=== PATIENT | male | born 1960 ===

== ENCOUNTER 2017-02-20 16:29 | Emergency (ER) | payer MEDICAID ==
[2017-02-20 16:30] VITALS: BMI 22.9
[2017-02-20] MEDS ORDERED: Sodium Chloride 0.9% 1,000 ML IV ONE (16:47)
[2017-02-20 17:18] LABS: BASO % 0.5 % (0.0-2.0); EOS # 0.1 K/uL (0.0-0.7); EOS % 4.6 % (0.0-4.0); LYMPH # 0.9 K/uL (1.0-4.3); LYMPH % 34.6 % (20.0-40.0); MEAN CELL VOLUME 93.4 fL (80.0-94.0); MEAN CORPUSCULAR HEMOGLOBIN 30.9 pg (27.0-31.0); MEAN CORPUSCULAR HGB CONC 33.1 g/dL (33.0-37.0); MEAN PLATELET VOLUME 6.7 fL (7.2-11.7); MONO # 0.3 K/uL (0.0-0.8); MONO % 11.5 % (0.0-10.0); NRBC % 0.2 % (0.0-2.0); RED CELL DISTRIBUTION WIDTH 15.6 % (11.5-14.5); WHITE BLOOD COUNT 2.6 K/uL (4.8-10.8)
[2017-02-20 17:22] LABS: VENOUS BLOOD GAS PCO2 42 mmHg (40-60)
[2017-02-20 17:23] LABS: CHLORIDE 99 mmol/L (98-107); SODIUM 134 mmol/L (132-148)
[2017-02-20 17:25] LABS: ALB/GLOB RATIO 1.2 (1.0-2.1); ALKALINE PHOSPHATASE 91 U/L (38-126); AST/SGOT 51 U/L (17-59); BILIRUBIN,TOTAL 0.9 mg/dL (0.2-1.3); CARBON DIOXIDE 24 mmol/L (22-30); GFR AFRICAN-AMERICAN > 60; TOTAL PROTEIN 6.5 g/dL (6.3-8.3)
[2017-02-20 17:26] LABS: ALT/SGPT 41 U/L (21-72); BLOOD UREA NITROGEN 10 mg/dL (9-20); CALCIUM 8.3 mg/dl (8.6-10.4); GLUCOSE,RANDOM 91 mg/dL (75-110)
[2017-02-20 18:04] LABS: RBC URINE < 1 /hpf (0-3); URINE BILIRUBIN NEGATIVE (NEGATIVE); URINE BLOOD NEGATIVE (NEGATIVE); URINE COLOR Yellow (YELLOW); URINE GLUCOSE (UA) NORMAL (Normal); URINE KETONE NEGATIVE (NEGATIVE); URINE LEUKOCYTE ESTERASE NEG Leu/uL (Negative); URINE PROTEIN NEGATIVE (NEGATIVE); WBC URINE < 1 /hpf (0-5)
[2017-02-20] MEDS ORDERED: Sodium Chloride 0.9% 1,000 ML ONE (18:04)
--- NOTE | 2017-02-20 19:19 | C.PDOC ---
Time Seen by Provider: 02/20/17 16:41 Chief Complaint (Nursing): Dizziness/Lightheaded History Per: Patient, Family, Civil Engineering Project Manager History/Exam Limitations: language barrier Onset/Duration Of Symptoms: Other (After chemotherapy infusion today) Current Symptoms Are (Timing): Better Number Of Syncopal Episodes: 1 Possible Causative Factor(s): Other (Chemotherapy infusion) Fall Associated With With Symptoms: No Severity: Moderate Additional History Per: Prior Records - Symptoms Of CVA Recent Head Trauma: No Past Medical History Reviewed: Historical Data, Nursing Documentation, Vital Signs Vital Signs: Last Vital Signs Temp 98.0 F 02/20/17 16:35 Pulse 77 02/20/17 18:45 Resp 16 02/20/17 18:45 BP 107/66 02/20/17 18:45 Pulse Ox 99 02/20/17 18:45 - Medical History PMH: Diabetes, HTN, Malignancy (Pancreas) Surgical History: Cholecystectomy - [facility] Procedures EXCISION OF PANCREAS, PERCUTANEOUS APPROACH, DIAGNOSTIC (09/20/16) FLUOROSCOPY OF R JUGULAR VEIN USING OT CONTRAST, GUIDANCE (09/20/16) INSERT INFUSION DEV IN R INT JUGULAR VEIN, PERC (09/20/16) RESECTION OF GALLBLADDER, PERCUTANEOUS ENDOSCOPIC APPROACH (12/05/15) Family History: States: Unknown Family Hx - Social History Hx Tobacco Use: No Hx Alcohol Use: Yes (history) Hx Substance Use: No - Immunization History Hx Tetanus Toxoid Vaccination: No Hx Influenza Vaccination: No Hx Pneumococcal Vaccination: No Review Of Systems Except As Marked, All Systems Reviewed And Found Negative. Constitutional: Negative for: Fever Cardiovascular: Positive for: Light Headedness. Negative for: Chest Pain Respiratory: Negative for: Shortness of Breath Gastrointestinal: Negative for: Vomiting, Abdominal Pain, Diarrhea Genitourinary: Negative for: Dysuria Musculoskeletal: Negative for: Neck Pain Skin: Negative for: Rash Neurological: Negative for: Weakness, Numbness, Seizures, Altered Mental Status , Headache Physical Exam - Physical Exam Appears: Non-toxic, No Acute Distress Skin: Normal Color, Warm, Dry, No Rash Head: Atraumatic, Normacephalic Eye(s): bilateral: PERRL, EOMI Neck: Normal ROM, Supple Chest: No Tenderness, Other ([place] in right chest) Cardiovascular: Rhythm Regular Respiratory: Normal Breath Sounds, No Accessory Muscle Use Gastrointestinal/Abdominal: Soft, No Tenderness Back: No CVA Tenderness Extremity: Normal ROM, No Pedal Edema, No Calf Tenderness Neurological/Psych: Oriented x3, Normal Motor, Normal Sensation ED Course And Treatment - Laboratory Results Result Diagrams: 02/20/17 17:09 02/20/17 17:09 O2 Sat by Pulse Oximetry: 99 Pulse Ox Interpretation: Normal Progress Note: Pt is now asymptomatic and wants to go home. Reassessment Condition: Improved Progress - Interventions Interventions:: Observation, Intravenous fluid - Data Reviewed Data Reviewed: Lab, Old records - Patient Status Patient status: Completely improved - Continuity of Care Discussed patient case with:: Patient, Family-HIPPA compliant, ED Nurse - Patient Plan Patient Plan: Discharge, F/U with PCP Disposition Counseled Patient/Family Regarding: Studies Performed, Diagnosis, Need For Followup - Disposition Referrals: Jonny Villatoro MD [Staff Provider] - Disposition: HOME/ ROUTINE Disposition Time: 19:20 Condition: IMPROVED Additional Instructions: Drink plenty of fluids. Follow up with your doctor. Return to the ER if you develop fever, dizziness, lethargy, worsening of symptoms or if you have any other concerns. Instructions: Hypotension (ED) Print Language: TELUGU - Clinical Impression Clinical Impression: Transient hypotension
[2017-02-20 19:40] VITALS: BP 132/76; PULSE 88; RESP 20; TEMP 98.1; O2SAT 100
--- NOTE | 2017-02-21 11:55 | CARD ---
APPROVED REPORT EKG Measurement Heart [id number] <Conclusion> Normal sinus rhythm Normal ECG
== END 2017-02-20 19:41 | disposition home or self-care (01) ==
LOC: C.ER 16:29
DX: I95.9 Hypotension, unspecified (principal)

== ENCOUNTER 2017-03-17 08:05 | Day surgery (SDC) | payer BC, MEDICAID ==
[2017-03-14 12:19] VITALS: BMI 22.1
[2017-03-17 09:01] VITALS: O2SAT 100
[2017-03-17] MEDS ORDERED: Midazolam 2 MG/2 ML VIAL ONE (09:30)
[2017-03-17] MEDS ORDERED: Absorbable Gelatin Sponge Size 12-7 ONE (10:25)
--- NOTE | 2017-03-17 10:41 | CP.SDSHP ---
Same Day Surgery H & P - History Proposed Procedure: Image guided biopsy of liver lesion Pre-Op Diagnosis: Metastatic pancreatic cancer - Allergies Allergies: Allergies No Known Allergies Allergy (Verified 10/02/16 19:22) - Physical Exam Vital Signs: Vital Signs 03/17/17 08:23 Temperature 97.9 F Pulse Rate 92 H Respiratory 20 Rate Blood Pressure 102/67 O2 Sat by Pulse 100 Oximetry Mental Status: Alert & Oriented x3 Neuro: WNL Heart: WNL Lungs: WNL - Impression Impression: Pt with pancreatic cancer and multiple subcentimeter liver lesions suspicious for metastatic cancer. Plan image guided core biopsy. Informed consent obtained. Pt. Evaluated Today:Candidate for Anesthesia & Procedure: Yes (ASA 3 Malampati 3) - Date & Time Date: 03/17/17 Time: 10:10 Short Stay Discharge - Short Stay Discharge Admitting Diagnosis/Reason for Visit: MALIGNANT NEOPLASM OF PANCREAS, UNSPECIFIED Disposition: HOME/ ROUTINE
--- NOTE | 2017-03-17 10:42 | PCM.SURG1 ---
Surgeon's Initial Post Op Note - Surgeon's Notes Surgeon: Mohsen Darby MD Vacuum Bottle Assembler: NONE Type of Anesthesia: IV Sedation Pre-Operative Diagnosis: Metastatic pancreatic cancer Operative Findings: CT showed multple 1 cm and subcentimeter lesions in the right liver. Several lesions are better seen with US. Post-Operative Diagnosis: Metastatic pancreatic cancer Operation Performed: Image guided core biopsy of right liver lesions using US and CT scan. Specimen/Specimens Removed: 20 gauge core x 3 Estimated Blood Loss: EBL {In ML}: 1 Blood Products Given: N/A Drains Used: No Drains Post-Op Condition: Fair Date of Surgery/Procedure: 03/17/17 Time of Surgery/Procedure: 10:40
[2017-03-17 11:12] VITALS: RESP 15
[2017-03-17 12:01] VITALS: BP 125/80; PULSE 85; TEMP 97.5
--- NOTE | 2017-03-17 14:09 | US ---
HISTORY: Pancreatic cancer and liver lesions COMPARISON: None. TECHNIQUE: Limited sonographic evaluation balloon was performed. FINDINGS: Several hypoechoic lesions are noted within the right hepatic lobe having a target like appearance measuring up to 1 centimeter. At least 4 hypoechoic lesions are present within the right hepatic lobe. IMPRESSION: Multiple hypoechoic lesions within the right hepatic lobe the largest of which measures 1 centimeter. Given history pancreatic cancer, these likely represent metastatic foci.
--- NOTE | 2017-03-17 14:12 | CT ---
PROCEDURE: Date of procedure: 03/17/2017 Procedure: 1. Guided-guided percutaneous core biopsy of liver lesion, 2. CT guidance for biopsy, Medications: The patient was sedated by the anesthesiologist with IV sedation and monitoring, 5 cc 1% lidocaine. HISTORY: Pancreatic cancer and liver lesions TECHNIQUE: Following informed consent, the Pt's Abdomen was marked. The Pt was placed left lateral position on the CT table and procedure time out was performed. A noncontrast CT scan confirmed the presence of the several sub centimeter hypodense lesion within the right hepatic lobe. The largest lesion measures centimeter. A skin localizer was placed on the patient's flank and a repeat CT scan performed. The skin was prepped and draped in the usual sterile fashion. After the patient was sedated by anesthesiologist and the skin anesthetized with 1% lidocaine, a 20 ge core needle was advanced percutaneously under ultrasound guidance guidance into the lesion. Upon confirmation of needle position, three core specimens were obtained and sent for routine pathology. The biopsy track was then embolized with Gelfoam. A post biopsy CT scan performed showed no hematoma. A dressing was applied. IMPRESSION: CT-guided core biopsy of right liver lesion.
== END 2017-03-17 11:58 | disposition home or self-care (01) ==
LOC: C.SPRAD 08:05
PROVIDERS: ATTEND Radiology Vascular & Interventional Radiology
DX: C78.7 Secondary malignant neoplasm of liver and intrahepatic bile duct (principal); C25.9 Malignant neoplasm of pancreas, unspecified
CPT/HCPCS: 47000; 76705; 77012; 82948; 88307; 88342; J2250; J3010

== ENCOUNTER 2017-04-28 23:50 | Inpatient (IN) | payer MEDICAID ==
[2017-04-28 23:50] VITALS: BMI 20.8
[2017-04-29] MEDS ORDERED: Sodium Chloride 0.9% 1,000 ML IV ONE ×3 (00:18→09:38)
--- NOTE | 2017-04-29 00:18 | C.PDOC ---
History Of Present Illness Patient presents to the ED accompanied by family with complaints of generalized weakness and fever beginning today at home. Patient states he received chemotherapy last week for pancreatic cancer with liver mets. Patient denies vomiting, diarrhea, or any pain at this time. Time Seen by Provider: 04/29/17 00:18 Chief Complaint (Nursing): Weakness/Neurological Deficit History Per: Patient History/Exam Limitations: no limitations Onset/Duration Of Symptoms: Hrs Current Symptoms Are (Timing): Still Present Severity: None Pain Scale Rating Of: 0 Recent travel outside of the [place]: No Additional History Per: Prior Records Past Medical History Reviewed: Historical Data, Nursing Documentation, Vital Signs Vital Signs: Last Vital Signs Temp 105.5 F H 04/29/17 00:16 Pulse 117 H 04/29/17 01:49 Resp 20 04/29/17 01:49 BP 74/47 L 04/29/17 01:49 Pulse Ox 98 04/29/17 01:49 - Medical History PMH: Diabetes, HTN, Malignancy (Pancreas) Surgical History: Cholecystectomy - [facility] Procedures EXCISION OF PANCREAS, PERCUTANEOUS APPROACH, DIAGNOSTIC (09/20/16) FLUOROSCOPY OF R JUGULAR VEIN USING [facility] CONTRAST, GUIDANCE (09/20/16) INSERT INFUSION DEV IN R INT JUGULAR VEIN, PERC (09/20/16) RESECTION OF GALLBLADDER, PERCUTANEOUS ENDOSCOPIC APPROACH (12/05/15) Family History: States: Unknown Family Hx - Social History Hx Tobacco Use: No Hx Alcohol Use: Yes (history) Hx Substance Use: No - Immunization History Hx Tetanus Toxoid Vaccination: No Hx Influenza Vaccination: No Hx Pneumococcal Vaccination: No Review Of Systems Constitutional: Positive for: Fever, Weakness. Negative for: Chills Cardiovascular: Negative for: Chest Pain, Palpitations Respiratory: Negative for: Cough, Shortness of Breath Gastrointestinal: Negative for: Nausea, Vomiting, Abdominal Pain, Diarrhea Skin: Positive for: Jaundice Physical Exam - Physical Exam Appears: Non-toxic, No Acute Distress Skin: Warm, Dry, Jaundice Eye(s): bilateral: Other (conjunctiva jaundice ) Oral Mucosa: Moist Neck: Supple Chest: Symmetrical, No Deformity Cardiovascular: Rhythm Regular Respiratory: No Rales, No Rhonchi, No Stridor, No Wheezing Gastrointestinal/Abdominal: Soft, No Tenderness, No Distention, No Guarding, No Rebound, Other (liver is two finger breaths below right coastal margin ) Extremity: Normal ROM, No Tenderness Neurological/Psych: Oriented x3 ED Course And Treatment - Laboratory Results Result Diagrams: 04/29/17 00:18 04/29/17 00:18 ECG: Interpreted By Me, Viewed By Me ECG Rhythm: Sinus Tachycardia (136), Nonspecific Changes (occ pvc's) O2 Sat by Pulse Oximetry: 98 (room air ) Pulse Ox Interpretation: Normal - Radiology CXR: Interpreted by Me, Viewed By Me CXR Interpretation: Yes: Other (port right chest). No: Infiltrates, Fracture, Pnemothorax Progress Note: spoke with dr pink - icu- will come and see the pt in the ed. spoke with family, hipaa compliant, are aware of lab results and admission Critical Care Time - Critical Care Note Total Time (in mins): 30 Documented critical care: time excludes all time spent performing seperately billable procedures. Disposition Discussed With : Isidoro Collier Comment: accepted the pt on his service and took over the care 2:15 AM Counseled Patient/Family Regarding: Studies Performed, Diagnosis - Disposition Disposition: HOSPITALIZED Disposition Time: 00:18 Condition: GUARDED - Clinical Impression Clinical Impression: Fever, Anemia, Thrombocytopenia, Pancreatic cancer, Sepsis - Scribe Statement The provider has reviewed the documentation as recorded by the Scribe Loni Posey All medical record entries made by the Scribe were at my direction and personally dictated by me. I have reviewed the chart and agree that the record accurately reflects my personal performance of the history, physical exam, medical decision making, and the department course for this patient. I have also personally directed, reviewed, and agree with the discharge instructions and disposition. Decision To Admit - Pt Status Changed To: Hospital Disposition Of: Inpatient - Admit Certification Admit to Inpatient:: After my assessment, the patient will require hospitalization for at least two midnights. This is because of the severity of symptoms shown, intensity of services needed, and/or the medical risk in this patient being treated as an outpatient. - InPatient: Physician Admission Certification: I certify that this patient requires 2 or more midnights of care for the following reason:: After my assessment, the patient will require hospitalization for at least two midnights. This is because of the severity of symptoms shown, intensity of services needed, and/or the medical risk in this patient being treated as an outpatient. - . Bed Request Type: ICU Admitting Physician: Isidoro Collier Patient Diagnosis: Fever, Anemia, Thrombocytopenia, Pancreatic cancer, Sepsis
[2017-04-29] MEDS ORDERED: Sodium Chloride 0.9% 2,000 ML IV ONE (00:23)
[2017-04-29 00:28] LABS: BASO % 0.2 % (0.0-2.0); EOS % 0.3 % (0.0-4.0); HEMOGLOBIN 9.8 g/dL (12.0-18.0); LYMPH # 0.3 K/uL (1.0-4.3); LYMPH % 6.2 % (20.0-40.0); MEAN CELL VOLUME 92.2 fL (80.0-94.0); MEAN CORPUSCULAR HEMOGLOBIN 30.2 pg (27.0-31.0); MEAN CORPUSCULAR HGB CONC 32.7 g/dL (33.0-37.0); MEAN PLATELET VOLUME 10.4 fL (7.2-11.7); MONO # 0.3 K/uL (0.0-0.8); MONO % 5.7 % (0.0-10.0); NEUT # 3.9 K/uL (1.8-7.0); NEUT % 87.6 % (50.0-75.0); RBC 3.26 Mil/uL (4.40-5.90); RED CELL DISTRIBUTION WIDTH 15.5 % (11.5-14.5); WHITE BLOOD COUNT 4.4 K/uL (4.8-10.8)
[2017-04-29 00:34] LABS: PLATELET COUNT 28 K/uL (130-400)
[2017-04-29 00:36] LABS: VENOUS BLOOD GAS BASE EXCESS -2.6 mmol/L (0.0-2.0); VENOUS BLOOD GAS PCO2 25 mmHg (40-60); VENOUS BLOOD GAS PO2 37 mm/Hg (30-55); VENOUS BLOOD PH 7.49 (7.32-7.43)
[2017-04-29 00:36] LABS: INR 1.7; PROTHROMBIN TIME 19.7 SECONDS (9.7-12.2)
[2017-04-29 00:37] LABS: ALBUMIN 2.6 g/dL (3.5-5.0)
[2017-04-29 00:40] LABS: ALB/GLOB RATIO 0.8 (1.0-2.1); ALT/SGPT 31 U/L (21-72); AST/SGOT 54 U/L (17-59); BLOOD UREA NITROGEN 13 mg/dL (9-20); GFR AFRICAN-AMERICAN > 60; GFR NON-AFRICAN AMERICAN > 60
[2017-04-29 00:41] LABS: CALCIUM 7.8 mg/dl (8.6-10.4); MAGNESIUM 1.7 mg/dL (1.6-2.3)
[2017-04-29 00:42] LABS: LIPASE < 10 U/L (23-300)
[2017-04-29] MEDS ORDERED: Piperacillin/Tazobact 3.375 gm 100 ML IVPB STA (00:42)
[2017-04-29] MEDS ORDERED: Piperacillin/Tazobact 3.375 gm 100 ML IVPB ONE (00:55)
[2017-04-29] MEDS ORDERED: Vancomycin 1 GM 1 GM/250 ML BAG IVPB STA (01:02)
[2017-04-29] MEDS ORDERED: Vancomycin 1 GM 1 GM/250 ML BAG IVPB ONE (01:25)
[2017-04-29 01:50] LABS: BANDS 2 % (0-2); LYMPHOCYTE 6 % (20-40); MONOCYTE 8 % (0-10); NEUTROPHIL 84 % (50-75); TOTAL CELLS COUNTED 100
[2017-04-29 01:51] LABS: ANISOCYTOSIS SLIGHT; HYPERSEGMENTATION PRESENT; PLATELET ESTIMATE MARKEDLY INCREASED (NORMAL)
[2017-04-29 01:52] LABS: POLYCHROMIC SLIGHT
[2017-04-29 02:57] LABS: VENOUS BLOOD GAS PCO2 31 mmHg (40-60); VENOUS BLOOD GAS PO2 38 mm/Hg (30-55); VENOUS BLOOD PH 7.41 (7.32-7.43)
--- NOTE | 2017-04-29 02:59 | CP.PCM.CON ---
History of Present Illness - History of Present Illness History of Present Illness: 57 y/o male with h/o DM, metastatic panxreatic carcinoma on chemotherapy presents to the ED accompanied by family with complaints of generalized weakness and fever beginning yesterday(about 1 hr prior to coming to ER). Patient states he received chemotherapy last week for pancreatic cancer with liver mets. Patient denies vomiting, diarrhea, cough,dysuria any pain at this time. states that urine is dark and has been urinating less.APetite poor last chemo 04/21/17 In ER patient hypotensive,Systolic BP after 4 L fluid is about 80mmHg.Tmax in ER 105.5 Review of Systems - Review of Systems Systems not reviewed;Unavailable: Unstable Vital Signs, Language Barrier - Constitutional Constitutional: Anorexia, Fatigue, Fever, Malaise, Weight Loss. absent: Chills , Headache - EENT Eyes: absent: Change in Vision, Itchy Eyes Ears: absent: Ear Discharge, Ear Pain, Dizziness Nose/Mouth/Throat: absent: Epistaxis, Nasal Congestion, Sore Throat, Neck Pain - Cardiovascular Cardiovascular: absent: Chest Pain, Dyspnea, Edema, Palpitations - Respiratory Respiratory: absent: Cough, Dyspnea, Chest Congestion - Gastrointestinal Gastrointestinal: absent: Change in Bowel Habits, Nausea, Vomiting - Genitourinary Genitourinary: As Per HPI. absent: Difficulty Urinating, Dysuria, Urinary Frequency - Musculoskeletal Musculoskeletal: absent: Joint Swelling - Neurological Neurological: Weakness. absent: Dizziness - Endocrine Endocrine: Fatigue - Hematologic/Lymphatic Hematologic: Easy Bruising Past Patient History - Infectious Disease Hx of Infectious Diseases: None - Past Medical History & Family History Past Medical History?: Yes - Past Social History Smoking Status: Former Smoker Occupation: retired high school coach Drugs: Denies Home Situation {Lives}: With Family - CARDIAC Hx Hypertension: Yes - PULMONARY Hx Respiratory Disorders: No - NEUROLOGICAL Hx Paralysis: No - HEENT Hx HEENT Problems: Yes Hx Cataracts: Yes - RENAL Hx Chronic Kidney Disease: No - ENDOCRINE/METABOLIC Hx Endocrine Disorders: Yes Hx Diabetes Insipidus: Yes Hx Diabetes Mellitus Type 2: Yes - HEMATOLOGICAL/ONCOLOGICAL Hx Blood Disorders: Yes Hx Blood Transfusions: No Hx Blood Transfusion Reaction: No Hx Cancer: Yes (Pancreatic) Hx Chemotherapy: Yes - INTEGUMENTARY Hx Dermatological Problems: No - MUSCULOSKELETAL/RHEUMATOLOGICAL Hx Musculoskeletal Disorders: No Hx Falls: No - GASTROINTESTINAL Hx Gastrointestinal Disorders: Yes Other/Comment: Pacreatic CA - GENITOURINARY/GYNECOLOGICAL Hx Genitourinary Disorders: No - PSYCHIATRIC Hx Substance Use: No - SURGICAL HISTORY Hx Cholecystectomy: Yes - ANESTHESIA Hx Anesthesia: Yes Hx Anesthesia Reactions: No Hx Malignant Hyperthermia: No Meds Allergies/Adverse Reactions: Allergies Allergy/AdvReac Type Severity Reaction Status Date / Time No Known Allergies Allergy Verified 10/02/16 19:22 - Medications Medications: Current Medications Sodium Chloride (Sodium Chloride 0.9%) 1,000 mls @ 1,000 mls/hr IV .Q1H ONE Stop: 04/29/17 02:47 Last Admin: 04/29/17 01:49 Dose: 1,000 mls/hr Physical Exam - Constitutional Appears: No Acute Distress, Chronically Ill - Head Exam Head Exam: ATRAUMATIC, NORMAL INSPECTION, NORMOCEPHALIC - Eye Exam Eye Exam: EOMI, Normal appearance, PERRL - ENT Exam ENT Exam: Mucous Membranes Dry, Normal Exam - Neck Exam Neck exam: Positive for: Normal Inspection. Negative for: Lymphadenopathy - Respiratory Exam Respiratory Exam: NORMAL BREATHING PATTERN. absent: Accessory Muscle Use, Rhonchi, Wheezes, Respiratory Distress, Stridor Additional comments: scattered rales left base - Cardiovascular Exam Cardiovascular Exam: Tachycardia. absent: JVD - GI/Abdominal Exam GI & Abdominal Exam: Normal Bowel Sounds, Soft. absent: Tenderness - Extremities Exam Extremities exam: Positive for: full ROM, normal inspection, pedal pulses present. Negative for: calf tenderness, pedal edema - Back Exam Back exam: NORMAL INSPECTION - Neurological Exam Neurological exam: Alert, Oriented x3 - Skin Skin Exam: Intact, Normal Color, Warm Results - Vital Signs Recent Vital Signs: Last Vital Signs Temp 100.3 F H 04/29/17 02:16 Pulse 112 H 04/29/17 02:16 Resp 20 04/29/17 02:16 BP 79/50 L 04/29/17 02:16 Pulse Ox 98 04/29/17 02:24 - Labs Result Diagrams: 04/29/17 00:18 04/29/17 00:18 Labs: Laboratory Results - last 24 hr 04/29/17 04/29/17 04/29/17 00:18 00:18 00:18 WBC 4.4 L RBC 3.26 L Hgb 9.8 L Hct 30.1 L MCV 92.2 MCH 30.2 MCHC 32.7 L RDW 15.5 H Plt Count 28 L* D MPV 10.4 Neut % (Auto) 87.6 H Lymph % (Auto) 6.2 L [place] % (Auto) 5.7 Eos % (Auto) 0.3 Baso % (Auto) 0.2 Neut # 3.9 Lymph # 0.3 L [place] # 0.3 Eos # 0.0 Baso # 0.0 Neutrophils % (Manual) 84 H Band Neutrophils % 2 Lymphocytes % (Manual) 6 L Monocytes % (Manual) 8 Hypersegmented Polys Present Platelet Estimate Markedly increased H Polychromasia Slight Anisocytosis (manual) Slight PT 19.7 H INR 1.7 APTT 31 pO2 VBG pH VBG pCO2 VBG HCO3 VBG Total CO2 VBG O2 Sat (Calc) VBG Base Excess VBG Potassium Glucose Lactate Crit Value Called To Crit Value Called By Crit Value Read Back Blood Gas Notified Time Sodium 125 L Potassium 3.8 Chloride 94 L Carbon Dioxide 18 L Anion Gap 17 BUN 13 Creatinine 0.6 L Est GFR ( Amer) > 60 Est GFR (Non-Af Amer) > 60 Random Glucose 137 H Calcium 7.8 L Magnesium 1.7 Total Bilirubin 1.4 H AST 54 ALT 31 Alkaline Phosphatase 220 H Total Protein 5.8 L Albumin 2.6 L Globulin 3.2 Albumin/Globulin Ratio 0.8 L Lipase < 10 L Venous Blood Potassium 04/29/17 00:32 WBC RBC Hgb Hct MCV MCH MCHC RDW Plt Count MPV Neut % (Auto) Lymph % (Auto) [place] % (Auto) Eos % (Auto) Baso % (Auto) Neut # Lymph # [place] # Eos # Baso # Neutrophils % (Manual) Band Neutrophils % Lymphocytes % (Manual) Monocytes % (Manual) Hypersegmented Polys Platelet Estimate Polychromasia Anisocytosis (manual) PT INR APTT pO2 37 VBG pH 7.49 H VBG pCO2 25 L VBG HCO3 22.3 VBG Total CO2 19.9 L VBG O2 Sat (Calc) 78.5 H VBG Base Excess -2.6 L VBG Potassium 3.9 Glucose 135 H Lactate 5.7 H* Crit Value Called To Dr cevallos Crit Value Called By Linda barros rt Crit Value Read Back Y Blood Gas Notified Time 37 Sodium 128.0 L Potassium Chloride 99.0 Carbon Dioxide Anion Gap BUN Creatinine Est GFR ( Amer) Est GFR (Non-Af Amer) Random Glucose Calcium Magnesium Total Bilirubin AST ALT Alkaline Phosphatase Total Protein Albumin Globulin Albumin/Globulin Ratio Lipase Venous Blood Potassium 3.9 - EKG Data EKG Interpreted by: Myself - Impressions Impression: Sinus tachycardia with occassional PVC - Imaging and Cardiology Chest x-ray Status: Image reviewed by me (No infiltrate) Assessment & Plan - Assessment and Plan (Free Text) Assessment: 1.Sepsis-Patient with fever,hypotension,elevated lactate Pancultures,antibiotics IVF,albumin 2.Pancreatic Ca with mets to the liver on Chemotherapy 3.Pancytopenia with plate count of 28,000 related to Chemotherapy f/u with rpt labs 4.Hyponatremia monitor elevtrolytes 5.Elevated LFT(alk phos,Bilirubin)-secondary to malignancy. 6.DM on insulin
[2017-04-29] MEDS ORDERED: Albumin Human 5% (12.5 gm/250 ml) IV ONE (03:05)
[2017-04-29] MEDS: Sodium Chloride 0.9% 1,000 ML IV SCH ×5 (03:43→23:15)
--- NOTE | 2017-04-29 06:11 | PCM.SEPTIC ---
Sepsis Progress Note - Reassessment Type Date of Evaluation: 04/29/17 Time of Evaluation: 06:05 Reassessment Type: Non-invasive reassessment - Non Invasive Reassessment Were the most recent vital sign reviewed: Yes Vital Sign (Latest): Temp Pulse Resp BP Pulse Ox 99.0 F 92 H 22 79/50 L 97 04/29/17 06:00 04/29/17 03:08 04/29/17 02:46 04/29/17 02:46 04/29/17 02:46 Cardiovascular: Yes: Regular Rate, Rhythm, Chest Non Tender. No: Edema, Gallop , JVD, Murmur, Bradycardia, Tachycardia, Ectopy, Friction Rub, Irregularly Irregular Respiratory: Yes: Normal Breath Sounds. No: Accessory Muscle Use, Crackles, Rhonchi, Stridor, Wheezing, Respiratory Distress Capillary Refill: Normal (Less than 2 sec) Pulses: Normal Radial, Normal Dorsalis Pedis, Normal Posterior Tibialis Skin: Normal Color, Warm - Invasive Reassessment (complete 2 of 4) Was a Central Venous Pressure Measurement obtained within 6 Hours after the presentation of septic shock: No Was a central venous oxygen measurement obtained within 6 hours after the presentation of septic shock: No Was a bedside cardiovascular ultrasound performed within 6 hours after the presentation of septic shock: No Fluid Challenge performed: No
[2017-04-29] MEDS: Piperacillin/Tazobact 3.375 GM in Sodium Chloride 100 ML IVPB SCH ×3 (06:17→22:25)
[2017-04-29 07:03] LABS: URINE BILIRUBIN NEGATIVE (NEGATIVE); URINE BLOOD NEGATIVE (NEGATIVE); URINE CLARITY Clear (Clear); URINE COLOR Amber (YELLOW); URINE GLUCOSE (UA) 1+ mg/dL (Normal); URINE LEUKOCYTE ESTERASE NEG Leu/uL (Negative); URINE NITRATE NEGATIVE (NEGATIVE); URINE PROTEIN NEGATIVE (NEGATIVE)
[2017-04-29 07:03] LABS: LYMPH # 0.2 K/uL (1.0-4.3); LYMPH % 3.5 % (20.0-40.0); MONO # 0.8 K/uL (0.0-0.8); NEUT # 4.8 K/uL (1.8-7.0); WHITE BLOOD COUNT 5.8 K/uL (4.8-10.8)
[2017-04-29 07:20] LABS: AST/SGOT 55 U/L (17-59); GFR AFRICAN-AMERICAN > 60; GFR NON-AFRICAN AMERICAN > 60
[2017-04-29 07:21] LABS: ALB/GLOB RATIO 0.8 (1.0-2.1); ALT/SGPT 37 U/L (21-72); BLOOD UREA NITROGEN 10 mg/dL (9-20); CALCIUM 6.4 mg/dl (8.6-10.4)
[2017-04-29 07:22] LABS: MAGNESIUM 1.5 mg/dL (1.6-2.3)
[2017-04-29 07:40] LABS: MEAN CELL VOLUME 92.4 fL (80.0-94.0); MEAN CORPUSCULAR HEMOGLOBIN 30.2 pg (27.0-31.0); MEAN CORPUSCULAR HGB CONC 32.7 g/dL (33.0-37.0); MONO % 13.4 % (0.0-10.0); NEUT % 83.1 % (50.0-75.0); RBC 2.35 Mil/uL (4.40-5.90); RED CELL DISTRIBUTION WIDTH 15.5 % (11.5-14.5)
[2017-04-29 07:43] LABS: HEMOGLOBIN 7.1 g/dL (12.0-18.0); PLATELET COUNT 13 K/uL (130-400)
[2017-04-29 09:11] LABS: BANDS 4 % (0-2); LYMPHOCYTE 5 % (20-40); MONOCYTE 13 % (0-10); NEUTROPHIL 77 % (50-75); PLATELET ESTIMATE MARKEDLY DECREASED (NORMAL); REACTIVE LYMPHOCYTES 1 % (0-0); TOTAL CELLS COUNTED 100
[2017-04-29 09:12] LABS: ANISOCYTOSIS SLIGHT
[2017-04-29 09:13] LABS: HYPOCHROMIC SLIGHT; OVALOCYTES SLIGHT; POIKILOCYTOSIS SLIGHT; POLYCHROMIC SLIGHT; TOXIC GRANULATION PRESENT
[2017-04-29] MEDS: (Novolin R) Insulin Human Regular 100 units/ml vial SC SCH ×3 (09:19→16:52)
[2017-04-29] MEDS: Acetaminophen 650mg/20.3ml solution UD PO PRN ×2 (09:30→19:05)
[2017-04-29] MEDS ORDERED: Potassium Chloride 20 mEq/15 ml LIQ UD PO ONE (09:36)
[2017-04-29] MEDS ORDERED: Magnesium Sulfate 1 gm in D5W 1 GM/100 ML BAG IVPB ONE (09:36)
--- NOTE | 2017-04-29 10:21 | RAD ---
PROCEDURE: CHEST RADIOGRAPH, 1 VIEW HISTORY: SOB COMPARISON: Chest radiograph dated 09/27/2016 FINDINGS: LUNGS: Poor inspiration with low lung volumes, mild crowded bronchovascular markings and mild bibasilar atelectasis right greater than left. Developing lower lobe infiltrate could be excluded with followup radiographs. No change right IJ MediPort tip in the SVC. PLEURA: No pneumothorax or pleural fluid seen. CARDIOVASCULAR: Heart size is upper limits of normal OSSEOUS STRUCTURES: Old healed fracture deformity right distal clavicle mild multilevel degenerative spondylosis of the thoracic spine with of mild the dextroscoliosis. VISUALIZED UPPER ABDOMEN: Normal. OTHER FINDINGS: None. IMPRESSION: Poor inspiration with low lung volumes, mild crowded bronchovascular markings and mild bibasilar atelectasis right greater than left. Developing lower lobe infiltrate could be excluded with followup radiographs. No change right IJ MediPort tip in the SVC.
[2017-04-29] MEDS ORDERED: Pantoprazole 80 MG in Sodium Chloride 0.9% 100 ML IVP SCH (16:15)
[2017-04-29] MEDS: Vancomycin 1 gm/NS 200 ml 1 GM/200 ML BAG IVPB SCH (17:00)
--- NOTE | 2017-04-29 21:56 | CP.PCM.HP ---
History of Present Illness - History of Present Illness History of Present Illness: CC: fever, colapse HPI: 57 y/o male with h/o DM, metastatic panxreatic carcinoma on chemotherapy presents to the ED accompanied by family with complaints of generalized weakness and fever beginning yesterday(about 1 hr prior to coming to ER). Patient states he received chemotherapy last week for pancreatic cancer with liver mets. Patient denies vomiting, diarrhea, cough,dysuria any pain at this time. states that urine is dark and has been urinating less.APetite poor last chemo 04/21/17 In ER patient hypotensive,Systolic BP after 4 L fluid is about 80mmHg.Tmax in ER 105.5 Present on Admission - Present on Admission Any Indicators Present on Admission: Yes Review of Systems - Review of Systems Systems not reviewed;Unavailable: Unstable Vital Signs - Constitutional Constitutional: Chills, Fatigue, Fever, Lethargy - EENT Eyes: absent: As Per HPI, Blind Spots, Blurred Vision, Change in Vision, Decreased Night Vision, Diplopia, Discharge, Dry Eye, Exophthalmos, Floaters, Irritation, Itchy Eyes, Loss of Peripheral Vision, Pain, Photophobia, Requires Corrective Lenses, Sees Flashes, Spots in Vision, Tunnel Vision, Other Visual Disturbances, Loss of Vision, Other Nose/Mouth/Throat: absent: As Per HPI, Epistaxis, Nasal Congestion, Nasal Discharge, Nasal Obstruction, Nasal Trauma, Nose Pain, Post Nasal Drip, Sinus Pain, Sinus Pressure, Bleeding Gums, Change in Voice, Dental Pain, Dry Mouth, Dysphagia, Halitosis, Hoarsness, Lip Swelling, Mouth Lesions, Mouth Pain, Odynophagia, Sore Throat, Throat Swelling, Tongue Swelling, Facial Pain, Neck Pain, Neck Mass, Other - Cardiovascular Cardiovascular: Dyspnea on Exertion, Lightheadedness - Respiratory Respiratory: absent: As Per HPI, Cough, Dyspnea, Hemoptysis, Dyspnea on Exertion , Wheezing, Snoring, Stridor, Pain on Inspiration, Chest Congestion, Excessive Mucous Production, Change in Mucous Color, Pain with Coughing, Other - Genitourinary Genitourinary: absent: As Per HPI, Change in Urinary Stream, Difficulty Urinating, Dysuria, Flank Pain, Hematuria, Pyuria, Nocturia, Urinary Incontinence, Urinary Frequency, Urinary Hesitance, Urinary Urgency, Voiding Freq/Small Amts, Freq UTI, Hx Renal/Bladder Calculi, Hx /Renal Surgery, Bladder Distension, Other - Neurological Neurological: Abnormal Gait, Dizziness, Weakness Past Patient History - Infectious Disease Hx of Infectious Diseases: None - Past Medical History & Family History Past Medical History?: Yes - Past Social History Smoking Status: Former Smoker - CARDIAC Hx Cardiac Disorders: Yes Hx Hypertension: Yes - PULMONARY Hx Respiratory Disorders: No - NEUROLOGICAL Hx Neurological Disorder: No Hx Paralysis: No - HEENT Hx HEENT Problems: Yes Hx Cataracts: Yes Other/Comment: eyeglasses for reading - RENAL Hx Chronic Kidney Disease: No - ENDOCRINE/METABOLIC Hx Endocrine Disorders: Yes Hx Diabetes Mellitus Type 2: Yes - HEMATOLOGICAL/ONCOLOGICAL Hx Blood Disorders: Yes Hx Cancer: Yes (Pancreatic) Hx Chemotherapy: Yes - INTEGUMENTARY Hx Dermatological Problems: No - MUSCULOSKELETAL/RHEUMATOLOGICAL Hx Musculoskeletal Disorders: No Hx Falls: No - GASTROINTESTINAL Hx Gastrointestinal Disorders: Yes Other/Comment: Pacreatic CA - GENITOURINARY/GYNECOLOGICAL Hx Genitourinary Disorders: No - PSYCHIATRIC Hx Psychophysiologic Disorder: No Hx Substance Use: No - SURGICAL HISTORY Hx Surgeries: Yes Hx Cholecystectomy: Yes Hx Vascular Access Device: Yes (R sub swetha cath) - ANESTHESIA Hx Anesthesia: Yes Hx Anesthesia Reactions: No Hx Malignant Hyperthermia: No Has any member of the family had a problem w/ anesthesia?: No Meds Allergies/Adverse Reactions: Allergies Allergy/AdvReac Type Severity Reaction Status Date / Time No Known Allergies Allergy Verified 10/02/16 19:22 Physical Exam - Constitutional Appears: Confused, Cachectic, Chronically Ill - Head Exam Head Exam: ATRAUMATIC, NORMAL INSPECTION, NORMOCEPHALIC - Eye Exam Eye Exam: EOMI, Normal appearance, PERRL Pupil Exam: NORMAL ACCOMODATION, PERRL - ENT Exam ENT Exam: Mucous Membranes Moist, Normal Exam - Neck Exam Neck exam: Positive for: Normal Inspection - Respiratory Exam Respiratory Exam: Clear to Auscultation Bilateral, NORMAL BREATHING PATTERN - Cardiovascular Exam Cardiovascular Exam: Tachycardia, +S1, +S4 - GI/Abdominal Exam GI & Abdominal Exam: Normal Bowel Sounds, Soft. absent: Tenderness Results - Vital Signs Recent Vital Signs: Last Vital Signs Temp 100.6 F H 04/29/17 20:50 Pulse 102 H 04/29/17 20:50 Resp 24 04/29/17 20:50 BP 108/63 04/29/17 20:50 Pulse Ox 100 04/29/17 20:08 - Labs Result Diagrams: 04/29/17 22:19 04/29/17 06:53 Labs: Laboratory Results - last 24 hr 04/29/17 04/29/17 04/29/17 02:52 06:53 06:53 WBC 5.8 RBC 2.35 L Hgb 7.1 L D Hct 21.7 L MCV 92.4 MCH 30.2 MCHC 32.7 L RDW 15.5 H Plt Count 13 L* D MPV 9.0 Neut % (Auto) 83.1 H Lymph % (Auto) 3.5 L [place] % (Auto) 13.4 H Eos % (Auto) 0.0 Baso % (Auto) 0.0 Neut # 4.8 Lymph # 0.2 L [place] # 0.8 Eos # 0.0 Baso # 0.0 Neutrophils % (Manual) 77 H Band Neutrophils % 4 H Lymphocytes % (Manual) 5 L Reactive Lymphs % 1 H Monocytes % (Manual) 13 H Toxic Granulation Present Platelet Estimate Markedly decreased L Polychromasia Slight Hypochromasia (manual) Slight Poikilocytosis (manual Slight Anisocytosis (manual) Slight Ovalocytes Slight pO2 38 VBG pH 7.41 VBG pCO2 31 L VBG HCO3 21.1 VBG Total CO2 20.6 L VBG O2 Sat (Calc) 79.0 H VBG Base Excess -4.0 L VBG Potassium 3.3 L Sodium 131.0 L 130 L Chloride 105.0 102 Glucose 96 Lactate 2.5 H Crit Value Called To Dr sal Crit Value Called By Linda barros rt Crit Value Read Back Y Blood Gas Notified Time 258 Potassium 3.3 L Carbon Dioxide 19 L Anion Gap 12 BUN 10 Creatinine 0.5 L Est GFR ( Amer) > 60 Est GFR (Non-Af Amer) > 60 POC Glucose (mg/dL) Random Glucose 93 Lactic Acid Calcium 6.4 L Phosphorus 2.0 L Magnesium 1.5 L Total Bilirubin 1.0 AST 55 ALT 37 Alkaline Phosphatase 147 H D Total Protein 4.5 L Albumin 2.0 L D Globulin 2.5 Albumin/Globulin Ratio 0.8 L Venous Blood Potassium 3.3 L Urine Color Urine Clarity Urine pH Ur Specific [place] Urine Protein Urine Glucose (UA) Urine Ketones Urine Blood Urine Nitrate Urine Bilirubin Urine Urobilinogen Ur Leukocyte Esterase Urine WBC (Auto) Urine RBC (Auto) Blood Type Blood Type Confirm Antibody Screen 04/29/17 04/29/17 04/29/17 06:55 06:56 10:48 WBC RBC Hgb Hct MCV MCH MCHC RDW Plt Count MPV Neut % (Auto) Lymph % (Auto) [place] % (Auto) Eos % (Auto) Baso % (Auto) Neut # Lymph # [place] # Eos # Baso # Neutrophils % (Manual) Band Neutrophils % Lymphocytes % (Manual) Reactive Lymphs % Monocytes % (Manual) Toxic Granulation Platelet Estimate Polychromasia Hypochromasia (manual) Poikilocytosis (manual Anisocytosis (manual) Ovalocytes pO2 VBG pH VBG pCO2 VBG HCO3 VBG Total CO2 VBG O2 Sat (Calc) VBG Base Excess VBG Potassium Sodium Chloride Glucose Lactate Crit Value Called To Crit Value Called By Crit Value Read Back Blood Gas Notified Time Potassium Carbon Dioxide Anion Gap BUN Creatinine Est GFR ( Amer) Est GFR (Non-Af Amer) POC Glucose (mg/dL) Random Glucose Lactic Acid 1.6 Calcium Phosphorus Magnesium Total Bilirubin AST ALT Alkaline Phosphatase Total Protein Albumin Globulin Albumin/Globulin Ratio Venous Blood Potassium Urine Color Charlene Urine Clarity Clear Urine pH 6.0 Ur Specific [place] 1.019 Urine Protein Negative Urine Glucose (UA) 1+ H Urine Ketones Negative Urine Blood Negative Urine Nitrate Negative Urine Bilirubin Negative Urine Urobilinogen 4.0 Ur Leukocyte Esterase Neg Urine WBC (Auto) 2 Urine RBC (Auto) < 1 Blood Type A POSITIVE Blood Type Confirm A POSITIVE Antibody Screen Negative 04/29/17 11:56 WBC RBC Hgb Hct MCV MCH MCHC RDW Plt Count MPV Neut % (Auto) Lymph % (Auto) [place] % (Auto) Eos % (Auto) Baso % (Auto) Neut # Lymph # [place] # Eos # Baso # Neutrophils % (Manual) Band Neutrophils % Lymphocytes % (Manual) Reactive Lymphs % Monocytes % (Manual) Toxic Granulation Platelet Estimate Polychromasia Hypochromasia (manual) Poikilocytosis (manual Anisocytosis (manual) Ovalocytes pO2 VBG pH VBG pCO2 VBG HCO3 VBG Total CO2 VBG O2 Sat (Calc) VBG Base Excess VBG Potassium Sodium Chloride Glucose Lactate Crit Value Called To Crit Value Called By Crit Value Read Back Blood Gas Notified Time Potassium Carbon Dioxide Anion Gap BUN Creatinine Est GFR ( Amer) Est GFR (Non-Af Amer) POC Glucose (mg/dL) 148 H Random Glucose Lactic Acid Calcium Phosphorus Magnesium Total Bilirubin AST ALT Alkaline Phosphatase Total Protein Albumin Globulin Albumin/Globulin Ratio Venous Blood Potassium Urine Color Urine Clarity Urine pH Ur Specific [place] Urine Protein Urine Glucose (UA) Urine Ketones Urine Blood Urine Nitrate Urine Bilirubin Urine Urobilinogen Ur Leukocyte Esterase Urine WBC (Auto) Urine RBC (Auto) Blood Type Blood Type Confirm Antibody Screen Assessment & Plan (1) Anemia Status: Acute (2) Fever Status: Acute (3) Pancreatic cancer Status: Acute (4) Sepsis Status: Acute
[2017-04-29 22:22] LABS: BASO % 0.1 % (0.0-2.0); EOS % 0.3 % (0.0-4.0); HEMOGLOBIN 7.9 g/dL (12.0-18.0); LYMPH # 0.2 K/uL (1.0-4.3); LYMPH % 2.1 % (20.0-40.0); MEAN CELL VOLUME 88.5 fL (80.0-94.0); MEAN CORPUSCULAR HEMOGLOBIN 29.8 pg (27.0-31.0); MEAN CORPUSCULAR HGB CONC 33.7 g/dL (33.0-37.0); MEAN PLATELET VOLUME 8.6 fL (7.2-11.7); MONO # 0.4 K/uL (0.0-0.8); MONO % 5.7 % (0.0-10.0); NEUT # 6.6 K/uL (1.8-7.0); NEUT % 91.8 % (50.0-75.0); RBC 2.66 Mil/uL (4.40-5.90); RED CELL DISTRIBUTION WIDTH 17.5 % (11.5-14.5); WHITE BLOOD COUNT 7.2 K/uL (4.8-10.8)
[2017-04-29 22:29] LABS: PLATELET COUNT 29 K/uL (130-400)
[2017-04-29 22:56] LABS: BANDS 8 % (0-2); LYMPHOCYTE 1 % (20-40); METAMYELOCYTE 1 % (0-0); MONOCYTE 2 % (0-10); NEUTROPHIL 88 % (50-75); PLATELET ESTIMATE MARKEDLY DECREASED (NORMAL); TOTAL CELLS COUNTED 100
[2017-04-29 22:57] LABS: ANISOCYTOSIS SLIGHT; MICROCYTOSIS SLIGHT; POIKILOCYTOSIS SLIGHT
--- NOTE | 2017-04-29 23:32 | CP.PCM.CON ---
History of Present Illness - History of Present Illness History of Present Illness: INFECTIOUS DISEASE CONSULT; HPI; 57-year-old male with history of metastatic pancreatic CA with metastases to the liver, diabetes mellitus, on chemotherapy who presented to [facility] ER complaining of generalized weakness and fever of 1 day duration. Patient had received chemotherapy last week for pancreatic cancer. In the ER patient was hypotensive with temperature of 105.5 and systolic blood pressure after 4 L of fluid about 80 mmHg. Patient elected acid was 5.7. Patient also was found to be pancytopenic with platelet count of 13 and WBC count of 5.8. Patient was placed on pressors, IV fluids and broad-spectrum antibiotics including Zosyn 3.375 every 8 hourly and vancomycin 1 g every 12 hourly was initiated. Patient also has a right IJ port. Chest x-ray on admission questionable left lower lobe infiltrate versus atelectasis. Patient denies any cough, nausea or vomiting or diarrhea. Patient's blood cultures 2 out of 2 sets reported positive for gram-negative rods. Infectious disease consultation requested by PMD for further evaluation for sepsis and hypotension and hyperpyrexia. PMH: Diabetes, HTN, Malignancy (Pancreas) Surgical History: Cholecystectomy - [facility] Procedures EXCISION OF PANCREAS, PERCUTANEOUS APPROACH, DIAGNOSTIC (09/20/16) FLUOROSCOPY OF R JUGULAR VEIN USING [facility] CONTRAST, GUIDANCE (09/20/16) INSERT INFUSION DEV IN R INT JUGULAR VEIN, PERC (09/20/16) RESECTION OF GALLBLADDER, PERCUTANEOUS ENDOSCOPIC APPROACH (12/05/15) Family History: States: Unknown Family Hx - Social History Hx Tobacco Use: No Hx Alcohol Use: Yes (history) Hx Substance Use: No Review of Systems - Constitutional Constitutional: Chills, Fever - EENT Eyes: absent: Change in Vision Nose/Mouth/Throat: absent: Mouth Lesions - Cardiovascular Cardiovascular: absent: Chest Pain - Respiratory Respiratory: absent: Cough - Gastrointestinal Gastrointestinal: Abdominal Pain, Loose Stools, Melena. absent: Nausea, Vomiting - Genitourinary Genitourinary: absent: Dysuria, Hematuria - Neurological Neurological: absent: Headaches - Hematologic/Lymphatic Hematologic: As Per HPI Past Patient History - Infectious Disease Hx of Infectious Diseases: None - Past Medical History & Family History Past Medical History?: Yes - Past Social History Smoking Status: Former Smoker - CARDIAC Hx Cardiac Disorders: Yes Hx Hypertension: Yes - PULMONARY Hx Respiratory Disorders: No - NEUROLOGICAL Hx Neurological Disorder: No Hx Paralysis: No - HEENT Hx HEENT Problems: Yes Hx Cataracts: Yes Other/Comment: eyeglasses for reading - RENAL Hx Chronic Kidney Disease: No - ENDOCRINE/METABOLIC Hx Endocrine Disorders: Yes Hx Diabetes Mellitus Type 2: Yes - HEMATOLOGICAL/ONCOLOGICAL Hx Blood Disorders: Yes Hx Cancer: Yes (Pancreatic) Hx Chemotherapy: Yes - INTEGUMENTARY Hx Dermatological Problems: No - MUSCULOSKELETAL/RHEUMATOLOGICAL Hx Musculoskeletal Disorders: No Hx Falls: No - GASTROINTESTINAL Hx Gastrointestinal Disorders: Yes Other/Comment: Pacreatic CA - GENITOURINARY/GYNECOLOGICAL Hx Genitourinary Disorders: No - PSYCHIATRIC Hx Psychophysiologic Disorder: No Hx Substance Use: No - SURGICAL HISTORY Hx Surgeries: Yes Hx Cholecystectomy: Yes Hx Vascular Access Device: Yes (R sub swetha cath) - ANESTHESIA Hx Anesthesia: Yes Hx Anesthesia Reactions: No Hx Malignant Hyperthermia: No Has any member of the family had a problem w/ anesthesia?: No Meds Allergies/Adverse Reactions: Allergies Allergy/AdvReac Type Severity Reaction Status Date / Time No Known Allergies Allergy Verified 10/02/16 19:22 - Medications Medications: Current Medications Acetaminophen (Tylenol 650 Mg Supp) 650 mg CO Q6 PRN PRN Reason: fever 100.4F and above Piperacillin Sod/Tazobactam (Sod 3.375 gm/ Sodium Chloride) 100 mls @ 200 mls/ hr IVPB Q8H [facility] Last Admin: 04/29/17 22:25 Dose: 200 mls/hr Sodium Chloride (Sodium Chloride 0.9%) 1,000 mls @ 200 mls/hr IV .Q5H [facility] Last Admin: 04/29/17 18:16 Dose: Not Given Norepinephrine Bitartrate 4 mg (/ Sodium Chloride) 254 mls @ 15.24 mls/hr IV .[id number] PRN; Protocol; 4 MCG/MIN PRN Reason: TITRATE PER MD ORDER Last Titration: 04/29/17 23:01 Dose: 1 mcg/min, 3.81 mls/hr Vancomycin/Sodium Chloride (Vancocin) 1 gm in 200 mls @ 166.7 mls/hr IVPB Q12H [facility] Stop: 05/04/17 13:01 Last Admin: 04/29/17 17:00 Dose: 166.7 mls/hr Pantoprazole Sodium 80 mg/ (Sodium Chloride) 100 mls @ 10 mls/hr IVP .Q10H [facility] PRN Reason: 8 MG/HR Last Admin: 04/29/17 17:00 Dose: 10 mls/hr Insulin Human Regular (Novolin R) 0 unit SC Q6H [facility] PRN Reason: Protocol Meperidine HCl (Demerol) 25 mg IV ONCE PRN PRN Reason: Restlessness Stop: 04/29/17 23:59 Physical Exam - Constitutional Appears: No Acute Distress - Eye Exam Eye Exam: EOMI, PERRL. absent: Nystagmus - ENT Exam ENT Exam: Normal Oropharynx - Neck Exam Neck exam: Positive for: Normal Inspection - Respiratory Exam Respiratory Exam: Decreased Breath Sounds - Cardiovascular Exam Cardiovascular Exam: REGULAR RHYTHM, +S1, +S2 Additional comments: rt. swetha cath in place. site ok. - GI/Abdominal Exam GI & Abdominal Exam: Hypoactive Bowel Sounds, Soft, Tenderness (epigastric) - Extremities Exam Extremities exam: Positive for: pedal pulses present. Negative for: calf tenderness, tenderness - Back Exam Back exam: NORMAL INSPECTION - Neurological Exam Neurological exam: Alert, CN II-XII Intact, Reflexes Normal - Psychiatric Exam Psychiatric exam: Normal Mood - Skin Skin Exam: Pallor, Warm Results - Vital Signs Recent Vital Signs: Last Vital Signs Temp 100.6 F H 04/29/17 20:50 Pulse 102 H 04/29/17 20:50 Resp 24 04/29/17 20:50 BP 108/63 04/29/17 20:50 Pulse Ox 100 04/29/17 20:08 - Labs Result Diagrams: 04/30/17 15:05 04/30/17 05:17 Labs: Laboratory Results - last 24 hr 04/29/17 04/29/17 04/29/17 02:52 06:53 06:53 WBC 5.8 RBC 2.35 L Hgb 7.1 L D Hct 21.7 L MCV 92.4 MCH 30.2 MCHC 32.7 L RDW 15.5 H Plt Count 13 L* D MPV 9.0 Neut % (Auto) 83.1 H Lymph % (Auto) 3.5 L [place] % (Auto) 13.4 H Eos % (Auto) 0.0 Baso % (Auto) 0.0 Neut # 4.8 Lymph # 0.2 L [place] # 0.8 Eos # 0.0 Baso # 0.0 Neutrophils % (Manual) 77 H Band Neutrophils % 4 H Lymphocytes % (Manual) 5 L Reactive Lymphs % 1 H Monocytes % (Manual) 13 H Metamyelocytes % Toxic Granulation Present Platelet Estimate Markedly decreased L Polychromasia Slight Hypochromasia (manual) Slight Poikilocytosis (manual Slight Anisocytosis (manual) Slight Microcytosis (manual) Ovalocytes Slight pO2 38 VBG pH 7.41 VBG pCO2 31 L VBG HCO3 21.1 VBG Total CO2 20.6 L VBG O2 Sat (Calc) 79.0 H VBG Base Excess -4.0 L VBG Potassium 3.3 L Sodium 131.0 L 130 L Chloride 105.0 102 Glucose 96 Lactate 2.5 H Crit Value Called To Dr sal Crit Value Called By Linda barros rt Crit Value Read Back Y Blood Gas Notified Time 258 Potassium 3.3 L Carbon Dioxide 19 L Anion Gap 12 BUN 10 Creatinine 0.5 L Est GFR ( Amer) > 60 Est GFR (Non-Af Amer) > 60 POC Glucose (mg/dL) Random Glucose 93 Lactic Acid Calcium 6.4 L Phosphorus 2.0 L Magnesium 1.5 L Total Bilirubin 1.0 AST 55 ALT 37 Alkaline Phosphatase 147 H D Total Protein 4.5 L Albumin 2.0 L D Globulin 2.5 Albumin/Globulin Ratio 0.8 L Venous Blood Potassium 3.3 L Urine Color Urine Clarity Urine pH Ur Specific [place] Urine Protein Urine Glucose (UA) Urine Ketones Urine Blood Urine Nitrate Urine Bilirubin Urine Urobilinogen Ur Leukocyte Esterase Urine WBC (Auto) Urine RBC (Auto) Blood Type Blood Type Confirm Antibody Screen 04/29/17 04/29/17 04/29/17 06:55 06:56 10:48 WBC RBC Hgb Hct MCV MCH MCHC RDW Plt Count MPV Neut % (Auto) Lymph % (Auto) [place] % (Auto) Eos % (Auto) Baso % (Auto) Neut # Lymph # [place] # Eos # Baso # Neutrophils % (Manual) Band Neutrophils % Lymphocytes % (Manual) Reactive Lymphs % Monocytes % (Manual) Metamyelocytes % Toxic Granulation Platelet Estimate Polychromasia Hypochromasia (manual) Poikilocytosis (manual Anisocytosis (manual) Microcytosis (manual) Ovalocytes pO2 VBG pH VBG pCO2 VBG HCO3 VBG Total CO2 VBG O2 Sat (Calc) VBG Base Excess VBG Potassium Sodium Chloride Glucose Lactate Crit Value Called To Crit Value Called By Crit Value Read Back Blood Gas Notified Time Potassium Carbon Dioxide Anion Gap BUN Creatinine Est GFR ( Amer) Est GFR (Non-Af Amer) POC Glucose (mg/dL) Random Glucose Lactic Acid 1.6 Calcium Phosphorus Magnesium Total Bilirubin AST ALT Alkaline Phosphatase Total Protein Albumin Globulin Albumin/Globulin Ratio Venous Blood Potassium Urine Color [place] Urine Clarity Clear Urine pH 6.0 Ur Specific [place] 1.019 Urine Protein Negative Urine Glucose (UA) 1+ H Urine Ketones Negative Urine Blood Negative Urine Nitrate Negative Urine Bilirubin Negative Urine Urobilinogen 4.0 Ur Leukocyte Esterase Neg Urine WBC (Auto) 2 Urine RBC (Auto) < 1 Blood Type A POSITIVE Blood Type Confirm A POSITIVE Antibody Screen Negative 04/29/17 04/29/17 11:56 22:19 WBC 7.2 RBC 2.66 L Hgb 7.9 L Hct 23.5 L MCV 88.5 D MCH 29.8 MCHC 33.7 RDW 17.5 H Plt Count 29 L* D MPV 8.6 Neut % (Auto) 91.8 H Lymph % (Auto) 2.1 L [place] % (Auto) 5.7 Eos % (Auto) 0.3 Baso % (Auto) 0.1 Neut # 6.6 Lymph # 0.2 L [place] # 0.4 Eos # 0.0 Baso # 0.0 Neutrophils % (Manual) 88 H Band Neutrophils % 8 H Lymphocytes % (Manual) 1 L Reactive Lymphs % Monocytes % (Manual) 2 Metamyelocytes % 1 H Toxic Granulation Platelet Estimate Markedly decreased L Polychromasia Hypochromasia (manual) Poikilocytosis (manual Slight Anisocytosis (manual) Slight Microcytosis (manual) Slight Ovalocytes pO2 VBG pH VBG pCO2 VBG HCO3 VBG Total CO2 VBG O2 Sat (Calc) VBG Base Excess VBG Potassium Sodium Chloride Glucose Lactate Crit Value Called To Crit Value Called By Crit Value Read Back Blood Gas Notified Time Potassium Carbon Dioxide Anion Gap BUN Creatinine Est GFR ( Amer) Est GFR (Non-Af Amer) POC Glucose (mg/dL) 148 H Random Glucose Lactic Acid Calcium Phosphorus Magnesium Total Bilirubin AST ALT Alkaline Phosphatase Total Protein Albumin Globulin Albumin/Globulin Ratio Venous Blood Potassium Urine Color Urine Clarity Urine pH Ur Specific [place] Urine Protein Urine Glucose (UA) Urine Ketones Urine Blood Urine Nitrate Urine Bilirubin Urine Urobilinogen Ur Leukocyte Esterase Urine WBC (Auto) Urine RBC (Auto) Blood Type Blood Type Confirm Antibody Screen - Imaging and Cardiology Chest x-ray Status: Report reviewed by me (?left lower lobe infiltrate versus atelectasis..) Assessment & Plan (1) Gram negative septic shock Assessment and Plan: f/u cultures. continue iv ZOSYN 3.375MG Q8HRLY. CONTINUE IV VANCOMYCIN 1GM IV Q 12HRLY . ADD IV 1 DOSE AZACTAM 1GM TODAY, F/U H/H Status: Acute (2) Fever Assessment and Plan: PT ON ABX , F/U CULTURES SOURCE OF FEVER ?GI VS cannot r/o CRBSI. Status: Acute (3) Anemia Assessment and Plan: F/U H/H Status: Acute (4) Pancreatic cancer Assessment and Plan: ON CHEMOTHERAPHY. received chemotherapy last week. Status: Acute (5) Diabetes mellitus Status: Chronic (6) Thrombocytopenia Assessment and Plan: PT RECEIVED I UNIT FFP/I UNIT PRBC PER HEMATOLOGY/ONCOLOGY. F/U H/H AND PLATELETS. Status: Acute
[2017-04-30] MEDS ORDERED: Aztreonam 1 GM in Sodium Chloride 0.9% 100 ML IVPB ONE (00:17)
[2017-04-30] MEDS: Sodium Chloride 0.9% 1,000 ML IV SCH ×5 (00:28→20:22)
[2017-04-30] MEDS: (Novolin R) Insulin Human Regular 100 units/ml vial SC SCH ×4 (01:15→18:04)
--- NOTE | 2017-04-30 01:24 | CP.PCM.CON ---
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 The patient reports to subjective fevers and chills with progressive fatigue. He was brought to the ER and was found to be febrile and hypotensive. He is currently being treated for gram negative sepsis in the ICU. Past medical history: pancreatic cancer Past surgical history: portacath placement Family history: Denies hematologic and oncologic problems Social history: Denies tobacco, alcohol, and illicit drug use. Allergies: NKA Review of systems: All remaining review of systems including HEENT, cardiovascular, respiratory, gastrointestinal, genitournary, musculoskeletal, dermatologic, neurologic, and psychiatric are negative unless mentioned in the HPI. Past Patient History - Infectious Disease Hx of Infectious Diseases: None - Past Medical History & Family History Past Medical History?: Yes - Past Social History Smoking Status: Former Smoker - CARDIAC Hx Cardiac Disorders: Yes Hx Hypertension: Yes - PULMONARY Hx Respiratory Disorders: No - NEUROLOGICAL Hx Neurological Disorder: No Hx Paralysis: No - HEENT Hx HEENT Problems: Yes Hx Cataracts: Yes Other/Comment: eyeglasses for reading - RENAL Hx Chronic Kidney Disease: No - ENDOCRINE/METABOLIC Hx Endocrine Disorders: Yes Hx Diabetes Mellitus Type 2: Yes - HEMATOLOGICAL/ONCOLOGICAL Hx Blood Disorders: Yes Hx Cancer: Yes (Pancreatic) Hx Chemotherapy: Yes - INTEGUMENTARY Hx Dermatological Problems: No - MUSCULOSKELETAL/RHEUMATOLOGICAL Hx Musculoskeletal Disorders: No Hx Falls: No - GASTROINTESTINAL Hx Gastrointestinal Disorders: Yes Other/Comment: Pacreatic CA - GENITOURINARY/GYNECOLOGICAL Hx Genitourinary Disorders: No - PSYCHIATRIC Hx Psychophysiologic Disorder: No Hx Substance Use: No - SURGICAL HISTORY Hx Surgeries: Yes Hx Cholecystectomy: Yes Hx Vascular Access Device: Yes (R sub swetha cath) - ANESTHESIA Hx Anesthesia: Yes Hx Anesthesia Reactions: No Hx Malignant Hyperthermia: No Has any member of the family had a problem w/ anesthesia?: No Meds Allergies/Adverse Reactions: Allergies Allergy/AdvReac Type Severity Reaction Status Date / Time No Known Allergies Allergy Verified 10/02/16 19:22 - Medications Medications: Current Medications Acetaminophen (Tylenol 650 Mg Supp) 650 mg DC Q6 PRN PRN Reason: fever 100.4F and above Piperacillin Sod/Tazobactam (Sod 3.375 gm/ Sodium Chloride) 100 mls @ 200 mls/ hr IVPB Q8H [facility] Last Admin: 04/29/17 22:25 Dose: 200 mls/hr Sodium Chloride (Sodium Chloride 0.9%) 1,000 mls @ 200 mls/hr IV .Q5H [facility] Last Admin: 04/30/17 00:28 Dose: 200 mls/hr Norepinephrine Bitartrate 4 mg (/ Sodium Chloride) 254 mls @ 15.24 mls/hr IV .[id number] PRN; Protocol; 4 MCG/MIN PRN Reason: TITRATE PER MD ORDER Last Titration: 04/30/17 00:04 Dose: 0 mcg/min, 0 mls/hr Vancomycin/Sodium Chloride (Vancocin) 1 gm in 200 mls @ 166.7 mls/hr IVPB Q12H [facility] Stop: 05/04/17 13:01 Last Admin: 04/29/17 17:00 Dose: 166.7 mls/hr Pantoprazole Sodium 80 mg/ (Sodium Chloride) 100 mls @ 10 mls/hr IVP .Q10H [facility] PRN Reason: 8 MG/HR Last Admin: 04/29/17 17:00 Dose: 10 mls/hr Insulin Human Regular (Novolin R) 0 unit SC Q6H [facility] PRN Reason: Protocol Last Admin: 04/30/17 01:15 Dose: 1 unit Physical Exam - Head Exam Head Exam: ATRAUMATIC - Eye Exam Eye Exam: Normal appearance - ENT Exam ENT Exam: Mucous Membranes Dry - Respiratory Exam Respiratory Exam: NORMAL BREATHING PATTERN - Cardiovascular Exam Cardiovascular Exam: +S1, +S2 - GI/Abdominal Exam GI & Abdominal Exam: Normal Bowel Sounds - Extremities Exam Extremities exam: Positive for: normal inspection - Neurological Exam Neurological exam: Oriented x3 - Psychiatric Exam Psychiatric exam: Normal Affect, Normal Mood - Skin Skin Exam: Warm Results - Vital Signs Recent Vital Signs: Last Vital Signs Temp 98.3 F 04/30/17 00:00 Pulse 80 04/30/17 00:20 Resp 18 04/30/17 00:20 BP 113/68 04/29/17 23:59 Pulse Ox 100 04/30/17 00:20 - Labs Result Diagrams: 04/30/17 15:05 04/30/17 05:17 Labs: Laboratory Results - last 24 hr 04/29/17 04/29/17 04/29/17 02:52 06:53 06:53 WBC 5.8 RBC 2.35 L Hgb 7.1 L D Hct 21.7 L MCV 92.4 MCH 30.2 MCHC 32.7 L RDW 15.5 H Plt Count 13 L* D MPV 9.0 Neut % (Auto) 83.1 H Lymph % (Auto) 3.5 L Allen % (Auto) 13.4 H Eos % (Auto) 0.0 Baso % (Auto) 0.0 Neut # 4.8 Lymph # 0.2 L Allen # 0.8 Eos # 0.0 Baso # 0.0 Neutrophils % (Manual) 77 H Band Neutrophils % 4 H Lymphocytes % (Manual) 5 L Reactive Lymphs % 1 H Monocytes % (Manual) 13 H Metamyelocytes % Toxic Granulation Present Platelet Estimate Markedly decreased L Polychromasia Slight Hypochromasia (manual) Slight Poikilocytosis (manual Slight Anisocytosis (manual) Slight Microcytosis (manual) Ovalocytes Slight pO2 38 VBG pH 7.41 VBG pCO2 31 L VBG HCO3 21.1 VBG Total CO2 20.6 L VBG O2 Sat (Calc) 79.0 H VBG Base Excess -4.0 L VBG Potassium 3.3 L Sodium 131.0 L 130 L Chloride 105.0 102 Glucose 96 Lactate 2.5 H Crit Value Called To Dr sal Crit Value Called By Linda barros rt Crit Value Read Back Y Blood Gas Notified Time 258 Potassium 3.3 L Carbon Dioxide 19 L Anion Gap 12 BUN 10 Creatinine 0.5 L Est GFR ( Amer) > 60 Est GFR (Non-Af Amer) > 60 POC Glucose (mg/dL) Random Glucose 93 Lactic Acid Calcium 6.4 L Phosphorus 2.0 L Magnesium 1.5 L Total Bilirubin 1.0 AST 55 ALT 37 Alkaline Phosphatase 147 H D Total Protein 4.5 L Albumin 2.0 L D Globulin 2.5 Albumin/Globulin Ratio 0.8 L Venous Blood Potassium 3.3 L Urine Color Urine Clarity Urine pH Ur Specific [place] Urine Protein Urine Glucose (UA) Urine Ketones Urine Blood Urine Nitrate Urine Bilirubin Urine Urobilinogen Ur Leukocyte Esterase Urine WBC (Auto) Urine RBC (Auto) Blood Type Blood Type Confirm Antibody Screen 07/02/1004/29/17 04/29/17 06:55 06:56 10:48 WBC RBC Hgb Hct MCV MCH MCHC RDW Plt Count MPV Neut % (Auto) Lymph % (Auto) Allen % (Auto) Eos % (Auto) Baso % (Auto) Neut # Lymph # Allen # Eos # Baso # Neutrophils % (Manual) Band Neutrophils % Lymphocytes % (Manual) Reactive Lymphs % Monocytes % (Manual) Metamyelocytes % Toxic Granulation Platelet Estimate Polychromasia Hypochromasia (manual) Poikilocytosis (manual Anisocytosis (manual) Microcytosis (manual) Ovalocytes pO2 VBG pH VBG pCO2 VBG HCO3 VBG Total CO2 VBG O2 Sat (Calc) VBG Base Excess VBG Potassium Sodium Chloride Glucose Lactate Crit Value Called To Crit Value Called By Crit Value Read Back Blood Gas Notified Time Potassium Carbon Dioxide Anion Gap BUN Creatinine Est GFR ( Amer) Est GFR (Non-Af Amer) POC Glucose (mg/dL) Random Glucose Lactic Acid 1.6 Calcium Phosphorus Magnesium Total Bilirubin AST ALT Alkaline Phosphatase Total Protein Albumin Globulin Albumin/Globulin Ratio Venous Blood Potassium Urine Color Charlene Urine Clarity Clear Urine pH 6.0 Ur Specific [place] 1.019 Urine Protein Negative Urine Glucose (UA) 1+ H Urine Ketones Negative Urine Blood Negative Urine Nitrate Negative Urine Bilirubin Negative Urine Urobilinogen 4.0 Ur Leukocyte Esterase Neg Urine WBC (Auto) 2 Urine RBC (Auto) < 1 Blood Type A POSITIVE Blood Type Confirm A POSITIVE Antibody Screen Negative 04/29/17 04/29/17 04/30/17 11:56 22:19 00:53 WBC 7.2 RBC 2.66 L Hgb 7.9 L Hct 23.5 L MCV 88.5 D MCH 29.8 MCHC 33.7 RDW 17.5 H Plt Count 29 L* D MPV 8.6 Neut % (Auto) 91.8 H Lymph % (Auto) 2.1 L Allen % (Auto) 5.7 Eos % (Auto) 0.3 Baso % (Auto) 0.1 Neut # 6.6 Lymph # 0.2 L Allen # 0.4 Eos # 0.0 Baso # 0.0 Neutrophils % (Manual) 88 H Band Neutrophils % 8 H Lymphocytes % (Manual) 1 L Reactive Lymphs % Monocytes % (Manual) 2 Metamyelocytes % 1 H Toxic Granulation Platelet Estimate Markedly decreased L Polychromasia Hypochromasia (manual) Poikilocytosis (manual Slight Anisocytosis (manual) Slight Microcytosis (manual) Slight Ovalocytes pO2 VBG pH VBG pCO2 VBG HCO3 VBG Total CO2 VBG O2 Sat (Calc) VBG Base Excess VBG Potassium Sodium Chloride Glucose Lactate Crit Value Called To Crit Value Called By Crit Value Read Back Blood Gas Notified Time Potassium Carbon Dioxide Anion Gap BUN Creatinine Est GFR ( Amer) Est GFR (Non-Af Amer) POC Glucose (mg/dL) 148 H 161 H Random Glucose Lactic Acid Calcium Phosphorus Magnesium Total Bilirubin AST ALT Alkaline Phosphatase Total Protein Albumin Globulin Albumin/Globulin Ratio Venous Blood Potassium Urine Color Urine Clarity Urine pH Ur Specific [place] Urine Protein Urine Glucose (UA) Urine Ketones Urine Blood Urine Nitrate Urine Bilirubin Urine Urobilinogen Ur Leukocyte Esterase Urine WBC (Auto) Urine RBC (Auto) Blood Type Blood Type Confirm Antibody Screen Assessment & Plan (1) Pancytopenia Assessment and Plan: secondary to chemotherapy transfusion support PRN Status: Acute (2) Gram negative septic shock Assessment and Plan: antibiotics ID evaluation Status: Acute (3) Coagulopathy Assessment and Plan: rule out DIC, will check fibrinogen Status: Acute (4) Pancreatic cancer Assessment and Plan: stage IV with liver metastasis outpatient chemotherapy Thank you for this interesting consult. Status: Acute
[2017-04-30] MEDS: Vancomycin 1 gm/NS 200 ml 1 GM/200 ML BAG IVPB SCH ×2 (01:58→13:15)
[2017-04-30] MEDS ORDERED: Pantoprazole 80 MG in Sodium Chloride 0.9% 100 ML IVPB SCH (02:15)
[2017-04-30 05:20] LABS: HEMOGLOBIN 8.6 g/dL (12.0-18.0); LYMPH # 0.2 K/uL (1.0-4.3); MEAN CORPUSCULAR HGB CONC 33.3 g/dL (33.0-37.0); MONO # 0.3 K/uL (0.0-0.8); NEUT # 6.2 K/uL (1.8-7.0)
[2017-04-30 05:30] LABS: BASO % 0.1 % (0.0-2.0); EOS # 0.1 K/uL (0.0-0.7); EOS % 1.2 % (0.0-4.0); LYMPH % 3.3 % (20.0-40.0); MEAN CELL VOLUME 89.1 fL (80.0-94.0); MEAN CORPUSCULAR HEMOGLOBIN 29.7 pg (27.0-31.0); MEAN PLATELET VOLUME 10.8 fL (7.2-11.7); MONO % 4.7 % (0.0-10.0); NEUT % 90.7 % (50.0-75.0); PLATELET COUNT 32 K/uL (130-400); RED CELL DISTRIBUTION WIDTH 18.4 % (11.5-14.5); WHITE BLOOD COUNT 6.8 K/uL (4.8-10.8)
[2017-04-30 05:39] LABS: ALB/GLOB RATIO 0.8 (1.0-2.1); ALT/SGPT 34 U/L (21-72); AST/SGOT 35 U/L (17-59); BLOOD UREA NITROGEN 7 mg/dL (9-20); GFR AFRICAN-AMERICAN > 60; GFR NON-AFRICAN AMERICAN > 60
[2017-04-30 05:40] LABS: ALB/GLOB RATIO 0.8 (1.0-2.1); CALCIUM 6.8 mg/dl (8.6-10.4); MAGNESIUM 1.8 mg/dL (1.6-2.3)
[2017-04-30] MEDS: Piperacillin/Tazobact 3.375 GM in Sodium Chloride 100 ML IVPB SCH ×3 (06:50→22:35)
[2017-04-30 07:42] LABS: BANDS 5 % (0-2); LYMPHOCYTE 6 % (20-40); MONOCYTE 2 % (0-10); NEUTROPHIL 87 % (50-75); TOTAL CELLS COUNTED 100
[2017-04-30 07:43] LABS: ANISOCYTOSIS SLIGHT; HYPOCHROMIC SLIGHT; PLATELET ESTIMATE DECREASED (NORMAL)
--- NOTE | 2017-04-30 09:10 | CP.PCM.CON ---
<Nadira Mcdonough - Last Filed: 04/30/17 10:03> History of Present Illness - History of Present Illness History of Present Illness: PGY4 GI Fellow Consult Note This is a 57yM with a hx of pancreatic cancer with liver metastasis. Pt was diagnosed in August 2016 when he presented with painless jaundice and was found to have a pancreatic head mass with biliary obstruction. At that time pt underwent EUS/ERCP by Dr. Cerna. EUS showed pancreatic lesion with vascular invasion stage T3N0, FNB of pancreatic mass/liver, sphincterotomy and placement of [id number] fully covered metal biliary stent. Pt was not a surgical candidate because of vascular invasion and is currently on chemotherapy as an outpt. Pt's last chemo was 04/21/2017. This admission, pt presented to ER with generalized weakness and fever with a temp of 105.5, BP 74/47. Pt received IVF 4L bolus and admitted to ICU. Pt was stared on broad spectrum antibiotics for gram negative bacteremia, pressor support with Levophed, IV albumin and IVF 200cc/hr. Pt was found to have brown stool with small amounts of blood clots and started on IV Protonix drip for GI bleed. Pt's Hgb was 9.8 in ER and dropped to 7.1 and thrombocytopenia with platelets of 13,ooo. Pt received 1unit of platelets and PRBC transfusion. Per nursing overnight, pt had a moderate amount BM dark brown with small amount of blood clots and three subsequent small brown bm with small amount of blood clots. Pt denies any prior hx of hematochezia, melena, coffee ground emesis, no abdominal pain. Pt denies any prior colonoscopy. ROS:A 12pt ROS was obtained and is negative except as mentioned in HPI. PmHx:DM, HTN, Diverticulosis, Pancreatic Cancer with liver mets PsHx:Liver Biopsy, EUS/ERCP with biliary stent, cholecystectomy 11/2015 FHx:Mother-DM, no hx of pancreatic CA SHx:Denies tobacco or alcohol use, former smoker quite 16yrs ago and former social drinker Review of Systems - Review of Systems All systems: reviewed and no additional remarkable complaints except - Constitutional Constitutional: Fatigue, Fever, Weakness - EENT Eyes: absent: Floaters, Requires Corrective Lenses Ears: absent: Decreased Hearing, Dizziness Nose/Mouth/Throat: absent: Nasal Congestion, Mouth Lesions - Cardiovascular Cardiovascular: absent: Chest Pain with Activity, Irregular Heart Rhythm - Respiratory Respiratory: absent: Dyspnea, Pain on Inspiration - Gastrointestinal Gastrointestinal: Change in Stool Character, Hematochezia. absent: Abdominal Pain, Belching, Bloating, Coffee Ground Emesis, Diarrhea, Dysphagia, Heartburn, Hematemesis, Melena, Nausea - Musculoskeletal Musculoskeletal: Muscle Weakness - Integumentary Integumentary: Jaundice - Neurological Neurological: Weakness. absent: Abnormal Speech, Confusion - Psychiatric Psychiatric: absent: Anxiety, Hallucinations - Endocrine Endocrine: Fatigue. absent: Excessive Sweating - Hematologic/Lymphatic Hematologic: As Per HPI Past Patient History - Infectious Disease Hx of Infectious Diseases: None - Past Medical History & Family History Past Medical History?: Yes - Past Social History Smoking Status: Former Smoker - CARDIAC Hx Cardiac Disorders: Yes Hx Hypertension: Yes - PULMONARY Hx Respiratory Disorders: No - NEUROLOGICAL Hx Neurological Disorder: No Hx Paralysis: No - HEENT Hx HEENT Problems: Yes Hx Cataracts: Yes Other/Comment: eyeglasses for reading - RENAL Hx Chronic Kidney Disease: No - ENDOCRINE/METABOLIC Hx Endocrine Disorders: Yes Hx Diabetes Mellitus Type 2: Yes - HEMATOLOGICAL/ONCOLOGICAL Hx Blood Disorders: Yes Hx Cancer: Yes (Pancreatic) Hx Chemotherapy: Yes - INTEGUMENTARY Hx Dermatological Problems: No - MUSCULOSKELETAL/RHEUMATOLOGICAL Hx Musculoskeletal Disorders: No Hx Falls: No - GASTROINTESTINAL Hx Gastrointestinal Disorders: Yes Other/Comment: Pacreatic CA - GENITOURINARY/GYNECOLOGICAL Hx Genitourinary Disorders: No - PSYCHIATRIC Hx Psychophysiologic Disorder: No Hx Substance Use: No - SURGICAL HISTORY Hx Surgeries: Yes Hx Cholecystectomy: Yes Hx Vascular Access Device: Yes (R sub swetha cath) - ANESTHESIA Hx Anesthesia: Yes Hx Anesthesia Reactions: No Hx Malignant Hyperthermia: No Has any member of the family had a problem w/ anesthesia?: No Meds Allergies/Adverse Reactions: Allergies Allergy/AdvReac Type Severity Reaction Status Date / Time No Known Allergies Allergy Verified 10/02/16 19:22 - Medications Medications: Current Medications Acetaminophen (Tylenol 650 Mg Supp) 650 mg TN Q6 PRN PRN Reason: fever 100.4F and above Piperacillin Sod/Tazobactam (Sod 3.375 gm/ Sodium Chloride) 100 mls @ 200 mls/ hr IVPB Q8H [facility] Last Admin: 04/30/17 06:50 Dose: 200 mls/hr Sodium Chloride (Sodium Chloride 0.9%) 1,000 mls @ 200 mls/hr IV .Q5H [facility] Last Admin: 04/30/17 04:15 Dose: Not Given Norepinephrine Bitartrate 4 mg (/ Sodium Chloride) 254 mls @ 15.24 mls/hr IV .[id number] PRN; Protocol; 4 MCG/MIN PRN Reason: TITRATE PER MD ORDER Last Titration: 04/30/17 00:04 Dose: 0 mcg/min, 0 mls/hr Vancomycin/Sodium Chloride (Vancocin) 1 gm in 200 mls @ 166.7 mls/hr IVPB Q12H [facility] Stop: 05/04/17 13:01 Last Admin: 04/30/17 01:58 Dose: 166.7 mls/hr Potassium Chloride (Potassium Chloride 20 Meq/100 Ml) 20 meq in 100 mls @ 50 mls/hr IVPB Q2H [facility] Stop: 04/30/17 13:29 Insulin Human Regular (Novolin R) 0 unit SC Q6H [facility] PRN Reason: Protocol Last Admin: 04/30/17 06:49 Dose: 2 unit Pantoprazole Sodium (Protonix Ec Tab) 40 mg PO ACB [facility] Physical Exam - Constitutional Appears: No Acute Distress, Chronically Ill - Head Exam Head Exam: ATRAUMATIC, NORMAL INSPECTION, NORMOCEPHALIC - Eye Exam Eye Exam: EOMI, Scleral icterus Pupil Exam: PERRL - ENT Exam ENT Exam: Mucous Membranes Moist, Normal Exam - Neck Exam Neck exam: Positive for: Full Rom, Normal Inspection - Respiratory Exam Respiratory Exam: Clear to Auscultation Bilateral, NORMAL BREATHING PATTERN - Cardiovascular Exam Cardiovascular Exam: REGULAR RHYTHM, RRR, +S1, +S2 - GI/Abdominal Exam GI & Abdominal Exam: Normal Bowel Sounds, Organomegaly, Soft. absent: Distended , Tenderness - Rectal Exam Additional comments: Soft brown stool on rectal exam, no blood clots, melena or hematochezia - Extremities Exam Extremities exam: Positive for: full ROM, normal inspection - Back Exam Back exam: FULL ROM, NORMAL INSPECTION - Neurological Exam Neurological exam: Alert, Oriented x3 - Psychiatric Exam Psychiatric exam: Normal Affect, Normal Mood - Skin Skin Exam: Warm Additional comments: Jaundice Results - Vital Signs Recent Vital Signs: Last Vital Signs Temp 98.4 F 04/30/17 04:00 Pulse 83 07/05/17 04:00 Resp 25 H 04/30/17 04:00 BP 122/67 04/30/17 03:59 Pulse Ox 100 04/30/17 04:00 - Labs Result Diagrams: 04/30/17 05:17 04/30/17 05:17 Labs: Laboratory Results - last 24 hr 04/29/17 04/29/17 04/29/17 06:53 10:48 11:56 WBC RBC Hgb Hct MCV MCH MCHC RDW Plt Count MPV Neut % (Auto) Lymph % (Auto) Crowley % (Auto) Eos % (Auto) Baso % (Auto) Neut # Lymph # Crowley # Eos # Baso # Neutrophils % (Manual) 77 H Band Neutrophils % 4 H Lymphocytes % (Manual) 5 L Reactive Lymphs % 1 H Monocytes % (Manual) 13 H Metamyelocytes % Toxic Granulation Present Platelet Estimate Markedly decreased L Polychromasia Slight Hypochromasia (manual) Slight Poikilocytosis (manual Slight Anisocytosis (manual) Slight Microcytosis (manual) Ovalocytes Slight Sodium Potassium Chloride Carbon Dioxide Anion Gap BUN Creatinine Est GFR ( Amer) Est GFR (Non-Af Amer) POC Glucose (mg/dL) 148 H Random Glucose Calcium Phosphorus Magnesium Total Bilirubin Direct Bilirubin AST ALT Alkaline Phosphatase Total Protein Albumin Globulin Albumin/Globulin Ratio Stool Occult Blood Blood Type A POSITIVE Blood Type Confirm A POSITIVE Antibody Screen Negative 04/29/17 04/30/17 04/30/17 22:19 00:53 05:17 WBC 7.2 6.8 RBC 2.66 L 2.90 L Hgb 7.9 L 8.6 L Hct 23.5 L 25.8 L MCV 88.5 D 89.1 MCH 29.8 29.7 MCHC 33.7 33.3 RDW 17.5 H 18.4 H Plt Count 29 L* D 32 L MPV 8.6 10.8 Neut % (Auto) 91.8 H 90.7 H Lymph % (Auto) 2.1 L 3.3 L Crowley % (Auto) 5.7 4.7 Eos % (Auto) 0.3 1.2 Baso % (Auto) 0.1 0.1 Neut # 6.6 6.2 Lymph # 0.2 L 0.2 L Crowley # 0.4 0.3 Eos # 0.0 0.1 Baso # 0.0 0.0 Neutrophils % (Manual) 88 H 87 H Band Neutrophils % 8 H 5 H Lymphocytes % (Manual) 1 L 6 L Reactive Lymphs % Monocytes % (Manual) 2 2 Metamyelocytes % 1 H Toxic Granulation Platelet Estimate Markedly decreased L Decreased L Polychromasia Hypochromasia (manual) Slight Poikilocytosis (manual Slight Anisocytosis (manual) Slight Slight Microcytosis (manual) Slight Ovalocytes Sodium Potassium Chloride Carbon Dioxide Anion Gap BUN Creatinine Est GFR ( Amer) Est GFR (Non-Af Amer) POC Glucose (mg/dL) 161 H Random Glucose Calcium Phosphorus Magnesium Total Bilirubin Direct Bilirubin AST ALT Alkaline Phosphatase Total Protein Albumin Globulin Albumin/Globulin Ratio Stool Occult Blood Blood Type Blood Type Confirm Antibody Screen 04/30/17 04/30/17 04/30/17 05:17 05:17 06:29 WBC RBC Hgb Hct MCV MCH MCHC RDW Plt Count MPV Neut % (Auto) Lymph % (Auto) Crowley % (Auto) Eos % (Auto) Baso % (Auto) Neut # Lymph # Crowley # Eos # Baso # Neutrophils % (Manual) Band Neutrophils % Lymphocytes % (Manual) Reactive Lymphs % Monocytes % (Manual) Metamyelocytes % Toxic Granulation Platelet Estimate Polychromasia Hypochromasia (manual) Poikilocytosis (manual Anisocytosis (manual) Microcytosis (manual) Ovalocytes Sodium 131 L Potassium 2.9 L Chloride 103 Carbon Dioxide 21 L Anion Gap 10 BUN 7 L Creatinine 0.4 L Est GFR ( Amer) > 60 Est GFR (Non-Af Amer) > 60 POC Glucose (mg/dL) 210 H Random Glucose 154 H Calcium 6.8 L Phosphorus 2.5 Magnesium 1.8 Total Bilirubin 1.6 H 1.5 H Direct Bilirubin 1.0 H AST 35 36 ALT 34 35 Alkaline Phosphatase 122 124 Total Protein 4.6 L 4.6 L Albumin 2.0 L 2.0 L Globulin 2.5 2.6 Albumin/Globulin Ratio 0.8 L 0.8 L Stool Occult Blood Blood Type Blood Type Confirm Antibody Screen 04/30/17 06:40 WBC RBC Hgb Hct MCV MCH MCHC RDW Plt Count MPV Neut % (Auto) Lymph % (Auto) Crowley % (Auto) Eos % (Auto) Baso % (Auto) Neut # Lymph # Crowley # Eos # Baso # Neutrophils % (Manual) Band Neutrophils % Lymphocytes % (Manual) Reactive Lymphs % Monocytes % (Manual) Metamyelocytes % Toxic Granulation Platelet Estimate Polychromasia Hypochromasia (manual) Poikilocytosis (manual Anisocytosis (manual) Microcytosis (manual) Ovalocytes Sodium Potassium Chloride Carbon Dioxide Anion Gap BUN Creatinine Est GFR ( Amer) Est GFR (Non-Af Amer) POC Glucose (mg/dL) Random Glucose Calcium Phosphorus Magnesium Total Bilirubin Direct Bilirubin AST ALT Alkaline Phosphatase Total Protein Albumin Globulin Albumin/Globulin Ratio Stool Occult Blood Positive H Blood Type Blood Type Confirm Antibody Screen Assessment & Plan - Assessment and Plan (Free Text) Assessment: This is a 57yM with pancreatic cancer with liver metastasis. Pt is s/p EUS/ERCP 08/2016 with metal biliary stent due to pancreatic mass causing biliary obstruction. Pt is currently on chemotherapy as an outpt and last chemo was 04/21. Pt presented to ER with generalized weakness and fever found to be in severe sepsis. Pt also had brown stool with small amounts of blood clots and started on IV Protonix drip for GI bleed. Pt's Hgb was 9.8 in ER and dropped to 7.1 and thrombocytopenia with platelets of 13,ooo. Pt received 1unit of platelets and PRBC transfusion. Per nursing overnight, pt had a moderate amount BM dark brown with small amount of blood clots and three subsequent small brown bm with small amount of blood clots. Pt denies any prior colonoscopy. GI Bleed-multifactorial Severe Sepsis Bacteremia-gram negative rods Pancreatic Ca Pancytopenia Plan: GI Bleed-pt hemodynamically stable, off of pressors, Hgb 8.6 s/p 1 Units PRBCs, no active bleeding Multifactorial etiology including thrombocytopenia/mucosal bleeding, ddx gastritis, esophagitis, PUD, colon mass, AVM Given advanced disease with Pancreatic Ca and liver mets will avoid any invasive procedures like colonoscopy or EGD and recommend supportive care with blood transfusions as needed. If patient develops significant GI bleed will reconsider at the time. Will followup on any further bleeding with bm, and if continues to have bloody bm will recheck Hgb Discontinue Protonix drip and start protonix daily. Initiate clear liquid diet Bacteremia- gram negative rods. Will order CT A/P to determine source of infection and to r/o cholangitis since pt has biliary stent-appears unlikely since LFTs are low Severe Sepsis-improving off pressor support, continue IV abx, palmer cultures Pancytopenia-likely 2/2 chemotherapy Pancreatic Ca-advanced disease fu with oncology for further treatment recommendations <Denilson Cerna - Last Filed: 04/30/17 10:22> Meds - Medications Medications: Current Medications Acetaminophen (Tylenol 650 Mg Supp) 650 mg TN Q6 PRN PRN Reason: fever 100.4F and above Piperacillin Sod/Tazobactam (Sod 3.375 gm/ Sodium Chloride) 100 mls @ 200 mls/ hr IVPB Q8H [facility] Last Admin: 04/30/17 06:50 Dose: 200 mls/hr Sodium Chloride (Sodium Chloride 0.9%) 1,000 mls @ 200 mls/hr IV .Q5H [facility] Last Admin: 04/30/17 04:15 Dose: Not Given Norepinephrine Bitartrate 4 mg (/ Sodium Chloride) 254 mls @ 15.24 mls/hr IV .[id number] PRN; Protocol; 4 MCG/MIN PRN Reason: TITRATE PER MD ORDER Last Titration: 04/30/17 00:04 Dose: 0 mcg/min, 0 mls/hr Vancomycin/Sodium Chloride (Vancocin) 1 gm in 200 mls @ 166.7 mls/hr IVPB Q12H [facility] Stop: 05/04/17 13:01 Last Admin: 04/30/17 01:58 Dose: 166.7 mls/hr Potassium Chloride (Potassium Chloride 20 Meq/100 Ml) 20 meq in 100 mls @ 50 mls/hr IVPB Q2H [facility] Stop: 04/30/17 13:29 Insulin Human Regular (Novolin R) 0 unit SC Q6H [facility] PRN Reason: Protocol Last Admin: 04/30/17 06:49 Dose: 2 unit Pantoprazole Sodium (Protonix Ec Tab) 40 mg PO ACB [facility] Results - Vital Signs Recent Vital Signs: Last Vital Signs Temp 98.4 F 04/30/17 04:00 Pulse 83 04/30/17 04:00 Resp 25 H 04/30/17 04:00 BP 122/67 04/30/17 03:59 Pulse Ox 100 04/30/17 04:00 - Labs Result Diagrams: 04/30/17 05:17 04/30/17 05:17 Labs: Laboratory Results - last 24 hr 04/29/17 04/29/17 04/29/17 10:48 11:56 22:19 WBC 7.2 RBC 2.66 L Hgb 7.9 L Hct 23.5 L MCV 88.5 D MCH 29.8 MCHC 33.7 RDW 17.5 H Plt Count 29 L* D MPV 8.6 Neut % (Auto) 91.8 H Lymph % (Auto) 2.1 L Crowley % (Auto) 5.7 Eos % (Auto) 0.3 Baso % (Auto) 0.1 Neut # 6.6 Lymph # 0.2 L Crowley # 0.4 Eos # 0.0 Baso # 0.0 Neutrophils % (Manual) 88 H Band Neutrophils % 8 H Lymphocytes % (Manual) 1 L Monocytes % (Manual) 2 Metamyelocytes % 1 H Platelet Estimate Markedly decreased L Hypochromasia (manual) Poikilocytosis (manual Slight Anisocytosis (manual) Slight Microcytosis (manual) Slight Sodium Potassium Chloride Carbon Dioxide Anion Gap BUN Creatinine Est GFR ( Amer) Est GFR (Non-Af Amer) POC Glucose (mg/dL) 148 H Random Glucose Calcium Phosphorus Magnesium Total Bilirubin Direct Bilirubin AST ALT Alkaline Phosphatase Total Protein Albumin Globulin Albumin/Globulin Ratio Stool Occult Blood Blood Type A POSITIVE Blood Type Confirm A POSITIVE Antibody Screen Negative 04/30/17 04/30/17 04/30/17 00:53 05:17 05:17 WBC 6.8 RBC 2.90 L Hgb 8.6 L Hct 25.8 L MCV 89.1 MCH 29.7 MCHC 33.3 RDW 18.4 H Plt Count 32 L MPV 10.8 Neut % (Auto) 90.7 H Lymph % (Auto) 3.3 L Crowley % (Auto) 4.7 Eos % (Auto) 1.2 Baso % (Auto) 0.1 Neut # 6.2 Lymph # 0.2 L Crowley # 0.3 Eos # 0.1 Baso # 0.0 Neutrophils % (Manual) 87 H Band Neutrophils % 5 H Lymphocytes % (Manual) 6 L Monocytes % (Manual) 2 Metamyelocytes % Platelet Estimate Decreased L Hypochromasia (manual) Slight Poikilocytosis (manual Anisocytosis (manual) Slight Microcytosis (manual) Sodium 131 L Potassium 2.9 L Chloride 103 Carbon Dioxide 21 L Anion Gap 10 BUN 7 L Creatinine 0.4 L Est GFR ( Amer) > 60 Est GFR (Non-Af Amer) > 60 POC Glucose (mg/dL) 161 H Random Glucose 154 H Calcium 6.8 L Phosphorus 2.5 Magnesium 1.8 Total Bilirubin 1.6 H Direct Bilirubin AST 35 ALT 34 Alkaline Phosphatase 122 Total Protein 4.6 L Albumin 2.0 L Globulin 2.5 Albumin/Globulin Ratio 0.8 L Stool Occult Blood Blood Type Blood Type Confirm Antibody Screen 04/30/17 04/30/17 04/30/17 05:17 06:29 06:40 WBC RBC Hgb Hct MCV MCH MCHC RDW Plt Count MPV Neut % (Auto) Lymph % (Auto) Crowley % (Auto) Eos % (Auto) Baso % (Auto) Neut # Lymph # Crowley # Eos # Baso # Neutrophils % (Manual) Band Neutrophils % Lymphocytes % (Manual) Monocytes % (Manual) Metamyelocytes % Platelet Estimate Hypochromasia (manual) Poikilocytosis (manual Anisocytosis (manual) Microcytosis (manual) Sodium Potassium Chloride Carbon Dioxide Anion Gap BUN Creatinine Est GFR ( Amer) Est GFR (Non-Af Amer) POC Glucose (mg/dL) 210 H Random Glucose Calcium Phosphorus Magnesium Total Bilirubin 1.5 H Direct Bilirubin 1.0 H AST 36 ALT 35 Alkaline Phosphatase 124 Total Protein 4.6 L Albumin 2.0 L Globulin 2.6 Albumin/Globulin Ratio 0.8 L Stool Occult Blood Positive H Blood Type Blood Type Confirm Antibody Screen Attending/Attestation - Attestation I have personally seen and examined this patient.: Yes I have fully participated in the care of the patient.: Yes I have reviewed all pertinent clinical information: Yes Notes (Text): 04/30/17 10:18 57 year old male with metastatic pancreatic cancer to the liver s/p ERCP in with fully covered metal stent in 09/11 on chemotherapy admitted with anemia, thrombocytopenia, rectal bleeding, GNR bacteremia. 1. Rectal bleeding 2. Pancreatic cancer 3. Gram negative bacteremia Plan: -rectal bleeding in the setting of severe thrombocytopenia/coagulopathy related to chemotherapy, now resolving after transfusion of blood and platelets -would treat supportively with transfusion as necessary -may give daily PPI, no need for infusion -would only pursue endoscopic evaluation if severe persistent bleeding -need to evaluate source of bacteremia -no evidence of cholangitis based on LFTs -recommend CT abdomen/pelvis to eval for GI source of sepsis -broad spectrum antibiotics per ICU -liquid diet and advance as tolerated
--- NOTE | 2017-04-30 09:53 | CP.CCUPN ---
<Renato Choudhary - Last Filed: 04/30/17 09:56> CCU Subjective - Physician Review Events Since Last Encounter (Free Text): 04/30/17 09:56 Pt S&E. s/p 2 units pRBC and 1 unit PLT. HgB 8.6 stable, PLT now 32. Pt reports no abdominal pain, but remains nauseous and weak. Blood cultures back for gram negative rods x 2 in blood. Remains on NE drip. Possibly chemoport as source of bacteremia. Remains febrile, but new 24hr Tmax 100.6. GI consult appreciated. Critical Care Time Spent (in minutes): 35 CCU Objective - Vital Signs / Intake & Output Intake and Output (Last 8hrs): Intake & Output 04/29/17 04/30/17 04/30/17 22:59 06:59 14:59 Intake Total 1627.6 1683.8 110 Output Total 1000 950 0 Balance 627.6 733.8 110 Intake: IV 0 0 Intake, IV Amount 777.6 1683.8 110 Right Antecubital 700 1600 100 Right Port-A-Cath 37.6 3.8 0 Right forearm 40 80 10 Blood Product 800 Apheresis Plts Acda Lr 275 2nd Con Unit [id number] Red Blood Cells Cpd As1 325 Lr Unit [id number] Other 50 Apheresis Plts Acda Lr 50 2nd Con Unit [id number] Output: Urine 1000 950 0 Urine, Voided 1000 950 0 Other: # Voids Urine, Voided 1 1 # Bowel Movements 0 0 - Physical Exam Head: Positive for: Atraumatic, Normocephalic Extroacular Muscles: Positive for: EOMI Conjunctiva: Positive for: Icteric Mouth: Positive for: Moist Mucous Membranes Respiratory/Chest: Positive for: Clear to Auscultation. Negative for: Respiratory Distress, Accessory Muscle Use Cardiovascular: Positive for: Regular Rate and Rhythm. Negative for: Murmurs Abdomen: Negative for: Tenderness, Distention, Peritoneal Signs Rectal: Positive for: Occult Blood Upper Extremity: Negative for: Edema Lower Extremity: Negative for: Edema Neurological: Positive for: Speech Normal Skin: Positive for: Warm, Normal Color Psychiatric: Positive for: Alert, Oriented x 3 - Medications Active Medications: Active Medications Generic Name Dose Route Start Last Admin Trade Name Freq PRN Reason Stop Dose Admin Acetaminophen 650 mg 04/29/17 20:48 Tylenol 650 Mg Supp MI Q6 PRN fever 100.4F and above Piperacillin Sod/Tazobactam 100 mls @ 200 mls/hr 04/29/17 07:00 04/30/17 06: 50 Sod 3.375 gm/ Sodium Chloride IVPB 200 mls/hr Q8H HECTOR Administration Sodium Chloride 1,000 mls @ 200 mls/hr 04/29/17 03:15 04/30/17 04:15 Sodium Chloride 0.9% IV Not Given .Q5H HECTOR Norepinephrine Bitartrate 4 mg 254 mls @ 15.24 mls/hr 04/29/17 06:11 00:04 / Sodium Chloride IV 0 mcg/min .[id number] PRN 0 mls/hr TITRATE PER MD ORDER Titration Protocol 4 MCG/MIN Vancomycin/Sodium Chloride 1 gm in 200 mls @ 166.7 mls/hr 04/29/17 13:00 03/12 01:58 Vancocin IVPB 05/04/17 13:01 166.7 mls/hr Q12H HECTOR Administration Potassium Chloride 20 meq in 100 mls @ 50 mls/hr 04/30/17 07:30 Potassium Chloride 20 Meq/100 Ml IVPB 04/30/17 13:29 Q2H HECTOR Insulin Human Regular 0 unit 04/30/17 00:00 04/30/17 06:49 Novolin R SC 2 unit Q6H HECTOR Administration Protocol Pantoprazole Sodium 40 mg 04/30/17 08:00 Protonix Ec Tab PO ACB HECTOR - Patient Studies Lab Studies: Microbiology Studies 04/29/17 09:00 Urine Culture - Final Urine No Growth (<1,000 CFU/ML) 04/29/17 06:00 Blood Culture - Preliminary Blood Gram Negative Gabriel Gram Stain - Final 04/29/17 06:00 Blood Culture - Preliminary Blood Gram Negative Gabriel Gram Stain - Final Lab Studies 04/30/17 04/30/17 04/30/17 Range/Units 06:40 06:29 05:17 WBC (4.8-10.8) K/uL RBC (4.40-5.90) Mil/uL Hgb (12.0-18.0) g/dL Hct (35.0-51.0) % MCV (80.0-94.0) fL MCH (27.0-31.0) pg MCHC (33.0-37.0) g/dL RDW (11.5-14.5) % Plt Count (130-400) K/uL MPV (7.2-11.7) fL Neut % (Auto) (50.0-75.0) % Lymph % (Auto) (20.0-40.0) % Wright % (Auto) (0.0-10.0) % Eos % (Auto) (0.0-4.0) % Baso % (Auto) (0.0-2.0) % Neut # (1.8-7.0) K/uL Lymph # (1.0-4.3) K/uL Wright # (0.0-0.8) K/uL Eos # (0.0-0.7) K/uL Baso # (0.0-0.2) K/uL Neutrophils % (Manual) (50-75) % Band Neutrophils % (0-2) % Lymphocytes % (Manual) (20-40) % Monocytes % (Manual) (0-10) % Metamyelocytes % (0-0) % Platelet Estimate (NORMAL) Hypochromasia (manual) Poikilocytosis (manual Anisocytosis (manual) Microcytosis (manual) Sodium (132-148) mmol/L Potassium (3.6-5.2) mmol/L Chloride (98-107) mmol/L Carbon Dioxide (22-30) mmol/L Anion Gap (10-20) BUN (9-20) mg/dL Creatinine (0.8-1.5) MG/DL Est GFR ( Amer) Est GFR (Non-Af Amer) POC Glucose (mg/dL) 210 H (65-110) mg/dL Random Glucose (75-110) mg/dL Calcium (8.6-10.4) mg/dl Phosphorus (2.5-4.5) mg/dL Magnesium (1.6-2.3) mg/dL Total Bilirubin 1.5 H (0.2-1.3) mg/dL Direct Bilirubin 1.0 H (0.0-0.4) mg/dL AST 36 (17-59) U/L ALT 35 (21-72) U/L Alkaline Phosphatase 124 (38-126) U/L Total Protein 4.6 L (6.3-8.3) g/dL Albumin 2.0 L (3.5-5.0) g/dL Globulin 2.6 (2.2-3.9) gm/dL Albumin/Globulin Ratio 0.8 L (1.0-2.1) Stool Occult Blood Positive H (NEGATIVE) Blood Type Blood Type Confirm Antibody Screen 04/30/17 04/30/17 04/30/17 Range/Units : 05: 00:53 WBC 6.8 (4.8-10.8) K/uL RBC 2.90 L (4.40-5.90) Mil/uL Hgb 8.6 L (12.0-18.0) g/dL Hct 25.8 L (35.0-51.0) % MCV 89.1 (80.0-94.0) fL MCH 29.7 (27.0-31.0) pg MCHC 33.3 (33.0-37.0) g/dL RDW 18.4 H (11.5-14.5) % Plt Count 32 L (130-400) K/uL MPV 10.8 (7.2-11.7) fL Neut % (Auto) 90.7 H (50.0-75.0) % Lymph % (Auto) 3.3 L (20.0-40.0) % Wright % (Auto) 4.7 (0.0-10.0) % Eos % (Auto) 1.2 (0.0-4.0) % Baso % (Auto) 0.1 (0.0-2.0) % Neut # 6.2 (1.8-7.0) K/uL Lymph # 0.2 L (1.0-4.3) K/uL Wright # 0.3 (0.0-0.8) K/uL Eos # 0.1 (0.0-0.7) K/uL Baso # 0.0 (0.0-0.2) K/uL Neutrophils % (Manual) 87 H (50-75) % Band Neutrophils % 5 H (0-2) % Lymphocytes % (Manual) 6 L (20-40) % Monocytes % (Manual) 2 (0-10) % Metamyelocytes % (0-0) % Platelet Estimate Decreased L (NORMAL) Hypochromasia (manual) Slight Poikilocytosis (manual Anisocytosis (manual) Slight Microcytosis (manual) Sodium 131 L (132-148) mmol/L Potassium 2.9 L (3.6-5.2) mmol/L Chloride 103 (98-107) mmol/L Carbon Dioxide 21 L (22-30) mmol/L Anion Gap 10 (10-20) BUN 7 L (9-20) mg/dL Creatinine 0.4 L (0.8-1.5) MG/DL Est GFR ( Amer) > 60 Est GFR (Non-Af Amer) > 60 POC Glucose (mg/dL) 161 H (65-110) mg/dL Random Glucose 154 H (75-110) mg/dL Calcium 6.8 L (8.6-10.4) mg/dl Phosphorus 2.5 (2.5-4.5) mg/dL Magnesium 1.8 (1.6-2.3) mg/dL Total Bilirubin 1.6 H (0.2-1.3) mg/dL Direct Bilirubin (0.0-0.4) mg/dL AST 35 (17-59) U/L ALT 34 (21-72) U/L Alkaline Phosphatase 122 (38-126) U/L Total Protein 4.6 L (6.3-8.3) g/dL Albumin 2.0 L (3.5-5.0) g/dL Globulin 2.5 (2.2-3.9) gm/dL Albumin/Globulin Ratio 0.8 L (1.0-2.1) Stool Occult Blood (NEGATIVE) Blood Type Blood Type Confirm Antibody Screen 04/29/17 04/29/17 04/29/17 Range/Units 22:19 11:56 10:48 WBC 7.2 (4.8-10.8) K/uL RBC 2.66 L (4.40-5.90) Mil/uL Hgb 7.9 L (12.0-18.0) g/dL Hct 23.5 L (35.0-51.0) % MCV 88.5 D (80.0-94.0) fL MCH 29.8 (27.0-31.0) pg MCHC 33.7 (33.0-37.0) g/dL RDW 17.5 H (11.5-14.5) % Plt Count 29 L* D (130-400) K/uL MPV 8.6 (7.2-11.7) fL Neut % (Auto) 91.8 H (50.0-75.0) % Lymph % (Auto) 2.1 L (20.0-40.0) % Wright % (Auto) 5.7 (0.0-10.0) % Eos % (Auto) 0.3 (0.0-4.0) % Baso % (Auto) 0.1 (0.0-2.0) % Neut # 6.6 (1.8-7.0) K/uL Lymph # 0.2 L (1.0-4.3) K/uL Wright # 0.4 (0.0-0.8) K/uL Eos # 0.0 (0.0-0.7) K/uL Baso # 0.0 (0.0-0.2) K/uL Neutrophils % (Manual) 88 H (50-75) % Band Neutrophils % 8 H (0-2) % Lymphocytes % (Manual) 1 L (20-40) % Monocytes % (Manual) 2 (0-10) % Metamyelocytes % 1 H (0-0) % Platelet Estimate Markedly decreased L (NORMAL) Hypochromasia (manual) Poikilocytosis (manual Slight Anisocytosis (manual) Slight Microcytosis (manual) Slight Sodium (132-148) mmol/L Potassium (3.6-5.2) mmol/L Chloride (98-107) mmol/L Carbon Dioxide (22-30) mmol/L Anion Gap (10-20) BUN (9-20) mg/dL Creatinine (0.8-1.5) MG/DL Est GFR ( Amer) Est GFR (Non-Af Amer) POC Glucose (mg/dL) 148 H (65-110) mg/dL Random Glucose (75-110) mg/dL Calcium (8.6-10.4) mg/dl Phosphorus (2.5-4.5) mg/dL Magnesium (1.6-2.3) mg/dL Total Bilirubin (0.2-1.3) mg/dL Direct Bilirubin (0.0-0.4) mg/dL AST (17-59) U/L ALT (21-72) U/L Alkaline Phosphatase (38-126) U/L Total Protein (6.3-8.3) g/dL Albumin (3.5-5.0) g/dL Globulin (2.2-3.9) gm/dL Albumin/Globulin Ratio (1.0-2.1) Stool Occult Blood (NEGATIVE) Blood Type A POSITIVE Blood Type Confirm A POSITIVE Antibody Screen Negative Laboratory Results - last 24 hr 04/29/17 04/29/17 04/29/17 10:48 11:56 22:19 WBC 7.2 RBC 2.66 L Hgb 7.9 L Hct 23.5 L MCV 88.5 D MCH 29.8 MCHC 33.7 RDW 17.5 H Plt Count 29 L* D MPV 8.6 Neut % (Auto) 91.8 H Lymph % (Auto) 2.1 L Wright % (Auto) 5.7 Eos % (Auto) 0.3 Baso % (Auto) 0.1 Neut # 6.6 Lymph # 0.2 L Wright # 0.4 Eos # 0.0 Baso # 0.0 Neutrophils % (Manual) 88 H Band Neutrophils % 8 H Lymphocytes % (Manual) 1 L Monocytes % (Manual) 2 Metamyelocytes % 1 H Platelet Estimate Markedly decreased L Hypochromasia (manual) Poikilocytosis (manual Slight Anisocytosis (manual) Slight Microcytosis (manual) Slight Sodium Potassium Chloride Carbon Dioxide Anion Gap BUN Creatinine Est GFR ( Amer) Est GFR (Non-Af Amer) POC Glucose (mg/dL) 148 H Random Glucose Calcium Phosphorus Magnesium Total Bilirubin Direct Bilirubin AST ALT Alkaline Phosphatase Total Protein Albumin Globulin Albumin/Globulin Ratio Stool Occult Blood Blood Type A POSITIVE Blood Type Confirm A POSITIVE Antibody Screen Negative 04/30/17 04/30/17 04/30/17 00:53 05:17 05:17 WBC 6.8 RBC 2.90 L Hgb 8.6 L Hct 25.8 L MCV 89.1 MCH 29.7 MCHC 33.3 RDW 18.4 H Plt Count 32 L MPV 10.8 Neut % (Auto) 90.7 H Lymph % (Auto) 3.3 L Wright % (Auto) 4.7 Eos % (Auto) 1.2 Baso % (Auto) 0.1 Neut # 6.2 Lymph # 0.2 L Wright # 0.3 Eos # 0.1 Baso # 0.0 Neutrophils % (Manual) 87 H Band Neutrophils % 5 H Lymphocytes % (Manual) 6 L Monocytes % (Manual) 2 Metamyelocytes % Platelet Estimate Decreased L Hypochromasia (manual) Slight Poikilocytosis (manual Anisocytosis (manual) Slight Microcytosis (manual) Sodium 131 L Potassium 2.9 L Chloride 103 Carbon Dioxide 21 L Anion Gap 10 BUN 7 L Creatinine 0.4 L Est GFR ( Amer) > 60 Est GFR (Non-Af Amer) > 60 POC Glucose (mg/dL) 161 H Random Glucose 154 H Calcium 6.8 L Phosphorus 2.5 Magnesium 1.8 Total Bilirubin 1.6 H Direct Bilirubin AST 35 ALT 34 Alkaline Phosphatase 122 Total Protein 4.6 L Albumin 2.0 L Globulin 2.5 Albumin/Globulin Ratio 0.8 L Stool Occult Blood Blood Type Blood Type Confirm Antibody Screen 04/30/17 04/30/17 04/30/17 05:17 06:29 06:40 WBC RBC Hgb Hct MCV MCH MCHC RDW Plt Count MPV Neut % (Auto) Lymph % (Auto) Wright % (Auto) Eos % (Auto) Baso % (Auto) Neut # Lymph # Wright # Eos # Baso # Neutrophils % (Manual) Band Neutrophils % Lymphocytes % (Manual) Monocytes % (Manual) Metamyelocytes % Platelet Estimate Hypochromasia (manual) Poikilocytosis (manual Anisocytosis (manual) Microcytosis (manual) Sodium Potassium Chloride Carbon Dioxide Anion Gap BUN Creatinine Est GFR ( Amer) Est GFR (Non-Af Amer) POC Glucose (mg/dL) 210 H Random Glucose Calcium Phosphorus Magnesium Total Bilirubin 1.5 H Direct Bilirubin 1.0 H AST 36 ALT 35 Alkaline Phosphatase 124 Total Protein 4.6 L Albumin 2.0 L Globulin 2.6 Albumin/Globulin Ratio 0.8 L Stool Occult Blood Positive H Blood Type Blood Type Confirm Antibody Screen Fingerstick Blood Sugar Results: 210 Review of Systems - Review of Systems All systems: reviewed and no additional remarkable complaints except (as per hpi ) Critical Care Progress Note - Nutrition Nutrition: Nutrition Category Date Time Status Liquid Diet [DIET] Diets 04/30/17 Breakfast Active Assessment/Plan - Assessment and Plan (Free Text) Assessment: 57M with metastatic panc cancer presented with fever, lethargy, sepsis; likely 2 /2 gram negative bacteremia Plan: 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 Pt interested in stopping Chemo. Will obtain palliative care consult DVT proph - SCDs, no anti-coagulation due to acute rectal bleed GI proph - Protonix 40mg PO daily Code status - Full Case discussed with Dr. Alberto Choudhary, PGY3 - Date & Time Date: 04/30/17 Time: 10:11 <Miguel Dominguez S - Last Filed: 04/30/17 16:53> CCU Objective - Vital Signs / Intake & Output Intake and Output (Last 8hrs): Intake & Output 04/30/17 04/30/17 04/30/17 06:59 14:59 22:59 Intake Total 1683.8 1567.6 Output Total 950 800 Balance 733.8 767.6 Weight 140 lb Intake: IV 0 0 Intake, IV Amount 1683.8 1447.6 Right Antecubital 1600 1400 Right Port-A-Cath 3.8 7.6 Right forearm 80 40 Oral 120 Output: Urine 950 800 Urine, Voided 950 800 Other: # Voids Urine, Voided 1 # Bowel Movements 0 - Medications Active Medications: Active Medications Generic Name Dose Route Start Last Admin Trade Name Freq PRN Reason Stop Dose Admin Acetaminophen 650 mg 04/29/17 20:48 Tylenol 650 Mg Supp MI Q6 PRN fever 100.4F and above Piperacillin Sod/Tazobactam 100 mls @ 200 mls/hr 04/29/17 07:00 04/30/17 06: 50 Sod 3.375 gm/ Sodium Chloride IVPB 200 mls/hr Q8H HECTOR Administration Sodium Chloride 1,000 mls @ 200 mls/hr 04/29/17 03:15 04/30/17 15:34 Sodium Chloride 0.9% IV Not Given .Q5H HECTOR Norepinephrine Bitartrate 4 mg 254 mls @ 15.24 mls/hr 04/29/17 06:11 11:00 / Sodium Chloride IV 2 mcg/min .[id number] PRN 7.62 mls/hr TITRATE PER MD ORDER Titration Protocol 4 MCG/MIN Vancomycin/Sodium Chloride 1 gm in 200 mls @ 166.7 mls/hr 04/29/17 13:00 03/12 01:58 Vancocin IVPB 05/04/17 13:01 166.7 mls/hr Q12H HECTOR Administration Insulin Human Regular 0 unit 04/30/17 00:00 04/30/17 15:32 Novolin R SC Not Given Q6H HECTOR Protocol Pantoprazole Sodium 40 mg 04/30/17 08:00 04/30/17 12:00 Protonix Ec Tab PO 40 mg ACB HECTOR Administration - Patient Studies Lab Studies: Microbiology Studies 04/29/17 09:00 MRSA Culture (Admit) - Final Nose 04/29/17 09:00 Urine Culture - Final Urine No Growth (<1,000 CFU/ML) 04/29/17 06:00 Blood Culture - Preliminary Blood Gram Negative Gabriel Gram Stain - Final 04/29/17 06:00 Blood Culture - Preliminary Blood Gram Negative Gabriel Gram Stain - Final Lab Studies 04/30/17 04/30/17 04/30/17 Range/Units 15:05 15:05 11:34 WBC 8.7 (4.8-10.8) K/uL RBC 3.27 L (4.40-5.90) Mil/uL Hgb 9.7 L (12.0-18.0) g/dL Hct 29.2 L (35.0-51.0) % MCV 89.3 (80.0-94.0) fL MCH 29.6 (27.0-31.0) pg MCHC 33.2 (33.0-37.0) g/dL RDW 18.1 H (11.5-14.5) % Plt Count 32 L (130-400) K/uL MPV 10.3 (7.2-11.7) fL Neut % (Auto) 86.1 H (50.0-75.0) % Lymph % (Auto) 4.5 L (20.0-40.0) % Wright % (Auto) 8.5 (0.0-10.0) % Eos % (Auto) 0.8 (0.0-4.0) % Baso % (Auto) 0.1 (0.0-2.0) % Neut # 7.5 H (1.8-7.0) K/uL Lymph # 0.4 L (1.0-4.3) K/uL Wright # 0.7 (0.0-0.8) K/uL Eos # 0.1 (0.0-0.7) K/uL Baso # 0.0 (0.0-0.2) K/uL Neutrophils % (Manual) 82 H (50-75) % Band Neutrophils % 5 H (0-2) % Lymphocytes % (Manual) 6 L (20-40) % Monocytes % (Manual) 7 (0-10) % Metamyelocytes % (0-0) % Platelet Estimate Decreased L (NORMAL) Hypochromasia (manual) Slight Poikilocytosis (manual Slight Anisocytosis (manual) Slight Microcytosis (manual) [place] Cells Slight PT 19.7 H (9.7-12.2) SECONDS INR 1.7 APTT 38 H D (21-34) SECONDS Sodium (132-148) mmol/L Potassium (3.6-5.2) mmol/L Chloride (98-107) mmol/L Carbon Dioxide (22-30) mmol/L Anion Gap (10-20) BUN (9-20) mg/dL Creatinine (0.8-1.5) MG/DL Est GFR ( Amer) Est GFR (Non-Af Amer) POC Glucose (mg/dL) 181 H (65-110) mg/dL Random Glucose (75-110) mg/dL Calcium (8.6-10.4) mg/dl Phosphorus (2.5-4.5) mg/dL Magnesium (1.6-2.3) mg/dL Total Bilirubin (0.2-1.3) mg/dL Direct Bilirubin (0.0-0.4) mg/dL AST (17-59) U/L ALT (21-72) U/L Alkaline Phosphatase (38-126) U/L Total Protein (6.3-8.3) g/dL Albumin (3.5-5.0) g/dL Globulin (2.2-3.9) gm/dL Albumin/Globulin Ratio (1.0-2.1) Stool Occult Blood (NEGATIVE) Blood Type Blood Type Confirm Antibody Screen 04/30/17 04/30/17 04/30/17 Range/Units 06:40 06:29 05:17 WBC (4.8-10.8) K/uL RBC (4.40-5.90) Mil/uL Hgb (12.0-18.0) g/dL Hct (35.0-51.0) % MCV (80.0-94.0) fL MCH (27.0-31.0) pg MCHC (33.0-37.0) g/dL RDW (11.5-14.5) % Plt Count (130-400) K/uL MPV (7.2-11.7) fL Neut % (Auto) (50.0-75.0) % Lymph % (Auto) (20.0-40.0) % Wright % (Auto) (0.0-10.0) % Eos % (Auto) (0.0-4.0) % Baso % (Auto) (0.0-2.0) % Neut # (1.8-7.0) K/uL Lymph # (1.0-4.3) K/uL Wright # (0.0-0.8) K/uL Eos # (0.0-0.7) K/uL Baso # (0.0-0.2) K/uL Neutrophils % (Manual) (50-75) % Band Neutrophils % (0-2) % Lymphocytes % (Manual) (20-40) % Monocytes % (Manual) (0-10) % Metamyelocytes % (0-0) % Platelet Estimate (NORMAL) Hypochromasia (manual) Poikilocytosis (manual Anisocytosis (manual) Microcytosis (manual) [place] Cells PT (9.7-12.2) SECONDS INR APTT (21-34) SECONDS Sodium (132-148) mmol/L Potassium (3.6-5.2) mmol/L Chloride (98-107) mmol/L Carbon Dioxide (22-30) mmol/L Anion Gap (10-20) BUN (9-20) mg/dL Creatinine (0.8-1.5) MG/DL Est GFR ( Amer) Est GFR (Non-Af Amer) POC Glucose (mg/dL) 210 H (65-110) mg/dL Random Glucose (75-110) mg/dL Calcium (8.6-10.4) mg/dl Phosphorus (2.5-4.5) mg/dL Magnesium (1.6-2.3) mg/dL Total Bilirubin 1.5 H (0.2-1.3) mg/dL Direct Bilirubin 1.0 H (0.0-0.4) mg/dL AST 36 (17-59) U/L ALT 35 (21-72) U/L Alkaline Phosphatase 124 (38-126) U/L Total Protein 4.6 L (6.3-8.3) g/dL Albumin 2.0 L (3.5-5.0) g/dL Globulin 2.6 (2.2-3.9) gm/dL Albumin/Globulin Ratio 0.8 L (1.0-2.1) Stool Occult Blood Positive H (NEGATIVE) Blood Type Blood Type Confirm Antibody Screen 04/30/17 04/30/17 04/30/17 Range/Units :12 03: 00:53 WBC 6.8 (4.8-10.8) K/uL RBC 2.90 L (4.40-5.90) Mil/uL Hgb 8.6 L (12.0-18.0) g/dL Hct 25.8 L (35.0-51.0) % MCV 89.1 (80.0-94.0) fL MCH 29.7 (27.0-31.0) pg MCHC 33.3 (33.0-37.0) g/dL RDW 18.4 H (11.5-14.5) % Plt Count 32 L (130-400) K/uL MPV 10.8 (7.2-11.7) fL Neut % (Auto) 90.7 H (50.0-75.0) % Lymph % (Auto) 3.3 L (20.0-40.0) % Wright % (Auto) 4.7 (0.0-10.0) % Eos % (Auto) 1.2 (0.0-4.0) % Baso % (Auto) 0.1 (0.0-2.0) % Neut # 6.2 (1.8-7.0) K/uL Lymph # 0.2 L (1.0-4.3) K/uL Wright # 0.3 (0.0-0.8) K/uL Eos # 0.1 (0.0-0.7) K/uL Baso # 0.0 (0.0-0.2) K/uL Neutrophils % (Manual) 87 H (50-75) % Band Neutrophils % 5 H (0-2) % Lymphocytes % (Manual) 6 L (20-40) % Monocytes % (Manual) 2 (0-10) % Metamyelocytes % (0-0) % Platelet Estimate Decreased L (NORMAL) Hypochromasia (manual) Slight Poikilocytosis (manual Anisocytosis (manual) Slight Microcytosis (manual) [place] Cells PT (9.7-12.2) SECONDS INR APTT (21-34) SECONDS Sodium 131 L (132-148) mmol/L Potassium 2.9 L (3.6-5.2) mmol/L Chloride 103 (98-107) mmol/L Carbon Dioxide 21 L (22-30) mmol/L Anion Gap 10 (10-20) BUN 7 L (9-20) mg/dL Creatinine 0.4 L (0.8-1.5) MG/DL Est GFR ( Amer) > 60 Est GFR (Non-Af Amer) > 60 POC Glucose (mg/dL) 161 H (65-110) mg/dL Random Glucose 154 H (75-110) mg/dL Calcium 6.8 L (8.6-10.4) mg/dl Phosphorus 2.5 (2.5-4.5) mg/dL Magnesium 1.8 (1.6-2.3) mg/dL Total Bilirubin 1.6 H (0.2-1.3) mg/dL Direct Bilirubin (0.0-0.4) mg/dL AST 35 (17-59) U/L ALT 34 (21-72) U/L Alkaline Phosphatase 122 (38-126) U/L Total Protein 4.6 L (6.3-8.3) g/dL Albumin 2.0 L (3.5-5.0) g/dL Globulin 2.5 (2.2-3.9) gm/dL Albumin/Globulin Ratio 0.8 L (1.0-2.1) Stool Occult Blood (NEGATIVE) Blood Type Blood Type Confirm Antibody Screen 04/29/17 04/29/17 Range/Units 22:19 10:48 WBC 7.2 (4.8-10.8) K/uL RBC 2.66 L (4.40-5.90) Mil/uL Hgb 7.9 L (12.0-18.0) g/dL Hct 23.5 L (35.0-51.0) % MCV 88.5 D (80.0-94.0) fL MCH 29.8 (27.0-31.0) pg MCHC 33.7 (33.0-37.0) g/dL RDW 17.5 H (11.5-14.5) % Plt Count 29 L* D (130-400) K/uL MPV 8.6 (7.2-11.7) fL Neut % (Auto) 91.8 H (50.0-75.0) % Lymph % (Auto) 2.1 L (20.0-40.0) % Wright % (Auto) 5.7 (0.0-10.0) % Eos % (Auto) 0.3 (0.0-4.0) % Baso % (Auto) 0.1 (0.0-2.0) % Neut # 6.6 (1.8-7.0) K/uL Lymph # 0.2 L (1.0-4.3) K/uL Wright # 0.4 (0.0-0.8) K/uL Eos # 0.0 (0.0-0.7) K/uL Baso # 0.0 (0.0-0.2) K/uL Neutrophils % (Manual) 88 H (50-75) % Band Neutrophils % 8 H (0-2) % Lymphocytes % (Manual) 1 L (20-40) % Monocytes % (Manual) 2 (0-10) % Metamyelocytes % 1 H (0-0) % Platelet Estimate Markedly decreased L (NORMAL) Hypochromasia (manual) Poikilocytosis (manual Slight Anisocytosis (manual) Slight Microcytosis (manual) Slight [place] Cells PT (9.7-12.2) SECONDS INR APTT (21-34) SECONDS Sodium (132-148) mmol/L Potassium (3.6-5.2) mmol/L Chloride (98-107) mmol/L Carbon Dioxide (22-30) mmol/L Anion Gap (10-20) BUN (9-20) mg/dL Creatinine (0.8-1.5) MG/DL Est GFR ( Amer) Est GFR (Non-Af Amer) POC Glucose (mg/dL) (65-110) mg/dL Random Glucose (75-110) mg/dL Calcium (8.6-10.4) mg/dl Phosphorus (2.5-4.5) mg/dL Magnesium (1.6-2.3) mg/dL Total Bilirubin (0.2-1.3) mg/dL Direct Bilirubin (0.0-0.4) mg/dL AST (17-59) U/L ALT (21-72) U/L Alkaline Phosphatase (38-126) U/L Total Protein (6.3-8.3) g/dL Albumin (3.5-5.0) g/dL Globulin (2.2-3.9) gm/dL Albumin/Globulin Ratio (1.0-2.1) Stool Occult Blood (NEGATIVE) Blood Type A POSITIVE Blood Type Confirm A POSITIVE Antibody Screen Negative Laboratory Results - last 24 hr 04/29/17 04/29/17 04/30/17 10:48 22:19 00:53 WBC 7.2 RBC 2.66 L Hgb 7.9 L Hct 23.5 L MCV 88.5 D MCH 29.8 MCHC 33.7 RDW 17.5 H Plt Count 29 L* D MPV 8.6 Neut % (Auto) 91.8 H Lymph % (Auto) 2.1 L Wright % (Auto) 5.7 Eos % (Auto) 0.3 Baso % (Auto) 0.1 Neut # 6.6 Lymph # 0.2 L Wright # 0.4 Eos # 0.0 Baso # 0.0 Neutrophils % (Manual) 88 H Band Neutrophils % 8 H Lymphocytes % (Manual) 1 L Monocytes % (Manual) 2 Metamyelocytes % 1 H Platelet Estimate Markedly decreased L Hypochromasia (manual) Poikilocytosis (manual Slight Anisocytosis (manual) Slight Microcytosis (manual) Slight [place] Cells PT INR APTT Sodium Potassium Chloride Carbon Dioxide Anion Gap BUN Creatinine Est GFR ( Amer) Est GFR (Non-Af Amer) POC Glucose (mg/dL) 161 H Random Glucose Calcium Phosphorus Magnesium Total Bilirubin Direct Bilirubin AST ALT Alkaline Phosphatase Total Protein Albumin Globulin Albumin/Globulin Ratio Stool Occult Blood Blood Type A POSITIVE Blood Type Confirm A POSITIVE Antibody Screen Negative 04/30/17 04/30/17 04/30/17 05:17 05:17 05:17 WBC 6.8 RBC 2.90 L Hgb 8.6 L Hct 25.8 L MCV 89.1 MCH 29.7 MCHC 33.3 RDW 18.4 H Plt Count 32 L MPV 10.8 Neut % (Auto) 90.7 H Lymph % (Auto) 3.3 L Wright % (Auto) 4.7 Eos % (Auto) 1.2 Baso % (Auto) 0.1 Neut # 6.2 Lymph # 0.2 L Wright # 0.3 Eos # 0.1 Baso # 0.0 Neutrophils % (Manual) 87 H Band Neutrophils % 5 H Lymphocytes % (Manual) 6 L Monocytes % (Manual) 2 Metamyelocytes % Platelet Estimate Decreased L Hypochromasia (manual) Slight Poikilocytosis (manual Anisocytosis (manual) Slight Microcytosis (manual) [place] Cells PT INR APTT Sodium 131 L Potassium 2.9 L Chloride 103 Carbon Dioxide 21 L Anion Gap 10 BUN 7 L Creatinine 0.4 L Est GFR ( Amer) > 60 Est GFR (Non-Af Amer) > 60 POC Glucose (mg/dL) Random Glucose 154 H Calcium 6.8 L Phosphorus 2.5 Magnesium 1.8 Total Bilirubin 1.6 H 1.5 H Direct Bilirubin 1.0 H AST 35 36 ALT 34 35 Alkaline Phosphatase 122 124 Total Protein 4.6 L 4.6 L Albumin 2.0 L 2.0 L Globulin 2.5 2.6 Albumin/Globulin Ratio 0.8 L 0.8 L Stool Occult Blood Blood Type Blood Type Confirm Antibody Screen 04/30/17 04/30/17 04/30/17 06:29 06:40 11:34 WBC RBC Hgb Hct MCV MCH MCHC RDW Plt Count MPV Neut % (Auto) Lymph % (Auto) Wright % (Auto) Eos % (Auto) Baso % (Auto) Neut # Lymph # Wright # Eos # Baso # Neutrophils % (Manual) Band Neutrophils % Lymphocytes % (Manual) Monocytes % (Manual) Metamyelocytes % Platelet Estimate Hypochromasia (manual) Poikilocytosis (manual Anisocytosis (manual) Microcytosis (manual) [place] Cells PT INR APTT Sodium Potassium Chloride Carbon Dioxide Anion Gap BUN Creatinine Est GFR ( Amer) Est GFR (Non-Af Amer) POC Glucose (mg/dL) 210 H 181 H Random Glucose Calcium Phosphorus Magnesium Total Bilirubin Direct Bilirubin AST ALT Alkaline Phosphatase Total Protein Albumin Globulin Albumin/Globulin Ratio Stool Occult Blood Positive H Blood Type Blood Type Confirm Antibody Screen 04/30/17 04/30/17 15:05 15:05 WBC 8.7 RBC 3.27 L Hgb 9.7 L Hct 29.2 L MCV 89.3 MCH 29.6 MCHC 33.2 RDW 18.1 H Plt Count 32 L MPV 10.3 Neut % (Auto) 86.1 H Lymph % (Auto) 4.5 L [place] % (Auto) 8.5 Eos % (Auto) 0.8 Baso % (Auto) 0.1 Neut # 7.5 H Lymph # 0.4 L [place] # 0.7 Eos # 0.1 Baso # 0.0 Neutrophils % (Manual) 82 H Band Neutrophils % 5 H Lymphocytes % (Manual) 6 L Monocytes % (Manual) 7 Metamyelocytes % Platelet Estimate Decreased L Hypochromasia (manual) Slight Poikilocytosis (manual Slight Anisocytosis (manual) Slight Microcytosis (manual) Alan Cells Slight PT 19.7 H INR 1.7 APTT 38 H D Sodium Potassium Chloride Carbon Dioxide Anion Gap BUN Creatinine Est GFR ( Amer) Est GFR (Non-Af Amer) POC Glucose (mg/dL) Random Glucose Calcium Phosphorus Magnesium Total Bilirubin Direct Bilirubin AST ALT Alkaline Phosphatase Total Protein Albumin Globulin Albumin/Globulin Ratio Stool Occult Blood Blood Type Blood Type Confirm Antibody Screen Critical Care Progress Note - Nutrition Nutrition: Nutrition Category Date Time Status NPO Diet [DIET] Diets 04/30/17 Lunch Active Attending/Attestation - Attestation I have personally seen and examined this patient.: Yes I have fully participated in the care of the patient.: Yes I have reviewed all pertinent clinical information: Yes Notes (Text): 04/30/17 16:52 patient seen and examined in the intensive care unit. Case discussed with house staff in the morning rounds. Status post transfusion of one unit of platelets and packed RBCs blood culture positive for gram-negativ Port-A-Cath removed Seen by infectious disease Continue antibiotics
[2017-04-30] MEDS: Pantoprazole 40 mg EC Tab PO SCH (12:00)
--- NOTE | 2017-04-30 12:45 | CP.PCM.CON ---
History of Present Illness - History of Present Illness History of Present Illness: Palliative consult Requested by Funmi MICHAEL Reason: Goals of care discussion Patient is a 57 yo male admitted from home with complaints of generalized weakness and fever which began on the day of admission. In ED fever was 105.5 and BP 74/47. Patient was given IV bolus hydration for fluid resuscitation with good result. Patient was found to be with thrombocytopenia , Plt. 13.000 and with hematochesia. Protonix drip started. The vasopressors were initiated for BP support. Vanco Iv and Zosyn IV on board for BC + Gram - rods. PMH: pancreas cancer with mets to liver, on chemo Tx with Doctor Shauna, last chemo was last week, DM, HTN Soc. Hx: , lives at home Fam. Hx: mother ith DM, denies family hx of Cancer Review of Systems - Constitutional Constitutional: Weakness - EENT Eyes: absent: As Per HPI, Blind Spots, Blurred Vision, Change in Vision, Decreased Night Vision, Diplopia, Discharge, Dry Eye, Exophthalmos, Floaters, Irritation, Itchy Eyes, Loss of Peripheral Vision, Pain, Photophobia, Requires Corrective Lenses, Sees Flashes, Spots in Vision, Tunnel Vision, Other Visual Disturbances, Loss of Vision, Other Ears: absent: As Per HPI, Decreased Hearing, Ear Discharge, Ear Pain, Tinnitus, Abnormal Hearing, Disequilibrium, Dizziness, Other Nose/Mouth/Throat: absent: As Per HPI, Epistaxis, Nasal Congestion, Nasal Discharge, Nasal Obstruction, Nasal Trauma, Nose Pain, Post Nasal Drip, Sinus Pain, Sinus Pressure, Bleeding Gums, Change in Voice, Dental Pain, Dry Mouth, Dysphagia, Halitosis, Hoarsness, Lip Swelling, Mouth Lesions, Mouth Pain, Odynophagia, Sore Throat, Throat Swelling, Tongue Swelling, Facial Pain, Neck Pain, Neck Mass, Other - Cardiovascular Cardiovascular: Dyspnea on Exertion, Pedal Edema - Respiratory Respiratory: Dyspnea on Exertion - Gastrointestinal Gastrointestinal: Hematochezia, Nausea - Genitourinary Genitourinary: absent: As Per HPI, Change in Urinary Stream, Difficulty Urinating, Dysuria, Flank Pain, Hematuria, Pyuria, Nocturia, Urinary Incontinence, Urinary Frequency, Urinary Hesitance, Urinary Urgency, Voiding Freq/Small Amts, Freq UTI, Hx Renal/Bladder Calculi, Hx /Renal Surgery, Bladder Distension, Other - Musculoskeletal Musculoskeletal: Abnormal Gait - Integumentary Integumentary: Dry Skin - Neurological Neurological: Weakness - Psychiatric Psychiatric: Depression - Endocrine Endocrine: Fatigue - Hematologic/Lymphatic Hematologic: Easy Bleeding Past Patient History - Infectious Disease Hx of Infectious Diseases: None - Past Medical History & Family History Past Medical History?: Yes - Past Social History Smoking Status: Former Smoker - CARDIAC Hx Cardiac Disorders: Yes Hx Hypertension: Yes - PULMONARY Hx Respiratory Disorders: No - NEUROLOGICAL Hx Neurological Disorder: No Hx Paralysis: No - HEENT Hx HEENT Problems: Yes Hx Cataracts: Yes Other/Comment: eyeglasses for reading - RENAL Hx Chronic Kidney Disease: No - ENDOCRINE/METABOLIC Hx Endocrine Disorders: Yes Hx Diabetes Mellitus Type 2: Yes - HEMATOLOGICAL/ONCOLOGICAL Hx Blood Disorders: Yes Hx Cancer: Yes (Pancreatic) Hx Chemotherapy: Yes - INTEGUMENTARY Hx Dermatological Problems: No - MUSCULOSKELETAL/RHEUMATOLOGICAL Hx Musculoskeletal Disorders: No Hx Falls: No - GASTROINTESTINAL Hx Gastrointestinal Disorders: Yes Other/Comment: Pacreatic CA - GENITOURINARY/GYNECOLOGICAL Hx Genitourinary Disorders: No - PSYCHIATRIC Hx Psychophysiologic Disorder: No Hx Substance Use: No - SURGICAL HISTORY Hx Surgeries: Yes Hx Cholecystectomy: Yes Hx Vascular Access Device: Yes (R sub swetha cath) - ANESTHESIA Hx Anesthesia: Yes Hx Anesthesia Reactions: No Hx Malignant Hyperthermia: No Has any member of the family had a problem w/ anesthesia?: No Meds Allergies/Adverse Reactions: Allergies Allergy/AdvReac Type Severity Reaction Status Date / Time No Known Allergies Allergy Verified 10/02/16 19:22 - Medications Medications: Current Medications Acetaminophen (Tylenol 650 Mg Supp) 650 mg IN Q6 PRN PRN Reason: fever 100.4F and above Piperacillin Sod/Tazobactam (Sod 3.375 gm/ Sodium Chloride) 100 mls @ 200 mls/ hr IVPB Q8H [facility] Last Admin: 04/30/17 06:50 Dose: 200 mls/hr Sodium Chloride (Sodium Chloride 0.9%) 1,000 mls @ 200 mls/hr IV .Q5H [facility] Last Admin: 04/30/17 04:15 Dose: Not Given Norepinephrine Bitartrate 4 mg (/ Sodium Chloride) 254 mls @ 15.24 mls/hr IV .[id number] PRN; Protocol; 4 MCG/MIN PRN Reason: TITRATE PER MD ORDER Last Titration: 04/30/17 00:04 Dose: 0 mcg/min, 0 mls/hr Vancomycin/Sodium Chloride (Vancocin) 1 gm in 200 mls @ 166.7 mls/hr IVPB Q12H [facility] Stop: 05/04/17 13:01 Last Admin: 04/30/17 01:58 Dose: 166.7 mls/hr Potassium Chloride (Potassium Chloride 20 Meq/100 Ml) 20 meq in 100 mls @ 50 mls/hr IVPB Q2H [facility] Stop: 04/30/17 13:29 Insulin Human Regular (Novolin R) 0 unit SC Q6H [facility] PRN Reason: Protocol Last Admin: 04/30/17 06:49 Dose: 2 unit Pantoprazole Sodium (Protonix Ec Tab) 40 mg PO ACB [facility] Physical Exam - Constitutional Appears: Chronically Ill - Head Exam Head Exam: ATRAUMATIC, NORMAL INSPECTION, NORMOCEPHALIC - Eye Exam Eye Exam: EOMI, Normal appearance, PERRL Pupil Exam: NORMAL ACCOMODATION, PERRL - ENT Exam ENT Exam: Mucous Membranes Moist, Normal Exam - Neck Exam Neck exam: Positive for: Normal Inspection - Respiratory Exam Respiratory Exam: Decreased Breath Sounds, Clear to Auscultation Bilateral, NORMAL BREATHING PATTERN - Cardiovascular Exam Cardiovascular Exam: Tachycardia, REGULAR RHYTHM, +S1, +S2 - GI/Abdominal Exam GI & Abdominal Exam: Normal Bowel Sounds, Soft - Rectal Exam Rectal Exam: Deferred - Extremities Exam Extremities exam: Positive for: pedal edema - Back Exam Back exam: NORMAL INSPECTION - Neurological Exam Neurological exam: Alert, CN II-XII Intact, Oriented x3, Reflexes Normal - Psychiatric Exam Psychiatric exam: Normal Affect, Normal Mood - Skin Skin Exam: Intact, Pallor, Warm Results - Vital Signs Recent Vital Signs: Last Vital Signs Temp 98.4 F 04/30/17 04:00 Pulse 83 04/30/17 04:00 Resp 25 H 04/30/17 04:00 BP 122/67 04/30/17 03:59 Pulse Ox 100 04/30/17 04:00 - Labs Result Diagrams: 04/30/17 05:17 04/30/17 05:17 Labs: Laboratory Results - last 24 hr 04/29/17 04/29/17 04/30/17 10:48 22:19 00:53 WBC 7.2 RBC 2.66 L Hgb 7.9 L Hct 23.5 L MCV 88.5 D MCH 29.8 MCHC 33.7 RDW 17.5 H Plt Count 29 L* D MPV 8.6 Neut % (Auto) 91.8 H Lymph % (Auto) 2.1 L [place] % (Auto) 5.7 Eos % (Auto) 0.3 Baso % (Auto) 0.1 Neut # 6.6 Lymph # 0.2 L [place] # 0.4 Eos # 0.0 Baso # 0.0 Neutrophils % (Manual) 88 H Band Neutrophils % 8 H Lymphocytes % (Manual) 1 L Monocytes % (Manual) 2 Metamyelocytes % 1 H Platelet Estimate Markedly decreased L Hypochromasia (manual) Poikilocytosis (manual Slight Anisocytosis (manual) Slight Microcytosis (manual) Slight Sodium Potassium Chloride Carbon Dioxide Anion Gap BUN Creatinine Est GFR ( Amer) Est GFR (Non-Af Amer) POC Glucose (mg/dL) 161 H Random Glucose Calcium Phosphorus Magnesium Total Bilirubin Direct Bilirubin AST ALT Alkaline Phosphatase Total Protein Albumin Globulin Albumin/Globulin Ratio Stool Occult Blood Blood Type A POSITIVE Blood Type Confirm A POSITIVE Antibody Screen Negative 04/30/17 04/30/17 04/30/17 05:17 05:17 05:17 WBC 6.8 RBC 2.90 L Hgb 8.6 L Hct 25.8 L MCV 89.1 MCH 29.7 MCHC 33.3 RDW 18.4 H Plt Count 32 L MPV 10.8 Neut % (Auto) 90.7 H Lymph % (Auto) 3.3 L [place] % (Auto) 4.7 Eos % (Auto) 1.2 Baso % (Auto) 0.1 Neut # 6.2 Lymph # 0.2 L [place] # 0.3 Eos # 0.1 Baso # 0.0 Neutrophils % (Manual) 87 H Band Neutrophils % 5 H Lymphocytes % (Manual) 6 L Monocytes % (Manual) 2 Metamyelocytes % Platelet Estimate Decreased L Hypochromasia (manual) Slight Poikilocytosis (manual Anisocytosis (manual) Slight Microcytosis (manual) Sodium 131 L Potassium 2.9 L Chloride 103 Carbon Dioxide 21 L Anion Gap 10 BUN 7 L Creatinine 0.4 L Est GFR ( Amer) > 60 Est GFR (Non-Af Amer) > 60 POC Glucose (mg/dL) Random Glucose 154 H Calcium 6.8 L Phosphorus 2.5 Magnesium 1.8 Total Bilirubin 1.6 H 1.5 H Direct Bilirubin 1.0 H AST 35 36 ALT 34 35 Alkaline Phosphatase 122 124 Total Protein 4.6 L 4.6 L Albumin 2.0 L 2.0 L Globulin 2.5 2.6 Albumin/Globulin Ratio 0.8 L 0.8 L Stool Occult Blood Blood Type Blood Type Confirm Antibody Screen 04/30/17 04/30/17 04/30/17 06:29 06:40 11:34 WBC RBC Hgb Hct MCV MCH MCHC RDW Plt Count MPV Neut % (Auto) Lymph % (Auto) [place] % (Auto) Eos % (Auto) Baso % (Auto) Neut # Lymph # [place] # Eos # Baso # Neutrophils % (Manual) Band Neutrophils % Lymphocytes % (Manual) Monocytes % (Manual) Metamyelocytes % Platelet Estimate Hypochromasia (manual) Poikilocytosis (manual Anisocytosis (manual) Microcytosis (manual) Sodium Potassium Chloride Carbon Dioxide Anion Gap BUN Creatinine Est GFR ( Amer) Est GFR (Non-Af Amer) POC Glucose (mg/dL) 210 H 181 H Random Glucose Calcium Phosphorus Magnesium Total Bilirubin Direct Bilirubin AST ALT Alkaline Phosphatase Total Protein Albumin Globulin Albumin/Globulin Ratio Stool Occult Blood Positive H Blood Type Blood Type Confirm Antibody Screen Assessment & Plan - Assessment and Plan (Free Text) Assessment: Palliative consult Code status Full Code, there is no Advance directive on chart I reviewed medical record, all diagnostic studies, examined and interviewed patient in the bed, translation provided by Medical student. Patient is alert, oriented X 3 with affect that is appropriate. Patient looks chronically ill, skin is pale. Patient reports feeling weak and unable to ambulate. Breath sounds are diminished, no cough noted, denies chest pain. Abdomen soft with active bowel sounds. Patient denies bloody stool. Denies pain. BP 122/67, HR 83, O2Sat 100% NC, afebrile. With at bed side and assistance with translation from Medical student, goals of care discussed. Patient is aware of his metastatic cancer. He reports a lot of side effects from previous chemo Tx. However, patient is looking toward more chemo Tx, once her feels stronger. Patient seen by Doctor Shauna, just prior this interview. I supported his intention to fight and offered more information on healthy life style and proper diet in order to support his immune system. Patient seen by the residential property manager and Port- o -Cath was left in place , as patient was planing for more chemo Tx. Information regarding the progressive nature of cancer given. At that point , patient looked down avoiding eye contacts and further discussion about cancer. I refrained from discussing Code status, at this time. Impression * This is a very sick man with metastatic disease * Patient is aware of diagnosis. * As it is usually case with young people diagnosed with cancer, this patient as well is looking toward recovery with help from chemo Tx * Patient's body language suggests denial and unwillingness to discuss Code status * Generalized weakness and unsteady gait * In need for moderate assistance with ADLs Suggestion * Symptomatic Tx * Assist OOB to chair * PO hydration as tolerated Palliative care will continue to fallow up with patient and offer support during decision making process.
[2017-04-30 15:09] LABS: BASO % 0.1 % (0.0-2.0); EOS # 0.1 K/uL (0.0-0.7); EOS % 0.8 % (0.0-4.0); HEMOGLOBIN 9.7 g/dL (12.0-18.0); LYMPH # 0.4 K/uL (1.0-4.3); LYMPH % 4.5 % (20.0-40.0); MEAN CELL VOLUME 89.3 fL (80.0-94.0); MEAN CORPUSCULAR HEMOGLOBIN 29.6 pg (27.0-31.0); MEAN CORPUSCULAR HGB CONC 33.2 g/dL (33.0-37.0); MEAN PLATELET VOLUME 10.3 fL (7.2-11.7); MONO # 0.7 K/uL (0.0-0.8); MONO % 8.5 % (0.0-10.0); NEUT # 7.5 K/uL (1.8-7.0); NEUT % 86.1 % (50.0-75.0); PLATELET COUNT 32 K/uL (130-400); RBC 3.27 Mil/uL (4.40-5.90); RED CELL DISTRIBUTION WIDTH 18.1 % (11.5-14.5); WHITE BLOOD COUNT 8.7 K/uL (4.8-10.8)
[2017-04-30 15:30] LABS: BANDS 5 % (0-2); INR 1.7; NEUTROPHIL 82 % (50-75); PROTHROMBIN TIME 19.7 SECONDS (9.7-12.2); TOTAL CELLS COUNTED 100
[2017-04-30 15:31] LABS: LYMPHOCYTE 6 % (20-40); MONOCYTE 7 % (0-10); PLATELET ESTIMATE DECREASED (NORMAL)
[2017-04-30 15:32] LABS: ANISOCYTOSIS SLIGHT; BURR CELLS SLIGHT; HYPOCHROMIC SLIGHT; POIKILOCYTOSIS SLIGHT
[2017-04-30] MEDS ORDERED: Lidocaine 1% Inj (20ml) ONE (15:38)
[2017-04-30] MEDS ORDERED: Bupivacaine-Epi 0.25%-1:200,000 PF Inj ONE (15:38)
--- NOTE | 2017-04-30 16:18 | CP.PCM.CON ---
<Unique Fernandez - Last Filed: 04/30/17 16:25> History of Present Illness - History of Present Illness History of Present Illness: General Sx Consult note for Dr. Walker Fernandez, PGY-1 Pt S & E at bedside. 57M w/PMH sig for pancreatic CA undergoing chemotherapy admitted to hospital for fevers. Pt admits to subjective fevers and chills at home prior to admission. Denies N/V, SOB, CP, abdominal pain, other complaints. Last chemo treatment last week. Pt admitted to ICU for sepsis/septic shock, pancytopenia. Found to have bacteremia - gram neg rods in blood. Pt fluid resuscitated, placed on pressors , ABx. Given 1 unit of plts and 2 units of pRBCs. PMH: DM, Pancreatic CA on chemo, diverticulosis PSH: RIJ portacath, cholecystectomy, liver bx All: NKA SH: Former tobacco use (quit 16 yrs ago), former ETOH use, denies illicit drug use Review of Systems - Review of Systems All systems: reviewed and no additional remarkable complaints except - Constitutional Constitutional: Chills, Fever - EENT Eyes: absent: Change in Vision Nose/Mouth/Throat: absent: Sore Throat - Cardiovascular Cardiovascular: absent: Chest Pain - Gastrointestinal Gastrointestinal: absent: Abdominal Pain, Nausea, Vomiting - Neurological Neurological: absent: Headaches Past Patient History - Infectious Disease Hx of Infectious Diseases: None - Past Medical History & Family History Past Medical History?: Yes - Past Social History Smoking Status: Former Smoker - CARDIAC Hx Cardiac Disorders: Yes Hx Hypertension: Yes - PULMONARY Hx Respiratory Disorders: No - NEUROLOGICAL Hx Neurological Disorder: No Hx Paralysis: No - HEENT Hx HEENT Problems: Yes Hx Cataracts: Yes Other/Comment: eyeglasses for reading - RENAL Hx Chronic Kidney Disease: No - ENDOCRINE/METABOLIC Hx Endocrine Disorders: Yes Hx Diabetes Mellitus Type 2: Yes - HEMATOLOGICAL/ONCOLOGICAL Hx Blood Disorders: Yes Hx Cancer: Yes (Pancreatic) Hx Chemotherapy: Yes - INTEGUMENTARY Hx Dermatological Problems: No - MUSCULOSKELETAL/RHEUMATOLOGICAL Hx Musculoskeletal Disorders: No Hx Falls: No - GASTROINTESTINAL Hx Gastrointestinal Disorders: Yes Other/Comment: Pacreatic CA - GENITOURINARY/GYNECOLOGICAL Hx Genitourinary Disorders: No - PSYCHIATRIC Hx Psychophysiologic Disorder: No Hx Substance Use: No - SURGICAL HISTORY Hx Surgeries: Yes Hx Cholecystectomy: Yes Hx Vascular Access Device: Yes (R sub swetha cath) - ANESTHESIA Hx Anesthesia: Yes Hx Anesthesia Reactions: No Hx Malignant Hyperthermia: No Has any member of the family had a problem w/ anesthesia?: No Meds Allergies/Adverse Reactions: Allergies Allergy/AdvReac Type Severity Reaction Status Date / Time No Known Allergies Allergy Verified 10/02/16 19:22 - Medications Medications: Current Medications Acetaminophen (Tylenol 650 Mg Supp) 650 mg [place] Q6 PRN PRN Reason: fever 100.4F and above Piperacillin Sod/Tazobactam (Sod 3.375 gm/ Sodium Chloride) 100 mls @ 200 mls/ hr IVPB Q8H [facility] Last Admin: 04/30/17 06:50 Dose: 200 mls/hr Sodium Chloride (Sodium Chloride 0.9%) 1,000 mls @ 200 mls/hr IV .Q5H [facility] Last Admin: 04/30/17 15:34 Dose: Not Given Norepinephrine Bitartrate 4 mg (/ Sodium Chloride) 254 mls @ 15.24 mls/hr IV .[id number] PRN; Protocol; 4 MCG/MIN PRN Reason: TITRATE PER MD ORDER Last Titration: 04/30/17 11:00 Dose: 2 mcg/min, 7.62 mls/hr Vancomycin/Sodium Chloride (Vancocin) 1 gm in 200 mls @ 166.7 mls/hr IVPB Q12H [facility] Stop: 05/04/17 13:01 Last Admin: 04/30/17 01:58 Dose: 166.7 mls/hr Insulin Human Regular (Novolin R) 0 unit SC Q6H [facility] PRN Reason: Protocol Last Admin: 04/30/17 15:32 Dose: Not Given Pantoprazole Sodium (Protonix Ec Tab) 40 mg PO ACB [facility] Last Admin: 04/30/17 12:00 Dose: 40 mg Physical Exam - Constitutional Appears: Non-toxic, No Acute Distress - Head Exam Head Exam: ATRAUMATIC, NORMAL INSPECTION, NORMOCEPHALIC - Eye Exam Eye Exam: EOMI, Normal appearance - ENT Exam ENT Exam: Mucous Membranes Moist, Normal Exam - Neck Exam Neck exam: Positive for: Full Rom, Normal Inspection - Respiratory Exam Respiratory Exam: Clear to Auscultation Bilateral, NORMAL BREATHING PATTERN - Cardiovascular Exam Cardiovascular Exam: REGULAR RHYTHM, +S1, +S2 - GI/Abdominal Exam GI & Abdominal Exam: Normal Bowel Sounds, Soft. absent: Distended, Guarding, Rigid, Tenderness - Extremities Exam Extremities exam: Positive for: normal inspection. Negative for: pedal edema - Neurological Exam Neurological exam: Alert, CN II-XII Intact, Oriented x3 - Psychiatric Exam Psychiatric exam: Normal Affect, Normal Mood - Skin Skin Exam: Dry, Intact, Normal Color, Warm Additional comments: Right chest wall with portacath in place, no erythema or drainage Results - Vital Signs Recent Vital Signs: Last Vital Signs Temp 98.4 F 04/30/17 04:00 Pulse 83 04/30/17 04:00 Resp 25 H 04/30/17 04:00 BP 122/67 04/30/17 03:59 Pulse Ox 100 04/30/17 04:00 - Labs Result Diagrams: 04/30/17 15:05 04/30/17 05:17 Labs: Laboratory Results - last 24 hr 04/29/17 04/29/17 04/30/17 10:48 22:19 00:53 WBC 7.2 RBC 2.66 L Hgb 7.9 L Hct 23.5 L MCV 88.5 D MCH 29.8 MCHC 33.7 RDW 17.5 H Plt Count 29 L* D MPV 8.6 Neut % (Auto) 91.8 H Lymph % (Auto) 2.1 L [place] % (Auto) 5.7 Eos % (Auto) 0.3 Baso % (Auto) 0.1 Neut # 6.6 Lymph # 0.2 L [place] # 0.4 Eos # 0.0 Baso # 0.0 Neutrophils % (Manual) 88 H Band Neutrophils % 8 H Lymphocytes % (Manual) 1 L Monocytes % (Manual) 2 Metamyelocytes % 1 H Platelet Estimate Markedly decreased L Hypochromasia (manual) Poikilocytosis (manual Slight Anisocytosis (manual) Slight Microcytosis (manual) Slight Alan Cells PT INR APTT Sodium Potassium Chloride Carbon Dioxide Anion Gap BUN Creatinine Est GFR ( Amer) Est GFR (Non-Af Amer) POC Glucose (mg/dL) 161 H Random Glucose Calcium Phosphorus Magnesium Total Bilirubin Direct Bilirubin AST ALT Alkaline Phosphatase Total Protein Albumin Globulin Albumin/Globulin Ratio Stool Occult Blood Blood Type A POSITIVE Blood Type Confirm A POSITIVE Antibody Screen Negative 04/30/17 04/30/17 04/30/17 05:17 05:17 05:17 WBC 6.8 RBC 2.90 L Hgb 8.6 L Hct 25.8 L MCV 89.1 MCH 29.7 MCHC 33.3 RDW 18.4 H Plt Count 32 L MPV 10.8 Neut % (Auto) 90.7 H Lymph % (Auto) 3.3 L [place] % (Auto) 4.7 Eos % (Auto) 1.2 Baso % (Auto) 0.1 Neut # 6.2 Lymph # 0.2 L [place] # 0.3 Eos # 0.1 Baso # 0.0 Neutrophils % (Manual) 87 H Band Neutrophils % 5 H Lymphocytes % (Manual) 6 L Monocytes % (Manual) 2 Metamyelocytes % Platelet Estimate Decreased L Hypochromasia (manual) Slight Poikilocytosis (manual Anisocytosis (manual) Slight Microcytosis (manual) Alan Cells PT INR APTT Sodium 131 L Potassium 2.9 L Chloride 103 Carbon Dioxide 21 L Anion Gap 10 BUN 7 L Creatinine 0.4 L Est GFR ( Amer) > 60 Est GFR (Non-Af Amer) > 60 POC Glucose (mg/dL) Random Glucose 154 H Calcium 6.8 L Phosphorus 2.5 Magnesium 1.8 Total Bilirubin 1.6 H 1.5 H Direct Bilirubin 1.0 H AST 35 36 ALT 34 35 Alkaline Phosphatase 122 124 Total Protein 4.6 L 4.6 L Albumin 2.0 L 2.0 L Globulin 2.5 2.6 Albumin/Globulin Ratio 0.8 L 0.8 L Stool Occult Blood Blood Type Blood Type Confirm Antibody Screen 04/30/17 04/30/17 04/30/17 06:29 06:40 11:34 WBC RBC Hgb Hct MCV MCH MCHC RDW Plt Count MPV Neut % (Auto) Lymph % (Auto) [place] % (Auto) Eos % (Auto) Baso % (Auto) Neut # Lymph # [place] # Eos # Baso # Neutrophils % (Manual) Band Neutrophils % Lymphocytes % (Manual) Monocytes % (Manual) Metamyelocytes % Platelet Estimate Hypochromasia (manual) Poikilocytosis (manual Anisocytosis (manual) Microcytosis (manual) Dalton Cells PT INR APTT Sodium Potassium Chloride Carbon Dioxide Anion Gap BUN Creatinine Est GFR ( Amer) Est GFR (Non-Af Amer) POC Glucose (mg/dL) 210 H 181 H Random Glucose Calcium Phosphorus Magnesium Total Bilirubin Direct Bilirubin AST ALT Alkaline Phosphatase Total Protein Albumin Globulin Albumin/Globulin Ratio Stool Occult Blood Positive H Blood Type Blood Type Confirm Antibody Screen 04/30/17 04/30/17 15:05 15:05 WBC 8.7 RBC 3.27 L Hgb 9.7 L Hct 29.2 L MCV 89.3 MCH 29.6 MCHC 33.2 RDW 18.1 H Plt Count 32 L MPV 10.3 Neut % (Auto) 86.1 H Lymph % (Auto) 4.5 L [place] % (Auto) 8.5 Eos % (Auto) 0.8 Baso % (Auto) 0.1 Neut # 7.5 H Lymph # 0.4 L [place] # 0.7 Eos # 0.1 Baso # 0.0 Neutrophils % (Manual) 82 H Band Neutrophils % 5 H Lymphocytes % (Manual) 6 L Monocytes % (Manual) 7 Metamyelocytes % Platelet Estimate Decreased L Hypochromasia (manual) Slight Poikilocytosis (manual Slight Anisocytosis (manual) Slight Microcytosis (manual) Alan Cells Slight PT 19.7 H INR 1.7 APTT 38 H D Sodium Potassium Chloride Carbon Dioxide Anion Gap BUN Creatinine Est GFR ( Amer) Est GFR (Non-Af Amer) POC Glucose (mg/dL) Random Glucose Calcium Phosphorus Magnesium Total Bilirubin Direct Bilirubin AST ALT Alkaline Phosphatase Total Protein Albumin Globulin Albumin/Globulin Ratio Stool Occult Blood Blood Type Blood Type Confirm Antibody Screen Assessment & Plan - Assessment and Plan (Free Text) Assessment: 57M w/sepsis, likely due to portacath Plan: -febrile overnight, Tmax 100.6 -repeat CBC -OR for portacath removal -Consent in chart -Will order plts and transfuse DW attending Rebecca, PGY-1 - Date & Time Date: 04/30/17 Time: 14:30 <Toan Gonzales - Last Filed: 05/04/17 16:31> Meds - Medications Medications: Current Medications Acetaminophen (Tylenol 325mg Tab) 650 mg PO Q6 PRN PRN Reason: Fever >100.4 F Last Admin: 05/03/17 21:08 Dose: 650 mg Piperacillin Sod/Tazobactam (Sod 3.375 gm/ Sodium Chloride) 100 mls @ 200 mls/ hr IVPB Q8H [facility] Last Admin: 05/04/17 14:11 Dose: 200 mls/hr Sodium Chloride (Sodium Chloride 0.9%) 1,000 mls @ 75 mls/hr IV .[id number] [facility] Last Admin: 05/04/17 12:30 Dose: Not Given Insulin Human Regular (Novolin R) 0 unit SC ACHS [facility] PRN Reason: Protocol Last Admin: 05/04/17 12:25 Dose: 1 unit Morphine Sulfate (Morphine) 2 mg IVP Q2 PRN PRN Reason: Pain, moderate (4-7) Last Admin: 05/04/17 14:14 Dose: 2 mg Ondansetron HCl (Zofran Inj) 4 mg IVP Q6 PRN PRN Reason: Nausea/Vomiting Last Admin: 05/03/17 21:03 Dose: 4 mg Pantoprazole Sodium (Protonix Ec Tab) 40 mg PO ACB [facility] Last Admin: 05/04/17 08:04 Dose: 40 mg Potassium Chloride (K-Dur 20 Meq Er Tab) 40 meq PO BRK [facility] Last Admin: 05/04/17 08:05 Dose: 40 meq Results - Vital Signs Recent Vital Signs: Last Vital Signs Temp 97.9 F 05/04/17 16:00 Pulse 90 05/04/17 16:00 Resp 19 05/04/17 16:00 BP 94/59 L 05/04/17 16:00 Pulse Ox 95 05/04/17 16:00 - Labs Result Diagrams: 05/04/17 06:15 05/04/17 06:15 Labs: Laboratory Results - last 24 hr 05/03/17 05/03/17 05/03/17 13:16 17:06 19:35 WBC RBC Hgb Hct MCV MCH MCHC RDW Plt Count MPV Neut % (Auto) Lymph % (Auto) [place] % (Auto) Eos % (Auto) Baso % (Auto) Neut # Lymph # [place] # Eos # Baso # Sodium Potassium Chloride Carbon Dioxide Anion Gap BUN Creatinine Est GFR ( Amer) Est GFR (Non-Af Amer) POC Glucose (mg/dL) 221 H Random Glucose Calcium Phosphorus Magnesium Total Bilirubin AST ALT Alkaline Phosphatase Total Protein Albumin Globulin Albumin/Globulin Ratio Urine Color Yellow Urine Clarity Clear Urine pH 5.0 Ur Specific [place] 1.019 Urine Protein Negative Urine Glucose (UA) 1+ H Urine Ketones Trace Urine Blood Negative Urine Nitrate Negative Urine Bilirubin Negative Urine Urobilinogen Normal Ur Leukocyte Esterase Neg Urine WBC (Auto) < 1 Urine RBC (Auto) 3 Ur Squamous Epith Cells < 1 Blood Type A POSITIVE Antibody Screen Negative 05/03/17 05/03/17 05/04/17 21:19 23:35 06:15 WBC 4.9 RBC 2.59 L Hgb 7.6 L Hct 23.2 L MCV 89.6 MCH 29.6 MCHC 33.0 RDW 18.1 H Plt Count 61 L D MPV 9.3 Neut % (Auto) 73.5 Lymph % (Auto) 10.6 L [place] % (Auto) 15.8 H Eos % (Auto) 0.0 Baso % (Auto) 0.1 Neut # 3.6 Lymph # 0.5 L [place] # 0.8 Eos # 0.0 Baso # 0.0 Sodium Potassium Chloride Carbon Dioxide Anion Gap BUN Creatinine Est GFR ( Amer) Est GFR (Non-Af Amer) POC Glucose (mg/dL) 223 H 214 H Random Glucose Calcium Phosphorus Magnesium Total Bilirubin AST ALT Alkaline Phosphatase Total Protein Albumin Globulin Albumin/Globulin Ratio Urine Color Urine Clarity Urine pH Ur Specific [place] Urine Protein Urine Glucose (UA) Urine Ketones Urine Blood Urine Nitrate Urine Bilirubin Urine Urobilinogen Ur Leukocyte Esterase Urine WBC (Auto) Urine RBC (Auto) Ur Squamous Epith Cells Blood Type Antibody Screen 05/04/17 05/04/17 05/04/17 06:15 08:09 11:52 WBC RBC Hgb Hct MCV MCH MCHC RDW Plt Count MPV Neut % (Auto) Lymph % (Auto) [place] % (Auto) Eos % (Auto) Baso % (Auto) Neut # Lymph # [place] # Eos # Baso # Sodium 130 L Potassium 3.2 L Chloride 103 Carbon Dioxide 21 L Anion Gap 9 L BUN 6 L Creatinine 0.5 L Est GFR ( Amer) > 60 Est GFR (Non-Af Amer) > 60 POC Glucose (mg/dL) 151 H 198 H Random Glucose 131 H Calcium 6.7 L Phosphorus 1.8 L Magnesium 1.9 Total Bilirubin 1.3 AST 14 L D ALT 22 Alkaline Phosphatase 87 Total Protein 4.3 L Albumin 1.9 L Globulin 2.5 Albumin/Globulin Ratio 0.8 L Urine Color Urine Clarity Urine pH Ur Specific [place] Urine Protein Urine Glucose (UA) Urine Ketones Urine Blood Urine Nitrate Urine Bilirubin Urine Urobilinogen Ur Leukocyte Esterase Urine WBC (Auto) Urine RBC (Auto) Ur Squamous Epith Cells Blood Type Antibody Screen 05/04/17 16:19 WBC RBC Hgb Hct MCV MCH MCHC RDW Plt Count MPV Neut % (Auto) Lymph % (Auto) [place] % (Auto) Eos % (Auto) Baso % (Auto) Neut # Lymph # [place] # Eos # Baso # Sodium Potassium Chloride Carbon Dioxide Anion Gap BUN Creatinine Est GFR ( Amer) Est GFR (Non-Af Amer) POC Glucose (mg/dL) 240 H Random Glucose Calcium Phosphorus Magnesium Total Bilirubin AST ALT Alkaline Phosphatase Total Protein Albumin Globulin Albumin/Globulin Ratio Urine Color Urine Clarity Urine pH Ur Specific [place] Urine Protein Urine Glucose (UA) Urine Ketones Urine Blood Urine Nitrate Urine Bilirubin Urine Urobilinogen Ur Leukocyte Esterase Urine WBC (Auto) Urine RBC (Auto) Ur Squamous Epith Cells Blood Type Antibody Screen Attending/Attestation - Attestation I have personally seen and examined this patient.: Yes I have fully participated in the care of the patient.: Yes I have reviewed all pertinent clinical information: Yes Notes (Text): 05/04/17 16:30 Pt was seen and examined at bedside on 04/30/17 Agree with above note and assessment Pt with Septic shock and possible Infected portacath OR for Removal of Portacath Consent NPO, IVF Platelets scallop binder to OR Plan d/w pt and PMD in detail Risk and benefit explained in detail.
[2017-04-30] MEDS ORDERED: Iodixanol 320 MG/ML 100 ML BOTTLE IV ONE (16:46)
--- NOTE | 2017-04-30 17:35 | CT ---
PROCEDURE: CT Abdomen and Pelvis with contrast HISTORY: evaluate infectious source- GNR Bacteremia COMPARISON: None. TECHNIQUE: Contrast dose: 100 cc Visipaque 320 Radiation dose: Total exam DLP = 831.91 mGy-cm. This CT exam was performed using one or more of the following dose reduction techniques: Automated exposure control, adjustment of the mA and/or kV according to patient size, and/or use of iterative reconstruction technique. FINDINGS: LOWER THORAX: New lower lobe infiltrates and trace pleural effusions LIVER: New hepatic metastatic disease. GALLBLADDER AND BILE DUCTS: Status post cholecystectomy. No abnormality is seen in the gallbladder fossa. PANCREAS: Increase in size of the necrotic pancreatic head mass. Previously the mass measured 3.5 x 4.1 cm. Currently the mass measures 4.7 x 5 cm. Of the tumor appears to be locally invasive distorting tissue planes with adjacent duodenum. SPLEEN: Unremarkable. ADRENALS: Unremarkable. No mass. KIDNEYS AND URETERS: Unremarkable. No hydronephrosis. No solid mass. VASCULATURE: Unremarkable. No aortic aneurysm. BOWEL: The bowel is on opacified. There is mild thickening of the wall of the colon suggestive of mild colitis. No evidence of mechanical bowel obstruction. APPENDIX: Normal appendix. PERITONEUM: New intra-abdominal and pelvic ascites, of small volume. LYMPH NODES: Unremarkable. No enlarged lymph nodes. BLADDER: Unremarkable. REPRODUCTIVE: Unremarkable. BONES: No acute fracture. OTHER FINDINGS: None. IMPRESSION: 1. Progressive tumor burden in the retroperitoneum primarily increase in size of the necrotic pancreatic head mass. 2. New hepatic metastatic disease. 3. Intra-abdominal pelvic ascites likely malignant ascites. 4. Findings suggestive of mild colitis.
--- NOTE | 2017-04-30 21:27 | CARD ---
APPROVED REPORT EKG Measurement Heart [id number] <Conclusion> Sinus tachycardia with occasional premature ventricular complexes and fusion complexes Otherwise normal ECG
--- NOTE | 2017-04-30 22:29 | CP.PCM.PN ---
Subjective - Date & Time of Evaluation Date of Evaluation: 04/30/17 Time of Evaluation: 22:29 - Subjective Subjective: CHIEF COMPLAINTS TODAY : TEMP 98.4 VS BP 94/55 AWAKE/ALERT seen post opt s/p removal of RT.BLAS CATH ROS. HEENT : N. Resp : No SOB wheezing, cough Cardio : No CP, PND orthopnea RT. CHEST WALL DRESSING IN PLACE GI : No abd. Pain, n/v [employer] : No headache , focal deficit. Musculoskel : N Ext. : Pedal pulses intact, no edema or calf pain Derm : N Psych : N. PE. Pt. is alert awake in no distress. V.S As noted in the chart Head ,ear nose,throat and eyes : Normal. Neck : Supple with normal carotids. Lungs: Clear air entry.RT. CHEST WALL DRESSING IN PLACE Heart : S1 & S2 normal . . No murmur. S4 + Abd : Soft non tender with normal bowel sounds. Neuro : Moves all ext. with no localized deficit. Ext : No edema with intact pulses. Neg. calf tenderness Derm : No rashes or decubitus ulcer. Radiology/Labs . BLOOD CULTURE2:2 SET +VE GNR URINE CULTURE -VE STOOLS +VE OB Objective - Vital Signs/Intake and Output Vital Signs (last 24 hours): Temp Pulse Resp BP Pulse Ox 98.4 F 92 H 22 94/55 L 100 04/30/17 21:18 04/30/17 22:22 04/30/17 22:22 04/30/17 22:22 04/30/17 22:22 Intake and Output: 04/30/17 05/01/17 18:59 06:59 Intake Total 2909.0 300 Output Total 1300 200 Balance 1609.0 100 - Medications Medications: Current Medications Acetaminophen (Tylenol 325mg Tab) 650 mg PO Q6 PRN PRN Reason: Fever >100.4 F Piperacillin Sod/Tazobactam (Sod 3.375 gm/ Sodium Chloride) 100 mls @ 200 mls/ hr IVPB Q8H [facility] Last Admin: 04/30/17 15:15 Dose: 200 mls/hr Sodium Chloride (Sodium Chloride 0.9%) 1,000 mls @ 200 mls/hr IV .Q5H [facility] Last Admin: 04/30/17 20:22 Dose: Not Given Norepinephrine Bitartrate 4 mg (/ Sodium Chloride) 254 mls @ 15.24 mls/hr IV .[id number] PRN; Protocol; 4 MCG/MIN PRN Reason: TITRATE PER MD ORDER Last Titration: 04/30/17 16:00 Dose: 0 mcg/min, 0 mls/hr Vancomycin/Sodium Chloride (Vancocin) 1 gm in 200 mls @ 166.7 mls/hr IVPB Q12H [facility] Stop: 05/04/17 13:01 Last Admin: 04/30/17 13:15 Dose: 166.7 mls/hr Insulin Human Regular (Novolin R) 0 unit SC Q6H [facility] PRN Reason: Protocol Last Admin: 04/30/17 18:04 Dose: 1 unit Morphine Sulfate (Morphine) 2 mg IVP Q2 PRN PRN Reason: Pain, moderate (4-7) Last Admin: 04/30/17 21:19 Dose: 2 mg Pantoprazole Sodium (Protonix Ec Tab) 40 mg PO ACB [facility] Last Admin: 04/30/17 12:00 Dose: 40 mg - Labs Labs: 04/30/17 15:05 04/30/17 05:17 PT 19.7 SECONDS (9.7-12.2) H 04/30/17 15:05 INR 1.7 04/30/17 15:05 APTT 38 SECONDS (21-34) H D 04/30/17 15:05 Assessment and Plan (1) Gram negative septic shock Assessment & Plan: SOURCE OF GRAM-NEGATIVE SEPSIS NOT VERY CLEAR. S/P RIGHT pORT-a-cATH REMOVAL 04/30/17 CONTINUE iv ZOSYN 3.375 Q 8 HOURLY CONTINUE iv VANCOMYCIN 1 G EVERY 12 HOURLY FOR NOW. fOLLOW-UP BLOOD CULTURES TO ADJUST ANTIBIOTICS . Status: Acute (2) Fever Status: Acute (3) Anemia Status: Acute (4) Pancreatic cancer Assessment & Plan: S/P CHEMOTHERAPY LAST WEEK Status: Acute (5) Diabetes mellitus Status: Chronic (6) Thrombocytopenia Assessment & Plan: PLATELET COUNT 32K Status: Acute (7) GI bleeding Assessment & Plan: GI on board. CT abdomen and pelvis as per GI to rule out any collection/or ?cholangitis. Status: Acute
--- NOTE | 2017-04-30 22:54 | CP.PCM.PN ---
Subjective - Date & Time of Evaluation Date of Evaluation: 04/30/17 Time of Evaluation: 19:00 - Subjective Subjective: Pt is improving, on Iv hydration, on zosyn responding, tachycardia is improved Objective - Vital Signs/Intake and Output Vital Signs (last 24 hours): Temp Pulse Resp BP Pulse Ox 98.7 F 92 H 25 H 94/55 L 100 04/30/17 22:32 04/30/17 22:32 04/30/17 22:32 04/30/17 22:32 04/30/17 22:22 Intake and Output: 04/30/17 05/01/17 18:59 06:59 Intake Total 2909.0 562 Output Total 1300 200 Balance 1609.0 362 - Medications Medications: Current Medications Acetaminophen (Tylenol 325mg Tab) 650 mg PO Q6 PRN PRN Reason: Fever >100.4 F Piperacillin Sod/Tazobactam (Sod 3.375 gm/ Sodium Chloride) 100 mls @ 200 mls/ hr IVPB Q8H [facility] Last Admin: 04/30/17 22:35 Dose: 200 mls/hr Sodium Chloride (Sodium Chloride 0.9%) 1,000 mls @ 200 mls/hr IV .Q5H [facility] Last Admin: 04/30/17 20:22 Dose: Not Given Norepinephrine Bitartrate 4 mg (/ Sodium Chloride) 254 mls @ 15.24 mls/hr IV .[id number] PRN; Protocol; 4 MCG/MIN PRN Reason: TITRATE PER MD ORDER Last Titration: 04/30/17 16:00 Dose: 0 mcg/min, 0 mls/hr Vancomycin/Sodium Chloride (Vancocin) 1 gm in 200 mls @ 166.7 mls/hr IVPB Q12H [facility] Stop: 05/04/17 13:01 Last Admin: 04/30/17 13:15 Dose: 166.7 mls/hr Insulin Human Regular (Novolin R) 0 unit SC Q6H [facility] PRN Reason: Protocol Last Admin: 04/30/17 18:04 Dose: 1 unit Morphine Sulfate (Morphine) 2 mg IVP Q2 PRN PRN Reason: Pain, moderate (4-7) Last Admin: 04/30/17 21:19 Dose: 2 mg Pantoprazole Sodium (Protonix Ec Tab) 40 mg PO ACB [facility] Last Admin: 04/30/17 12:00 Dose: 40 mg - Labs Labs: 04/30/17 15:05 04/30/17 05:17 PT 19.7 SECONDS (9.7-12.2) H 04/30/17 15:05 INR 1.7 04/30/17 15:05 APTT 38 SECONDS (21-34) H D 04/30/17 15:05 - Constitutional Appears: No Acute Distress, Chronically Ill - Head Exam Head Exam: ATRAUMATIC, NORMAL INSPECTION, NORMOCEPHALIC - Eye Exam Eye Exam: EOMI, Normal appearance, PERRL Pupil Exam: NORMAL ACCOMODATION, PERRL - Respiratory Exam Respiratory Exam: Decreased Breath Sounds, Rales, Rhonchi - Cardiovascular Exam Cardiovascular Exam: REGULAR RHYTHM, +S1, +S2. absent: Murmur - GI/Abdominal Exam GI & Abdominal Exam: Soft, Normal Bowel Sounds. absent: Tenderness Assessment and Plan (1) Anemia Status: Acute (2) Fever Status: Acute (3) Pancreatic cancer Status: Acute (4) Sepsis Status: Acute
[2017-05-01] MEDS: Sodium Chloride 0.9% 1,000 ML IV SCH ×6 (00:15→22:06)
[2017-05-01] MEDS: Vancomycin 1 gm/NS 200 ml 1 GM/200 ML BAG IVPB SCH ×2 (00:24→14:02)
[2017-05-01] MEDS: (Novolin R) Insulin Human Regular 100 units/ml vial SC SCH ×4 (00:24→17:51)
--- NOTE | 2017-05-01 04:52 | CP.PCM.PN ---
Subjective - Date & Time of Evaluation Date of Evaluation: 04/30/17 Time of Evaluation: 12:15 - Subjective Subjective: Feeling better Objective - Vital Signs/Intake and Output Vital Signs (last 24 hours): Temp Pulse Resp BP Pulse Ox 98.8 F 91 H 22 107/59 L 100 05/01/17 04:00 05/01/17 04:07 05/01/17 04:07 05/01/17 04:07 05/01/17 04:07 Intake and Output: 04/30/17 05/01/17 18:59 06:59 Intake Total 2909.0 1962 Output Total 1300 600 Balance 1609.0 1362 - Medications Medications: Current Medications Acetaminophen (Tylenol 325mg Tab) 650 mg PO Q6 PRN PRN Reason: Fever >100.4 F Piperacillin Sod/Tazobactam (Sod 3.375 gm/ Sodium Chloride) 100 mls @ 200 mls/ hr IVPB Q8H [facility] Last Admin: 04/30/17 22:35 Dose: 200 mls/hr Sodium Chloride (Sodium Chloride 0.9%) 1,000 mls @ 200 mls/hr IV .Q5H [facility] Last Admin: 04/30/17 20:22 Dose: Not Given Norepinephrine Bitartrate 4 mg (/ Sodium Chloride) 254 mls @ 15.24 mls/hr IV .[id number] PRN; Protocol; 4 MCG/MIN PRN Reason: TITRATE PER MD ORDER Last Titration: 04/30/17 16:00 Dose: 0 mcg/min, 0 mls/hr Vancomycin/Sodium Chloride (Vancocin) 1 gm in 200 mls @ 166.7 mls/hr IVPB Q12H [facility] Stop: 05/04/17 13:01 Last Admin: 05/01/17 00:24 Dose: 166.7 mls/hr Insulin Human Regular (Novolin R) 0 unit SC Q6H [facility] PRN Reason: Protocol Last Admin: 05/01/17 00:24 Dose: 1 unit Morphine Sulfate (Morphine) 2 mg IVP Q2 PRN PRN Reason: Pain, moderate (4-7) Last Admin: 04/30/17 21:19 Dose: 2 mg Pantoprazole Sodium (Protonix Ec Tab) 40 mg PO ACB [facility] Last Admin: 04/30/17 12:00 Dose: 40 mg - Labs Labs: 04/30/17 15:05 04/30/17 05:17 PT 19.7 SECONDS (9.7-12.2) H 04/30/17 15:05 INR 1.7 04/30/17 15:05 APTT 38 SECONDS (21-34) H D 04/30/17 15:05 - Head Exam Head Exam: ATRAUMATIC - Eye Exam Eye Exam: Normal appearance - ENT Exam ENT Exam: Mucous Membranes Dry - Respiratory Exam Respiratory Exam: NORMAL BREATHING PATTERN - Cardiovascular Exam Cardiovascular Exam: +S1, +S2 - GI/Abdominal Exam GI & Abdominal Exam: Normal Bowel Sounds - Extremities Exam Extremities Exam: Normal Inspection - Neurological Exam Neurological Exam: Oriented x3 - Psychiatric Exam Psychiatric exam: Normal Affect, Normal Mood - Skin Skin Exam: Warm Assessment and Plan (1) Pancytopenia Assessment & Plan: improving WBC s/p PRBC and plt transfusion Status: Acute (2) Gram negative septic shock Assessment & Plan: on antibiotics ID f/u Status: Acute (3) Coagulopathy Assessment & Plan: nutritional rule out DIC; fibrinogen ordered Status: Acute (4) Pancreatic cancer Assessment & Plan: stage IV outpatient treatment Status: Acute
[2017-05-01] MEDS: Piperacillin/Tazobact 3.375 GM in Sodium Chloride 100 ML IVPB SCH ×3 (06:36→22:08)
[2017-05-01 06:50] LABS: BASO % 0.1 % (0.0-2.0); EOS % 0.1 % (0.0-4.0); HEMOGLOBIN 9.1 g/dL (12.0-18.0); LYMPH # 0.4 K/uL (1.0-4.3); MEAN CELL VOLUME 89.2 fL (80.0-94.0); MEAN CORPUSCULAR HEMOGLOBIN 29.7 pg (27.0-31.0); MEAN CORPUSCULAR HGB CONC 33.3 g/dL (33.0-37.0); MEAN PLATELET VOLUME 9.9 fL (7.2-11.7); MONO # 0.5 K/uL (0.0-0.8); MONO % 7.3 % (0.0-10.0); NEUT # 5.8 K/uL (1.8-7.0); NEUT % 86.5 % (50.0-75.0); NRBC % 0.1 % (0.0-2.0); PLATELET COUNT 50 K/uL (130-400); RBC 3.07 Mil/uL (4.40-5.90); RED CELL DISTRIBUTION WIDTH 18.1 % (11.5-14.5); WHITE BLOOD COUNT 6.6 K/uL (4.8-10.8)
[2017-05-01 07:06] LABS: ALBUMIN 2.1 g/dL (3.5-5.0)
[2017-05-01 07:09] LABS: ALB/GLOB RATIO 0.8 (1.0-2.1); AST/SGOT 31 U/L (17-59); GFR AFRICAN-AMERICAN > 60; GFR NON-AFRICAN AMERICAN > 60
[2017-05-01 07:10] LABS: ALT/SGPT 28 U/L (21-72); BLOOD UREA NITROGEN 10 mg/dL (9-20); CALCIUM 7.3 mg/dl (8.6-10.4); MAGNESIUM 1.9 mg/dL (1.6-2.3)
[2017-05-01 08:19] LABS: ANISOCYTOSIS SLIGHT; BANDS 5 % (0-2); HYPOCHROMIC SLIGHT; LYMPHOCYTE 14 % (20-40); MONOCYTE 6 % (0-10); NEUTROPHIL 75 % (50-75); PLATELET ESTIMATE DECREASED (NORMAL); TOTAL CELLS COUNTED 100
[2017-05-01 08:20] LABS: BURR CELLS SLIGHT
[2017-05-01] MEDS ORDERED: Potassium Chloride 10 mEq ER Tab PO SCH (08:30)
[2017-05-01] MEDS: Pantoprazole 40 mg EC Tab PO SCH (09:28)
--- NOTE | 2017-05-01 10:44 | CP.PCM.PN ---
<Mabel Harp - Last Filed: 05/01/17 10:49> Subjective - Date & Time of Evaluation Date of Evaluation: 05/01/17 Time of Evaluation: 09:10 - Subjective Subjective: Patient is seen and examined at bedside this AM. NAEO. Patient denies any chest pain, SOB, fevers, chills. Dressing is c/d/i. Objective - Vital Signs/Intake and Output Vital Signs (last 24 hours): Temp Pulse Resp BP Pulse Ox 98.8 F 91 H 22 107/59 L 100 05/01/17 04:00 05/01/17 04:07 05/01/17 04:07 05/01/17 04:07 05/01/17 04:07 Intake and Output: 05/01/17 05/01/17 06:59 18:59 Intake Total 2462 Output Total 600 Balance 1862 - Medications Medications: Current Medications Acetaminophen (Tylenol 325mg Tab) 650 mg PO Q6 PRN PRN Reason: Fever >100.4 F Piperacillin Sod/Tazobactam (Sod 3.375 gm/ Sodium Chloride) 100 mls @ 200 mls/ hr IVPB Q8H [facility] Last Admin: 05/01/17 06:36 Dose: 200 mls/hr Sodium Chloride (Sodium Chloride 0.9%) 1,000 mls @ 200 mls/hr IV .Q5H [facility] Last Admin: 05/01/17 09:15 Dose: 200 mls/hr Norepinephrine Bitartrate 4 mg (/ Sodium Chloride) 254 mls @ 15.24 mls/hr IV .[id number] PRN; Protocol; 4 MCG/MIN PRN Reason: TITRATE PER MD ORDER Last Titration: 04/30/17 16:00 Dose: 0 mcg/min, 0 mls/hr Vancomycin/Sodium Chloride (Vancocin) 1 gm in 200 mls @ 166.7 mls/hr IVPB Q12H [facility] Stop: 05/04/17 13:01 Last Admin: 05/01/17 00:24 Dose: 166.7 mls/hr Insulin Human Regular (Novolin R) 0 unit SC Q6H [facility] PRN Reason: Protocol Last Admin: 05/01/17 06:36 Dose: 1 unit Morphine Sulfate (Morphine) 2 mg IVP Q2 PRN PRN Reason: Pain, moderate (4-7) Last Admin: 04/30/17 21:19 Dose: 2 mg Pantoprazole Sodium (Protonix Ec Tab) 40 mg PO ACB [facility] Last Admin: 05/01/17 09:28 Dose: 40 mg Potassium Chloride (Klor-Con 10) 40 meq PO BRK [facility] Last Admin: 05/01/17 09:28 Dose: 40 meq - Labs Labs: 05/01/17 06:34 05/01/17 06:34 PT 19.7 SECONDS (9.7-12.2) H 04/30/17 15:05 INR 1.7 04/30/17 15:05 APTT 38 SECONDS (21-34) H D 04/30/17 15:05 - Constitutional Appears: Well, Non-toxic, No Acute Distress - Head Exam Head Exam: ATRAUMATIC, NORMOCEPHALIC - Eye Exam Eye Exam: Normal appearance. absent: Conjunctival injection, Scleral icterus - ENT Exam ENT Exam: Mucous Membranes Moist, Normal Oropharynx - Neck Exam Additional comments: R neck normal inspection without any swelling or discoloration, trachea midline - Respiratory Exam Respiratory Exam: NORMAL BREATHING PATTERN. absent: Accessory Muscle Use, Respiratory Distress - Cardiovascular Exam Cardiovascular Exam: Tachycardia, REGULAR RHYTHM - GI/Abdominal Exam GI & Abdominal Exam: Soft, Tenderness - Extremities Exam Extremities Exam: absent: Calf Tenderness, Pedal Edema - Neurological Exam Neurological Exam: Alert, Awake, Oriented x3 - Psychiatric Exam Psychiatric exam: Normal Affect, Normal Mood - Skin Skin Exam: Dry, Normal Color, Warm Additional comments: Dressing over portacath removal site c/d/i, no surrounding swelling or sign of active bleed or hematoma Assessment and Plan - Assessment and Plan (Free Text) Assessment: 57M with PMH of pancreatic cancer with mets undergoing chemotherapy who presented with sepsis and bacteremia POD#1 s/p removal of portacath d/t possible port infection -afebrile, VSS without pressor support -hgb 9.0, platelets 50 after a unit of platelets yesterday -dressing c/d/i Plan: -continue to trend CBC -If patient needs a new portacath for further chemotherapy it can be placed after the infection has resolved -Continue management per primary team and ICU Discussed with Dr. Christian Harp, PGY2 <Toan Gonzales B - Last Filed: 05/04/17 16:33> Objective - Vital Signs/Intake and Output Vital Signs (last 24 hours): Temp Pulse Resp BP Pulse Ox 97.9 F 90 19 94/59 L 95 05/04/17 16:00 05/04/17 16:00 05/04/17 16:00 05/04/17 16:00 05/04/17 16:00 Intake and Output: 05/04/17 05/04/17 06:59 18:59 Intake Total 1194 2263.5 Output Total 750 850 Balance 444 1413.5 - Medications Medications: Current Medications Acetaminophen (Tylenol 325mg Tab) 650 mg PO Q6 PRN PRN Reason: Fever >100.4 F Last Admin: 05/03/17 21:08 Dose: 650 mg Piperacillin Sod/Tazobactam (Sod 3.375 gm/ Sodium Chloride) 100 mls @ 200 mls/ hr IVPB Q8H [facility] Last Admin: 05/04/17 14:11 Dose: 200 mls/hr Sodium Chloride (Sodium Chloride 0.9%) 1,000 mls @ 75 mls/hr IV .[id number] [facility] Last Admin: 05/04/17 12:30 Dose: Not Given Insulin Human Regular (Novolin R) 0 unit SC ACHS [facility] PRN Reason: Protocol Last Admin: 05/04/17 12:25 Dose: 1 unit Morphine Sulfate (Morphine) 2 mg IVP Q2 PRN PRN Reason: Pain, moderate (4-7) Last Admin: 05/04/17 14:14 Dose: 2 mg Ondansetron HCl (Zofran Inj) 4 mg IVP Q6 PRN PRN Reason: Nausea/Vomiting Last Admin: 05/03/17 21:03 Dose: 4 mg Pantoprazole Sodium (Protonix Ec Tab) 40 mg PO ACB [facility] Last Admin: 05/04/17 08:04 Dose: 40 mg Potassium Chloride (K-Dur 20 Meq Er Tab) 40 meq PO BRK [facility] Last Admin: 05/04/17 08:05 Dose: 40 meq - Labs Labs: 05/04/17 06:15 05/04/17 06:15 PT 19.7 SECONDS (9.7-12.2) H 04/30/17 15:05 INR 1.7 04/30/17 15:05 APTT 38 SECONDS (21-34) H D 04/30/17 15:05 Attending/Attestation - Attestation I have personally seen and examined this patient.: Yes I have fully participated in the care of the patient.: Yes I have reviewed all pertinent clinical information, including history, physical exam and plan: Yes Notes (Text): 05/04/17 16:32 Pt was seen and examined at bedside on 05/01/17 Agree with above note and assessment
--- NOTE | 2017-05-01 12:15 | CP.PCM.PN ---
<Nadira Mcdonough - Last Filed: 05/01/17 12:24> Subjective - Date & Time of Evaluation Date of Evaluation: 05/01/17 Time of Evaluation: 06:00 - Subjective Subjective: PGY4 GI Fellow Progress Note Pt seen and examined at bedside. Pt denies further bleeding per rectum and no abdominal pain. Pt reports eating a little, does not have his full appetite, no nausea or vomiting. Per nursing, no bloody bm last night. Pt's rt swetha-cath was removed by surgery as possible source of infection. ROS: A 12pt ROS was obtained and was negative except as mentioned above. Objective - Vital Signs/Intake and Output Vital Signs (last 24 hours): Temp Pulse Resp BP Pulse Ox 98.8 F 91 H 22 107/59 L 100 05/01/17 04:00 05/01/17 04:07 05/01/17 04:07 05/01/17 04:07 05/01/17 04:07 Intake and Output: 05/01/17 05/01/17 06:59 18:59 Intake Total 2462 Output Total 600 Balance 1862 - Medications Medications: Current Medications Acetaminophen (Tylenol 325mg Tab) 650 mg PO Q6 PRN PRN Reason: Fever >100.4 F Piperacillin Sod/Tazobactam (Sod 3.375 gm/ Sodium Chloride) 100 mls @ 200 mls/ hr IVPB Q8H [facility] Last Admin: 05/01/17 06:36 Dose: 200 mls/hr Sodium Chloride (Sodium Chloride 0.9%) 1,000 mls @ 200 mls/hr IV .Q5H [facility] Last Admin: 05/01/17 09:15 Dose: 200 mls/hr Norepinephrine Bitartrate 4 mg (/ Sodium Chloride) 254 mls @ 15.24 mls/hr IV .[id number] PRN; Protocol; 4 MCG/MIN PRN Reason: TITRATE PER MD ORDER Last Titration: 04/30/17 16:00 Dose: 0 mcg/min, 0 mls/hr Vancomycin/Sodium Chloride (Vancocin) 1 gm in 200 mls @ 166.7 mls/hr IVPB Q12H [facility] Stop: 05/04/17 13:01 Last Admin: 05/01/17 00:24 Dose: 166.7 mls/hr Insulin Human Regular (Novolin R) 0 unit SC Q6H [facility] PRN Reason: Protocol Last Admin: 05/01/17 06:36 Dose: 1 unit Morphine Sulfate (Morphine) 2 mg IVP Q2 PRN PRN Reason: Pain, moderate (4-7) Last Admin: 04/30/17 21:19 Dose: 2 mg Pantoprazole Sodium (Protonix Ec Tab) 40 mg PO ACB [facility] Last Admin: 05/01/17 09:28 Dose: 40 mg Potassium Chloride (Klor-Con 10) 40 meq PO BRK [facility] Last Admin: 05/01/17 09:28 Dose: 40 meq - Labs Labs: 05/01/17 06:34 05/01/17 06:34 PT 19.7 SECONDS (9.7-12.2) H 04/30/17 15:05 INR 1.7 04/30/17 15:05 APTT 38 SECONDS (21-34) H D 04/30/17 15:05 - Constitutional Appears: No Acute Distress, Chronically Ill - Head Exam Head Exam: ATRAUMATIC, NORMAL INSPECTION, NORMOCEPHALIC - Eye Exam Eye Exam: EOMI, Scleral icterus Pupil Exam: PERRL - ENT Exam ENT Exam: Mucous Membranes Moist, Normal Exam - Neck Exam Neck Exam: Full ROM, Normal Inspection - Respiratory Exam Respiratory Exam: Clear to Ausculation Bilateral, NORMAL BREATHING PATTERN. absent: Wheezes, Respiratory Distress - Cardiovascular Exam Cardiovascular Exam: REGULAR RHYTHM, RRR, +S1, +S2 - GI/Abdominal Exam GI & Abdominal Exam: Soft, Normal Bowel Sounds, Organomegaly. absent: Tenderness - Rectal Exam Rectal Exam: Deferred - Extremities Exam Extremities Exam: Full ROM, Normal Inspection. absent: Pedal Edema - Back Exam Back Exam: NORMAL INSPECTION - Neurological Exam Neurological Exam: Alert, Awake, Oriented x3 - Psychiatric Exam Psychiatric exam: Normal Affect, Normal Mood - Skin Skin Exam: Dry, Warm Additional comments: Jaundice Assessment and Plan - Assessment and Plan (Free Text) Assessment: This is a 57yM with pancreatic cancer with liver metastasis. Pt is s/p EUS/ERCP 08/2016 with metal biliary stent due to pancreatic mass causing biliary obstruction. Pt is currently on chemotherapy as an outpt and last chemo was 04/21. Pt presented to ER in septic shock. Pt also had brown stool with small amounts of blood clots with Hgb 7.1 and platelets of 13,ooo. Pt received 1unit of platelets and 1U PRBC transfusion. 1. Rectal bleeding 2. Pancreatic cancer 3. Gram negative bacteremia 4. Septic Shock 5. Pancytopenia Plan: Rectal Bleeding-resolved, hemodynamically stable, Hgb 9.7 s/p 1 Units PRBCs, no active bleeding Multifactorial etiology including thrombocytopenia/mucosal bleeding, ddx gastritis, esophagitis, PUD, colon mass, AVM Given advanced disease with Pancreatic Ca and liver mets will avoid any invasive endoscopic procedures and recommend supportive care with blood transfusions as needed. If patient develops significant GI bleed will reconsider at the time. Continue po protonix Advance diet Bacteremia-likely source swetha-cath removed by surgery, CT A/P with no evidence of cholangitis, continue broad spectrum antibiotics per ICU Septic Shock-resolved, off pressors Pancytopenia- likely 2/2 chemotherapy, improving Pancreatic Cancer-continue to follow up with oncologist, appreciate palliative care c/s. Ariel call with any further questions, will sign off at this time. <Mario Alberto Dominique - Last Filed: 05/01/17 13:34> Objective - Vital Signs/Intake and Output Vital Signs (last 24 hours): Temp Pulse Resp BP Pulse Ox 98.8 F 91 H 22 107/59 L 100 05/01/17 04:00 05/01/17 04:07 05/01/17 04:07 05/01/17 04:07 05/01/17 04:07 Intake and Output: 05/01/17 05/01/17 06:59 18:59 Intake Total 2462 Output Total 600 Balance 1862 - Medications Medications: Current Medications Acetaminophen (Tylenol 325mg Tab) 650 mg PO Q6 PRN PRN Reason: Fever >100.4 F Piperacillin Sod/Tazobactam (Sod 3.375 gm/ Sodium Chloride) 100 mls @ 200 mls/ hr IVPB Q8H [facility] Last Admin: 05/01/17 06:36 Dose: 200 mls/hr Vancomycin/Sodium Chloride (Vancocin) 1 gm in 200 mls @ 166.7 mls/hr IVPB Q12H [facility] Stop: 05/04/17 13:01 Last Admin: 05/01/17 00:24 Dose: 166.7 mls/hr Sodium Chloride (Sodium Chloride 0.9%) 1,000 mls @ 125 mls/hr IV .Q8H [facility] Dopamine HCl/Dextrose (Dopamine 400mg/250ml D5w) 400 mg in 250 mls @ 11.907 mls /hr IV .Q21H PRN; Protocol; 5 MCG/KG/MIN PRN Reason: TITRATE PER MD ORDER Insulin Human Regular (Novolin R) 0 unit SC Q6H [facility] PRN Reason: Protocol Last Admin: 05/01/17 06:36 Dose: 1 unit Morphine Sulfate (Morphine) 2 mg IVP Q2 PRN PRN Reason: Pain, moderate (4-7) Last Admin: 04/30/17 21:19 Dose: 2 mg Pantoprazole Sodium (Protonix Ec Tab) 40 mg PO ACB [facility] Last Admin: 05/01/17 09:28 Dose: 40 mg Potassium Chloride (Klor-Con 10) 40 meq PO BRK [facility] Last Admin: 05/01/17 09:28 Dose: 40 meq - Labs Labs: 05/01/17 06:34 05/01/17 06:34 PT 19.7 SECONDS (9.7-12.2) H 04/30/17 15:05 INR 1.7 04/30/17 15:05 APTT 38 SECONDS (21-34) H D 04/30/17 15:05 Attending/Attestation - Attestation I have personally seen and examined this patient.: Yes I have fully participated in the care of the patient.: Yes I have reviewed all pertinent clinical information, including history, physical exam and plan: Yes Notes (Text): 05/01/17 13:30 I have seen and examined patient with GI fellow. No acute events overnight, he is seen resting in bed comfortably. He denies abdominal pain, nausea, vomiting , fever/chills, melena, or rectal bleeding. Tolerating PO liquids without difficulty. Review of vitals from today shows tachycardia. Metastatic pancreatic cancer s/p ERCP with metal biliary stent placement Rectal bleeding - resolved Sepsis, gram negative bacteremia - H/H stable for past several days, no overt bleeding noted, continue to monitor - Advance diet as tolerated - Continue with antibiotic therapy as per ID - Continue with PPI therapy - Follow up oncology recommendations - LFTs/bilirubin normal, continue to monitor - No further planned GI intervention, will sign off case. Suggest additional outpatient follow up. Please reconsult as necessary, thank you.
[2017-05-01] MEDS ORDERED: DOPamine 400mg/250ml D5W 400 MG/250 ML BAG IV PRN (13:02)
--- NOTE | 2017-05-01 13:19 | CP.PCM.PN ---
Subjective - Date & Time of Evaluation Date of Evaluation: 05/01/17 Time of Evaluation: 08:35 - Subjective Subjective: pT SEEN AND EXAMINED NAD Objective - Vital Signs/Intake and Output Vital Signs (last 24 hours): Temp Pulse Resp BP Pulse Ox 98.8 F 91 H 22 107/59 L 100 05/01/17 04:00 05/01/17 04:07 05/01/17 04:07 05/01/17 04:07 05/01/17 04:07 Intake and Output: 05/01/17 05/01/17 06:59 18:59 Intake Total 2462 Output Total 600 Balance 1862 - Medications Medications: Current Medications Acetaminophen (Tylenol 325mg Tab) 650 mg PO Q6 PRN PRN Reason: Fever >100.4 F Piperacillin Sod/Tazobactam (Sod 3.375 gm/ Sodium Chloride) 100 mls @ 200 mls/ hr IVPB Q8H [facility] Last Admin: 05/01/17 06:36 Dose: 200 mls/hr Vancomycin/Sodium Chloride (Vancocin) 1 gm in 200 mls @ 166.7 mls/hr IVPB Q12H [facility] Stop: 05/04/17 13:01 Last Admin: 05/01/17 00:24 Dose: 166.7 mls/hr Sodium Chloride (Sodium Chloride 0.9%) 1,000 mls @ 125 mls/hr IV .Q8H [facility] Dopamine HCl/Dextrose (Dopamine 400mg/250ml D5w) 400 mg in 250 mls @ 11.907 mls /hr IV .Q21H PRN; Protocol; 5 MCG/KG/MIN PRN Reason: TITRATE PER MD ORDER Insulin Human Regular (Novolin R) 0 unit SC Q6H [facility] PRN Reason: Protocol Last Admin: 05/01/17 06:36 Dose: 1 unit Morphine Sulfate (Morphine) 2 mg IVP Q2 PRN PRN Reason: Pain, moderate (4-7) Last Admin: 04/30/17 21:19 Dose: 2 mg Pantoprazole Sodium (Protonix Ec Tab) 40 mg PO ACB [facility] Last Admin: 05/01/17 09:28 Dose: 40 mg Potassium Chloride (Klor-Con 10) 40 meq PO BRK [facility] Last Admin: 05/01/17 09:28 Dose: 40 meq - Labs Labs: 05/01/17 06:34 05/01/17 06:34 PT 19.7 SECONDS (9.7-12.2) H 04/30/17 15:05 INR 1.7 04/30/17 15:05 APTT 38 SECONDS (21-34) H D 04/30/17 15:05 Assessment and Plan (1) Anemia Status: Acute (2) Fever Status: Acute (3) Pancreatic cancer Status: Acute (4) Sepsis Status: Acute
--- NOTE | 2017-05-01 13:20 | CP.PCM.PN ---
Subjective - Date & Time of Evaluation Date of Evaluation: 05/01/17 Time of Evaluation: 13:20 - Subjective Subjective: CHIEF COMPLAINTS TODAY : AFEBRILE, STATES FEELS BETTER THAN YESTERDAY. RT CHEST WALL DRESSING IN PLACE DRY, CLEAN, INTACT S/P pORT-a-cATH REMOVAL POD # DAY1 DENIES ANY FURTHER MELENA OR RECTAL BLEEDING. ROS. HEENT : N. Resp : No SOB wheezing, cough Cardio : No CP, PND orthopnea GI : No abd. Pain, n/v [employer] : No headache , focal deficit. Musculoskel : N Ext. : Pedal pulses intact, no edema or calf pain Derm : N Psych : N. PE. Pt. is alert awake in no distress. V.S As noted in the chart Head ,ear nose,throat and eyes : Normal. Neck : Supple with normal carotids. Lungs: Clear air entry. Heart : S1 & S2 normal . . No murmur. S4 + Abd : Soft non tender with normal bowel sounds. Neuro : Moves all ext. with no localized deficit. Ext : No edema with intact pulses. Neg. calf tenderness Derm : No rashes or decubitus ulcer. Radiology/Labs . BLOOD CULTURES 2:2 SETS +VE GNR. Identification pending. Urine cultures negative. Objective - Vital Signs/Intake and Output Vital Signs (last 24 hours): Temp Pulse Resp BP Pulse Ox 98.8 F 91 H 22 107/59 L 100 05/01/17 04:00 05/01/17 04:07 05/01/17 04:07 05/01/17 04:07 05/01/17 04:07 Intake and Output: 05/01/17 05/01/17 06:59 18:59 Intake Total 2462 Output Total 600 Balance 1862 - Medications Medications: Current Medications Acetaminophen (Tylenol 325mg Tab) 650 mg PO Q6 PRN PRN Reason: Fever >100.4 F Piperacillin Sod/Tazobactam (Sod 3.375 gm/ Sodium Chloride) 100 mls @ 200 mls/ hr IVPB Q8H [facility] Last Admin: 05/01/17 06:36 Dose: 200 mls/hr Vancomycin/Sodium Chloride (Vancocin) 1 gm in 200 mls @ 166.7 mls/hr IVPB Q12H [facility] Stop: 05/04/17 13:01 Last Admin: 05/01/17 00:24 Dose: 166.7 mls/hr Sodium Chloride (Sodium Chloride 0.9%) 1,000 mls @ 125 mls/hr IV .Q8H [facility] Dopamine HCl/Dextrose (Dopamine 400mg/250ml D5w) 400 mg in 250 mls @ 11.907 mls /hr IV .Q21H PRN; Protocol; 5 MCG/KG/MIN PRN Reason: TITRATE PER MD ORDER Insulin Human Regular (Novolin R) 0 unit SC Q6H [facility] PRN Reason: Protocol Last Admin: 05/01/17 06:36 Dose: 1 unit Morphine Sulfate (Morphine) 2 mg IVP Q2 PRN PRN Reason: Pain, moderate (4-7) Last Admin: 04/30/17 21:19 Dose: 2 mg Pantoprazole Sodium (Protonix Ec Tab) 40 mg PO ACB [facility] Last Admin: 05/01/17 09:28 Dose: 40 mg Potassium Chloride (Klor-Con 10) 40 meq PO BRK [facility] Last Admin: 05/01/17 09:28 Dose: 40 meq - Labs Labs: 05/01/17 06:34 05/01/17 06:34 PT 19.7 SECONDS (9.7-12.2) H 04/30/17 15:05 INR 1.7 04/30/17 15:05 APTT 38 SECONDS (21-34) H D 04/30/17 15:05 Assessment and Plan (1) Gram negative septic shock Assessment & Plan: blood cultures gram-negative rods-identification pending. Continue IV Zosyn 3.375 q 8 hourly and IV vancomycin 1 g every 12 hourly. REPEAT BLOOD CULTURES 2 SETS TODAY 15 MINUTES APART TO SEE IF BACTEREMIA CLEARED. DISCUSSED WITH SURGERY. PATIENT TO UNDERGO NEW CATHETER INSERTION OR PORT-a-CATH ONLY AFTER BACTEREMIA CLEARS. Status: Acute (2) Fever Status: Acute (3) Anemia Status: Acute (4) Pancreatic cancer Assessment & Plan: on chemotherapy which patient received last week. CASE DISCUSSED WITH [employer]OGIST DR VIVEK HORNE. Status: Acute (5) Diabetes mellitus Status: Chronic (6) Thrombocytopenia Status: Acute (7) GI bleeding Status: Acute
--- NOTE | 2017-05-01 14:40 | CP.CCUPN ---
<FunmiRenato vences Johnathan - Last Filed: 05/01/17 14:49> CCU Subjective - Physician Review Events Since Last Encounter (Free Text): 05/01/17 14:38 Pt S&E. KRISTEN. Had port removed yesterday by surgery team. Transfused one additional unit of PLT. Still with general abdominal pain at this time. Tolerating CLD. States no appetite. PLT now 50. Blood cx grew out E Coli. Pt on Vanc and Zosyn 05/01/17 14:47 Critical Care Time Spent (in minutes): 25 CCU Objective - Vital Signs / Intake & Output Intake and Output (Last 8hrs): Intake & Output 04/30/17 05/01/17 05/01/17 22:59 06:59 14:59 Intake Total 1445.8 1900 Output Total 700 400 Balance 745.8 1500 Intake: IV 30 Intake, IV Amount 1103.8 1900 Right Antecubital 1100 1900 Right Port-A-Cath 3.8 Oral 50 Blood Product 262 Apheresis Plts Acda Lr 262 2nd Con Unit [id number] Output: Urine 700 400 Urine, Voided 700 400 Other: # Bowel Movements 0 - Physical Exam Head: Positive for: Atraumatic, Normocephalic Extroacular Muscles: Positive for: EOMI Conjunctiva: Positive for: Icteric Mouth: Positive for: Moist Mucous Membranes Respiratory/Chest: Positive for: Clear to Auscultation. Negative for: Respiratory Distress, Accessory Muscle Use Cardiovascular: Positive for: Regular Rate and Rhythm. Negative for: Murmurs Abdomen: Positive for: Tenderness (epigastric). Negative for: Distention, Peritoneal Signs, Rebound, Guarding, Hernias Upper Extremity: Negative for: Edema Lower Extremity: Negative for: Edema Neurological: Positive for: Speech Normal Skin: Positive for: Warm, Normal Color Psychiatric: Positive for: Alert, Oriented x 3 - Medications Active Medications: Active Medications Generic Name Dose Route Start Last Admin Trade Name Freq PRN Reason Stop Dose Admin Acetaminophen 650 mg 04/30/17 20:23 Tylenol 325mg Tab PO Q6 PRN Fever >100.4 F Piperacillin Sod/Tazobactam 100 mls @ 200 mls/hr 04/29/17 07:00 05/01/17 14: 03 Sod 3.375 gm/ Sodium Chloride IVPB 200 mls/hr Q8H HECTOR Administration Vancomycin/Sodium Chloride 1 gm in 200 mls @ 166.7 mls/hr 04/29/17 13:00 04/12 14:02 Vancocin IVPB 05/04/17 13:01 166.7 mls/hr Q12H HECTOR Administration Sodium Chloride 1,000 mls @ 125 mls/hr 05/01/17 13:02 05/01/17 14:02 Sodium Chloride 0.9% IV 125 mls/hr .Q8H HECTOR Administration Dopamine HCl/Dextrose 400 mg in 250 mls @ 11.907 mls/hr 05/01/17 13:02 Dopamine 400mg/250ml D5w IV .Q21H PRN TITRATE PER MD ORDER Protocol 5 MCG/KG/MIN Insulin Human Regular 0 unit 04/30/17 00:00 05/01/17 14:03 Novolin R SC 1 unit Q6H HECTOR Administration Protocol Morphine Sulfate 2 mg 04/30/17 20:40 04/30/17 21:19 Morphine IVP 2 mg Q2 PRN Administration Pain, moderate (4-7) Pantoprazole Sodium 40 mg 04/30/17 08:00 05/01/17 09:28 Protonix Ec Tab PO 40 mg ACB HECTOR Administration Potassium Chloride 40 meq 05/01/17 08:30 05/01/17 09:28 Klor-Con 10 PO 40 meq BRK HECTOR Administration - Patient Studies Lab Studies: Microbiology Studies 04/29/17 06:00 Blood Culture - Final Blood Escherichia Coli Gram Stain - Final 04/29/17 06:00 Blood Culture - Final Blood Escherichia Coli Gram Stain - Final 04/29/17 09:00 MRSA Culture (Admit) - Final Nose Lab Studies 05/01/17 05/01/17 05/01/17 Range/Units 11:19 06:34 06:34 WBC (4.8-10.8) K/uL RBC (4.40-5.90) Mil/uL Hgb (12.0-18.0) g/dL Hct (35.0-51.0) % MCV (80.0-94.0) fL MCH (27.0-31.0) pg MCHC (33.0-37.0) g/dL RDW (11.5-14.5) % Plt Count (130-400) K/uL MPV (7.2-11.7) fL Neut % (Auto) (50.0-75.0) % Lymph % (Auto) (20.0-40.0) % [place] % (Auto) (0.0-10.0) % Eos % (Auto) (0.0-4.0) % Baso % (Auto) (0.0-2.0) % Neut # (1.8-7.0) K/uL Lymph # (1.0-4.3) K/uL [place] # (0.0-0.8) K/uL Eos # (0.0-0.7) K/uL Baso # (0.0-0.2) K/uL Neutrophils % (Manual) (50-75) % Band Neutrophils % (0-2) % Lymphocytes % (Manual) (20-40) % Monocytes % (Manual) (0-10) % Platelet Estimate (NORMAL) Hypochromasia (manual) Poikilocytosis (manual Anisocytosis (manual) Sterling Cells PT (9.7-12.2) SECONDS INR APTT (21-34) SECONDS Fibrinogen 369 (200-400) mg/dL Sodium 133 (132-148) mmol/L Potassium 2.9 L (3.6-5.2) mmol/L Chloride 103 (98-107) mmol/L Carbon Dioxide 22 (22-30) mmol/L Anion Gap 11 (10-20) BUN 10 (9-20) mg/dL Creatinine 0.5 L (0.8-1.5) MG/DL Est GFR ( Amer) > 60 Est GFR (Non-Af Amer) > 60 POC Glucose (mg/dL) 154 H (65-110) mg/dL Random Glucose 134 H (75-110) mg/dL Calcium 7.3 L (8.6-10.4) mg/dl Phosphorus 1.9 L (2.5-4.5) mg/dL Magnesium 1.9 (1.6-2.3) mg/dL Total Bilirubin 1.2 (0.2-1.3) mg/dL AST 31 (17-59) U/L ALT 28 (21-72) U/L Alkaline Phosphatase 123 (38-126) U/L Total Protein 4.6 L (6.3-8.3) g/dL Albumin 2.1 L (3.5-5.0) g/dL Globulin 2.5 (2.2-3.9) gm/dL Albumin/Globulin Ratio 0.8 L (1.0-2.1) 05/01/17 05/01/17 04/30/17 Range/Units 06:34 06:28 23:43 WBC 6.6 (4.8-10.8) K/uL RBC 3.07 L (4.40-5.90) Mil/uL Hgb 9.1 L (12.0-18.0) g/dL Hct 27.4 L (35.0-51.0) % MCV 89.2 (80.0-94.0) fL MCH 29.7 (27.0-31.0) pg MCHC 33.3 (33.0-37.0) g/dL RDW 18.1 H (11.5-14.5) % Plt Count 50 L (130-400) K/uL MPV 9.9 (7.2-11.7) fL Neut % (Auto) 86.5 H (50.0-75.0) % Lymph % (Auto) 6.0 L (20.0-40.0) % [place] % (Auto) 7.3 (0.0-10.0) % Eos % (Auto) 0.1 (0.0-4.0) % Baso % (Auto) 0.1 (0.0-2.0) % Neut # 5.8 (1.8-7.0) K/uL Lymph # 0.4 L (1.0-4.3) K/uL [place] # 0.5 (0.0-0.8) K/uL Eos # 0.0 (0.0-0.7) K/uL Baso # 0.0 (0.0-0.2) K/uL Neutrophils % (Manual) 75 (50-75) % Band Neutrophils % 5 H (0-2) % Lymphocytes % (Manual) 14 L (20-40) % Monocytes % (Manual) 6 (0-10) % Platelet Estimate Decreased L (NORMAL) Hypochromasia (manual) Slight Poikilocytosis (manual Anisocytosis (manual) Slight Alan Cells Slight PT (9.7-12.2) SECONDS INR APTT (21-34) SECONDS Fibrinogen (200-400) mg/dL Sodium (132-148) mmol/L Potassium (3.6-5.2) mmol/L Chloride (98-107) mmol/L Carbon Dioxide (22-30) mmol/L Anion Gap (10-20) BUN (9-20) mg/dL Creatinine (0.8-1.5) MG/DL Est GFR ( Amer) Est GFR (Non-Af Amer) POC Glucose (mg/dL) 155 H 186 H (65-110) mg/dL Random Glucose (75-110) mg/dL Calcium (8.6-10.4) mg/dl Phosphorus (2.5-4.5) mg/dL Magnesium (1.6-2.3) mg/dL Total Bilirubin (0.2-1.3) mg/dL AST (17-59) U/L ALT (21-72) U/L Alkaline Phosphatase (38-126) U/L Total Protein (6.3-8.3) g/dL Albumin (3.5-5.0) g/dL Globulin (2.2-3.9) gm/dL Albumin/Globulin Ratio (1.0-2.1) 04/30/17 04/30/17 04/30/17 Range/Units 17:44 15:05 15:05 WBC 8.7 (4.8-10.8) K/uL RBC 3.27 L (4.40-5.90) Mil/uL Hgb 9.7 L (12.0-18.0) g/dL Hct 29.2 L (35.0-51.0) % MCV 89.3 (80.0-94.0) fL MCH 29.6 (27.0-31.0) pg MCHC 33.2 (33.0-37.0) g/dL RDW 18.1 H (11.5-14.5) % Plt Count 32 L (130-400) K/uL MPV 10.3 (7.2-11.7) fL Neut % (Auto) 86.1 H (50.0-75.0) % Lymph % (Auto) 4.5 L (20.0-40.0) % [place] % (Auto) 8.5 (0.0-10.0) % Eos % (Auto) 0.8 (0.0-4.0) % Baso % (Auto) 0.1 (0.0-2.0) % Neut # 7.5 H (1.8-7.0) K/uL Lymph # 0.4 L (1.0-4.3) K/uL [place] # 0.7 (0.0-0.8) K/uL Eos # 0.1 (0.0-0.7) K/uL Baso # 0.0 (0.0-0.2) K/uL Neutrophils % (Manual) 82 H (50-75) % Band Neutrophils % 5 H (0-2) % Lymphocytes % (Manual) 6 L (20-40) % Monocytes % (Manual) 7 (0-10) % Platelet Estimate Decreased L (NORMAL) Hypochromasia (manual) Slight Poikilocytosis (manual Slight Anisocytosis (manual) Slight Sterling Cells Slight PT 19.7 H (9.7-12.2) SECONDS INR 1.7 APTT 38 H D (21-34) SECONDS Fibrinogen (200-400) mg/dL Sodium (132-148) mmol/L Potassium (3.6-5.2) mmol/L Chloride (98-107) mmol/L Carbon Dioxide (22-30) mmol/L Anion Gap (10-20) BUN (9-20) mg/dL Creatinine (0.8-1.5) MG/DL Est GFR ( Amer) Est GFR (Non-Af Amer) POC Glucose (mg/dL) 179 H (65-110) mg/dL Random Glucose (75-110) mg/dL Calcium (8.6-10.4) mg/dl Phosphorus (2.5-4.5) mg/dL Magnesium (1.6-2.3) mg/dL Total Bilirubin (0.2-1.3) mg/dL AST (17-59) U/L ALT (21-72) U/L Alkaline Phosphatase (38-126) U/L Total Protein (6.3-8.3) g/dL Albumin (3.5-5.0) g/dL Globulin (2.2-3.9) gm/dL Albumin/Globulin Ratio (1.0-2.1) Laboratory Results - last 24 hr 04/30/17 04/30/17 04/30/17 15:05 15:05 17:44 WBC 8.7 RBC 3.27 L Hgb 9.7 L Hct 29.2 L MCV 89.3 MCH 29.6 MCHC 33.2 RDW 18.1 H Plt Count 32 L MPV 10.3 Neut % (Auto) 86.1 H Lymph % (Auto) 4.5 L [place] % (Auto) 8.5 Eos % (Auto) 0.8 Baso % (Auto) 0.1 Neut # 7.5 H Lymph # 0.4 L [place] # 0.7 Eos # 0.1 Baso # 0.0 Neutrophils % (Manual) 82 H Band Neutrophils % 5 H Lymphocytes % (Manual) 6 L Monocytes % (Manual) 7 Platelet Estimate Decreased L Hypochromasia (manual) Slight Poikilocytosis (manual Slight Anisocytosis (manual) Slight Alan Cells Slight PT 19.7 H INR 1.7 APTT 38 H D Fibrinogen Sodium Potassium Chloride Carbon Dioxide Anion Gap BUN Creatinine Est GFR ( Amer) Est GFR (Non-Af Amer) POC Glucose (mg/dL) 179 H Random Glucose Calcium Phosphorus Magnesium Total Bilirubin AST ALT Alkaline Phosphatase Total Protein Albumin Globulin Albumin/Globulin Ratio 04/30/17 05/01/17 05/01/17 23:43 06:28 06:34 WBC 6.6 RBC 3.07 L Hgb 9.1 L Hct 27.4 L MCV 89.2 MCH 29.7 MCHC 33.3 RDW 18.1 H Plt Count 50 L MPV 9.9 Neut % (Auto) 86.5 H Lymph % (Auto) 6.0 L [place] % (Auto) 7.3 Eos % (Auto) 0.1 Baso % (Auto) 0.1 Neut # 5.8 Lymph # 0.4 L [place] # 0.5 Eos # 0.0 Baso # 0.0 Neutrophils % (Manual) 75 Band Neutrophils % 5 H Lymphocytes % (Manual) 14 L Monocytes % (Manual) 6 Platelet Estimate Decreased L Hypochromasia (manual) Slight Poikilocytosis (manual Anisocytosis (manual) Slight Sterling Cells Slight PT INR APTT Fibrinogen Sodium Potassium Chloride Carbon Dioxide Anion Gap BUN Creatinine Est GFR ( Amer) Est GFR (Non-Af Amer) POC Glucose (mg/dL) 186 H 155 H Random Glucose Calcium Phosphorus Magnesium Total Bilirubin AST ALT Alkaline Phosphatase Total Protein Albumin Globulin Albumin/Globulin Ratio 05/01/17 05/01/17 05/01/17 06:34 06:34 11:19 WBC RBC Hgb Hct MCV MCH MCHC RDW Plt Count MPV Neut % (Auto) Lymph % (Auto) [place] % (Auto) Eos % (Auto) Baso % (Auto) Neut # Lymph # [place] # Eos # Baso # Neutrophils % (Manual) Band Neutrophils % Lymphocytes % (Manual) Monocytes % (Manual) Platelet Estimate Hypochromasia (manual) Poikilocytosis (manual Anisocytosis (manual) Sterling Cells PT INR APTT Fibrinogen 369 Sodium 133 Potassium 2.9 L Chloride 103 Carbon Dioxide 22 Anion Gap 11 BUN 10 Creatinine 0.5 L Est GFR ( Amer) > 60 Est GFR (Non-Af Amer) > 60 POC Glucose (mg/dL) 154 H Random Glucose 134 H Calcium 7.3 L Phosphorus 1.9 L Magnesium 1.9 Total Bilirubin 1.2 AST 31 ALT 28 Alkaline Phosphatase 123 Total Protein 4.6 L Albumin 2.1 L Globulin 2.5 Albumin/Globulin Ratio 0.8 L Fingerstick Blood Sugar Results: 155 Review of Systems - Constitutional Constitutional: absent: Fever, Chills - Cardiovascular Cardiovascular: absent: Chest Pain - Respiratory Respiratory: absent: Cough, Dyspnea - Gastrointestinal Gastrointestinal: Abdominal Pain. absent: Constipation, Diarrhea, Nausea, Vomiting Critical Care Progress Note - Nutrition Nutrition: Nutrition Category Date Time Status Regular Diet [DIET] Diets 05/01/17 Lunch Active Assessment/Plan - Assessment and Plan (Free Text) Assessment: 57M with stage IV pancreatic cancer; now with E Coli bacteremia, s/p chemoport removal POD#1 Plan: Neuro: -GCS 15 -Physical therapy for deconditioning Pulm: -100% on 4L NC CV: - No longer on pressors - will decrease fluids to 125/hr Heme: -hgB stable -PLT up to 50 now s/p 2nd unit Renal: - 10/0.5 - cont hydration Endo: -BS 150s -on sliding scale GI: -CLD per GI - CT Abd/Pel shows metastatic disease, inc in size of necrotic panc head mass, possible colitis ID: - gram negative bacteremia: E. Coli - likely 2/2 to chemoport infection which is removed yesterday -On Vanc and Zosyn: Dr Hernandez -repeat blood cultures x 2 for next 3 days Prognosis poor. Pt interested in reducing chemotherapy dose. Will likely have new port placed once blood is clean DVT proph - SCDs, no anti-coagulation due to rectal bleed and thrombocytopenia GI proph - Protonix 40mg PO daily Code status - Full Case discussed with Dr. Benito Choudhary, PGY3 - Date & Time Date: 05/01/17 Time: 14:53 <Matti Oliver - Last Filed: 05/01/17 17:52> CCU Objective - Vital Signs / Intake & Output Vital Signs (Last 4 hours): Vital Signs Temp Pulse Resp BP Pulse Ox 05/01/17 16:00 99.0 F 99 H 29 H 98 05/01/17 15:31 88 29 H 113/66 100 05/01/17 15:01 88 32 H 128/75 100 05/01/17 14:31 84 28 H 121/71 97 05/01/17 14:23 91 H 19 78/35 L 94 L 05/01/17 14:07 93 H 12 108/47 L 100 05/01/17 13:52 103 H 21 112/69 100 Intake and Output (Last 8hrs): Intake & Output 05/01/17 05/01/17 05/01/17 06:59 14:59 22:59 Intake Total 1900 2045 1424 Output Total 400 860 150 Balance 1500 1185 1274 Intake: Intake, IV Amount 1900 1845 1374 Right Antecubital 1900 1625 375 Right forearm 220 999 Oral 200 50 Output: Urine 400 650 50 Urine, Voided 400 650 50 Stool 210 100 Other: # Voids Urine, Voided 1 1 # Bowel Movements 0 1 - Medications Active Medications: Active Medications Generic Name Dose Route Start Last Admin Trade Name Freq PRN Reason Stop Dose Admin Acetaminophen 650 mg 04/30/17 20:23 Tylenol 325mg Tab PO Q6 PRN Fever >100.4 F Piperacillin Sod/Tazobactam 100 mls @ 200 mls/hr 04/29/17 07:00 05/01/17 14: 03 Sod 3.375 gm/ Sodium Chloride IVPB 200 mls/hr Q8H HECTOR Administration Vancomycin/Sodium Chloride 1 gm in 200 mls @ 166.7 mls/hr 04/29/17 13:00 04/12 14:02 Vancocin IVPB 05/04/17 13:01 166.7 mls/hr Q12H HECTOR Administration Sodium Chloride 1,000 mls @ 125 mls/hr 05/01/17 13:02 05/01/17 14:02 Sodium Chloride 0.9% IV 125 mls/hr .Q8H HECTOR Administration Dopamine HCl/Dextrose 400 mg in 250 mls @ 11.907 mls/hr 05/01/17 13:02 Dopamine 400mg/250ml D5w IV .Q21H PRN TITRATE PER MD ORDER Protocol 5 MCG/KG/MIN Insulin Human Regular 0 unit 04/30/17 00:00 05/01/17 17:51 Novolin R SC Not Given Q6H HECTOR Protocol Morphine Sulfate 2 mg 04/30/17 20:40 04/30/17 21:19 Morphine IVP 2 mg Q2 PRN Administration Pain, moderate (4-7) Pantoprazole Sodium 40 mg 04/30/17 08:00 05/01/17 09:28 Protonix Ec Tab PO 40 mg ACB HECTOR Administration Potassium Chloride 40 meq 05/02/17 08:00 K-Dur 20 Meq Er Tab PO BRK HECTOR - Patient Studies Lab Studies: Microbiology Studies 04/29/17 06:00 Blood Culture - Final Blood Escherichia Coli Gram Stain - Final 04/29/17 06:00 Blood Culture - Final Blood Escherichia Coli Gram Stain - Final 04/29/17 09:00 MRSA Culture (Admit) - Final Nose Lab Studies 05/01/17 05/01/17 05/01/17 Range/Units 17:14 11:19 06:34 WBC (4.8-10.8) K/uL RBC (4.40-5.90) Mil/uL Hgb (12.0-18.0) g/dL Hct (35.0-51.0) % MCV (80.0-94.0) fL MCH (27.0-31.0) pg MCHC (33.0-37.0) g/dL RDW (11.5-14.5) % Plt Count (130-400) K/uL MPV (7.2-11.7) fL Neut % (Auto) (50.0-75.0) % Lymph % (Auto) (20.0-40.0) % [place] % (Auto) (0.0-10.0) % Eos % (Auto) (0.0-4.0) % Baso % (Auto) (0.0-2.0) % Neut # (1.8-7.0) K/uL Lymph # (1.0-4.3) K/uL [place] # (0.0-0.8) K/uL Eos # (0.0-0.7) K/uL Baso # (0.0-0.2) K/uL Neutrophils % (Manual) (50-75) % Band Neutrophils % (0-2) % Lymphocytes % (Manual) (20-40) % Monocytes % (Manual) (0-10) % Platelet Estimate (NORMAL) Hypochromasia (manual) Anisocytosis (manual) Sterling Cells Fibrinogen 369 (200-400) mg/dL Sodium 133 (132-148) mmol/L Potassium 2.7 L (3.6-5.2) mmol/L Chloride 108 H (98-107) mmol/L Carbon Dioxide 17 L (22-30) mmol/L Anion Gap 11 (10-20) BUN 10 (9-20) mg/dL Creatinine 0.4 L (0.8-1.5) MG/DL Est GFR ( Amer) > 60 Est GFR (Non-Af Amer) > 60 POC Glucose (mg/dL) 154 H (65-110) mg/dL Random Glucose 118 H (75-110) mg/dL Calcium 7.0 L (8.6-10.4) mg/dl Phosphorus (2.5-4.5) mg/dL Magnesium (1.6-2.3) mg/dL Total Bilirubin 1.2 (0.2-1.3) mg/dL AST 32 (17-59) U/L ALT 26 (21-72) U/L Alkaline Phosphatase 115 (38-126) U/L Total Protein 4.4 L (6.3-8.3) g/dL Albumin 1.9 L (3.5-5.0) g/dL Globulin 2.4 (2.2-3.9) gm/dL Albumin/Globulin Ratio 0.8 L (1.0-2.1) 05/01/17 05/01/17 05/01/17 Range/Units 06:34 06:34 06:28 WBC 6.6 (4.8-10.8) K/uL RBC 3.07 L (4.40-5.90) Mil/uL Hgb 9.1 L (12.0-18.0) g/dL Hct 27.4 L (35.0-51.0) % MCV 89.2 (80.0-94.0) fL MCH 29.7 (27.0-31.0) pg MCHC 33.3 (33.0-37.0) g/dL RDW 18.1 H (11.5-14.5) % Plt Count 50 L (130-400) K/uL MPV 9.9 (7.2-11.7) fL Neut % (Auto) 86.5 H (50.0-75.0) % Lymph % (Auto) 6.0 L (20.0-40.0) % [place] % (Auto) 7.3 (0.0-10.0) % Eos % (Auto) 0.1 (0.0-4.0) % Baso % (Auto) 0.1 (0.0-2.0) % Neut # 5.8 (1.8-7.0) K/uL Lymph # 0.4 L (1.0-4.3) K/uL [place] # 0.5 (0.0-0.8) K/uL Eos # 0.0 (0.0-0.7) K/uL Baso # 0.0 (0.0-0.2) K/uL Neutrophils % (Manual) 75 (50-75) % Band Neutrophils % 5 H (0-2) % Lymphocytes % (Manual) 14 L (20-40) % Monocytes % (Manual) 6 (0-10) % Platelet Estimate Decreased L (NORMAL) Hypochromasia (manual) Slight Anisocytosis (manual) Slight Alan Cells Slight Fibrinogen (200-400) mg/dL Sodium 133 (132-148) mmol/L Potassium 2.9 L (3.6-5.2) mmol/L Chloride 103 (98-107) mmol/L Carbon Dioxide 22 (22-30) mmol/L Anion Gap 11 (10-20) BUN 10 (9-20) mg/dL Creatinine 0.5 L (0.8-1.5) MG/DL Est GFR ( Amer) > 60 Est GFR (Non-Af Amer) > 60 POC Glucose (mg/dL) 155 H (65-110) mg/dL Random Glucose 134 H (75-110) mg/dL Calcium 7.3 L (8.6-10.4) mg/dl Phosphorus 1.9 L (2.5-4.5) mg/dL Magnesium 1.9 (1.6-2.3) mg/dL Total Bilirubin 1.2 (0.2-1.3) mg/dL AST 31 (17-59) U/L ALT 28 (21-72) U/L Alkaline Phosphatase 123 (38-126) U/L Total Protein 4.6 L (6.3-8.3) g/dL Albumin 2.1 L (3.5-5.0) g/dL Globulin 2.5 (2.2-3.9) gm/dL Albumin/Globulin Ratio 0.8 L (1.0-2.1) 04/30/17 04/30/17 Range/Units 23:43 17:44 WBC (4.8-10.8) K/uL RBC (4.40-5.90) Mil/uL Hgb (12.0-18.0) g/dL Hct (35.0-51.0) % MCV (80.0-94.0) fL MCH (27.0-31.0) pg MCHC (33.0-37.0) g/dL RDW (11.5-14.5) % Plt Count (130-400) K/uL MPV (7.2-11.7) fL Neut % (Auto) (50.0-75.0) % Lymph % (Auto) (20.0-40.0) % [place] % (Auto) (0.0-10.0) % Eos % (Auto) (0.0-4.0) % Baso % (Auto) (0.0-2.0) % Neut # (1.8-7.0) K/uL Lymph # (1.0-4.3) K/uL [place] # (0.0-0.8) K/uL Eos # (0.0-0.7) K/uL Baso # (0.0-0.2) K/uL Neutrophils % (Manual) (50-75) % Band Neutrophils % (0-2) % Lymphocytes % (Manual) (20-40) % Monocytes % (Manual) (0-10) % Platelet Estimate (NORMAL) Hypochromasia (manual) Anisocytosis (manual) Alan Cells Fibrinogen (200-400) mg/dL Sodium (132-148) mmol/L Potassium (3.6-5.2) mmol/L Chloride (98-107) mmol/L Carbon Dioxide (22-30) mmol/L Anion Gap (10-20) BUN (9-20) mg/dL Creatinine (0.8-1.5) MG/DL Est GFR ( Amer) Est GFR (Non-Af Amer) POC Glucose (mg/dL) 186 H 179 H (65-110) mg/dL Random Glucose (75-110) mg/dL Calcium (8.6-10.4) mg/dl Phosphorus (2.5-4.5) mg/dL Magnesium (1.6-2.3) mg/dL Total Bilirubin (0.2-1.3) mg/dL AST (17-59) U/L ALT (21-72) U/L Alkaline Phosphatase (38-126) U/L Total Protein (6.3-8.3) g/dL Albumin (3.5-5.0) g/dL Globulin (2.2-3.9) gm/dL Albumin/Globulin Ratio (1.0-2.1) Laboratory Results - last 24 hr 04/30/17 04/30/17 05/01/17 17:44 23:43 06:28 WBC RBC Hgb Hct MCV MCH MCHC RDW Plt Count MPV Neut % (Auto) Lymph % (Auto) [place] % (Auto) Eos % (Auto) Baso % (Auto) Neut # Lymph # [place] # Eos # Baso # Neutrophils % (Manual) Band Neutrophils % Lymphocytes % (Manual) Monocytes % (Manual) Platelet Estimate Hypochromasia (manual) Anisocytosis (manual) Sterling Cells Fibrinogen Sodium Potassium Chloride Carbon Dioxide Anion Gap BUN Creatinine Est GFR ( Amer) Est GFR (Non-Af Amer) POC Glucose (mg/dL) 179 H 186 H 155 H Random Glucose Calcium Phosphorus Magnesium Total Bilirubin AST ALT Alkaline Phosphatase Total Protein Albumin Globulin Albumin/Globulin Ratio 05/01/17 05/01/17 05/01/17 06:34 06:34 06:34 WBC 6.6 RBC 3.07 L Hgb 9.1 L Hct 27.4 L MCV 89.2 MCH 29.7 MCHC 33.3 RDW 18.1 H Plt Count 50 L MPV 9.9 Neut % (Auto) 86.5 H Lymph % (Auto) 6.0 L [place] % (Auto) 7.3 Eos % (Auto) 0.1 Baso % (Auto) 0.1 Neut # 5.8 Lymph # 0.4 L [place] # 0.5 Eos # 0.0 Baso # 0.0 Neutrophils % (Manual) 75 Band Neutrophils % 5 H Lymphocytes % (Manual) 14 L Monocytes % (Manual) 6 Platelet Estimate Decreased L Hypochromasia (manual) Slight Anisocytosis (manual) Slight Sterling Cells Slight Fibrinogen 369 Sodium 133 Potassium 2.9 L Chloride 103 Carbon Dioxide 22 Anion Gap 11 BUN 10 Creatinine 0.5 L Est GFR ( Amer) > 60 Est GFR (Non-Af Amer) > 60 POC Glucose (mg/dL) Random Glucose 134 H Calcium 7.3 L Phosphorus 1.9 L Magnesium 1.9 Total Bilirubin 1.2 AST 31 ALT 28 Alkaline Phosphatase 123 Total Protein 4.6 L Albumin 2.1 L Globulin 2.5 Albumin/Globulin Ratio 0.8 L 05/01/17 05/01/17 11:19 17:14 WBC RBC Hgb Hct MCV MCH MCHC RDW Plt Count MPV Neut % (Auto) Lymph % (Auto) [place] % (Auto) Eos % (Auto) Baso % (Auto) Neut # Lymph # [place] # Eos # Baso # Neutrophils % (Manual) Band Neutrophils % Lymphocytes % (Manual) Monocytes % (Manual) Platelet Estimate Hypochromasia (manual) Anisocytosis (manual) Alan Cells Fibrinogen Sodium 133 Potassium 2.7 L Chloride 108 H Carbon Dioxide 17 L Anion Gap 11 BUN 10 Creatinine 0.4 L Est GFR ( Amer) > 60 Est GFR (Non-Af Amer) > 60 POC Glucose (mg/dL) 154 H Random Glucose 118 H Calcium 7.0 L Phosphorus Magnesium Total Bilirubin 1.2 AST 32 ALT 26 Alkaline Phosphatase 115 Total Protein 4.4 L Albumin 1.9 L Globulin 2.4 Albumin/Globulin Ratio 0.8 L Critical Care Progress Note - Nutrition Nutrition: Nutrition Category Date Time Status Regular Diet [DIET] Diets 05/01/17 Lunch Active Attending/Attestation - Attestation I have personally seen and examined this patient.: Yes I have fully participated in the care of the patient.: Yes I have reviewed all pertinent clinical information: Yes Notes (Text): 05/01/17 17:52 Today: , May 01, 2017 The Patient was seen and examined at the bedside, Medical records reviewed, all clinical/lab/hemodynamic/radiographic data were reviewed and management issues were discussed and formulated, Events reviewed Pain issues, skin care, head of the bed elevation, glycemic control were addressed. Agree with above treatment plans as transcribed in Dr. Choudhary note
[2017-05-01] MEDS ORDERED: Sodium Chloride 0.9% 1,000 ML IV ONE (16:01)
[2017-05-01 17:27] LABS: ALBUMIN 1.9 g/dL (3.5-5.0)
[2017-05-01 17:30] LABS: AST/SGOT 32 U/L (17-59); GFR AFRICAN-AMERICAN > 60; GFR NON-AFRICAN AMERICAN > 60
[2017-05-01 17:31] LABS: ALB/GLOB RATIO 0.8 (1.0-2.1); ALT/SGPT 26 U/L (21-72); BLOOD UREA NITROGEN 10 mg/dL (9-20)
[2017-05-02] MEDS: (Novolin R) Insulin Human Regular 100 units/ml vial SC SCH ×4 (00:26→18:31)
[2017-05-02] MEDS: Vancomycin 1 gm/NS 200 ml 1 GM/200 ML BAG IVPB SCH ×2 (01:40→15:18)
--- NOTE | 2017-05-02 04:30 | CP.PCM.PN ---
Subjective - Date & Time of Evaluation Date of Evaluation: 05/01/17 Time of Evaluation: 13:30 - Subjective Subjective: Has abdominal pain. Objective - Vital Signs/Intake and Output Vital Signs (last 24 hours): Temp Pulse Resp BP Pulse Ox 99.3 F 89 30 H 101/64 94 L 05/01/17 23:41 05/02/17 04:00 05/02/17 04:00 05/02/17 03:25 05/02/17 04:00 Intake and Output: 05/01/17 05/02/17 18:59 06:59 Intake Total 3594 1258 Output Total 1010 150 Balance 2584 1108 - Medications Medications: Current Medications Acetaminophen (Tylenol 325mg Tab) 650 mg PO Q6 PRN PRN Reason: Fever >100.4 F Piperacillin Sod/Tazobactam (Sod 3.375 gm/ Sodium Chloride) 100 mls @ 200 mls/ hr IVPB Q8H [facility] Last Admin: 05/01/17 22:08 Dose: 200 mls/hr Vancomycin/Sodium Chloride (Vancocin) 1 gm in 200 mls @ 166.7 mls/hr IVPB Q12H [facility] Stop: 05/04/17 13:01 Last Admin: 05/02/17 01:40 Dose: 166.7 mls/hr Sodium Chloride (Sodium Chloride 0.9%) 1,000 mls @ 125 mls/hr IV .Q8H [facility] Last Admin: 05/01/17 22:06 Dose: 125 mls/hr Dopamine HCl/Dextrose (Dopamine 400mg/250ml D5w) 400 mg in 250 mls @ 11.907 mls /hr IV .Q21H PRN; Protocol; 5 MCG/KG/MIN PRN Reason: TITRATE PER MD ORDER Insulin Human Regular (Novolin R) 0 unit SC Q6H [facility] PRN Reason: Protocol Last Admin: 05/02/17 00:26 Dose: Not Given Morphine Sulfate (Morphine) 2 mg IVP Q2 PRN PRN Reason: Pain, moderate (4-7) Last Admin: 05/02/17 01:44 Dose: 2 mg Pantoprazole Sodium (Protonix Ec Tab) 40 mg PO ACB [facility] Last Admin: 05/01/17 09:28 Dose: 40 mg Potassium Chloride (K-Dur 20 Meq Er Tab) 40 meq PO BRK [facility] - Labs Labs: 05/01/17 06:34 05/01/17 17:14 PT 19.7 SECONDS (9.7-12.2) H 04/30/17 15:05 INR 1.7 04/30/17 15:05 APTT 38 SECONDS (21-34) H D 04/30/17 15:05 - Head Exam Head Exam: ATRAUMATIC - Eye Exam Eye Exam: Normal appearance - ENT Exam ENT Exam: Mucous Membranes Dry - Respiratory Exam Respiratory Exam: NORMAL BREATHING PATTERN - Cardiovascular Exam Cardiovascular Exam: +S1, +S2 - GI/Abdominal Exam GI & Abdominal Exam: Normal Bowel Sounds - Extremities Exam Extremities Exam: Normal Inspection - Neurological Exam Neurological Exam: Oriented x3 - Psychiatric Exam Psychiatric exam: Normal Affect, Normal Mood - Skin Skin Exam: Warm Assessment and Plan (1) Pancytopenia Assessment & Plan: secondary to chemotherapy s/p PRBC and plt transfusion Status: Acute (2) Gram negative septic shock Assessment & Plan: portacath removed on antibiotics ID f/u Status: Acute (3) Coagulopathy Assessment & Plan: nutritional no evidence of DIC Status: Acute (4) Pancreatic cancer Assessment & Plan: stage IV outpatient chemotherapy Status: Acute
[2017-05-02] MEDS: Sodium Chloride 0.9% 1,000 ML IV SCH ×3 (05:18→23:12)
[2017-05-02] MEDS: Piperacillin/Tazobact 3.375 GM in Sodium Chloride 100 ML IVPB SCH ×3 (06:07→23:00)
[2017-05-02 07:03] LABS: BASO % 0.2 % (0.0-2.0); EOS % 0.1 % (0.0-4.0); HEMOGLOBIN 8.2 g/dL (12.0-18.0); LYMPH # 0.4 K/uL (1.0-4.3); LYMPH % 8.9 % (20.0-40.0); MEAN CELL VOLUME 89.2 fL (80.0-94.0); MEAN CORPUSCULAR HEMOGLOBIN 29.7 pg (27.0-31.0); MEAN CORPUSCULAR HGB CONC 33.3 g/dL (33.0-37.0); MONO # 0.6 K/uL (0.0-0.8); MONO % 11.6 % (0.0-10.0); NEUT # 3.8 K/uL (1.8-7.0); NEUT % 79.2 % (50.0-75.0); NRBC % 0.1 % (0.0-2.0); PLATELET COUNT 42 K/uL (130-400); RBC 2.77 Mil/uL (4.40-5.90); RED CELL DISTRIBUTION WIDTH 18.2 % (11.5-14.5); WHITE BLOOD COUNT 4.8 K/uL (4.8-10.8)
[2017-05-02 07:26] LABS: ALBUMIN 1.8 g/dL (3.5-5.0)
[2017-05-02 07:29] LABS: ALB/GLOB RATIO 0.7 (1.0-2.1); ALT/SGPT 23 U/L (21-72); AST/SGOT 32 U/L (17-59); BLOOD UREA NITROGEN 10 mg/dL (9-20); GFR AFRICAN-AMERICAN > 60; GFR NON-AFRICAN AMERICAN > 60
[2017-05-02 07:30] LABS: CALCIUM 6.9 mg/dl (8.6-10.4); MAGNESIUM 1.8 mg/dL (1.6-2.3)
[2017-05-02] MEDS ORDERED: Potassium Phosphate 15 MMOLE in Sodium Chloride 0.9% 250 ML IV ONE (08:12)
--- NOTE | 2017-05-02 08:27 | CP.PCM.PN ---
Subjective - Date & Time of Evaluation Date of Evaluation: 05/02/17 Time of Evaluation: 07:00 - Subjective Subjective: Patient seen and examined this AM in the ICU. Patient denies any fevers, chills , chest pain, SOB. Objective - Vital Signs/Intake and Output Vital Signs (last 24 hours): Temp Pulse Resp BP Pulse Ox 99.3 F 86 19 91/58 L 96 05/01/17 23:41 05/02/17 07:00 05/02/17 07:00 05/02/17 06:25 05/02/17 07:00 Intake and Output: 05/02/17 05/02/17 06:59 18:59 Intake Total 1608 Output Total 500 Balance 1108 - Medications Medications: Current Medications Acetaminophen (Tylenol 325mg Tab) 650 mg PO Q6 PRN PRN Reason: Fever >100.4 F Piperacillin Sod/Tazobactam (Sod 3.375 gm/ Sodium Chloride) 100 mls @ 200 mls/ hr IVPB Q8H [facility] Last Admin: 05/02/17 06:07 Dose: 200 mls/hr Vancomycin/Sodium Chloride (Vancocin) 1 gm in 200 mls @ 166.7 mls/hr IVPB Q12H [facility] Stop: 05/04/17 13:01 Last Admin: 05/02/17 01:40 Dose: 166.7 mls/hr Sodium Chloride (Sodium Chloride 0.9%) 1,000 mls @ 125 mls/hr IV .Q8H [facility] Last Admin: 05/02/17 05:18 Dose: Not Given Dopamine HCl/Dextrose (Dopamine 400mg/250ml D5w) 400 mg in 250 mls @ 11.907 mls /hr IV .Q21H PRN; Protocol; 5 MCG/KG/MIN PRN Reason: TITRATE PER MD ORDER Potassium Phosphate 15 mmole/ (Sodium Chloride) 255 mls @ 63 mls/hr IV ONCE ONE Stop: 05/02/17 12:10 Insulin Human Regular (Novolin R) 0 unit SC Q6H [facility] PRN Reason: Protocol Last Admin: 05/02/17 05:41 Dose: Not Given Morphine Sulfate (Morphine) 2 mg IVP Q2 PRN PRN Reason: Pain, moderate (4-7) Last Admin: 05/02/17 01:44 Dose: 2 mg Pantoprazole Sodium (Protonix Ec Tab) 40 mg PO ACB [facility] Last Admin: 05/01/17 09:28 Dose: 40 mg Potassium Chloride (K-Dur 20 Meq Er Tab) 40 meq PO BRK [facility] - Labs Labs: 05/02/17 06:50 05/02/17 06:50 PT 19.7 SECONDS (9.7-12.2) H 04/30/17 15:05 INR 1.7 04/30/17 15:05 APTT 38 SECONDS (21-34) H D 04/30/17 15:05 - Constitutional Appears: Well, Non-toxic, No Acute Distress - Head Exam Head Exam: ATRAUMATIC, NORMOCEPHALIC - Eye Exam Eye Exam: Normal appearance. absent: Conjunctival injection, Scleral icterus - ENT Exam ENT Exam: Mucous Membranes Moist, Normal Oropharynx - Neck Exam Additional comments: No neck swelling, discoloration, or tracheal deviation - Respiratory Exam Respiratory Exam: NORMAL BREATHING PATTERN. absent: Accessory Muscle Use, Respiratory Distress - Cardiovascular Exam Cardiovascular Exam: RRR - GI/Abdominal Exam GI & Abdominal Exam: Soft. absent: Distended, Tenderness - Extremities Exam Extremities Exam: absent: Calf Tenderness, Pedal Edema, Tenderness - Neurological Exam Neurological Exam: Alert, Awake, Oriented x3 - Psychiatric Exam Psychiatric exam: Normal Affect, Normal Mood - Skin Skin Exam: Dry, Normal Color, Warm Additional comments: Surgical dressing on neck c/d/i. Skin edges well approximated with steristrips. No swelling, discoloration, or drainage Assessment and Plan - Assessment and Plan (Free Text) Assessment: 57M with PMH of pancreatic cancer with mets undergoing chemotherapy who presented with sepsis and bacteremia POD#1 s/p removal of portacath d/t possible port infection -afebrile -dressing c/d/i Plan: -No further surgical intervention planned at this time. -If patient needs a new portacath for further chemotherapy it can be placed after the infection has resolved. Patient may follow up as an outpatient -Continue management per primary team and ICU -Re-consult surgery if you have any further questions or concerns -Surgery will sign off Thank you for this consult Discussed with Dr. Christian Harp, PGY2
[2017-05-02 08:29] LABS: ANISOCYTOSIS SLIGHT; LYMPHOCYTE 6 % (20-40); MONOCYTE 10 % (0-10); NEUTROPHIL 83 % (50-75); PLATELET ESTIMATE DECREASED (NORMAL); REACTIVE LYMPHOCYTES 1 % (0-0); TOTAL CELLS COUNTED 100
[2017-05-02 08:30] LABS: HYPOCHROMIC SLIGHT; OVALOCYTES SLIGHT
[2017-05-02] MEDS: Pantoprazole 40 mg EC Tab PO SCH (08:41)
[2017-05-02] MEDS: Potassium Chloride 20 mEq ER Tab PO SCH (08:41)
--- NOTE | 2017-05-02 10:01 | CP.CCUPN ---
<FunmiRenato vences Johnathan - Last Filed: 05/02/17 09:58> CCU Subjective - Physician Review Events Since Last Encounter (Free Text): 05/02/17 09:58 Pt S&E. KRISTEN. Resting comfortably. Still with minimal abdominal discomfort. Not eating much. Still feels weak and tired. Nursing having difficult time with blood draws. afebrile, VSS CCU Objective - Vital Signs / Intake & Output Vital Signs (Last 4 hours): Vital Signs Pulse Resp BP Pulse Ox 05/02/17 07:00 86 19 96 05/02/17 06:25 85 17 91/58 L 97 05/02/17 06:00 88 15 98 Intake and Output (Last 8hrs): Intake & Output 05/01/17 05/02/17 05/02/17 22:59 06:59 14:59 Intake Total 2174 983 Output Total 300 350 Balance 1874 633 Intake: Intake, IV Amount 2124 983 Right Antecubital 1125 983 Right forearm 999 Oral 50 Output: Urine 200 350 Urine, Voided 200 350 Stool 100 Other: # Voids Urine, Voided 1 # Bowel Movements 1 - Physical Exam Head: Positive for: Atraumatic, Normocephalic Extroacular Muscles: Positive for: EOMI Conjunctiva: Positive for: Icteric Mouth: Positive for: Moist Mucous Membranes Respiratory/Chest: Positive for: Clear to Auscultation. Negative for: Respiratory Distress, Accessory Muscle Use Cardiovascular: Positive for: Regular Rate and Rhythm. Negative for: Murmurs Abdomen: Positive for: Tenderness (epigastric). Negative for: Distention, Peritoneal Signs, Rebound, Guarding, Hernias Rectal: Positive for: Occult Blood Upper Extremity: Negative for: Edema Lower Extremity: Negative for: Edema Neurological: Positive for: GCS=15, Speech Normal Skin: Positive for: Warm, Normal Color Psychiatric: Positive for: Alert, Oriented x 3 - Medications Active Medications: Active Medications Generic Name Dose Route Start Last Admin Trade Name Freq PRN Reason Stop Dose Admin Acetaminophen 650 mg 04/30/17 20:23 Tylenol 325mg Tab PO Q6 PRN Fever >100.4 F Piperacillin Sod/Tazobactam 100 mls @ 200 mls/hr 04/29/17 07:00 05/02/17 06: 07 Sod 3.375 gm/ Sodium Chloride IVPB 200 mls/hr Q8H HECTOR Administration Vancomycin/Sodium Chloride 1 gm in 200 mls @ 166.7 mls/hr 04/29/17 13:00 05/12 01:40 Vancocin IVPB 05/04/17 13:01 166.7 mls/hr Q12H HECTOR Administration Sodium Chloride 1,000 mls @ 125 mls/hr 05/01/17 13:02 05/02/17 05:18 Sodium Chloride 0.9% IV Not Given .Q8H HECTOR Dopamine HCl/Dextrose 400 mg in 250 mls @ 11.907 mls/hr 05/01/17 13:02 Dopamine 400mg/250ml D5w IV .Q21H PRN TITRATE PER MD ORDER Protocol 5 MCG/KG/MIN Potassium Phosphate 15 mmole/ 255 mls @ 63 mls/hr 05/02/17 08:12 05/02/17 08: 54 Sodium Chloride IV 05/02/17 12:10 63 mls/hr ONCE ONE Administration Insulin Human Regular 0 unit 04/30/17 00:00 05/02/17 05:41 Novolin R SC Not Given Q6H [facility] Protocol Morphine Sulfate 2 mg 04/30/17 20:40 05/02/17 08:41 Morphine IVP 2 mg Q2 PRN Administration Pain, moderate (4-7) Pantoprazole Sodium 40 mg 04/30/17 08:00 05/02/17 08:41 Protonix Ec Tab PO 40 mg ACB HECTOR Administration Potassium Chloride 40 meq 05/02/17 08:00 05/02/17 08:41 K-Dur 20 Meq Er Tab PO 40 meq BRK HECTOR Administration - Patient Studies Lab Studies: Microbiology Studies 04/29/17 06:00 Blood Culture - Final Blood Escherichia Coli Gram Stain - Final 04/29/17 06:00 Blood Culture - Final Blood Escherichia Coli Gram Stain - Final Lab Studies 05/02/17 05/02/17 05/02/17 Range/Units 06:50 06:50 05:24 WBC 4.8 (4.8-10.8) K/uL RBC 2.77 L (4.40-5.90) Mil/uL Hgb 8.2 L (12.0-18.0) g/dL Hct 24.7 L (35.0-51.0) % MCV 89.2 (80.0-94.0) fL MCH 29.7 (27.0-31.0) pg MCHC 33.3 (33.0-37.0) g/dL RDW 18.2 H (11.5-14.5) % Plt Count 42 L (130-400) K/uL MPV 10.0 (7.2-11.7) fL Neut % (Auto) 79.2 H (50.0-75.0) % Lymph % (Auto) 8.9 L (20.0-40.0) % Knox % (Auto) 11.6 H (0.0-10.0) % Eos % (Auto) 0.1 (0.0-4.0) % Baso % (Auto) 0.2 (0.0-2.0) % Neut # 3.8 (1.8-7.0) K/uL Lymph # 0.4 L (1.0-4.3) K/uL Knox # 0.6 (0.0-0.8) K/uL Eos # 0.0 (0.0-0.7) K/uL Baso # 0.0 (0.0-0.2) K/uL Neutrophils % (Manual) 83 H (50-75) % Lymphocytes % (Manual) 6 L (20-40) % Reactive Lymphs % 1 H (0-0) % Monocytes % (Manual) 10 (0-10) % Platelet Estimate Decreased L (NORMAL) Hypochromasia (manual) Slight Anisocytosis (manual) Slight Ovalocytes Slight Sodium 134 (132-148) mmol/L Potassium 3.3 L (3.6-5.2) mmol/L Chloride 110 H (98-107) mmol/L Carbon Dioxide 18 L (22-30) mmol/L Anion Gap 9 L (10-20) BUN 10 (9-20) mg/dL Creatinine 0.4 L (0.8-1.5) MG/DL Est GFR ( Amer) > 60 Est GFR (Non-Af Amer) > 60 POC Glucose (mg/dL) 115 H (65-110) mg/dL Random Glucose 91 (75-110) mg/dL Calcium 6.9 L (8.6-10.4) mg/dl Phosphorus 2.1 L (2.5-4.5) mg/dL Magnesium 1.8 (1.6-2.3) mg/dL Total Bilirubin 1.1 (0.2-1.3) mg/dL AST 32 (17-59) U/L ALT 23 (21-72) U/L Alkaline Phosphatase 97 (38-126) U/L Total Protein 4.3 L (6.3-8.3) g/dL Albumin 1.8 L (3.5-5.0) g/dL Globulin 2.5 (2.2-3.9) gm/dL Albumin/Globulin Ratio 0.7 L (1.0-2.1) 05/02/17 05/01/17 05/01/17 Range/Units 00:07 17:51 17:14 WBC (4.8-10.8) K/uL RBC (4.40-5.90) Mil/uL Hgb (12.0-18.0) g/dL Hct (35.0-51.0) % MCV (80.0-94.0) fL MCH (27.0-31.0) pg MCHC (33.0-37.0) g/dL RDW (11.5-14.5) % Plt Count (130-400) K/uL MPV (7.2-11.7) fL Neut % (Auto) (50.0-75.0) % Lymph % (Auto) (20.0-40.0) % Knox % (Auto) (0.0-10.0) % Eos % (Auto) (0.0-4.0) % Baso % (Auto) (0.0-2.0) % Neut # (1.8-7.0) K/uL Lymph # (1.0-4.3) K/uL Knox # (0.0-0.8) K/uL Eos # (0.0-0.7) K/uL Baso # (0.0-0.2) K/uL Neutrophils % (Manual) (50-75) % Lymphocytes % (Manual) (20-40) % Reactive Lymphs % (0-0) % Monocytes % (Manual) (0-10) % Platelet Estimate (NORMAL) Hypochromasia (manual) Anisocytosis (manual) Ovalocytes Sodium 133 (132-148) mmol/L Potassium 2.7 L (3.6-5.2) mmol/L Chloride 108 H (98-107) mmol/L Carbon Dioxide 17 L (22-30) mmol/L Anion Gap 11 (10-20) BUN 10 (9-20) mg/dL Creatinine 0.4 L (0.8-1.5) MG/DL Est GFR ( Amer) > 60 Est GFR (Non-Af Amer) > 60 POC Glucose (mg/dL) 106 143 H (65-110) mg/dL Random Glucose 118 H (75-110) mg/dL Calcium 7.0 L (8.6-10.4) mg/dl Phosphorus (2.5-4.5) mg/dL Magnesium (1.6-2.3) mg/dL Total Bilirubin 1.2 (0.2-1.3) mg/dL AST 32 (17-59) U/L ALT 26 (21-72) U/L Alkaline Phosphatase 115 (38-126) U/L Total Protein 4.4 L (6.3-8.3) g/dL Albumin 1.9 L (3.5-5.0) g/dL Globulin 2.4 (2.2-3.9) gm/dL Albumin/Globulin Ratio 0.8 L (1.0-2.1) 05/01/17 Range/Units 11:19 WBC (4.8-10.8) K/uL RBC (4.40-5.90) Mil/uL Hgb (12.0-18.0) g/dL Hct (35.0-51.0) % MCV (80.0-94.0) fL MCH (27.0-31.0) pg MCHC (33.0-37.0) g/dL RDW (11.5-14.5) % Plt Count (130-400) K/uL MPV (7.2-11.7) fL Neut % (Auto) (50.0-75.0) % Lymph % (Auto) (20.0-40.0) % Knox % (Auto) (0.0-10.0) % Eos % (Auto) (0.0-4.0) % Baso % (Auto) (0.0-2.0) % Neut # (1.8-7.0) K/uL Lymph # (1.0-4.3) K/uL Knox # (0.0-0.8) K/uL Eos # (0.0-0.7) K/uL Baso # (0.0-0.2) K/uL Neutrophils % (Manual) (50-75) % Lymphocytes % (Manual) (20-40) % Reactive Lymphs % (0-0) % Monocytes % (Manual) (0-10) % Platelet Estimate (NORMAL) Hypochromasia (manual) Anisocytosis (manual) Ovalocytes Sodium (132-148) mmol/L Potassium (3.6-5.2) mmol/L Chloride (98-107) mmol/L Carbon Dioxide (22-30) mmol/L Anion Gap (10-20) BUN (9-20) mg/dL Creatinine (0.8-1.5) MG/DL Est GFR ( Amer) Est GFR (Non-Af Amer) POC Glucose (mg/dL) 154 H (65-110) mg/dL Random Glucose (75-110) mg/dL Calcium (8.6-10.4) mg/dl Phosphorus (2.5-4.5) mg/dL Magnesium (1.6-2.3) mg/dL Total Bilirubin (0.2-1.3) mg/dL AST (17-59) U/L ALT (21-72) U/L Alkaline Phosphatase (38-126) U/L Total Protein (6.3-8.3) g/dL Albumin (3.5-5.0) g/dL Globulin (2.2-3.9) gm/dL Albumin/Globulin Ratio (1.0-2.1) Laboratory Results - last 24 hr 05/01/17 05/01/17 05/01/17 11:19 17:14 17:51 WBC RBC Hgb Hct MCV MCH MCHC RDW Plt Count MPV Neut % (Auto) Lymph % (Auto) Knox % (Auto) Eos % (Auto) Baso % (Auto) Neut # Lymph # Knox # Eos # Baso # Neutrophils % (Manual) Lymphocytes % (Manual) Reactive Lymphs % Monocytes % (Manual) Platelet Estimate Hypochromasia (manual) Anisocytosis (manual) Ovalocytes Sodium 133 Potassium 2.7 L Chloride 108 H Carbon Dioxide 17 L Anion Gap 11 BUN 10 Creatinine 0.4 L Est GFR ( Amer) > 60 Est GFR (Non-Af Amer) > 60 POC Glucose (mg/dL) 154 H 143 H Random Glucose 118 H Calcium 7.0 L Phosphorus Magnesium Total Bilirubin 1.2 AST 32 ALT 26 Alkaline Phosphatase 115 Total Protein 4.4 L Albumin 1.9 L Globulin 2.4 Albumin/Globulin Ratio 0.8 L 05/02/17 05/02/17 05/02/17 00:07 05:24 06:50 WBC 4.8 RBC 2.77 L Hgb 8.2 L Hct 24.7 L MCV 89.2 MCH 29.7 MCHC 33.3 RDW 18.2 H Plt Count 42 L MPV 10.0 Neut % (Auto) 79.2 H Lymph % (Auto) 8.9 L Knox % (Auto) 11.6 H Eos % (Auto) 0.1 Baso % (Auto) 0.2 Neut # 3.8 Lymph # 0.4 L Knox # 0.6 Eos # 0.0 Baso # 0.0 Neutrophils % (Manual) 83 H Lymphocytes % (Manual) 6 L Reactive Lymphs % 1 H Monocytes % (Manual) 10 Platelet Estimate Decreased L Hypochromasia (manual) Slight Anisocytosis (manual) Slight Ovalocytes Slight Sodium Potassium Chloride Carbon Dioxide Anion Gap BUN Creatinine Est GFR ( Amer) Est GFR (Non-Af Amer) POC Glucose (mg/dL) 106 115 H Random Glucose Calcium Phosphorus Magnesium Total Bilirubin AST ALT Alkaline Phosphatase Total Protein Albumin Globulin Albumin/Globulin Ratio 05/02/17 06:50 WBC RBC Hgb Hct MCV MCH MCHC RDW Plt Count MPV Neut % (Auto) Lymph % (Auto) Knox % (Auto) Eos % (Auto) Baso % (Auto) Neut # Lymph # Knox # Eos # Baso # Neutrophils % (Manual) Lymphocytes % (Manual) Reactive Lymphs % Monocytes % (Manual) Platelet Estimate Hypochromasia (manual) Anisocytosis (manual) Ovalocytes Sodium 134 Potassium 3.3 L Chloride 110 H Carbon Dioxide 18 L Anion Gap 9 L BUN 10 Creatinine 0.4 L Est GFR ( Amer) > 60 Est GFR (Non-Af Amer) > 60 POC Glucose (mg/dL) Random Glucose 91 Calcium 6.9 L Phosphorus 2.1 L Magnesium 1.8 Total Bilirubin 1.1 AST 32 ALT 23 Alkaline Phosphatase 97 Total Protein 4.3 L Albumin 1.8 L Globulin 2.5 Albumin/Globulin Ratio 0.7 L Fingerstick Blood Sugar Results: 115 Critical Care Progress Note - Nutrition Nutrition: Nutrition Category Date Time Status Regular Diet [DIET] Diets 05/01/17 Lunch Active Assessment/Plan - Assessment and Plan (Free Text) Assessment: Assessment: 57M with stage IV pancreatic cancer; now with E Coli bacteremia, s/p chemoport removal POD#2 Plan: Neuro: -GCS 15 -Physical therapy for deconditioning Pulm: -100% on 4L NC CV: - No longer on pressors - systolic b/w 90-110. Will closely monitor. Bolus PRN - pt making adequate urine -will have midline placed due to poor IV access Heme: -hgB 8.2 today, no sign of acute bleeding, no further rectal bleed - will monitor closely -PLT 42 today - may need additional PLT for midline placement Renal: - 10/0.5 - cont hydration Endo: -BS 150s -on sliding scale GI: -Can adv diet as tolerated - added Ensure supplementation due to poor appetite - CT Abd/Pel shows metastatic disease, inc in size of necrotic panc head mass, possible colitis - not surgical candidate ID: - gram negative bacteremia: E. Coli - likely 2/2 to chemoport infection which is removed 2 days ago -On Vanc and Zosyn: Dr Hernandez -repeat blood cultures x 2 for next 3 days -pending results Prognosis poor. Pt interested in reducing chemotherapy dose. Will likely have new port placed once blood is clean DVT proph - SCDs, no anti-coagulation due to rectal bleed and thrombocytopenia GI proph - Protonix 40mg PO daily Code status - Full Case discussed with Dr. Alberto Choudhary, PGY3 <Miguel Dominguez S - Last Filed: 05/02/17 15:51> CCU Objective - Vital Signs / Intake & Output Intake and Output (Last 8hrs): Intake & Output 05/02/17 05/02/17 05/02/17 06:59 14:59 22:59 Intake Total 983 Output Total 350 Balance 633 Intake: Intake, IV Amount 983 Right Antecubital 983 Output: Urine 350 Urine, Voided 350 - Medications Active Medications: Active Medications Generic Name Dose Route Start Last Admin Trade Name Freq PRN Reason Stop Dose Admin Acetaminophen 650 mg 04/30/17 20:23 Tylenol 325mg Tab PO Q6 PRN Fever >100.4 F Piperacillin Sod/Tazobactam 100 mls @ 200 mls/hr 04/29/17 07:00 05/02/17 15: 18 Sod 3.375 gm/ Sodium Chloride IVPB 200 mls/hr Q8H HECTOR Administration Vancomycin/Sodium Chloride 1 gm in 200 mls @ 166.7 mls/hr 04/29/17 13:00 05/12 15:18 Vancocin IVPB 05/04/17 13:01 166.7 mls/hr Q12H HECTOR Administration Sodium Chloride 1,000 mls @ 125 mls/hr 05/01/17 13:02 05/02/17 13:00 Sodium Chloride 0.9% IV 125 mls/hr .Q8H HECTOR Administration Dopamine HCl/Dextrose 400 mg in 250 mls @ 11.907 mls/hr 05/01/17 13:02 Dopamine 400mg/250ml D5w IV .Q21H PRN TITRATE PER MD ORDER Protocol 5 MCG/KG/MIN Insulin Human Regular 0 unit 04/30/17 00:00 05/02/17 15:14 Novolin R SC Not Given Q6H HECTOR Protocol Morphine Sulfate 2 mg 04/30/17 20:40 05/02/17 15:18 Morphine IVP 2 mg Q2 PRN Administration Pain, moderate (4-7) Pantoprazole Sodium 40 mg 04/30/17 08:00 05/02/17 08:41 Protonix Ec Tab PO 40 mg ACB HECTOR Administration Potassium Chloride 40 meq 05/02/17 08:00 05/02/17 08:41 K-Dur 20 Meq Er Tab PO 40 meq BRK HECTOR Administration - Patient Studies Lab Studies: Microbiology Studies 05/01/17 14:30 Gram Stain - Final Blood 05/01/17 14:30 Gram Stain - Final Blood Lab Studies 05/02/17 05/02/17 05/02/17 Range/Units 12:04 06:50 06:50 WBC 4.8 (4.8-10.8) K/uL RBC 2.77 L (4.40-5.90) Mil/uL Hgb 8.2 L (12.0-18.0) g/dL Hct 24.7 L (35.0-51.0) % MCV 89.2 (80.0-94.0) fL MCH 29.7 (27.0-31.0) pg MCHC 33.3 (33.0-37.0) g/dL RDW 18.2 H (11.5-14.5) % Plt Count 42 L (130-400) K/uL MPV 10.0 (7.2-11.7) fL Neut % (Auto) 79.2 H (50.0-75.0) % Lymph % (Auto) 8.9 L (20.0-40.0) % Knox % (Auto) 11.6 H (0.0-10.0) % Eos % (Auto) 0.1 (0.0-4.0) % Baso % (Auto) 0.2 (0.0-2.0) % Neut # 3.8 (1.8-7.0) K/uL Lymph # 0.4 L (1.0-4.3) K/uL Knox # 0.6 (0.0-0.8) K/uL Eos # 0.0 (0.0-0.7) K/uL Baso # 0.0 (0.0-0.2) K/uL Neutrophils % (Manual) 83 H (50-75) % Lymphocytes % (Manual) 6 L (20-40) % Reactive Lymphs % 1 H (0-0) % Monocytes % (Manual) 10 (0-10) % Platelet Estimate Decreased L (NORMAL) Hypochromasia (manual) Slight Anisocytosis (manual) Slight Ovalocytes Slight Sodium 134 (132-148) mmol/L Potassium 3.3 L (3.6-5.2) mmol/L Chloride 110 H (98-107) mmol/L Carbon Dioxide 18 L (22-30) mmol/L Anion Gap 9 L (10-20) BUN 10 (9-20) mg/dL Creatinine 0.4 L (0.8-1.5) MG/DL Est GFR ( Amer) > 60 Est GFR (Non-Af Amer) > 60 POC Glucose (mg/dL) 112 H (65-110) mg/dL Random Glucose 91 (75-110) mg/dL Calcium 6.9 L (8.6-10.4) mg/dl Phosphorus 2.1 L (2.5-4.5) mg/dL Magnesium 1.8 (1.6-2.3) mg/dL Total Bilirubin 1.1 (0.2-1.3) mg/dL AST 32 (17-59) U/L ALT 23 (21-72) U/L Alkaline Phosphatase 97 (38-126) U/L Total Protein 4.3 L (6.3-8.3) g/dL Albumin 1.8 L (3.5-5.0) g/dL Globulin 2.5 (2.2-3.9) gm/dL Albumin/Globulin Ratio 0.7 L (1.0-2.1) 05/02/17 05/02/17 05/01/17 Range/Units 05:24 00:07 17:51 WBC (4.8-10.8) K/uL RBC (4.40-5.90) Mil/uL Hgb (12.0-18.0) g/dL Hct (35.0-51.0) % MCV (80.0-94.0) fL MCH (27.0-31.0) pg MCHC (33.0-37.0) g/dL RDW (11.5-14.5) % Plt Count (130-400) K/uL MPV (7.2-11.7) fL Neut % (Auto) (50.0-75.0) % Lymph % (Auto) (20.0-40.0) % Knox % (Auto) (0.0-10.0) % Eos % (Auto) (0.0-4.0) % Baso % (Auto) (0.0-2.0) % Neut # (1.8-7.0) K/uL Lymph # (1.0-4.3) K/uL Knox # (0.0-0.8) K/uL Eos # (0.0-0.7) K/uL Baso # (0.0-0.2) K/uL Neutrophils % (Manual) (50-75) % Lymphocytes % (Manual) (20-40) % Reactive Lymphs % (0-0) % Monocytes % (Manual) (0-10) % Platelet Estimate (NORMAL) Hypochromasia (manual) Anisocytosis (manual) Ovalocytes Sodium (132-148) mmol/L Potassium (3.6-5.2) mmol/L Chloride (98-107) mmol/L Carbon Dioxide (22-30) mmol/L Anion Gap (10-20) BUN (9-20) mg/dL Creatinine (0.8-1.5) MG/DL Est GFR ( Amer) Est GFR (Non-Af Amer) POC Glucose (mg/dL) 115 H 106 143 H (65-110) mg/dL Random Glucose (75-110) mg/dL Calcium (8.6-10.4) mg/dl Phosphorus (2.5-4.5) mg/dL Magnesium (1.6-2.3) mg/dL Total Bilirubin (0.2-1.3) mg/dL AST (17-59) U/L ALT (21-72) U/L Alkaline Phosphatase (38-126) U/L Total Protein (6.3-8.3) g/dL Albumin (3.5-5.0) g/dL Globulin (2.2-3.9) gm/dL Albumin/Globulin Ratio (1.0-2.1) 05/01/17 Range/Units 17:14 WBC (4.8-10.8) K/uL RBC (4.40-5.90) Mil/uL Hgb (12.0-18.0) g/dL Hct (35.0-51.0) % MCV (80.0-94.0) fL MCH (27.0-31.0) pg MCHC (33.0-37.0) g/dL RDW (11.5-14.5) % Plt Count (130-400) K/uL MPV (7.2-11.7) fL Neut % (Auto) (50.0-75.0) % Lymph % (Auto) (20.0-40.0) % Knox % (Auto) (0.0-10.0) % Eos % (Auto) (0.0-4.0) % Baso % (Auto) (0.0-2.0) % Neut # (1.8-7.0) K/uL Lymph # (1.0-4.3) K/uL Knox # (0.0-0.8) K/uL Eos # (0.0-0.7) K/uL Baso # (0.0-0.2) K/uL Neutrophils % (Manual) (50-75) % Lymphocytes % (Manual) (20-40) % Reactive Lymphs % (0-0) % Monocytes % (Manual) (0-10) % Platelet Estimate (NORMAL) Hypochromasia (manual) Anisocytosis (manual) Ovalocytes Sodium 133 (132-148) mmol/L Potassium 2.7 L (3.6-5.2) mmol/L Chloride 108 H (98-107) mmol/L Carbon Dioxide 17 L (22-30) mmol/L Anion Gap 11 (10-20) BUN 10 (9-20) mg/dL Creatinine 0.4 L (0.8-1.5) MG/DL Est GFR ( Amer) > 60 Est GFR (Non-Af Amer) > 60 POC Glucose (mg/dL) (65-110) mg/dL Random Glucose 118 H (75-110) mg/dL Calcium 7.0 L (8.6-10.4) mg/dl Phosphorus (2.5-4.5) mg/dL Magnesium (1.6-2.3) mg/dL Total Bilirubin 1.2 (0.2-1.3) mg/dL AST 32 (17-59) U/L ALT 26 (21-72) U/L Alkaline Phosphatase 115 (38-126) U/L Total Protein 4.4 L (6.3-8.3) g/dL Albumin 1.9 L (3.5-5.0) g/dL Globulin 2.4 (2.2-3.9) gm/dL Albumin/Globulin Ratio 0.8 L (1.0-2.1) Laboratory Results - last 24 hr 05/01/17 05/01/17 05/02/17 17:14 17:51 00:07 WBC RBC Hgb Hct MCV MCH MCHC RDW Plt Count MPV Neut % (Auto) Lymph % (Auto) Knox % (Auto) Eos % (Auto) Baso % (Auto) Neut # Lymph # Knox # Eos # Baso # Neutrophils % (Manual) Lymphocytes % (Manual) Reactive Lymphs % Monocytes % (Manual) Platelet Estimate Hypochromasia (manual) Anisocytosis (manual) Ovalocytes Sodium 133 Potassium 2.7 L Chloride 108 H Carbon Dioxide 17 L Anion Gap 11 BUN 10 Creatinine 0.4 L Est GFR ( Amer) > 60 Est GFR (Non-Af Amer) > 60 POC Glucose (mg/dL) 143 H 106 Random Glucose 118 H Calcium 7.0 L Phosphorus Magnesium Total Bilirubin 1.2 AST 32 ALT 26 Alkaline Phosphatase 115 Total Protein 4.4 L Albumin 1.9 L Globulin 2.4 Albumin/Globulin Ratio 0.8 L 05/02/17 05/02/17 05/02/17 05:24 06:50 06:50 WBC 4.8 RBC 2.77 L Hgb 8.2 L Hct 24.7 L MCV 89.2 MCH 29.7 MCHC 33.3 RDW 18.2 H Plt Count 42 L MPV 10.0 Neut % (Auto) 79.2 H Lymph % (Auto) 8.9 L Knox % (Auto) 11.6 H Eos % (Auto) 0.1 Baso % (Auto) 0.2 Neut # 3.8 Lymph # 0.4 L Knox # 0.6 Eos # 0.0 Baso # 0.0 Neutrophils % (Manual) 83 H Lymphocytes % (Manual) 6 L Reactive Lymphs % 1 H Monocytes % (Manual) 10 Platelet Estimate Decreased L Hypochromasia (manual) Slight Anisocytosis (manual) Slight Ovalocytes Slight Sodium 134 Potassium 3.3 L Chloride 110 H Carbon Dioxide 18 L Anion Gap 9 L BUN 10 Creatinine 0.4 L Est GFR ( Amer) > 60 Est GFR (Non-Af Amer) > 60 POC Glucose (mg/dL) 115 H Random Glucose 91 Calcium 6.9 L Phosphorus 2.1 L Magnesium 1.8 Total Bilirubin 1.1 AST 32 ALT 23 Alkaline Phosphatase 97 Total Protein 4.3 L Albumin 1.8 L Globulin 2.5 Albumin/Globulin Ratio 0.7 L 05/02/17 12:04 WBC RBC Hgb Hct MCV MCH MCHC RDW Plt Count MPV Neut % (Auto) Lymph % (Auto) Knox % (Auto) Eos % (Auto) Baso % (Auto) Neut # Lymph # Knox # Eos # Baso # Neutrophils % (Manual) Lymphocytes % (Manual) Reactive Lymphs % Monocytes % (Manual) Platelet Estimate Hypochromasia (manual) Anisocytosis (manual) Ovalocytes Sodium Potassium Chloride Carbon Dioxide Anion Gap BUN Creatinine Est GFR ( Amer) Est GFR (Non-Af Amer) POC Glucose (mg/dL) 112 H Random Glucose Calcium Phosphorus Magnesium Total Bilirubin AST ALT Alkaline Phosphatase Total Protein Albumin Globulin Albumin/Globulin Ratio Critical Care Progress Note - Nutrition Nutrition: Nutrition Category Date Time Status Regular Diet [DIET] Diets 05/01/17 Lunch Active Attending/Attestation - Attestation I have personally seen and examined this patient.: Yes I have fully participated in the care of the patient.: Yes I have reviewed all pertinent clinical information: Yes Notes (Text): 05/02/17 15:49 Patient seen and examined in the intensive care unit. Case discussed with house staff in the morning rounds. Continue IV antibiotics for Escherichia coli bacteremia Status post midline insertion Good urine output Transfuse platelets and packed RBCs as needed
--- NOTE | 2017-05-02 22:28 | CP.PCM.PN ---
Subjective - Date & Time of Evaluation Date of Evaluation: 05/02/17 Time of Evaluation: 22:28 - Subjective Subjective: CHIEF COMPLAINTS TODAY : AFEBRILE, no new cmplaints RT CHEST WALL DRESSING IN PLACE DRY, CLEAN, INTACT S/P PORT-a-CATH REMOVAL --POD # DAY2 ROS. HEENT : N. Resp : No SOB wheezing, cough Cardio : No CP, PND orthopnea GI : No abd. 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 Musculoskel : N Ext. : Pedal pulses intact, no edema or calf pain Derm : N Psych : N. PE. Pt. is alert awake in no distress. V.S As noted in the chart Head ,ear nose,throat and eyes : Normal. Neck : Supple with normal carotids. Lungs: Clear air entry. Heart : S1 & S2 normal . . No murmur. S4 + Abd : Soft non tender with normal bowel sounds. Neuro : Moves all ext. with no localized deficit. Ext : No edema with intact pulses. Neg. calf tenderness Derm : No rashes or decubitus ulcer. Radiology/Labs . CT ABD /PELVIS W/IV CONTRAST 04/30 PROGRESSIVE TUMOR BURDEN IN HIS RETROPERITONEUM, INCREASE IN SIZE OF NECROTIC PANCREATIC HEAD MASS. NEW HEPATIC METASTASIS. BLOOD CULTURES 2:2 SETS +VE +VE E.COLI -MALLORY SENSITIVE REPEAT BLOOD CULTURES -PENDING Urine cultures negative. Objective - Vital Signs/Intake and Output Vital Signs (last 24 hours): Temp Pulse Resp BP Pulse Ox 98.7 F 104 H 19 114/74 98 05/02/17 20:00 05/02/17 21:00 05/02/17 21:00 05/02/17 20:56 05/02/17 21:00 Intake and Output: 05/02/17 05/03/17 18:59 06:59 Intake Total 2090 375 Output Total 700 350 Balance 1390 25 - Medications Medications: Current Medications Acetaminophen (Tylenol 325mg Tab) 650 mg PO Q6 PRN PRN Reason: Fever >100.4 F Piperacillin Sod/Tazobactam (Sod 3.375 gm/ Sodium Chloride) 100 mls @ 200 mls/ hr IVPB Q8H [facility] Last Admin: 05/02/17 15:18 Dose: 200 mls/hr Vancomycin/Sodium Chloride (Vancocin) 1 gm in 200 mls @ 166.7 mls/hr IVPB Q12H [facility] Stop: 05/04/17 13:01 Last Admin: 05/02/17 15:18 Dose: 166.7 mls/hr Sodium Chloride (Sodium Chloride 0.9%) 1,000 mls @ 125 mls/hr IV .Q8H [facility] Last Admin: 05/02/17 13:00 Dose: 125 mls/hr Dopamine HCl/Dextrose (Dopamine 400mg/250ml D5w) 400 mg in 250 mls @ 11.907 mls /hr IV .Q21H PRN; Protocol; 5 MCG/KG/MIN PRN Reason: TITRATE PER MD ORDER Insulin Human Regular (Novolin R) 0 unit SC Q6H [facility] PRN Reason: Protocol Last Admin: 05/02/17 18:31 Dose: 2 unit Morphine Sulfate (Morphine) 2 mg IVP Q2 PRN PRN Reason: Pain, moderate (4-7) Last Admin: 05/02/17 20:54 Dose: 2 mg Pantoprazole Sodium (Protonix Ec Tab) 40 mg PO ACB [facility] Last Admin: 05/02/17 08:41 Dose: 40 mg Potassium Chloride (K-Dur 20 Meq Er Tab) 40 meq PO BRK [facility] Last Admin: 05/02/17 08:41 Dose: 40 meq - Labs Labs: 05/02/17 06:50 05/02/17 06:50 PT 19.7 SECONDS (9.7-12.2) H 04/30/17 15:05 INR 1.7 04/30/17 15:05 APTT 38 SECONDS (21-34) H D 04/30/17 15:05 Assessment and Plan (1) Gram negative septic shock Assessment & Plan: Continue IV Zosyn 3.375 q 8 hourly and IV vancomycin 1 g every 12 hourly. REPEAT BLOOD CULTURES 2 SETS PENDING TO SEE IF BACTEREMIA CLEARED. Status: Acute (2) Fever Status: Acute (3) Anemia Status: Acute (4) Pancreatic cancer Assessment & Plan: on chemotherapy which patient received last week. Status: Acute (5) Diabetes mellitus Status: Chronic (6) Thrombocytopenia Status: Acute (7) GI bleeding Assessment & Plan: PATIENT DENIED ANY FURTHER GI BLEEDING. Status: Acute
[2017-05-03] MEDS: Vancomycin 1 gm/NS 200 ml 1 GM/200 ML BAG IVPB SCH (01:00)
[2017-05-03] MEDS: Sodium Chloride 0.9% 1,000 ML IV SCH ×3 (05:02→23:35)
[2017-05-03] MEDS: (Novolin R) Insulin Human Regular 100 units/ml vial SC SCH ×5 (06:00→21:37)
[2017-05-03] MEDS: Piperacillin/Tazobact 3.375 GM in Sodium Chloride 100 ML IVPB SCH ×3 (07:00→22:48)
--- NOTE | 2017-05-03 07:04 | CP.PCM.PN ---
Subjective - Date & Time of Evaluation Date of Evaluation: 05/03/17 Time of Evaluation: 19:00 - Subjective Subjective: pt is weak and lethargic, on medical management Objective - Vital Signs/Intake and Output Vital Signs (last 24 hours): Temp Pulse Resp BP Pulse Ox 99.2 F 102 H 23 106/56 L 96 05/03/17 04:00 05/03/17 02:00 05/03/17 04:00 05/03/17 01:25 05/03/17 04:00 Intake and Output: 05/03/17 05/03/17 06:59 18:59 Intake Total 1800 Output Total 900 Balance 900 - Medications Medications: Current Medications Acetaminophen (Tylenol 325mg Tab) 650 mg PO Q6 PRN PRN Reason: Fever >100.4 F Piperacillin Sod/Tazobactam (Sod 3.375 gm/ Sodium Chloride) 100 mls @ 200 mls/ hr IVPB Q8H [facility] Last Admin: 05/02/17 23:00 Dose: 200 mls/hr Vancomycin/Sodium Chloride (Vancocin) 1 gm in 200 mls @ 166.7 mls/hr IVPB Q12H [facility] Stop: 05/04/17 13:01 Last Admin: 05/03/17 01:00 Dose: 166.7 mls/hr Sodium Chloride (Sodium Chloride 0.9%) 1,000 mls @ 125 mls/hr IV .Q8H [facility] Last Admin: 05/03/17 05:02 Dose: Not Given Dopamine HCl/Dextrose (Dopamine 400mg/250ml D5w) 400 mg in 250 mls @ 11.907 mls /hr IV .Q21H PRN; Protocol; 5 MCG/KG/MIN PRN Reason: TITRATE PER MD ORDER Insulin Human Regular (Novolin R) 0 unit SC Q6H [facility] PRN Reason: Protocol Last Admin: 05/03/17 00:00 Dose: 1 unit Morphine Sulfate (Morphine) 2 mg IVP Q2 PRN PRN Reason: Pain, moderate (4-7) Last Admin: 05/03/17 05:07 Dose: 2 mg Pantoprazole Sodium (Protonix Ec Tab) 40 mg PO ACB [facility] Last Admin: 05/02/17 08:41 Dose: 40 mg Potassium Chloride (K-Dur 20 Meq Er Tab) 40 meq PO BRK [facility] Last Admin: 05/02/17 08:41 Dose: 40 meq - Labs Labs: 05/02/17 06:50 05/02/17 06:50 PT 19.7 SECONDS (9.7-12.2) H 04/30/17 15:05 INR 1.7 04/30/17 15:05 APTT 38 SECONDS (21-34) H D 04/30/17 15:05 - Constitutional Appears: Chronically Ill - Head Exam Head Exam: ATRAUMATIC, NORMAL INSPECTION, NORMOCEPHALIC - Eye Exam Eye Exam: EOMI, Normal appearance, PERRL Pupil Exam: NORMAL ACCOMODATION, PERRL - Respiratory Exam Respiratory Exam: Decreased Breath Sounds, Rales, Rhonchi - Cardiovascular Exam Cardiovascular Exam: REGULAR RHYTHM, +S1, +S2. absent: Murmur - GI/Abdominal Exam GI & Abdominal Exam: Soft, Normal Bowel Sounds. absent: Tenderness Assessment and Plan (1) Anemia Status: Acute (2) Fever Status: Acute (3) Pancreatic cancer Status: Acute (4) Sepsis Status: Acute
--- NOTE | 2017-05-03 07:04 | CP.PCM.PN ---
Subjective - Date & Time of Evaluation Date of Evaluation: 05/02/17 Time of Evaluation: 21:00 - Subjective Subjective: Pt seen and examined, blood cultures positive for e.coli, pt is also evaluated by heme oncology, is on antibiotics Objective - Vital Signs/Intake and Output Vital Signs (last 24 hours): Temp Pulse Resp BP Pulse Ox 99.2 F 102 H 23 106/56 L 96 05/03/17 04:00 05/03/17 02:00 05/03/17 04:00 05/03/17 01:25 05/03/17 04:00 Intake and Output: 05/03/17 05/03/17 06:59 18:59 Intake Total 1800 Output Total 900 Balance 900 - Medications Medications: Current Medications Acetaminophen (Tylenol 325mg Tab) 650 mg PO Q6 PRN PRN Reason: Fever >100.4 F Piperacillin Sod/Tazobactam (Sod 3.375 gm/ Sodium Chloride) 100 mls @ 200 mls/ hr IVPB Q8H [facility] Last Admin: 05/02/17 23:00 Dose: 200 mls/hr Vancomycin/Sodium Chloride (Vancocin) 1 gm in 200 mls @ 166.7 mls/hr IVPB Q12H [facility] Stop: 05/04/17 13:01 Last Admin: 05/03/17 01:00 Dose: 166.7 mls/hr Sodium Chloride (Sodium Chloride 0.9%) 1,000 mls @ 125 mls/hr IV .Q8H [facility] Last Admin: 05/03/17 05:02 Dose: Not Given Dopamine HCl/Dextrose (Dopamine 400mg/250ml D5w) 400 mg in 250 mls @ 11.907 mls /hr IV .Q21H PRN; Protocol; 5 MCG/KG/MIN PRN Reason: TITRATE PER MD ORDER Insulin Human Regular (Novolin R) 0 unit SC Q6H [facility] PRN Reason: Protocol Last Admin: 05/03/17 00:00 Dose: 1 unit Morphine Sulfate (Morphine) 2 mg IVP Q2 PRN PRN Reason: Pain, moderate (4-7) Last Admin: 05/03/17 05:07 Dose: 2 mg Pantoprazole Sodium (Protonix Ec Tab) 40 mg PO ACB [facility] Last Admin: 05/02/17 08:41 Dose: 40 mg Potassium Chloride (K-Dur 20 Meq Er Tab) 40 meq PO BRK [facility] Last Admin: 05/02/17 08:41 Dose: 40 meq - Labs Labs: 05/02/17 06:50 05/02/17 06:50 PT 19.7 SECONDS (9.7-12.2) H 04/30/17 15:05 INR 1.7 04/30/17 15:05 APTT 38 SECONDS (21-34) H D 04/30/17 15:05 - Constitutional Appears: No Acute Distress, Chronically Ill - Eye Exam Eye Exam: EOMI, Normal appearance, PERRL Pupil Exam: NORMAL ACCOMODATION, PERRL - Neck Exam Neck Exam: Full ROM, Normal Inspection. absent: Lymphadenopathy - Respiratory Exam Respiratory Exam: Clear to Ausculation Bilateral, NORMAL BREATHING PATTERN - Cardiovascular Exam Cardiovascular Exam: REGULAR RHYTHM, +S1, +S2. absent: Murmur - GI/Abdominal Exam GI & Abdominal Exam: Soft, Normal Bowel Sounds. absent: Tenderness Assessment and Plan (1) Anemia Status: Acute (2) Fever Status: Acute (3) Pancreatic cancer Status: Acute (4) Sepsis Assessment & Plan: e.coli septicemia n zosyn Status: Acute
[2017-05-03 07:23] LABS: BASO % 0.1 % (0.0-2.0); EOS % 0.1 % (0.0-4.0); HEMOGLOBIN 8.1 g/dL (12.0-18.0); LYMPH # 0.5 K/uL (1.0-4.3); LYMPH % 14.1 % (20.0-40.0); MEAN CELL VOLUME 89.4 fL (80.0-94.0); MEAN CORPUSCULAR HEMOGLOBIN 29.5 pg (27.0-31.0); MEAN PLATELET VOLUME 9.6 fL (7.2-11.7); MONO # 0.5 K/uL (0.0-0.8); MONO % 16.1 % (0.0-10.0); NEUT # 2.3 K/uL (1.8-7.0); NEUT % 69.6 % (50.0-75.0); RBC 2.76 Mil/uL (4.40-5.90); WHITE BLOOD COUNT 3.4 K/uL (4.8-10.8)
[2017-05-03 07:26] LABS: ALBUMIN 1.8 g/dL (3.5-5.0)
[2017-05-03 07:28] LABS: GFR AFRICAN-AMERICAN > 60; GFR NON-AFRICAN AMERICAN > 60
[2017-05-03 07:29] LABS: ALB/GLOB RATIO 0.7 (1.0-2.1); ALT/SGPT 24 U/L (21-72); AST/SGOT 19 U/L (17-59); BLOOD UREA NITROGEN 9 mg/dL (9-20); CALCIUM 6.7 mg/dl (8.6-10.4)
[2017-05-03 07:30] LABS: MAGNESIUM 1.6 mg/dL (1.6-2.3)
[2017-05-03] MEDS: Pantoprazole 40 mg EC Tab PO SCH (08:18)
[2017-05-03] MEDS: Potassium Chloride 20 mEq ER Tab PO SCH (08:18)
--- NOTE | 2017-05-03 09:48 | CP.CCUPN ---
CCU Subjective - Physician Review Events Since Last Encounter (Free Text): 05/03/17 09:40 The Patient was seen and examined at the bedside, Medical records reviewed, all clinical/lab/hemodynamic/radiographic data were reviewed and management issues were discussed and formulated, Events reviewed Pt alert and awake. Doing better today, mild nausea, abdominal discomfort well controlled Pt with pancreatic cancer received Chemo 2 days prior to admission Admitted to ICU for code sepsis On IV antibiotics for Escherichia coli bacteremia Port a cath removed, now has a midline On daily cultures, still positive as of 05/01 Afebrile overnight, VSS Last 24 Hours I&O 4015/1600 On IV Zosyn and Vanco Off dopaminr drip, BP 108/63 Tolerating PO diet IV Fluids decreased to 75 cc/H Pt feels weak and tired, on supplement, will increase to 3xday 05/03/17 11:57 S/P right basilic vein 4 [place] single lumen catheter placement 05/02 CCU Objective - Vital Signs / Intake & Output Vital Signs (Last 4 hours): Vital Signs Temp Pulse Resp BP Pulse Ox 05/03/17 08:25 96 H 22 108/68 94 L 05/03/17 08:00 98.2 F 95 H 23 95 05/03/17 07:25 94 H 25 H 99/60 L 95 05/03/17 07:00 105 H 19 97 05/03/17 06:25 91 H 17 95/59 L 96 05/03/17 06:00 92 H 20 94 L Intake and Output (Last 8hrs): Intake & Output 05/02/17 05/03/17 05/03/17 22:59 06:59 14:59 Intake Total 1150 1425 740 Output Total 650 550 250 Balance 500 875 490 Intake: Intake, IV Amount 1100 1425 500 Right Antecubital 1000 1000 Right Upper arm 500 Right forearm 100 300 right forearm 125 Oral 50 240 Output: Urine 650 550 250 Urine, Voided 650 550 250 Other: # Voids Urine, Voided 0 0 1 # Bowel Movements 0 0 - Physical Exam Head: Positive for: Atraumatic, Normocephalic Extroacular Muscles: Positive for: EOMI Conjunctiva: Positive for: Icteric Mouth: Positive for: Moist Mucous Membranes Respiratory/Chest: Positive for: Clear to Auscultation. Negative for: Respiratory Distress, Accessory Muscle Use Cardiovascular: Positive for: Regular Rate and Rhythm. Negative for: Murmurs Abdomen: Positive for: Tenderness (epigastric). Negative for: Distention, Peritoneal Signs, Rebound, Guarding, Hernias Rectal: Positive for: Occult Blood Upper Extremity: Negative for: Edema Lower Extremity: Negative for: Edema Neurological: Positive for: GCS=15, Speech Normal Skin: Positive for: Warm, Normal Color Psychiatric: Positive for: Alert, Oriented x 3 - Medications Active Medications: Active Medications Generic Name Dose Route Start Last Admin Trade Name Freq PRN Reason Stop Dose Admin Acetaminophen 650 mg 04/30/17 20:23 Tylenol 325mg Tab PO Q6 PRN Fever >100.4 F Piperacillin Sod/Tazobactam 100 mls @ 200 mls/hr 04/29/17 07:00 05/03/17 07: 00 Sod 3.375 gm/ Sodium Chloride IVPB 200 mls/hr Q8H [facility] Administration Vancomycin/Sodium Chloride 1 gm in 200 mls @ 166.7 mls/hr 04/29/17 13:00 06/12 01:00 Vancocin IVPB 05/04/17 13:01 166.7 mls/hr Q12H [facility] Administration Sodium Chloride 1,000 mls @ 125 mls/hr 05/01/17 13:02 05/03/17 05:02 Sodium Chloride 0.9% IV Not Given .Q8H [facility] Dopamine HCl/Dextrose 400 mg in 250 mls @ 11.907 mls/hr 05/01/17 13:02 Dopamine 400mg/250ml D5w IV .Q21H PRN TITRATE PER MD ORDER Protocol 5 MCG/KG/MIN Insulin Human Regular 0 unit 04/30/17 00:00 05/03/17 06:00 Novolin R SC Not Given Q6H [facility] Protocol Morphine Sulfate 2 mg 04/30/17 20:40 05/03/17 05:07 Morphine IVP 2 mg Q2 PRN Administration Pain, moderate (4-7) Pantoprazole Sodium 40 mg 04/30/17 08:00 05/03/17 08:18 Protonix Ec Tab PO 40 mg ACB [facility] Administration Potassium Chloride 40 meq 05/02/17 08:00 05/03/17 08:18 K-Dur 20 Meq Er Tab PO 40 meq BRK [facility] Administration - Patient Studies Lab Studies: Microbiology Studies 05/02/17 05:30 Blood Culture - Preliminary Blood NO GROWTH AFTER 24 HOURS 05/02/17 05:00 Blood Culture - Preliminary Blood NO GROWTH AFTER 24 HOURS 05/01/17 14:30 Gram Stain - Final Blood 05/01/17 14:30 Gram Stain - Final Blood Lab Studies 05/03/17 05/03/17 05/03/17 Range/Units 07:17 07:00 07:00 WBC 3.4 L (4.8-10.8) K/uL RBC 2.76 L (4.40-5.90) Mil/uL Hgb 8.1 L (12.0-18.0) g/dL Hct 24.7 L (35.0-51.0) % MCV 89.4 (80.0-94.0) fL MCH 29.5 (27.0-31.0) pg MCHC 33.0 (33.0-37.0) g/dL RDW 18.0 H (11.5-14.5) % Plt Count 41 L (130-400) K/uL MPV 9.6 (7.2-11.7) fL Neut % (Auto) 69.6 (50.0-75.0) % Lymph % (Auto) 14.1 L (20.0-40.0) % [place] % (Auto) 16.1 H (0.0-10.0) % Eos % (Auto) 0.1 (0.0-4.0) % Baso % (Auto) 0.1 (0.0-2.0) % Neut # 2.3 (1.8-7.0) K/uL Lymph # 0.5 L (1.0-4.3) K/uL [place] # 0.5 (0.0-0.8) K/uL Eos # 0.0 (0.0-0.7) K/uL Baso # 0.0 (0.0-0.2) K/uL Differential Comment Sodium 131 L (132-148) mmol/L Potassium 2.7 L (3.6-5.2) mmol/L Chloride 104 (98-107) mmol/L Carbon Dioxide 20 L (22-30) mmol/L Anion Gap 10 (10-20) BUN 9 (9-20) mg/dL Creatinine 0.5 L (0.8-1.5) MG/DL Est GFR ( Amer) > 60 Est GFR (Non-Af Amer) > 60 POC Glucose (mg/dL) 117 H (65-110) mg/dL Random Glucose 102 (75-110) mg/dL Calcium 6.7 L (8.6-10.4) mg/dl Phosphorus 2.4 L (2.5-4.5) mg/dL Magnesium 1.6 (1.6-2.3) mg/dL Total Bilirubin 1.4 H (0.2-1.3) mg/dL AST 19 (17-59) U/L ALT 24 (21-72) U/L Alkaline Phosphatase 90 (38-126) U/L Total Protein 4.3 L (6.3-8.3) g/dL Albumin 1.8 L (3.5-5.0) g/dL Globulin 2.5 (2.2-3.9) gm/dL Albumin/Globulin Ratio 0.7 L (1.0-2.1) 05/03/17 05/02/17 05/02/17 Range/Units 00:15 17:37 12:04 WBC (4.8-10.8) K/uL RBC (4.40-5.90) Mil/uL Hgb (12.0-18.0) g/dL Hct (35.0-51.0) % MCV (80.0-94.0) fL MCH (27.0-31.0) pg MCHC (33.0-37.0) g/dL RDW (11.5-14.5) % Plt Count (130-400) K/uL MPV (7.2-11.7) fL Neut % (Auto) (50.0-75.0) % Lymph % (Auto) (20.0-40.0) % [place] % (Auto) (0.0-10.0) % Eos % (Auto) (0.0-4.0) % Baso % (Auto) (0.0-2.0) % Neut # (1.8-7.0) K/uL Lymph # (1.0-4.3) K/uL [place] # (0.0-0.8) K/uL Eos # (0.0-0.7) K/uL Baso # (0.0-0.2) K/uL Differential Comment Sodium (132-148) mmol/L Potassium (3.6-5.2) mmol/L Chloride (98-107) mmol/L Carbon Dioxide (22-30) mmol/L Anion Gap (10-20) BUN (9-20) mg/dL Creatinine (0.8-1.5) MG/DL Est GFR ( Amer) Est GFR (Non-Af Amer) POC Glucose (mg/dL) 162 H 157 H 112 H (65-110) mg/dL Random Glucose (75-110) mg/dL Calcium (8.6-10.4) mg/dl Phosphorus (2.5-4.5) mg/dL Magnesium (1.6-2.3) mg/dL Total Bilirubin (0.2-1.3) mg/dL AST (17-59) U/L ALT (21-72) U/L Alkaline Phosphatase (38-126) U/L Total Protein (6.3-8.3) g/dL Albumin (3.5-5.0) g/dL Globulin (2.2-3.9) gm/dL Albumin/Globulin Ratio (1.0-2.1) Laboratory Results - last 24 hr 05/02/17 05/02/17 05/03/17 12:04 17:37 00:15 WBC RBC Hgb Hct MCV MCH MCHC RDW Plt Count MPV Neut % (Auto) Lymph % (Auto) [place] % (Auto) Eos % (Auto) Baso % (Auto) Neut # Lymph # [place] # Eos # Baso # Differential Comment Sodium Potassium Chloride Carbon Dioxide Anion Gap BUN Creatinine Est GFR ( Amer) Est GFR (Non-Af Amer) POC Glucose (mg/dL) 112 H 157 H 162 H Random Glucose Calcium Phosphorus Magnesium Total Bilirubin AST ALT Alkaline Phosphatase Total Protein Albumin Globulin Albumin/Globulin Ratio 05/03/17 05/03/17 05/03/17 07:00 07:00 07:17 WBC 3.4 L RBC 2.76 L Hgb 8.1 L Hct 24.7 L MCV 89.4 MCH 29.5 MCHC 33.0 RDW 18.0 H Plt Count 41 L MPV 9.6 Neut % (Auto) 69.6 Lymph % (Auto) 14.1 L [place] % (Auto) 16.1 H Eos % (Auto) 0.1 Baso % (Auto) 0.1 Neut # 2.3 Lymph # 0.5 L [place] # 0.5 Eos # 0.0 Baso # 0.0 Differential Comment Sodium 131 L Potassium 2.7 L Chloride 104 Carbon Dioxide 20 L Anion Gap 10 BUN 9 Creatinine 0.5 L Est GFR ( Amer) > 60 Est GFR (Non-Af Amer) > 60 POC Glucose (mg/dL) 117 H Random Glucose 102 Calcium 6.7 L Phosphorus 2.4 L Magnesium 1.6 Total Bilirubin 1.4 H AST 19 ALT 24 Alkaline Phosphatase 90 Total Protein 4.3 L Albumin 1.8 L Globulin 2.5 Albumin/Globulin Ratio 0.7 L Fingerstick Blood Sugar Results: 117 Critical Care Progress Note - Nutrition Nutrition: Nutrition Category Date Time Status Regular Diet [DIET] Diets 05/01/17 Lunch Active Assessment/Plan (1) Gram negative septic shock Current Visit: Yes Status: Acute Comment: On IV antibiotics for Escherichia coli bacteremia On daily cultures, still positive as of 05/01 (2) Pancytopenia Current Visit: Yes Status: Acute Comment: Transfuse platelets and packed RBCs as needed (3) GI bleeding Current Visit: Yes Status: Acute (4) Pancreatic cancer Current Visit: Yes Status: Acute (5) Sepsis Current Visit: Yes Status: Acute (6) Thrombocytopenia Current Visit: Yes Status: Acute (7) Prophylactic measure Current Visit: No Status: Acute Comment: Pepcid 20mg q12h.
[2017-05-03 13:29] LABS: BASO % 0.2 % (0.0-2.0); EOS % 0.1 % (0.0-4.0); HEMOGLOBIN 8.1 g/dL (12.0-18.0); LYMPH # 0.5 K/uL (1.0-4.3); LYMPH % 11.2 % (20.0-40.0); MEAN CORPUSCULAR HEMOGLOBIN 29.2 pg (27.0-31.0); MEAN CORPUSCULAR HGB CONC 32.4 g/dL (33.0-37.0); MEAN PLATELET VOLUME 9.9 fL (7.2-11.7); MONO # 0.7 K/uL (0.0-0.8); NEUT # 2.9 K/uL (1.8-7.0); NEUT % 71.5 % (50.0-75.0); RBC 2.79 Mil/uL (4.40-5.90); RED CELL DISTRIBUTION WIDTH 18.1 % (11.5-14.5)
[2017-05-03 20:11] LABS: SQUAMOUS EPITHIAL < 1 /hpf (0-5); URINE BILIRUBIN NEGATIVE (NEGATIVE); URINE BLOOD NEGATIVE (NEGATIVE); URINE CLARITY Clear (Clear); URINE COLOR Yellow (YELLOW); URINE GLUCOSE (UA) 1+ mg/dL (Normal); URINE LEUKOCYTE ESTERASE NEG Leu/uL (Negative); URINE NITRATE NEGATIVE (NEGATIVE); URINE PROTEIN NEGATIVE (NEGATIVE); URINE UROBILINOGEN NORMAL mg/dL (0.2-1.0)
[2017-05-03] MEDS: Potassium Chloride 20 mEq ER Tab PO STA ×3 (20:46→21:06)
[2017-05-03] MEDS: Magnesium Sulfate 1 gm in D5W 1 GM/100 ML BAG IVPB SCH ×2 (21:07→22:47)
--- NOTE | 2017-05-03 21:25 | CP.PCM.PN ---
Subjective - Date & Time of Evaluation Date of Evaluation: 05/03/17 Time of Evaluation: 21:25 - Subjective Subjective: CHIEF COMPLAINTS TODAY : AFEBRILE OVERNIGHT, TMAX 100.2 OFF VASOPRESSORS BP 108/63. TOLERATING BY MOUTH DIET. RT CHEST WALL DRESSING IN PLACE DRY, CLEAN, INTACT S/P PORT-a-CATH REMOVAL --POD # DAY 3 BLOOD CULTURES 05/01/17 -GNR ROS. HEENT : N. Resp : No SOB wheezing, cough Cardio : No CP, PND orthopnea GI : No abd. 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 Musculoskel : N Ext. : Pedal pulses intact, no edema or calf pain Derm : N Psych : N. PE. Pt. is alert awake in no distress. V.S As noted in the chart Head ,ear nose,throat and eyes : Normal. Neck : Supple with normal carotids. Lungs: Clear air entry. Heart : S1 & S2 normal . . No murmur. S4 + Abd : Soft non tender with normal bowel sounds. Neuro : Moves all ext. with no localized deficit. Ext : No edema with intact pulses. Neg. calf tenderness Derm : No rashes or decubitus ulcer. Radiology/Labs . CT ABD /PELVIS W/IV CONTRAST 04/30 PROGRESSIVE TUMOR BURDEN IN HIS RETROPERITONEUM, INCREASE IN SIZE OF NECROTIC PANCREATIC HEAD MASS. NEW HEPATIC METASTASIS. BLOOD CULTURES 2:2 SETS +VE +VE E.COLI -MALLORY SENSITIVE REPEAT BLOOD CULTURES - 05/01 STILL +VE GNR. Urine cultures negative. Objective - Vital Signs/Intake and Output Vital Signs (last 24 hours): Temp Pulse Resp BP Pulse Ox 100.2 F H 94 H 22 95/60 L 93 L 05/03/17 20:00 05/03/17 20:00 05/03/17 20:00 05/03/17 20:00 05/03/17 20:00 Intake and Output: 05/03/17 05/04/17 18:59 06:59 Intake Total 2135 75 Output Total 451 Balance 1684 75 - Medications Medications: Current Medications Acetaminophen (Tylenol 325mg Tab) 650 mg PO Q6 PRN PRN Reason: Fever >100.4 F Last Admin: 05/03/17 21:08 Dose: 650 mg Piperacillin Sod/Tazobactam (Sod 3.375 gm/ Sodium Chloride) 100 mls @ 200 mls/ hr IVPB Q8H [facility] Last Admin: 05/03/17 15:11 Dose: 200 mls/hr Dopamine HCl/Dextrose (Dopamine 400mg/250ml D5w) 400 mg in 250 mls @ 11.907 mls /hr IV .Q21H PRN; Protocol; 5 MCG/KG/MIN PRN Reason: TITRATE PER MD ORDER Sodium Chloride (Sodium Chloride 0.9%) 1,000 mls @ 75 mls/hr IV .[id number] [facility] Last Admin: 05/03/17 10:00 Dose: 75 mls/hr Magnesium Sulfate/Dextrose (Magnesium Sulfate 1 Gm/100 Ml D5w) 1 gm in 100 mls @ 100 mls/hr IVPB Q1H [facility] Stop: 05/03/17 22:44 Last Admin: 05/03/17 21:07 Dose: 100 mls/hr Insulin Human Regular (Novolin R) 0 unit SC ACHS [facility] PRN Reason: Protocol Last Admin: 05/03/17 17:35 Dose: 2 unit Morphine Sulfate (Morphine) 2 mg IVP Q2 PRN PRN Reason: Pain, moderate (4-7) Last Admin: 05/03/17 17:39 Dose: 2 mg Ondansetron HCl (Zofran Inj) 4 mg IVP Q6 PRN PRN Reason: Nausea/Vomiting Last Admin: 05/03/17 21:03 Dose: 4 mg Pantoprazole Sodium (Protonix Ec Tab) 40 mg PO ACB [facility] Last Admin: 05/03/17 08:18 Dose: 40 mg Potassium Chloride (K-Dur 20 Meq Er Tab) 40 meq PO BRK [facility] Last Admin: 05/03/17 08:18 Dose: 40 meq - Labs Labs: 05/03/17 13:16 05/03/17 07:00 PT 19.7 SECONDS (9.7-12.2) H 04/30/17 15:05 INR 1.7 04/30/17 15:05 APTT 38 SECONDS (21-34) H D 04/30/17 15:05 Assessment and Plan (1) Gram negative septic shock Assessment & Plan: Continue IV Zosyn 3.375 q 8 hourly and IV vancomycin 1 g every 12 hourly. BLOOD CULTURES 05/01/17 STILL POSITIVE FOR GRAM-NEGATIVE RODS. REPEAT BLOOD CULTURES 2 SETS 05/02 - PENDING TO SEE IF BACTEREMIA CLEARED. Status: Acute (2) Fever Assessment & Plan: IMPROVED Status: Acute (3) Anemia Status: Acute (4) Pancreatic cancer Status: Acute (5) Diabetes mellitus Status: Chronic (6) Thrombocytopenia Status: Acute (7) GI bleeding Assessment & Plan: PATIENT DENIED ANY FURTHER GI BLEEDING. WATCH H/H Status: Acute
[2017-05-04] MEDS: Sodium Chloride 0.9% 1,000 ML IV SCH ×2 (04:42→12:30)
[2017-05-04 06:29] LABS: BASO % 0.1 % (0.0-2.0); HEMOGLOBIN 7.6 g/dL (12.0-18.0); LYMPH # 0.5 K/uL (1.0-4.3); LYMPH % 10.6 % (20.0-40.0); MEAN CELL VOLUME 89.6 fL (80.0-94.0); MEAN CORPUSCULAR HEMOGLOBIN 29.6 pg (27.0-31.0); MEAN PLATELET VOLUME 9.3 fL (7.2-11.7); MONO # 0.8 K/uL (0.0-0.8); MONO % 15.8 % (0.0-10.0); NEUT # 3.6 K/uL (1.8-7.0); NEUT % 73.5 % (50.0-75.0); RBC 2.59 Mil/uL (4.40-5.90); RED CELL DISTRIBUTION WIDTH 18.1 % (11.5-14.5); WHITE BLOOD COUNT 4.9 K/uL (4.8-10.8)
[2017-05-04] MEDS: Piperacillin/Tazobact 3.375 GM in Sodium Chloride 100 ML IVPB SCH ×3 (06:34→22:26)
[2017-05-04 06:40] LABS: ALBUMIN 1.9 g/dL (3.5-5.0)
[2017-05-04 06:43] LABS: ALB/GLOB RATIO 0.8 (1.0-2.1); AST/SGOT 14 U/L (17-59); GFR AFRICAN-AMERICAN > 60; GFR NON-AFRICAN AMERICAN > 60
[2017-05-04 06:44] LABS: ALT/SGPT 22 U/L (21-72); BLOOD UREA NITROGEN 6 mg/dL (9-20); CALCIUM 6.7 mg/dl (8.6-10.4); MAGNESIUM 1.9 mg/dL (1.6-2.3)
[2017-05-04] MEDS: Pantoprazole 40 mg EC Tab PO SCH (08:04)
[2017-05-04] MEDS: Potassium Chloride 20 mEq ER Tab PO SCH (08:05)
[2017-05-04] MEDS: (Novolin R) Insulin Human Regular 100 units/ml vial SC SCH ×4 (08:13→22:11)
--- NOTE | 2017-05-04 10:02 | CP.PCM.PN ---
<Lorin Pandey - Last Filed: 05/04/17 09:59> Subjective - Date & Time of Evaluation Date of Evaluation: 05/04/17 Time of Evaluation: 10:00 - Subjective Subjective: Gastroenterology Fellow/PGY5 Progress Note Patient notes mild abdominal pain last night. Tolerated liquid diet. One episode of brown stool with streaks of maroon blood mixed in. A 12-point review of systems negative except for as above. Objective - Vital Signs/Intake and Output Vital Signs (last 24 hours): Temp Pulse Resp BP Pulse Ox 98.8 F 97 H 29 H 115/70 95 05/04/17 08:00 05/04/17 08:25 05/04/17 08:25 05/04/17 08:25 05/04/17 08:25 Intake and Output: 05/04/17 05/04/17 06:59 18:59 Intake Total 1194 540 Output Total 750 450 Balance 444 90 - Medications Medications: Current Medications Acetaminophen (Tylenol 325mg Tab) 650 mg PO Q6 PRN PRN Reason: Fever >100.4 F Last Admin: 05/03/17 21:08 Dose: 650 mg Piperacillin Sod/Tazobactam (Sod 3.375 gm/ Sodium Chloride) 100 mls @ 200 mls/ hr IVPB Q8H [facility] Last Admin: 05/04/17 06:34 Dose: 200 mls/hr Dopamine HCl/Dextrose (Dopamine 400mg/250ml D5w) 400 mg in 250 mls @ 11.907 mls /hr IV .Q21H PRN; Protocol; 5 MCG/KG/MIN PRN Reason: TITRATE PER MD ORDER Sodium Chloride (Sodium Chloride 0.9%) 1,000 mls @ 75 mls/hr IV .[id number] [facility] Last Admin: 05/04/17 04:42 Dose: 75 mls/hr Insulin Human Regular (Novolin R) 0 unit SC ACHS [facility] PRN Reason: Protocol Last Admin: 05/04/17 08:13 Dose: 1 unit Morphine Sulfate (Morphine) 2 mg IVP Q2 PRN PRN Reason: Pain, moderate (4-7) Last Admin: 05/03/17 22:43 Dose: 2 mg Ondansetron HCl (Zofran Inj) 4 mg IVP Q6 PRN PRN Reason: Nausea/Vomiting Last Admin: 05/03/17 21:03 Dose: 4 mg Pantoprazole Sodium (Protonix Ec Tab) 40 mg PO ACB [facility] Last Admin: 05/04/17 08:04 Dose: 40 mg Potassium Chloride (K-Dur 20 Meq Er Tab) 40 meq PO BRK [facility] Last Admin: 05/04/17 08:05 Dose: 40 meq - Labs Labs: 05/04/17 06:15 05/04/17 06:15 PT 19.7 SECONDS (9.7-12.2) H 04/30/17 15:05 INR 1.7 04/30/17 15:05 APTT 38 SECONDS (21-34) H D 04/30/17 15:05 - Constitutional Appears: Non-toxic, No Acute Distress, Chronically Ill - Head Exam Head Exam: ATRAUMATIC, NORMOCEPHALIC - Eye Exam Eye Exam: EOMI, PERRL Pupil Exam: PERRL. absent: Miosis, Mydriatic - ENT Exam ENT Exam: Mucous Membranes Moist, Normal Oropharynx - Neck Exam Neck Exam: Full ROM, Normal Inspection - Respiratory Exam Respiratory Exam: Clear to Ausculation Bilateral. absent: Rales, Rhonchi, Wheezes - Cardiovascular Exam Cardiovascular Exam: RRR, +S1, +S2. absent: Gallop, Rubs - GI/Abdominal Exam GI & Abdominal Exam: Soft, Tenderness, Normal Bowel Sounds. absent: Distended, Firm, Guarding, Rigid, Organomegaly, Rebound Additional comments: mild epigastric discomfort to palpation - Extremities Exam Extremities Exam: Normal Inspection. absent: Pedal Edema - Neurological Exam Neurological Exam: Alert, Awake - Psychiatric Exam Psychiatric exam: Normal Affect, Normal Mood - Skin Skin Exam: Dry, Intact, Normal Color, Warm Assessment and Plan - Assessment and Plan (Free Text) Assessment: 57 year old male with history pancreatic cancer with liver metastasis s/p metal biliary stent 08/2016 on chemotherapy (last 04/21/2017) presenting with abdominal pain. Active treatment of septic shock secondary to E coli Bactermia likely from Port-a-cath status post removal. GI consultation for rectal bleeding in setting of thrombocytopenia, liver metastases, and likely hemorrhoids requiring pRBC transfusion and platelet infusion. No prior colonoscopy. Plan: >H/H stable after rectal bleed yesterday- received 1 platelet infusion yesterday >slight drop today, continue to monitor >transfuse platelets and pRBCs as needed >regular diet with Ensure as tolerated >PPI daily >Oncology managing- follow recommendations >Thank you for opportunity to participate in the care of this patient. Contact with questions or concerns. <Denilson Cerna - Last Filed: 05/06/17 07:10> Objective - Vital Signs/Intake and Output Vital Signs (last 24 hours): Temp Pulse Resp BP Pulse Ox 100.4 F H 69 18 102/68 98 05/05/17 23:45 05/05/17 23:45 05/05/17 23:45 05/05/17 23:45 05/05/17 23:45 - Medications Medications: Current Medications Acetaminophen (Tylenol 325mg Tab) 650 mg PO Q6 PRN PRN Reason: Fever >100.4 F Last Admin: 05/05/17 23:39 Dose: 650 mg Piperacillin Sod/Tazobactam (Sod 3.375 gm/ Sodium Chloride) 100 mls @ 200 mls/ hr IVPB Q8H [facility] Last Admin: 05/05/17 23:40 Dose: 200 mls/hr Sodium Chloride (Sodium Chloride 0.9%) 1,000 mls @ 75 mls/hr IV .[id number] [facility] Last Admin: 05/05/17 15:02 Dose: 75 mls/hr Insulin Human Regular (Novolin R) 0 unit SC ACHS [facility] PRN Reason: Protocol Last Admin: 05/05/17 21:18 Dose: Not Given Morphine Sulfate (Morphine) 2 mg IVP Q2 PRN PRN Reason: Pain, moderate (4-7) Last Admin: 05/05/17 23:40 Dose: 2 mg Ondansetron HCl (Zofran Inj) 4 mg IVP Q6 PRN PRN Reason: Nausea/Vomiting Last Admin: 05/03/17 21:03 Dose: 4 mg Pantoprazole Sodium (Protonix Ec Tab) 40 mg PO ACB [facility] Last Admin: 05/05/17 08:05 Dose: 40 mg Potassium Chloride (K-Dur 20 Meq Er Tab) 40 meq PO BRK [facility] Last Admin: 05/05/17 08:04 Dose: 40 meq - Labs Labs: 05/05/17 06:18 05/05/17 06:18 PT 19.7 SECONDS (9.7-12.2) H 04/30/17 15:05 INR 1.7 04/30/17 15:05 APTT 38 SECONDS (21-34) H D 04/30/17 15:05 Attending/Attestation - Attestation I have personally seen and examined this patient.: Yes I have fully participated in the care of the patient.: Yes I have reviewed all pertinent clinical information, including history, physical exam and plan: Yes Notes (Text): 05/04/17 11:07 AM 57 year old male with h/o metastatic pancreatic cancer with liver metastases, biliary obstruction s/p fully covered metal biliary stent, receivingin chemotherapy admitted with abdominal pain, sepsis, thrombocytopenia, and rectal bleeding. 1. BRBPR 2. Pancreatic adenocarcinoma Plan: -mild bleeding, resolved after platelet transfusion -would make sure he is on a good bowel regimen as he is recieving narcotics for pain and is predisposed to hemorrhoids which may bleed easily in the setting of thrombocytopenia -supportive care -transfuse as needed -diet as tolerated -pain meds as needed -will sign off
[2017-05-04] MEDS ORDERED: Potassium Phosphate 15 MMOLE in Sodium Chloride 0.9% 250 ML IV ONE (11:00)
--- NOTE | 2017-05-04 16:53 | CP.CCUPN ---
CCU Subjective - Physician Review Events Since Last Encounter (Free Text): 05/04/17 16:50 Patient seen and examined in the intensive care unit. Case discussed with staff in the morning rounds. No further bleeding noted. Status post transfusion of platelets yesterday Afebrile Being treated for bacteremia Seen by gastroenterology CCU Objective - Vital Signs / Intake & Output Vital Signs (Last 4 hours): Vital Signs Temp Pulse Resp BP Pulse Ox 05/04/17 16:00 97.9 F 90 19 94/59 L 95 05/04/17 14:59 93 H 22 96/58 L 93 L 05/04/17 14:00 101 H 31 H 94 L 05/04/17 13:47 97.2 F L 90 20 106/64 05/04/17 13:24 97 H 27 H 114/74 94 L Intake and Output (Last 8hrs): Intake & Output 05/04/17 05/04/17 05/04/17 06:59 14:59 22:59 Intake Total 769 2137.5 126 Output Total 550 850 0 Balance 219 1287.5 126 Weight 166 lb 0.1 oz Intake: Intake, IV Amount 575 612.5 126 Right Upper arm 575 612.5 126 Oral 1200 Blood Product 194 325 Red Blood Cells Cpd As1 325 Lr Unit [id number] Output: Urine 550 850 0 Urine, Voided 550 850 0 Stool 0 0 Other: # Voids Urine, Voided 1 1 # Bowel Movements 1 - Physical Exam Head: Positive for: Atraumatic, Normocephalic Extroacular Muscles: Positive for: EOMI Conjunctiva: Positive for: Icteric Mouth: Positive for: Moist Mucous Membranes Respiratory/Chest: Positive for: Clear to Auscultation. Negative for: Respiratory Distress, Accessory Muscle Use Cardiovascular: Positive for: Regular Rate and Rhythm. Negative for: Murmurs Abdomen: Positive for: Tenderness (epigastric). Negative for: Distention, Peritoneal Signs, Rebound, Guarding, Hernias Rectal: Positive for: Occult Blood Upper Extremity: Negative for: Edema Lower Extremity: Negative for: Edema Neurological: Positive for: GCS=15, Speech Normal Skin: Positive for: Warm, Normal Color Psychiatric: Positive for: Alert, Oriented x 3 - Medications Active Medications: Active Medications Generic Name Dose Route Start Last Admin Trade Name Freq PRN Reason Stop Dose Admin Acetaminophen 650 mg 04/30/17 20:23 05/03/17 21:08 Tylenol 325mg Tab PO 650 mg Q6 PRN Administration Fever >100.4 F Piperacillin Sod/Tazobactam 100 mls @ 200 mls/hr 04/29/17 07:00 05/04/17 14: 11 Sod 3.375 gm/ Sodium Chloride IVPB 200 mls/hr Q8H [facility] Administration Sodium Chloride 1,000 mls @ 75 mls/hr 05/03/17 09:51 05/04/17 12:30 Sodium Chloride 0.9% IV Not Given .[id number] [facility] Insulin Human Regular 0 unit 05/03/17 11:30 05/04/17 12:25 Novolin R SC 1 unit ACHS [facility] Administration Protocol Morphine Sulfate 2 mg 04/30/17 20:40 05/04/17 14:14 Morphine IVP 2 mg Q2 PRN Administration Pain, moderate (4-7) Ondansetron HCl 4 mg 05/03/17 09:52 05/03/17 21:03 Zofran Inj IVP 4 mg Q6 PRN Administration Nausea/Vomiting Pantoprazole Sodium 40 mg 04/30/17 08:00 05/04/17 08:04 Protonix Ec Tab PO 40 mg ACB [facility] Administration Potassium Chloride 40 meq 05/02/17 08:00 05/04/17 08:05 K-Dur 20 Meq Er Tab PO 40 meq BRK [facility] Administration - Patient Studies Lab Studies: Microbiology Studies 05/01/17 14:30 Blood Culture - Final Blood Escherichia Coli Gram Stain - Final 05/02/17 05:30 Blood Culture - Preliminary Blood NO GROWTH AFTER 48 HOURS 05/02/17 05:00 Blood Culture - Preliminary Blood NO GROWTH AFTER 48 HOURS 05/03/17 06:30 Blood Culture - Preliminary Blood NO GROWTH AFTER 24 HOURS 05/03/17 07:00 Blood Culture - Preliminary Blood NO GROWTH AFTER 24 HOURS Lab Studies 05/04/17 05/04/17 05/04/17 Range/Units 16:19 11:52 08:09 WBC (4.8-10.8) K/uL RBC (4.40-5.90) Mil/uL Hgb (12.0-18.0) g/dL Hct (35.0-51.0) % MCV (80.0-94.0) fL MCH (27.0-31.0) pg MCHC (33.0-37.0) g/dL RDW (11.5-14.5) % Plt Count (130-400) K/uL MPV (7.2-11.7) fL Neut % (Auto) (50.0-75.0) % Lymph % (Auto) (20.0-40.0) % [place] % (Auto) (0.0-10.0) % Eos % (Auto) (0.0-4.0) % Baso % (Auto) (0.0-2.0) % Neut # (1.8-7.0) K/uL Lymph # (1.0-4.3) K/uL [place] # (0.0-0.8) K/uL Eos # (0.0-0.7) K/uL Baso # (0.0-0.2) K/uL Sodium (132-148) mmol/L Potassium (3.6-5.2) mmol/L Chloride (98-107) mmol/L Carbon Dioxide (22-30) mmol/L Anion Gap (10-20) BUN (9-20) mg/dL Creatinine (0.8-1.5) MG/DL Est GFR ( Amer) Est GFR (Non-Af Amer) POC Glucose (mg/dL) 240 H 198 H 151 H (65-110) mg/dL Random Glucose (75-110) mg/dL Calcium (8.6-10.4) mg/dl Phosphorus (2.5-4.5) mg/dL Magnesium (1.6-2.3) mg/dL Total Bilirubin (0.2-1.3) mg/dL AST (17-59) U/L ALT (21-72) U/L Alkaline Phosphatase (38-126) U/L Total Protein (6.3-8.3) g/dL Albumin (3.5-5.0) g/dL Globulin (2.2-3.9) gm/dL Albumin/Globulin Ratio (1.0-2.1) Urine Color (YELLOW) Urine Clarity (Clear) Urine pH (5.0-8.0) Ur Specific [place] (1.003-1.030) Urine Protein (NEGATIVE) mg/dL Urine Glucose (UA) (Normal) mg/dL Urine Ketones (NEGATIVE) mg/dL Urine Blood (NEGATIVE) Urine Nitrate (NEGATIVE) Urine Bilirubin (NEGATIVE) Urine Urobilinogen (0.2-1.0) mg/dL Ur Leukocyte Esterase (Negative) Radha/uL Urine WBC (Auto) (0-5) /hpf Urine RBC (Auto) (0-3) /hpf Ur Squamous Epith Cells (0-5) /hpf Blood Type Antibody Screen 05/04/17 05/04/17 05/03/17 Range/Units 06:15 06:15 23:35 WBC 4.9 (4.8-10.8) K/uL RBC 2.59 L (4.40-5.90) Mil/uL Hgb 7.6 L (12.0-18.0) g/dL Hct 23.2 L (35.0-51.0) % MCV 89.6 (80.0-94.0) fL MCH 29.6 (27.0-31.0) pg MCHC 33.0 (33.0-37.0) g/dL RDW 18.1 H (11.5-14.5) % Plt Count 61 L D (130-400) K/uL MPV 9.3 (7.2-11.7) fL Neut % (Auto) 73.5 (50.0-75.0) % Lymph % (Auto) 10.6 L (20.0-40.0) % [place] % (Auto) 15.8 H (0.0-10.0) % Eos % (Auto) 0.0 (0.0-4.0) % Baso % (Auto) 0.1 (0.0-2.0) % Neut # 3.6 (1.8-7.0) K/uL Lymph # 0.5 L (1.0-4.3) K/uL [place] # 0.8 (0.0-0.8) K/uL Eos # 0.0 (0.0-0.7) K/uL Baso # 0.0 (0.0-0.2) K/uL Sodium 130 L (132-148) mmol/L Potassium 3.2 L (3.6-5.2) mmol/L Chloride 103 (98-107) mmol/L Carbon Dioxide 21 L (22-30) mmol/L Anion Gap 9 L (10-20) BUN 6 L (9-20) mg/dL Creatinine 0.5 L (0.8-1.5) MG/DL Est GFR ( Amer) > 60 Est GFR (Non-Af Amer) > 60 POC Glucose (mg/dL) 214 H (65-110) mg/dL Random Glucose 131 H (75-110) mg/dL Calcium 6.7 L (8.6-10.4) mg/dl Phosphorus 1.8 L (2.5-4.5) mg/dL Magnesium 1.9 (1.6-2.3) mg/dL Total Bilirubin 1.3 (0.2-1.3) mg/dL AST 14 L D (17-59) U/L ALT 22 (21-72) U/L Alkaline Phosphatase 87 (38-126) U/L Total Protein 4.3 L (6.3-8.3) g/dL Albumin 1.9 L (3.5-5.0) g/dL Globulin 2.5 (2.2-3.9) gm/dL Albumin/Globulin Ratio 0.8 L (1.0-2.1) Urine Color (YELLOW) Urine Clarity (Clear) Urine pH (5.0-8.0) Ur Specific [place] (1.003-1.030) Urine Protein (NEGATIVE) mg/dL Urine Glucose (UA) (Normal) mg/dL Urine Ketones (NEGATIVE) mg/dL Urine Blood (NEGATIVE) Urine Nitrate (NEGATIVE) Urine Bilirubin (NEGATIVE) Urine Urobilinogen (0.2-1.0) mg/dL Ur Leukocyte Esterase (Negative) Radha/uL Urine WBC (Auto) (0-5) /hpf Urine RBC (Auto) (0-3) /hpf Ur Squamous Epith Cells (0-5) /hpf Blood Type Antibody Screen 05/03/17 05/03/17 05/03/17 Range/Units 21:19 19:35 17:06 WBC (4.8-10.8) K/uL RBC (4.40-5.90) Mil/uL Hgb (12.0-18.0) g/dL Hct (35.0-51.0) % MCV (80.0-94.0) fL MCH (27.0-31.0) pg MCHC (33.0-37.0) g/dL RDW (11.5-14.5) % Plt Count (130-400) K/uL MPV (7.2-11.7) fL Neut % (Auto) (50.0-75.0) % Lymph % (Auto) (20.0-40.0) % [place] % (Auto) (0.0-10.0) % Eos % (Auto) (0.0-4.0) % Baso % (Auto) (0.0-2.0) % Neut # (1.8-7.0) K/uL Lymph # (1.0-4.3) K/uL [place] # (0.0-0.8) K/uL Eos # (0.0-0.7) K/uL Baso # (0.0-0.2) K/uL Sodium (132-148) mmol/L Potassium (3.6-5.2) mmol/L Chloride (98-107) mmol/L Carbon Dioxide (22-30) mmol/L Anion Gap (10-20) BUN (9-20) mg/dL Creatinine (0.8-1.5) MG/DL Est GFR ( Amer) Est GFR (Non-Af Amer) POC Glucose (mg/dL) 223 H 221 H (65-110) mg/dL Random Glucose (75-110) mg/dL Calcium (8.6-10.4) mg/dl Phosphorus (2.5-4.5) mg/dL Magnesium (1.6-2.3) mg/dL Total Bilirubin (0.2-1.3) mg/dL AST (17-59) U/L ALT (21-72) U/L Alkaline Phosphatase (38-126) U/L Total Protein (6.3-8.3) g/dL Albumin (3.5-5.0) g/dL Globulin (2.2-3.9) gm/dL Albumin/Globulin Ratio (1.0-2.1) Urine Color Yellow (YELLOW) Urine Clarity Clear (Clear) Urine pH 5.0 (5.0-8.0) Ur Specific [place] 1.019 (1.003-1.030) Urine Protein Negative (NEGATIVE) mg/dL Urine Glucose (UA) 1+ H (Normal) mg/dL Urine Ketones Trace (NEGATIVE) mg/dL Urine Blood Negative (NEGATIVE) Urine Nitrate Negative (NEGATIVE) Urine Bilirubin Negative (NEGATIVE) Urine Urobilinogen Normal (0.2-1.0) mg/dL Ur Leukocyte Esterase Neg (Negative) Radha/uL Urine WBC (Auto) < 1 (0-5) /hpf Urine RBC (Auto) 3 (0-3) /hpf Ur Squamous Epith Cells < 1 (0-5) /hpf Blood Type Antibody Screen 05/03/17 Range/Units 13:16 WBC (4.8-10.8) K/uL RBC (4.40-5.90) Mil/uL Hgb (12.0-18.0) g/dL Hct (35.0-51.0) % MCV (80.0-94.0) fL MCH (27.0-31.0) pg MCHC (33.0-37.0) g/dL RDW (11.5-14.5) % Plt Count (130-400) K/uL MPV (7.2-11.7) fL Neut % (Auto) (50.0-75.0) % Lymph % (Auto) (20.0-40.0) % [place] % (Auto) (0.0-10.0) % Eos % (Auto) (0.0-4.0) % Baso % (Auto) (0.0-2.0) % Neut # (1.8-7.0) K/uL Lymph # (1.0-4.3) K/uL [place] # (0.0-0.8) K/uL Eos # (0.0-0.7) K/uL Baso # (0.0-0.2) K/uL Sodium (132-148) mmol/L Potassium (3.6-5.2) mmol/L Chloride (98-107) mmol/L Carbon Dioxide (22-30) mmol/L Anion Gap (10-20) BUN (9-20) mg/dL Creatinine (0.8-1.5) MG/DL Est GFR ( Amer) Est GFR (Non-Af Amer) POC Glucose (mg/dL) (65-110) mg/dL Random Glucose (75-110) mg/dL Calcium (8.6-10.4) mg/dl Phosphorus (2.5-4.5) mg/dL Magnesium (1.6-2.3) mg/dL Total Bilirubin (0.2-1.3) mg/dL AST (17-59) U/L ALT (21-72) U/L Alkaline Phosphatase (38-126) U/L Total Protein (6.3-8.3) g/dL Albumin (3.5-5.0) g/dL Globulin (2.2-3.9) gm/dL Albumin/Globulin Ratio (1.0-2.1) Urine Color (YELLOW) Urine Clarity (Clear) Urine pH (5.0-8.0) Ur Specific [place] (1.003-1.030) Urine Protein (NEGATIVE) mg/dL Urine Glucose (UA) (Normal) mg/dL Urine Ketones (NEGATIVE) mg/dL Urine Blood (NEGATIVE) Urine Nitrate (NEGATIVE) Urine Bilirubin (NEGATIVE) Urine Urobilinogen (0.2-1.0) mg/dL Ur Leukocyte Esterase (Negative) Radha/uL Urine WBC (Auto) (0-5) /hpf Urine RBC (Auto) (0-3) /hpf Ur Squamous Epith Cells (0-5) /hpf Blood Type A POSITIVE Antibody Screen Negative Laboratory Results - last 24 hr 05/03/17 05/03/17 05/03/17 13:16 17:06 19:35 WBC RBC Hgb Hct MCV MCH MCHC RDW Plt Count MPV Neut % (Auto) Lymph % (Auto) [place] % (Auto) Eos % (Auto) Baso % (Auto) Neut # Lymph # [place] # Eos # Baso # Sodium Potassium Chloride Carbon Dioxide Anion Gap BUN Creatinine Est GFR ( Amer) Est GFR (Non-Af Amer) POC Glucose (mg/dL) 221 H Random Glucose Calcium Phosphorus Magnesium Total Bilirubin AST ALT Alkaline Phosphatase Total Protein Albumin Globulin Albumin/Globulin Ratio Urine Color Yellow Urine Clarity Clear Urine pH 5.0 Ur Specific [place] 1.019 Urine Protein Negative Urine Glucose (UA) 1+ H Urine Ketones Trace Urine Blood Negative Urine Nitrate Negative Urine Bilirubin Negative Urine Urobilinogen Normal Ur Leukocyte Esterase Neg Urine WBC (Auto) < 1 Urine RBC (Auto) 3 Ur Squamous Epith Cells < 1 Blood Type A POSITIVE Antibody Screen Negative 05/03/17 05/03/1717 21:19 23:35 06:15 WBC 4.9 RBC 2.59 L Hgb 7.6 L Hct 23.2 L MCV 89.6 MCH 29.6 MCHC 33.0 RDW 18.1 H Plt Count 61 L D MPV 9.3 Neut % (Auto) 73.5 Lymph % (Auto) 10.6 L [place] % (Auto) 15.8 H Eos % (Auto) 0.0 Baso % (Auto) 0.1 Neut # 3.6 Lymph # 0.5 L [place] # 0.8 Eos # 0.0 Baso # 0.0 Sodium Potassium Chloride Carbon Dioxide Anion Gap BUN Creatinine Est GFR ( Amer) Est GFR (Non-Af Amer) POC Glucose (mg/dL) 223 H 214 H Random Glucose Calcium Phosphorus Magnesium Total Bilirubin AST ALT Alkaline Phosphatase Total Protein Albumin Globulin Albumin/Globulin Ratio Urine Color Urine Clarity Urine pH Ur Specific [place] Urine Protein Urine Glucose (UA) Urine Ketones Urine Blood Urine Nitrate Urine Bilirubin Urine Urobilinogen Ur Leukocyte Esterase Urine WBC (Auto) Urine RBC (Auto) Ur Squamous Epith Cells Blood Type Antibody Screen 05/04/17 05/04/17 05/04/17 06:15 08:09 11:52 WBC RBC Hgb Hct MCV MCH MCHC RDW Plt Count MPV Neut % (Auto) Lymph % (Auto) [place] % (Auto) Eos % (Auto) Baso % (Auto) Neut # Lymph # [place] # Eos # Baso # Sodium 130 L Potassium 3.2 L Chloride 103 Carbon Dioxide 21 L Anion Gap 9 L BUN 6 L Creatinine 0.5 L Est GFR ( Amer) > 60 Est GFR (Non-Af Amer) > 60 POC Glucose (mg/dL) 151 H 198 H Random Glucose 131 H Calcium 6.7 L Phosphorus 1.8 L Magnesium 1.9 Total Bilirubin 1.3 AST 14 L D ALT 22 Alkaline Phosphatase 87 Total Protein 4.3 L Albumin 1.9 L Globulin 2.5 Albumin/Globulin Ratio 0.8 L Urine Color Urine Clarity Urine pH Ur Specific [place] Urine Protein Urine Glucose (UA) Urine Ketones Urine Blood Urine Nitrate Urine Bilirubin Urine Urobilinogen Ur Leukocyte Esterase Urine WBC (Auto) Urine RBC (Auto) Ur Squamous Epith Cells Blood Type Antibody Screen 05/04/17 16:19 WBC RBC Hgb Hct MCV MCH MCHC RDW Plt Count MPV Neut % (Auto) Lymph % (Auto) [place] % (Auto) Eos % (Auto) Baso % (Auto) Neut # Lymph # [place] # Eos # Baso # Sodium Potassium Chloride Carbon Dioxide Anion Gap BUN Creatinine Est GFR ( Amer) Est GFR (Non-Af Amer) POC Glucose (mg/dL) 240 H Random Glucose Calcium Phosphorus Magnesium Total Bilirubin AST ALT Alkaline Phosphatase Total Protein Albumin Globulin Albumin/Globulin Ratio Urine Color Urine Clarity Urine pH Ur Specific [place] Urine Protein Urine Glucose (UA) Urine Ketones Urine Blood Urine Nitrate Urine Bilirubin Urine Urobilinogen Ur Leukocyte Esterase Urine WBC (Auto) Urine RBC (Auto) Ur Squamous Epith Cells Blood Type Antibody Screen Fingerstick Blood Sugar Results: 198 Critical Care Progress Note - Nutrition Nutrition: Nutrition Category Date Time Status Regular Diet [DIET] Diets 05/04/17 Lunch Active Assessment/Plan (1) GI bleeding Current Visit: Yes Status: Acute Comment: Status post transfusion of platelets Slight drop in hemoglobin No active bleeding today Follow up H&H and transfuse if necessary (2) Gram negative septic shock Current Visit: Yes Status: Acute Comment: On IV antibiotics for Escherichia coli bacteremia (3) Pancreatic cancer Current Visit: Yes Status: Acute (4) Thrombocytopenia Current Visit: Yes Status: Acute
--- NOTE | 2017-05-04 23:30 | CP.PCM.PN ---
Subjective - Date & Time of Evaluation Date of Evaluation: 05/04/17 Time of Evaluation: 20:00 - Subjective Subjective: Patient seen and examined in the ICU, No further bleeding noted. Status post transfusion of platelets yesterday Afebrile Being treated for bacteremia Seen by gastroenterology Objective - Vital Signs/Intake and Output Vital Signs (last 24 hours): Temp Pulse Resp BP Pulse Ox 99.4 F 94 H 18 107/66 93 L 05/04/17 20:00 05/04/17 21:00 05/04/17 21:00 05/04/17 20:59 05/04/17 21:00 Intake and Output: 05/04/17 05/05/17 18:59 06:59 Intake Total 2389.5 213 Output Total 850 300 Balance 1539.5 -87 - Medications Medications: Current Medications Acetaminophen (Tylenol 325mg Tab) 650 mg PO Q6 PRN PRN Reason: Fever >100.4 F Last Admin: 05/03/17 21:08 Dose: 650 mg Piperacillin Sod/Tazobactam (Sod 3.375 gm/ Sodium Chloride) 100 mls @ 200 mls/ hr IVPB Q8H [facility] Last Admin: 05/04/17 22:26 Dose: 200 mls/hr Sodium Chloride (Sodium Chloride 0.9%) 1,000 mls @ 75 mls/hr IV .[id number] [facility] Last Admin: 05/04/17 12:30 Dose: Not Given Insulin Human Regular (Novolin R) 0 unit SC ACHS [facility] PRN Reason: Protocol Last Admin: 05/04/17 22:11 Dose: Not Given Morphine Sulfate (Morphine) 2 mg IVP Q2 PRN PRN Reason: Pain, moderate (4-7) Last Admin: 05/04/17 20:00 Dose: 2 mg Ondansetron HCl (Zofran Inj) 4 mg IVP Q6 PRN PRN Reason: Nausea/Vomiting Last Admin: 05/03/17 21:03 Dose: 4 mg Pantoprazole Sodium (Protonix Ec Tab) 40 mg PO ACB [facility] Last Admin: 05/04/17 08:04 Dose: 40 mg Potassium Chloride (K-Dur 20 Meq Er Tab) 40 meq PO BRK [facility] Last Admin: 05/04/17 08:05 Dose: 40 meq - Labs Labs: 05/04/17 06:15 05/04/17 06:15 PT 19.7 SECONDS (9.7-12.2) H 04/30/17 15:05 INR 1.7 04/30/17 15:05 APTT 38 SECONDS (21-34) H D 04/30/17 15:05 - Constitutional Appears: No Acute Distress - Head Exam Head Exam: ATRAUMATIC, NORMAL INSPECTION, NORMOCEPHALIC - Eye Exam Eye Exam: EOMI, Normal appearance, PERRL Pupil Exam: NORMAL ACCOMODATION, PERRL - Respiratory Exam Respiratory Exam: Clear to Ausculation Bilateral, NORMAL BREATHING PATTERN - Cardiovascular Exam Cardiovascular Exam: REGULAR RHYTHM, +S1, +S2. absent: Murmur Assessment and Plan (1) Anemia Status: Acute (2) Fever Status: Acute (3) Pancreatic cancer Status: Acute (4) Sepsis Status: Acute
--- NOTE | 2017-05-05 01:18 | CP.PCM.PN ---
Subjective - Date & Time of Evaluation Date of Evaluation: 05/02/17 Time of Evaluation: 13:05 - Subjective Subjective: Feels weak Objective - Vital Signs/Intake and Output Vital Signs (last 24 hours): Temp Pulse Resp BP Pulse Ox 100.3 F H 94 H 18 110/69 93 L 05/05/17 00:00 05/05/17 01:00 05/05/17 01:00 05/05/17 00:59 05/05/17 01:00 Intake and Output: 05/04/17 05/05/17 18:59 06:59 Intake Total 2389.5 438 Output Total 850 400 Balance 1539.5 38 - Medications Medications: Current Medications Acetaminophen (Tylenol 325mg Tab) 650 mg PO Q6 PRN PRN Reason: Fever >100.4 F Last Admin: 05/03/17 21:08 Dose: 650 mg Piperacillin Sod/Tazobactam (Sod 3.375 gm/ Sodium Chloride) 100 mls @ 200 mls/ hr IVPB Q8H [facility] Last Admin: 05/04/17 22:26 Dose: 200 mls/hr Sodium Chloride (Sodium Chloride 0.9%) 1,000 mls @ 75 mls/hr IV .[id number] [facility] Last Admin: 05/04/17 12:30 Dose: Not Given Insulin Human Regular (Novolin R) 0 unit SC ACHS [facility] PRN Reason: Protocol Last Admin: 05/04/17 22:11 Dose: Not Given Morphine Sulfate (Morphine) 2 mg IVP Q2 PRN PRN Reason: Pain, moderate (4-7) Last Admin: 05/04/17 20:00 Dose: 2 mg Ondansetron HCl (Zofran Inj) 4 mg IVP Q6 PRN PRN Reason: Nausea/Vomiting Last Admin: 05/03/17 21:03 Dose: 4 mg Pantoprazole Sodium (Protonix Ec Tab) 40 mg PO ACB [facility] Last Admin: 05/04/17 08:04 Dose: 40 mg Potassium Chloride (K-Dur 20 Meq Er Tab) 40 meq PO BRK [facility] Last Admin: 05/04/17 08:05 Dose: 40 meq - Labs Labs: 05/04/17 06:15 05/04/17 06:15 PT 19.7 SECONDS (9.7-12.2) H 07/05/17 15:05 INR 1.7 04/30/17 15:05 APTT 38 SECONDS (21-34) H D 04/30/17 15:05 - Head Exam Head Exam: ATRAUMATIC - Eye Exam Eye Exam: Normal appearance - ENT Exam ENT Exam: Mucous Membranes Dry - Respiratory Exam Respiratory Exam: NORMAL BREATHING PATTERN - Cardiovascular Exam Cardiovascular Exam: +S1, +S2 - GI/Abdominal Exam GI & Abdominal Exam: Normal Bowel Sounds - Extremities Exam Extremities Exam: Normal Inspection Assessment and Plan (1) Pancytopenia Assessment & Plan: secondary to chemotherapy Status: Acute (2) Gram negative septic shock Assessment & Plan: on antibiotics Status: Acute (3) Coagulopathy Assessment & Plan: nutritional Status: Acute (4) Pancreatic cancer Assessment & Plan: stage IV outpatient chemotherapy Status: Acute
--- NOTE | 2017-05-05 01:20 | CP.PCM.PN ---
Subjective - Date & Time of Evaluation Date of Evaluation: 05/03/17 Time of Evaluation: 14:00 - Subjective Subjective: Feels weak Objective - Vital Signs/Intake and Output Vital Signs (last 24 hours): Temp Pulse Resp BP Pulse Ox 100.3 F H 94 H 18 110/69 93 L 05/05/17 00:00 05/05/17 01:00 05/05/17 01:00 05/05/17 00:59 05/05/17 01:00 Intake and Output: 05/04/17 05/05/17 18:59 06:59 Intake Total 2389.5 438 Output Total 850 400 Balance 1539.5 38 - Medications Medications: Current Medications Acetaminophen (Tylenol 325mg Tab) 650 mg PO Q6 PRN PRN Reason: Fever >100.4 F Last Admin: 05/03/17 21:08 Dose: 650 mg Piperacillin Sod/Tazobactam (Sod 3.375 gm/ Sodium Chloride) 100 mls @ 200 mls/ hr IVPB Q8H [facility] Last Admin: 05/04/17 22:26 Dose: 200 mls/hr Sodium Chloride (Sodium Chloride 0.9%) 1,000 mls @ 75 mls/hr IV .[id number] [facility] Last Admin: 05/04/17 12:30 Dose: Not Given Insulin Human Regular (Novolin R) 0 unit SC ACHS [facility] PRN Reason: Protocol Last Admin: 05/04/17 22:11 Dose: Not Given Morphine Sulfate (Morphine) 2 mg IVP Q2 PRN PRN Reason: Pain, moderate (4-7) Last Admin: 05/04/17 20:00 Dose: 2 mg Ondansetron HCl (Zofran Inj) 4 mg IVP Q6 PRN PRN Reason: Nausea/Vomiting Last Admin: 05/03/17 21:03 Dose: 4 mg Pantoprazole Sodium (Protonix Ec Tab) 40 mg PO ACB [facility] Last Admin: 05/04/17 08:04 Dose: 40 mg Potassium Chloride (K-Dur 20 Meq Er Tab) 40 meq PO BRK [facility] Last Admin: 05/04/17 08:05 Dose: 40 meq - Labs Labs: 05/04/17 06:15 05/04/17 06:15 PT 19.7 SECONDS (9.7-12.2) H 07/05/17 15:05 INR 1.7 04/30/17 15:05 APTT 38 SECONDS (21-34) H D 04/30/17 15:05 - Head Exam Head Exam: ATRAUMATIC - Eye Exam Eye Exam: Normal appearance - ENT Exam ENT Exam: Mucous Membranes Dry - Respiratory Exam Respiratory Exam: NORMAL BREATHING PATTERN - Cardiovascular Exam Cardiovascular Exam: +S1, +S2 - GI/Abdominal Exam GI & Abdominal Exam: Normal Bowel Sounds - Extremities Exam Extremities Exam: Normal Inspection Assessment and Plan (1) Pancytopenia Assessment & Plan: secondary to chemotherapy Status: Acute (2) Gram negative septic shock Assessment & Plan: on antibiotics Status: Acute (3) Coagulopathy Assessment & Plan: nutritional Status: Acute (4) Pancreatic cancer Assessment & Plan: stage IV outpatient chemotherapy Status: Acute
--- NOTE | 2017-05-05 01:22 | CP.PCM.PN ---
Subjective - Date & Time of Evaluation Date of Evaluation: 05/04/17 Time of Evaluation: 19:00 - Subjective Subjective: Feels weak Objective - Vital Signs/Intake and Output Vital Signs (last 24 hours): Temp Pulse Resp BP Pulse Ox 100.3 F H 94 H 18 110/69 93 L 05/05/17 00:00 05/05/17 01:00 05/05/17 01:00 05/05/17 00:59 05/05/17 01:00 Intake and Output: 05/04/17 05/05/17 18:59 06:59 Intake Total 2389.5 438 Output Total 850 400 Balance 1539.5 38 - Medications Medications: Current Medications Acetaminophen (Tylenol 325mg Tab) 650 mg PO Q6 PRN PRN Reason: Fever >100.4 F Last Admin: 05/03/17 21:08 Dose: 650 mg Piperacillin Sod/Tazobactam (Sod 3.375 gm/ Sodium Chloride) 100 mls @ 200 mls/ hr IVPB Q8H [facility] Last Admin: 05/04/17 22:26 Dose: 200 mls/hr Sodium Chloride (Sodium Chloride 0.9%) 1,000 mls @ 75 mls/hr IV .[id number] [facility] Last Admin: 05/04/17 12:30 Dose: Not Given Insulin Human Regular (Novolin R) 0 unit SC ACHS [facility] PRN Reason: Protocol Last Admin: 05/04/17 22:11 Dose: Not Given Morphine Sulfate (Morphine) 2 mg IVP Q2 PRN PRN Reason: Pain, moderate (4-7) Last Admin: 05/04/17 20:00 Dose: 2 mg Ondansetron HCl (Zofran Inj) 4 mg IVP Q6 PRN PRN Reason: Nausea/Vomiting Last Admin: 05/03/17 21:03 Dose: 4 mg Pantoprazole Sodium (Protonix Ec Tab) 40 mg PO ACB [facility] Last Admin: 05/04/17 08:04 Dose: 40 mg Potassium Chloride (K-Dur 20 Meq Er Tab) 40 meq PO BRK [facility] Last Admin: 05/04/17 08:05 Dose: 40 meq - Labs Labs: 05/04/17 06:15 05/04/17 06:15 PT 19.7 SECONDS (9.7-12.2) H 07/05/17 15:05 INR 1.7 04/30/17 15:05 APTT 38 SECONDS (21-34) H D 04/30/17 15:05 - Head Exam Head Exam: ATRAUMATIC - Eye Exam Eye Exam: Normal appearance - ENT Exam ENT Exam: Mucous Membranes Dry - Respiratory Exam Respiratory Exam: NORMAL BREATHING PATTERN - Cardiovascular Exam Cardiovascular Exam: +S1, +S2 - GI/Abdominal Exam GI & Abdominal Exam: Normal Bowel Sounds - Extremities Exam Extremities Exam: Normal Inspection Assessment and Plan (1) Pancytopenia Assessment & Plan: secondary to chemotherapy Status: Acute (2) Gram negative septic shock Assessment & Plan: on antibiotics Status: Acute (3) Coagulopathy Assessment & Plan: nutritional Status: Acute (4) Pancreatic cancer Assessment & Plan: stage IV outpatient chemotherapy Status: Acute
[2017-05-05] MEDS: Sodium Chloride 0.9% 1,000 ML IV SCH ×2 (01:54→15:02)
[2017-05-05 06:25] LABS: BASO % 0.1 % (0.0-2.0); EOS % 0.2 % (0.0-4.0); HEMOGLOBIN 8.6 g/dL (12.0-18.0); LYMPH # 0.6 K/uL (1.0-4.3); LYMPH % 11.7 % (20.0-40.0); MEAN CELL VOLUME 89.7 fL (80.0-94.0); MEAN CORPUSCULAR HEMOGLOBIN 29.5 pg (27.0-31.0); MEAN CORPUSCULAR HGB CONC 32.8 g/dL (33.0-37.0); MEAN PLATELET VOLUME 9.4 fL (7.2-11.7); MONO # 0.7 K/uL (0.0-0.8); MONO % 13.9 % (0.0-10.0); NEUT # 3.9 K/uL (1.8-7.0); NEUT % 74.1 % (50.0-75.0); NRBC % 0.1 % (0.0-2.0); RBC 2.92 Mil/uL (4.40-5.90); WHITE BLOOD COUNT 5.3 K/uL (4.8-10.8)
[2017-05-05 06:31] LABS: ALBUMIN 1.8 g/dL (3.5-5.0)
[2017-05-05 06:33] LABS: GFR AFRICAN-AMERICAN > 60; GFR NON-AFRICAN AMERICAN > 60
[2017-05-05 06:34] LABS: ALB/GLOB RATIO 0.7 (1.0-2.1); ALT/SGPT 23 U/L (21-72); AST/SGOT 16 U/L (17-59); BLOOD UREA NITROGEN 5 mg/dL (9-20); CALCIUM 6.8 mg/dl (8.6-10.4); MAGNESIUM 1.7 mg/dL (1.6-2.3)
[2017-05-05] MEDS: Piperacillin/Tazobact 3.375 GM in Sodium Chloride 100 ML IVPB SCH ×3 (07:07→23:40)
[2017-05-05] MEDS: Potassium Chloride 20 mEq ER Tab PO SCH (08:04)
[2017-05-05] MEDS: Pantoprazole 40 mg EC Tab PO SCH (08:05)
[2017-05-05] MEDS: (Novolin R) Insulin Human Regular 100 units/ml vial SC SCH ×4 (08:07→21:18)
--- NOTE | 2017-05-05 08:08 | CP.CCUPN ---
<DerickМарина KranthiJuanito - Last Filed: 05/05/17 12:29> CCU Subjective - Physician Review Subjective (Free Text): 05/05/17 12:29 Patient seen and examined at bedside in the AM. Patient states he has chronic abdominal pain that is currently a 1010 and was going to be receiving pain medication. Patient states that after he receives the pain medication his pain is relieved. Patient states the abdominal pain is all throughout his belly. Patient denies nausea, vomiting, fever, diarrhea, constipation, or pain when urinating, chest pain, or shortness of breath. CCU Objective - Vital Signs / Intake & Output Vital Signs (Last 4 hours): Vital Signs Temp Pulse Resp BP Pulse Ox 05/05/17 06:59 117/71 05/05/17 06:00 99.1 F 97 H 22 95 05/05/17 05:59 116/70 05/05/17 05:00 96 H 20 102/69 94 L 05/05/17 04:59 102/69 Intake and Output (Last 8hrs): Intake & Output 05/04/17 05/05/17 05/05/17 22:59 06:59 14:59 Intake Total 1040 625 100 Output Total 300 550 0 Balance 740 75 100 Weight 175 lb 12.8 oz Intake: Intake, IV Amount 540 625 100 Right Upper arm 540 625 100 Oral 500 Output: Urine 300 550 0 Urine, Voided 300 550 0 Other: # Bowel Movements 0 0 0 - Physical Exam Head: Positive for: Atraumatic, Normocephalic Extroacular Muscles: Positive for: EOMI Mouth: Positive for: Moist Mucous Membranes Respiratory/Chest: Positive for: Clear to Auscultation, Good Air Exchange. Negative for: Respiratory Distress, Accessory Muscle Use Cardiovascular: Positive for: Regular Rate and Rhythm, Normal S1, S2. Negative for: Murmurs Abdomen: Positive for: Tenderness (epigastric), Normal Bowel Sounds. Negative for: Distention, Peritoneal Signs, Rebound, Guarding, Hernias Upper Extremity: Negative for: Edema Lower Extremity: Negative for: Edema, CALF TENDERNESS, Tenderness, Swelling Neurological: Positive for: GCS=15, Speech Normal Skin: Positive for: Warm, Normal Color Psychiatric: Positive for: Alert, Oriented x 3 - Medications Active Medications: Active Medications Generic Name Dose Route Start Last Admin Trade Name Freq PRN Reason Stop Dose Admin Acetaminophen 650 mg 04/30/17 20:23 05/03/17 21:08 Tylenol 325mg Tab PO 650 mg Q6 PRN Administration Fever >100.4 F Piperacillin Sod/Tazobactam 100 mls @ 200 mls/hr 04/29/17 07:00 05/05/17 07: 07 Sod 3.375 gm/ Sodium Chloride IVPB 200 mls/hr Q8H HECTOR Administration Sodium Chloride 1,000 mls @ 75 mls/hr 05/03/17 09:51 05/05/17 01:54 Sodium Chloride 0.9% IV 75 mls/hr .[id number] HECTOR Administration Insulin Human Regular 0 unit 05/04/17 21:54 05/05/17 08:07 Novolin R SC 1 unit ACHS HECTOR Administration Protocol Morphine Sulfate 2 mg 04/30/17 20:40 05/05/17 07:07 Morphine IVP 2 mg Q2 PRN Administration Pain, moderate (4-7) Ondansetron HCl 4 mg 05/03/17 09:52 05/03/17 21:03 Zofran Inj IVP 4 mg Q6 PRN Administration Nausea/Vomiting Pantoprazole Sodium 40 mg 04/30/17 08:00 05/05/17 08:05 Protonix Ec Tab PO 40 mg ACB HECTOR Administration Potassium Chloride 40 meq 05/02/17 08:00 05/05/17 08:04 K-Dur 20 Meq Er Tab PO 40 meq BRK HECTOR Administration - Patient Studies Lab Studies: Microbiology Studies 05/01/17 14:30 Blood Culture - Final Blood Escherichia Coli Gram Stain - Final 05/01/17 14:30 Blood Culture - Final Blood Escherichia Coli Gram Stain - Final 05/02/17 05:30 Blood Culture - Preliminary Blood NO GROWTH AFTER 48 HOURS 05/02/17 05:00 Blood Culture - Preliminary Blood NO GROWTH AFTER 48 HOURS 05/03/17 06:30 Blood Culture - Preliminary Blood NO GROWTH AFTER 24 HOURS 05/03/17 07:00 Blood Culture - Preliminary Blood NO GROWTH AFTER 24 HOURS Lab Studies 05/05/17 05/05/17 05/04/17 Range/Units 06:18 06:18 21:23 WBC 5.3 (4.8-10.8) K/uL RBC 2.92 L (4.40-5.90) Mil/uL Hgb 8.6 L (12.0-18.0) g/dL Hct 26.2 L (35.0-51.0) % MCV 89.7 (80.0-94.0) fL MCH 29.5 (27.0-31.0) pg MCHC 32.8 L (33.0-37.0) g/dL RDW 18.0 H (11.5-14.5) % Plt Count 72 L (130-400) K/uL MPV 9.4 (7.2-11.7) fL Neut % (Auto) 74.1 (50.0-75.0) % Lymph % (Auto) 11.7 L (20.0-40.0) % [place] % (Auto) 13.9 H (0.0-10.0) % Eos % (Auto) 0.2 (0.0-4.0) % Baso % (Auto) 0.1 (0.0-2.0) % Neut # 3.9 (1.8-7.0) K/uL Lymph # 0.6 L (1.0-4.3) K/uL [place] # 0.7 (0.0-0.8) K/uL Eos # 0.0 (0.0-0.7) K/uL Baso # 0.0 (0.0-0.2) K/uL Sodium 130 L (132-148) mmol/L Potassium 3.6 (3.6-5.2) mmol/L Chloride 102 (98-107) mmol/L Carbon Dioxide 22 (22-30) mmol/L Anion Gap 10 (10-20) BUN 5 L (9-20) mg/dL Creatinine 0.5 L (0.8-1.5) MG/DL Est GFR ( Amer) > 60 Est GFR (Non-Af Amer) > 60 POC Glucose (mg/dL) 184 H (65-110) mg/dL Random Glucose 119 H (75-110) mg/dL Calcium 6.8 L (8.6-10.4) mg/dl Phosphorus 2.5 (2.5-4.5) mg/dL Magnesium 1.7 (1.6-2.3) mg/dL Total Bilirubin 1.4 H (0.2-1.3) mg/dL AST 16 L (17-59) U/L ALT 23 (21-72) U/L Alkaline Phosphatase 81 (38-126) U/L Total Protein 4.5 L (6.3-8.3) g/dL Albumin 1.8 L (3.5-5.0) g/dL Globulin 2.6 (2.2-3.9) gm/dL Albumin/Globulin Ratio 0.7 L (1.0-2.1) Blood Type Antibody Screen 05/04/17 05/04/17 05/04/17 Range/Units 16:19 11:52 08:09 WBC (4.8-10.8) K/uL RBC (4.40-5.90) Mil/uL Hgb (12.0-18.0) g/dL Hct (35.0-51.0) % MCV (80.0-94.0) fL MCH (27.0-31.0) pg MCHC (33.0-37.0) g/dL RDW (11.5-14.5) % Plt Count (130-400) K/uL MPV (7.2-11.7) fL Neut % (Auto) (50.0-75.0) % Lymph % (Auto) (20.0-40.0) % [place] % (Auto) (0.0-10.0) % Eos % (Auto) (0.0-4.0) % Baso % (Auto) (0.0-2.0) % Neut # (1.8-7.0) K/uL Lymph # (1.0-4.3) K/uL [place] # (0.0-0.8) K/uL Eos # (0.0-0.7) K/uL Baso # (0.0-0.2) K/uL Sodium (132-148) mmol/L Potassium (3.6-5.2) mmol/L Chloride (98-107) mmol/L Carbon Dioxide (22-30) mmol/L Anion Gap (10-20) BUN (9-20) mg/dL Creatinine (0.8-1.5) MG/DL Est GFR ( Amer) Est GFR (Non-Af Amer) POC Glucose (mg/dL) 240 H 198 H 151 H (65-110) mg/dL Random Glucose (75-110) mg/dL Calcium (8.6-10.4) mg/dl Phosphorus (2.5-4.5) mg/dL Magnesium (1.6-2.3) mg/dL Total Bilirubin (0.2-1.3) mg/dL AST (17-59) U/L ALT (21-72) U/L Alkaline Phosphatase (38-126) U/L Total Protein (6.3-8.3) g/dL Albumin (3.5-5.0) g/dL Globulin (2.2-3.9) gm/dL Albumin/Globulin Ratio (1.0-2.1) Blood Type Antibody Screen 05/03/17 Range/Units 13:16 WBC (4.8-10.8) K/uL RBC (4.40-5.90) Mil/uL Hgb (12.0-18.0) g/dL Hct (35.0-51.0) % MCV (80.0-94.0) fL MCH (27.0-31.0) pg MCHC (33.0-37.0) g/dL RDW (11.5-14.5) % Plt Count (130-400) K/uL MPV (7.2-11.7) fL Neut % (Auto) (50.0-75.0) % Lymph % (Auto) (20.0-40.0) % [place] % (Auto) (0.0-10.0) % Eos % (Auto) (0.0-4.0) % Baso % (Auto) (0.0-2.0) % Neut # (1.8-7.0) K/uL Lymph # (1.0-4.3) K/uL [place] # (0.0-0.8) K/uL Eos # (0.0-0.7) K/uL Baso # (0.0-0.2) K/uL Sodium (132-148) mmol/L Potassium (3.6-5.2) mmol/L Chloride (98-107) mmol/L Carbon Dioxide (22-30) mmol/L Anion Gap (10-20) BUN (9-20) mg/dL Creatinine (0.8-1.5) MG/DL Est GFR ( Amer) Est GFR (Non-Af Amer) POC Glucose (mg/dL) (65-110) mg/dL Random Glucose (75-110) mg/dL Calcium (8.6-10.4) mg/dl Phosphorus (2.5-4.5) mg/dL Magnesium (1.6-2.3) mg/dL Total Bilirubin (0.2-1.3) mg/dL AST (17-59) U/L ALT (21-72) U/L Alkaline Phosphatase (38-126) U/L Total Protein (6.3-8.3) g/dL Albumin (3.5-5.0) g/dL Globulin (2.2-3.9) gm/dL Albumin/Globulin Ratio (1.0-2.1) Blood Type A POSITIVE Antibody Screen Negative Laboratory Results - last 24 hr 05/03/17 05/04/17 05/04/17 13:16 08:09 11:52 WBC RBC Hgb Hct MCV MCH MCHC RDW Plt Count MPV Neut % (Auto) Lymph % (Auto) [place] % (Auto) Eos % (Auto) Baso % (Auto) Neut # Lymph # [place] # Eos # Baso # Sodium Potassium Chloride Carbon Dioxide Anion Gap BUN Creatinine Est GFR ( Amer) Est GFR (Non-Af Amer) POC Glucose (mg/dL) 151 H 198 H Random Glucose Calcium Phosphorus Magnesium Total Bilirubin AST ALT Alkaline Phosphatase Total Protein Albumin Globulin Albumin/Globulin Ratio Blood Type A POSITIVE Antibody Screen Negative 05/04/17 05/04/17 05/05/17 16:19 21:23 06:18 WBC 5.3 RBC 2.92 L Hgb 8.6 L Hct 26.2 L MCV 89.7 MCH 29.5 MCHC 32.8 L RDW 18.0 H Plt Count 72 L MPV 9.4 Neut % (Auto) 74.1 Lymph % (Auto) 11.7 L [place] % (Auto) 13.9 H Eos % (Auto) 0.2 Baso % (Auto) 0.1 Neut # 3.9 Lymph # 0.6 L [place] # 0.7 Eos # 0.0 Baso # 0.0 Sodium Potassium Chloride Carbon Dioxide Anion Gap BUN Creatinine Est GFR ( Amer) Est GFR (Non-Af Amer) POC Glucose (mg/dL) 240 H 184 H Random Glucose Calcium Phosphorus Magnesium Total Bilirubin AST ALT Alkaline Phosphatase Total Protein Albumin Globulin Albumin/Globulin Ratio Blood Type Antibody Screen 05/05/17 06:18 WBC RBC Hgb Hct MCV MCH MCHC RDW Plt Count MPV Neut % (Auto) Lymph % (Auto) [place] % (Auto) Eos % (Auto) Baso % (Auto) Neut # Lymph # [place] # Eos # Baso # Sodium 130 L Potassium 3.6 Chloride 102 Carbon Dioxide 22 Anion Gap 10 BUN 5 L Creatinine 0.5 L Est GFR ( Amer) > 60 Est GFR (Non-Af Amer) > 60 POC Glucose (mg/dL) Random Glucose 119 H Calcium 6.8 L Phosphorus 2.5 Magnesium 1.7 Total Bilirubin 1.4 H AST 16 L ALT 23 Alkaline Phosphatase 81 Total Protein 4.5 L Albumin 1.8 L Globulin 2.6 Albumin/Globulin Ratio 0.7 L Blood Type Antibody Screen Fingerstick Blood Sugar Results: 155 Review of Systems - Constitutional Constitutional: absent: Fever - Cardiovascular Cardiovascular: absent: Chest Pain, Dyspnea, Palpitations - Respiratory Respiratory: absent: Dyspnea - Gastrointestinal Gastrointestinal: absent: Constipation, Diarrhea, Nausea, Vomiting Additional comments: Epigastric pain that was a 08/05 - Genitourinary Genitourinary: absent: Dysuria Critical Care Progress Note - Nutrition Nutrition: Nutrition Category Date Time Status Regular Diet [DIET] Diets 05/04/17 Lunch Active Assessment/Plan - Assessment and Plan (Free Text) Assessment: 57M with stage IV pancreatic cancer; now with E Coli bacteremia, s/p chemoport removal POD#2 Plan: Neuro: -GCS 15 -Physical therapy for deconditioning Pulm: -100% on 4L NC CV: - No longer on pressors - pt making adequate urine -will have midline placed due to poor IV access Heme: -hgB 8.6 today, no sign of acute bleeding, no further rectal bleed - will monitor closely -PLT 72 today - Received one platelet infusion 05/03/17 Renal: - 5/0.5 - cont hydration Endo: -BS 150s -on sliding scale GI: -Can adv diet as tolerated - added Ensure supplementation due to poor appetite - CT Abd/Pel shows metastatic disease, inc in size of necrotic panc head mass, possible colitis - not surgical candidate ID: - gram negative bacteremia: E. Coli - likely 2/2 to chemoport infection which is removed 2 days ago -On Vanc and Zosyn: Dr Hernandez -repeat blood cultures x 2 for next 3 days -pending results Prognosis poor. Pt interested in reducing chemotherapy dose. Will likely have new port placed once blood is clean DVT proph - SCDs, no anti-coagulation due to rectal bleed and thrombocytopenia GI proph - Protonix 40mg PO daily Disposition: Transfer to regular medical floor Code status - Full Case discussed with Dr. Spencer <Luis M Spencer - Last Filed: 05/05/17 19:18> CCU Objective - Vital Signs / Intake & Output Vital Signs (Last 4 hours): Vital Signs Pulse BP Pulse Ox 05/05/17 16:00 107 H 100 05/05/17 15:59 104 H 88/64 L 100 Intake and Output (Last 8hrs): Intake & Output 05/05/17 05/05/17 05/05/17 06:59 14:59 22:59 Intake Total 625 650 150 Output Total 550 300 Balance 75 350 150 Weight 175 lb 12.8 oz Intake: Intake, IV Amount 625 650 150 Right Upper arm 625 650 150 Output: Urine 550 300 Urine, Voided 550 300 Other: # Bowel Movements 0 0 - Medications Active Medications: Active Medications Generic Name Dose Route Start Last Admin Trade Name Freq PRN Reason Stop Dose Admin Acetaminophen 650 mg 04/30/17 20:23 05/03/17 21:08 Tylenol 325mg Tab PO 650 mg Q6 PRN Administration Fever >100.4 F Piperacillin Sod/Tazobactam 100 mls @ 200 mls/hr 04/29/17 07:00 05/05/17 14: 55 Sod 3.375 gm/ Sodium Chloride IVPB 200 mls/hr Q8H HECTOR Administration Sodium Chloride 1,000 mls @ 75 mls/hr 05/03/17 09:51 05/05/17 15:02 Sodium Chloride 0.9% IV 75 mls/hr .[id number] HECTOR Administration Insulin Human Regular 0 unit 05/04/17 21:54 05/05/17 16:30 Novolin R SC 2 unit ACHS HECTOR Administration Protocol Morphine Sulfate 2 mg 04/30/17 20:40 05/05/17 18:42 Morphine IVP 2 mg Q2 PRN Administration Pain, moderate (4-7) Ondansetron HCl 4 mg 05/03/17 09:52 05/03/17 21:03 Zofran Inj IVP 4 mg Q6 PRN Administration Nausea/Vomiting Pantoprazole Sodium 40 mg 04/30/17 08:00 05/05/17 08:05 Protonix Ec Tab PO 40 mg ACB HECTOR Administration Potassium Chloride 40 meq 05/02/17 08:00 05/05/17 08:04 K-Dur 20 Meq Er Tab PO 40 meq BRK HECTOR Administration - Patient Studies Lab Studies: Microbiology Studies 05/02/17 05:30 Blood Culture - Preliminary Blood NO GROWTH AFTER 3 DAYS 05/02/17 05:00 Blood Culture - Preliminary Blood NO GROWTH AFTER 3 DAYS 05/03/17 06:30 Blood Culture - Preliminary Blood NO GROWTH AFTER 48 HOURS 05/03/17 07:00 Blood Culture - Preliminary Blood NO GROWTH AFTER 48 HOURS 05/01/17 14:30 Blood Culture - Final Blood Escherichia Coli Gram Stain - Final 05/01/17 14:30 Blood Culture - Final Blood Escherichia Coli Gram Stain - Final Lab Studies 05/05/17 05/05/17 05/05/17 Range/Units 17:22 16:24 11:30 WBC (4.8-10.8) K/uL RBC (4.40-5.90) Mil/uL Hgb (12.0-18.0) g/dL Hct (35.0-51.0) % MCV (80.0-94.0) fL MCH (27.0-31.0) pg MCHC (33.0-37.0) g/dL RDW (11.5-14.5) % Plt Count (130-400) K/uL MPV (7.2-11.7) fL Neut % (Auto) (50.0-75.0) % Lymph % (Auto) (20.0-40.0) % [place] % (Auto) (0.0-10.0) % Eos % (Auto) (0.0-4.0) % Baso % (Auto) (0.0-2.0) % Neut # (1.8-7.0) K/uL Lymph # (1.0-4.3) K/uL [place] # (0.0-0.8) K/uL Eos # (0.0-0.7) K/uL Baso # (0.0-0.2) K/uL Sodium (132-148) mmol/L Potassium (3.6-5.2) mmol/L Chloride (98-107) mmol/L Carbon Dioxide (22-30) mmol/L Anion Gap (10-20) BUN (9-20) mg/dL Creatinine (0.8-1.5) MG/DL Est GFR ( Amer) Est GFR (Non-Af Amer) POC Glucose (mg/dL) 194 H 243 H 165 H (65-110) mg/dL Random Glucose (75-110) mg/dL Calcium (8.6-10.4) mg/dl Phosphorus (2.5-4.5) mg/dL Magnesium (1.6-2.3) mg/dL Total Bilirubin (0.2-1.3) mg/dL AST (17-59) U/L ALT (21-72) U/L Alkaline Phosphatase (38-126) U/L Total Protein (6.3-8.3) g/dL Albumin (3.5-5.0) g/dL Globulin (2.2-3.9) gm/dL Albumin/Globulin Ratio (1.0-2.1) 05/05/17 05/05/17 05/05/17 Range/Units 07:23 06:18 06:18 WBC 5.3 (4.8-10.8) K/uL RBC 2.92 L (4.40-5.90) Mil/uL Hgb 8.6 L (12.0-18.0) g/dL Hct 26.2 L (35.0-51.0) % MCV 89.7 (80.0-94.0) fL MCH 29.5 (27.0-31.0) pg MCHC 32.8 L (33.0-37.0) g/dL RDW 18.0 H (11.5-14.5) % Plt Count 72 L (130-400) K/uL MPV 9.4 (7.2-11.7) fL Neut % (Auto) 74.1 (50.0-75.0) % Lymph % (Auto) 11.7 L (20.0-40.0) % [place] % (Auto) 13.9 H (0.0-10.0) % Eos % (Auto) 0.2 (0.0-4.0) % Baso % (Auto) 0.1 (0.0-2.0) % Neut # 3.9 (1.8-7.0) K/uL Lymph # 0.6 L (1.0-4.3) K/uL [place] # 0.7 (0.0-0.8) K/uL Eos # 0.0 (0.0-0.7) K/uL Baso # 0.0 (0.0-0.2) K/uL Sodium 130 L (132-148) mmol/L Potassium 3.6 (3.6-5.2) mmol/L Chloride 102 (98-107) mmol/L Carbon Dioxide 22 (22-30) mmol/L Anion Gap 10 (10-20) BUN 5 L (9-20) mg/dL Creatinine 0.5 L (0.8-1.5) MG/DL Est GFR ( Amer) > 60 Est GFR (Non-Af Amer) > 60 POC Glucose (mg/dL) 155 H (65-110) mg/dL Random Glucose 119 H (75-110) mg/dL Calcium 6.8 L (8.6-10.4) mg/dl Phosphorus 2.5 (2.5-4.5) mg/dL Magnesium 1.7 (1.6-2.3) mg/dL Total Bilirubin 1.4 H (0.2-1.3) mg/dL AST 16 L (17-59) U/L ALT 23 (21-72) U/L Alkaline Phosphatase 81 (38-126) U/L Total Protein 4.5 L (6.3-8.3) g/dL Albumin 1.8 L (3.5-5.0) g/dL Globulin 2.6 (2.2-3.9) gm/dL Albumin/Globulin Ratio 0.7 L (1.0-2.1) 05/04/17 Range/Units 21:23 WBC (4.8-10.8) K/uL RBC (4.40-5.90) Mil/uL Hgb (12.0-18.0) g/dL Hct (35.0-51.0) % MCV (80.0-94.0) fL MCH (27.0-31.0) pg MCHC (33.0-37.0) g/dL RDW (11.5-14.5) % Plt Count (130-400) K/uL MPV (7.2-11.7) fL Neut % (Auto) (50.0-75.0) % Lymph % (Auto) (20.0-40.0) % [place] % (Auto) (0.0-10.0) % Eos % (Auto) (0.0-4.0) % Baso % (Auto) (0.0-2.0) % Neut # (1.8-7.0) K/uL Lymph # (1.0-4.3) K/uL [place] # (0.0-0.8) K/uL Eos # (0.0-0.7) K/uL Baso # (0.0-0.2) K/uL Sodium (132-148) mmol/L Potassium (3.6-5.2) mmol/L Chloride (98-107) mmol/L Carbon Dioxide (22-30) mmol/L Anion Gap (10-20) BUN (9-20) mg/dL Creatinine (0.8-1.5) MG/DL Est GFR ( Amer) Est GFR (Non-Af Amer) POC Glucose (mg/dL) 184 H (65-110) mg/dL Random Glucose (75-110) mg/dL Calcium (8.6-10.4) mg/dl Phosphorus (2.5-4.5) mg/dL Magnesium (1.6-2.3) mg/dL Total Bilirubin (0.2-1.3) mg/dL AST (17-59) U/L ALT (21-72) U/L Alkaline Phosphatase (38-126) U/L Total Protein (6.3-8.3) g/dL Albumin (3.5-5.0) g/dL Globulin (2.2-3.9) gm/dL Albumin/Globulin Ratio (1.0-2.1) Laboratory Results - last 24 hr 05/04/17 05/05/17 05/05/17 21:23 06:18 06:18 WBC 5.3 RBC 2.92 L Hgb 8.6 L Hct 26.2 L MCV 89.7 MCH 29.5 MCHC 32.8 L RDW 18.0 H Plt Count 72 L MPV 9.4 Neut % (Auto) 74.1 Lymph % (Auto) 11.7 L [place] % (Auto) 13.9 H Eos % (Auto) 0.2 Baso % (Auto) 0.1 Neut # 3.9 Lymph # 0.6 L [place] # 0.7 Eos # 0.0 Baso # 0.0 Sodium 130 L Potassium 3.6 Chloride 102 Carbon Dioxide 22 Anion Gap 10 BUN 5 L Creatinine 0.5 L Est GFR ( Amer) > 60 Est GFR (Non-Af Amer) > 60 POC Glucose (mg/dL) 184 H Random Glucose 119 H Calcium 6.8 L Phosphorus 2.5 Magnesium 1.7 Total Bilirubin 1.4 H AST 16 L ALT 23 Alkaline Phosphatase 81 Total Protein 4.5 L Albumin 1.8 L Globulin 2.6 Albumin/Globulin Ratio 0.7 L 05/05/17 05/05/17 05/05/17 07:23 11:30 16:24 WBC RBC Hgb Hct MCV MCH MCHC RDW Plt Count MPV Neut % (Auto) Lymph % (Auto) [place] % (Auto) Eos % (Auto) Baso % (Auto) Neut # Lymph # [place] # Eos # Baso # Sodium Potassium Chloride Carbon Dioxide Anion Gap BUN Creatinine Est GFR ( Amer) Est GFR (Non-Af Amer) POC Glucose (mg/dL) 155 H 165 H 243 H Random Glucose Calcium Phosphorus Magnesium Total Bilirubin AST ALT Alkaline Phosphatase Total Protein Albumin Globulin Albumin/Globulin Ratio 05/05/17 17:22 WBC RBC Hgb Hct MCV MCH MCHC RDW Plt Count MPV Neut % (Auto) Lymph % (Auto) [place] % (Auto) Eos % (Auto) Baso % (Auto) Neut # Lymph # [place] # Eos # Baso # Sodium Potassium Chloride Carbon Dioxide Anion Gap BUN Creatinine Est GFR ( Amer) Est GFR (Non-Af Amer) POC Glucose (mg/dL) 194 H Random Glucose Calcium Phosphorus Magnesium Total Bilirubin AST ALT Alkaline Phosphatase Total Protein Albumin Globulin Albumin/Globulin Ratio Critical Care Progress Note - Nutrition Nutrition: Nutrition Category Date Time Status Regular Diet [DIET] Diets 05/04/17 Lunch Active Attending/Attestation - Attestation I have personally seen and examined this patient.: Yes I have fully participated in the care of the patient.: Yes I have reviewed all pertinent clinical information: Yes Notes (Text): 05/05/17 19:18 agree with above note during rounds in the am pt was examined and clinical decision was made and discussed with icu team
--- NOTE | 2017-05-05 22:04 | CP.PCM.PN ---
Subjective - Date & Time of Evaluation Date of Evaluation: 05/05/17 Time of Evaluation: 22:03 - Subjective Subjective: CHIEF COMPLAINTS TODAY : AFEBRILE FEELING BETTER .RT CHEST WALL DRESSING IN PLACE DRY, CLEAN, INTACT S/P PORT-A-CATH REMOVAL - REPEAT BLOOD CULTURES 05/02, 05/03 -VE TO DATE. BLOOD CULTURES 05/01/17 -E.COLI ROS. HEENT : N. Resp : No SOB wheezing, cough Cardio : No CP, PND orthopnea GI : No abd. Pain, n/v DIRECT SUPPORT SPECIALIST : No headache , focal deficit. Musculoskel : N Ext. : Pedal pulses intact, no edema or calf pain Derm : N Psych : N. PE. Pt. is alert awake in no distress. V.S As noted in the chart Head ,ear nose,throat and eyes : Normal. Neck : Supple with normal carotids. Lungs: Clear air entry. Heart : S1 & S2 normal . . No murmur. S4 + Abd : Soft non tender with normal bowel sounds. Neuro : Moves all ext. with no localized deficit. Ext : No edema with intact pulses. Neg. calf tenderness Derm : No rashes or decubitus ulcer. Radiology/Labs . 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 NEW HEPATIC METASTASIS. BLOOD CULTURES 2:2 SETS +VE +VE E.COLI -MALLORY SENSITIVE REPEAT BLOOD CULTURES - -VE TO DATE. Urine cultures negative. Objective - Vital Signs/Intake and Output Vital Signs (last 24 hours): Temp Pulse Resp BP Pulse Ox 99.0 F 107 H 18 88/64 L 100 05/05/17 14:00 05/05/17 16:00 05/05/17 13:59 05/05/17 15:59 05/05/17 16:00 Intake and Output: 05/05/17 05/06/17 18:59 06:59 Intake Total 800 Output Total 300 Balance 500 - Medications Medications: Current Medications Acetaminophen (Tylenol 325mg Tab) 650 mg PO Q6 PRN PRN Reason: Fever >100.4 F Last Admin: 05/03/17 21:08 Dose: 650 mg Piperacillin Sod/Tazobactam (Sod 3.375 gm/ Sodium Chloride) 100 mls @ 200 mls/ hr IVPB Q8H [facility] Last Admin: 05/05/17 14:55 Dose: 200 mls/hr Sodium Chloride (Sodium Chloride 0.9%) 1,000 mls @ 75 mls/hr IV .[id number] [facility] Last Admin: 05/05/17 15:02 Dose: 75 mls/hr Insulin Human Regular (Novolin R) 0 unit SC ACHS HECTOR PRN Reason: Protocol Last Admin: 05/05/17 21:18 Dose: Not Given Morphine Sulfate (Morphine) 2 mg IVP Q2 PRN PRN Reason: Pain, moderate (4-7) Last Admin: 05/05/17 18:42 Dose: 2 mg Ondansetron HCl (Zofran Inj) 4 mg IVP Q6 PRN PRN Reason: Nausea/Vomiting Last Admin: 05/03/17 21:03 Dose: 4 mg Pantoprazole Sodium (Protonix Ec Tab) 40 mg PO ACB [facility] Last Admin: 05/05/17 08:05 Dose: 40 mg Potassium Chloride (K-Dur 20 Meq Er Tab) 40 meq PO BRK [facility] Last Admin: 05/05/17 08:04 Dose: 40 meq - Labs Labs: 05/05/17 06:18 05/05/17 06:18 PT 19.7 SECONDS (9.7-12.2) H 04/30/17 15:05 INR 1.7 04/30/17 15:05 APTT 38 SECONDS (21-34) H D 04/30/17 15:05 Assessment and Plan (1) Gram negative septic shock Assessment & Plan: Continue IV Zosyn 3.375 q 8 hourly DC IV vancomycin 1 g every 12 hourly. BLOOD CULTURES 05/01/17 STILL POSITIVE FOR E.COLI REPEAT BLOOD CULTURES 2 SETS 05/02, 05/03 17 -VE TO DATE X 3DAYS PATIENT'S BACTEREMIA CLEARED. OKAY FOR pORT-a-cATH IF NEEDED. Status: Acute (2) Fever Status: Acute (3) Anemia Status: Acute (4) Pancreatic cancer Status: Acute (5) Diabetes mellitus Status: Chronic (6) Thrombocytopenia Status: Acute (7) GI bleeding Assessment & Plan: PATIENT DENIED ANY FURTHER GI BLEEDING. WATCH H/H Status: Acute
--- NOTE | 2017-05-05 23:12 | CP.PCM.PN ---
Subjective - Date & Time of Evaluation Date of Evaluation: 05/05/17 Time of Evaluation: 19:00 - Subjective Subjective: pt is afebrile, hypotensive mostly due to poor nutritional status Objective - Vital Signs/Intake and Output Vital Signs (last 24 hours): Temp Pulse Resp BP Pulse Ox 99.0 F 107 H 18 88/64 L 100 05/05/17 14:00 05/05/17 16:00 05/05/17 13:59 05/05/17 15:59 05/05/17 16:00 Intake and Output: 05/05/17 05/06/17 18:59 06:59 Intake Total 800 Output Total 300 Balance 500 - Medications Medications: Current Medications Acetaminophen (Tylenol 325mg Tab) 650 mg PO Q6 PRN PRN Reason: Fever >100.4 F Last Admin: 05/03/17 21:08 Dose: 650 mg Piperacillin Sod/Tazobactam (Sod 3.375 gm/ Sodium Chloride) 100 mls @ 200 mls/ hr IVPB Q8H [facility] Last Admin: 05/05/17 14:55 Dose: 200 mls/hr Sodium Chloride (Sodium Chloride 0.9%) 1,000 mls @ 75 mls/hr IV .[id number] [facility] Last Admin: 05/05/17 15:02 Dose: 75 mls/hr Insulin Human Regular (Novolin R) 0 unit SC ACHS [facility] PRN Reason: Protocol Last Admin: 05/05/17 21:18 Dose: Not Given Morphine Sulfate (Morphine) 2 mg IVP Q2 PRN PRN Reason: Pain, moderate (4-7) Last Admin: 05/05/17 18:42 Dose: 2 mg Ondansetron HCl (Zofran Inj) 4 mg IVP Q6 PRN PRN Reason: Nausea/Vomiting Last Admin: 05/03/17 21:03 Dose: 4 mg Pantoprazole Sodium (Protonix Ec Tab) 40 mg PO ACB [facility] Last Admin: 05/05/17 08:05 Dose: 40 mg Potassium Chloride (K-Dur 20 Meq Er Tab) 40 meq PO BRK [facility] Last Admin: 05/05/17 08:04 Dose: 40 meq - Labs Labs: 05/05/17 06:18 05/05/17 06:18 PT 19.7 SECONDS (9.7-12.2) H 04/30/17 15:05 INR 1.7 04/30/17 15:05 APTT 38 SECONDS (21-34) H D 04/30/17 15:05 - Constitutional Appears: No Acute Distress, Confused, Cachectic - Head Exam Head Exam: ATRAUMATIC, NORMAL INSPECTION, NORMOCEPHALIC - Eye Exam Eye Exam: EOMI, Normal appearance, PERRL Pupil Exam: NORMAL ACCOMODATION, PERRL - Respiratory Exam Respiratory Exam: Clear to Ausculation Bilateral, NORMAL BREATHING PATTERN - Cardiovascular Exam Cardiovascular Exam: REGULAR RHYTHM, +S1, +S2. absent: Murmur - GI/Abdominal Exam GI & Abdominal Exam: Soft, Normal Bowel Sounds. absent: Tenderness Assessment and Plan (1) Anemia Status: Acute (2) Fever Status: Acute (3) Pancreatic cancer Status: Acute (4) Sepsis Status: Acute
[2017-05-06 07:40] LABS: BASO % 0.3 % (0.0-2.0); EOS % 0.1 % (0.0-4.0); HEMOGLOBIN 8.8 g/dL (12.0-18.0); LYMPH # 0.7 K/uL (1.0-4.3); LYMPH % 8.2 % (20.0-40.0); MEAN CELL VOLUME 89.8 fL (80.0-94.0); MEAN CORPUSCULAR HEMOGLOBIN 29.5 pg (27.0-31.0); MEAN CORPUSCULAR HGB CONC 32.8 g/dL (33.0-37.0); MEAN PLATELET VOLUME 8.8 fL (7.2-11.7); NEUT # 6.7 K/uL (1.8-7.0); NEUT % 79.4 % (50.0-75.0); PLATELET COUNT 96 K/uL (130-400); RBC 2.98 Mil/uL (4.40-5.90); RED CELL DISTRIBUTION WIDTH 17.3 % (11.5-14.5)
[2017-05-06 07:51] LABS: WHITE BLOOD COUNT 8.4 K/uL (4.8-10.8)
[2017-05-06 08:06] LABS: ALBUMIN 1.8 g/dL (3.5-5.0)
[2017-05-06 08:09] LABS: ALB/GLOB RATIO 0.7 (1.0-2.1); AST/SGOT 17 U/L (17-59); BLOOD UREA NITROGEN 4 mg/dL (9-20); GFR AFRICAN-AMERICAN > 60; GFR NON-AFRICAN AMERICAN > 60
[2017-05-06 08:10] LABS: ALT/SGPT 27 U/L (21-72); CALCIUM 7.1 mg/dl (8.6-10.4); MAGNESIUM 1.7 mg/dL (1.6-2.3)
[2017-05-06] MEDS: Potassium Chloride 20 mEq ER Tab PO SCH (08:18)
[2017-05-06] MEDS: Pantoprazole 40 mg EC Tab PO SCH (08:18)
[2017-05-06] MEDS: (Novolin R) Insulin Human Regular 100 units/ml vial SC SCH ×4 (08:18→22:14)
[2017-05-06] MEDS: Piperacillin/Tazobact 3.375 GM in Sodium Chloride 100 ML IVPB SCH ×3 (08:19→22:22)
[2017-05-06 09:03] LABS: BANDS 2 % (0-2); LYMPHOCYTE 5 % (20-40); MONOCYTE 7 % (0-10); NEUTROPHIL 86 % (50-75); TOTAL CELLS COUNTED 100
[2017-05-06 09:04] LABS: ANISOCYTOSIS SLIGHT; BURR CELLS SLIGHT; HYPOCHROMIC SLIGHT; OVALOCYTES SLIGHT; PLATELET ESTIMATE DECREASED (NORMAL); POIKILOCYTOSIS SLIGHT
[2017-05-06 09:05] LABS: TARGET CELLS SLIGHT
--- NOTE | 2017-05-06 14:55 | CP.PCM.PN ---
Subjective - Date & Time of Evaluation Date of Evaluation: 05/06/17 Time of Evaluation: 09:00 - Subjective Subjective: PT IS WEAK, FEBRILE, MULTIPLE CO MORBID CONDITIONS, ALSO SEEN BY ID, POOR ORAL INTAKE DUE TO POOR APETITE Objective - Vital Signs/Intake and Output Vital Signs (last 24 hours): Temp Pulse Resp BP Pulse Ox 98.7 F 100 H 20 113/73 94 L 05/06/17 08:13 05/06/17 08:13 05/06/17 08:13 05/06/17 08:13 05/06/17 08:13 - Medications Medications: Current Medications Acetaminophen (Tylenol 325mg Tab) 650 mg PO Q6 PRN PRN Reason: Fever >100.4 F Last Admin: 05/05/17 23:39 Dose: 650 mg Piperacillin Sod/Tazobactam (Sod 3.375 gm/ Sodium Chloride) 100 mls @ 200 mls/ hr IVPB Q8H [facility] Last Admin: 05/06/17 08:19 Dose: 200 mls/hr Sodium Chloride (Sodium Chloride 0.9%) 1,000 mls @ 75 mls/hr IV .[id number] [facility] Last Admin: 05/05/17 15:02 Dose: 75 mls/hr Insulin Human Regular (Novolin R) 0 unit SC ACHS [facility] PRN Reason: Protocol Last Admin: 05/06/17 13:27 Dose: 1 unit Morphine Sulfate (Morphine) 2 mg IVP Q2 PRN PRN Reason: Pain, moderate (4-7) Last Admin: 05/06/17 13:27 Dose: 2 mg Ondansetron HCl (Zofran Inj) 4 mg IVP Q6 PRN PRN Reason: Nausea/Vomiting Last Admin: 05/03/17 21:03 Dose: 4 mg Pantoprazole Sodium (Protonix Ec Tab) 40 mg PO ACB [facility] Last Admin: 05/06/17 08:18 Dose: 40 mg Potassium Chloride (K-Dur 20 Meq Er Tab) 40 meq PO BRK [facility] Last Admin: 05/06/17 08:18 Dose: 40 meq - Labs Labs: 05/06/17 07:27 05/06/17 07:27 PT 19.7 SECONDS (9.7-12.2) H 04/30/17 15:05 INR 1.7 04/30/17 15:05 APTT 38 SECONDS (21-34) H D 04/30/17 15:05 - Constitutional Appears: No Acute Distress, Chronically Ill - Head Exam Head Exam: ATRAUMATIC, NORMAL INSPECTION, NORMOCEPHALIC - Respiratory Exam Respiratory Exam: Clear to Ausculation Bilateral, NORMAL BREATHING PATTERN - Cardiovascular Exam Cardiovascular Exam: REGULAR RHYTHM, +S1, +S2. absent: Murmur - GI/Abdominal Exam GI & Abdominal Exam: Soft, Normal Bowel Sounds. absent: Tenderness - Neurological Exam Neurological Exam: Abnormal Gait, Alert, Awake - Psychiatric Exam Psychiatric exam: Normal Affect Assessment and Plan (1) Anemia Status: Acute (2) Fever Status: Acute (3) Pancreatic cancer Status: Acute (4) Sepsis Status: Acute
[2017-05-06] MEDS ORDERED: HYDROmorphone 1 mg/ml ISec IVP PRN (16:09)
--- NOTE | 2017-05-06 23:21 | CP.PCM.PN ---
Subjective - Date & Time of Evaluation Date of Evaluation: 05/06/17 Time of Evaluation: 23:21 - Subjective Subjective: CHIEF COMPLAINTS TODAY : LOW-GRADE TEMPERATURE C/O generalized abdominal pain .RT CHEST WALL DRESSING IN PLACE DRY, CLEAN, INTACT S/P PORT-A-CATH REMOVAL - REPEAT BLOOD CULTURES 05/02, 05/03 -VE TO DATE. BLOOD CULTURES 05/01/17 -E.COLI ROS. HEENT : N. Resp : No SOB wheezing, cough Cardio : No CP, PND orthopnea GI : No abd. Pain, n/v FINANCIAL PLANNING CONSULTANT : No headache , focal deficit. Musculoskel : N Ext. : Pedal pulses intact, no edema or calf pain Derm : N Psych : N. PE. Pt. is alert awake in no distress. V.S As noted in the chart Head ,ear nose,throat and eyes : Normal. Neck : Supple with normal carotids. Lungs: Clear air entry. Heart : S1 & S2 normal . . No murmur. S4 + Abd : Soft non tender with normal bowel sounds. Neuro : Moves all ext. with no localized deficit. Ext : No edema with intact pulses. Neg. calf tenderness Derm : No rashes or decubitus ulcer. Radiology/Labs . 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 NEW HEPATIC METASTASIS. BLOOD CULTURES 2:2 SETS +VE +VE E.COLI -MALLORY SENSITIVE REPEAT BLOOD CULTURES - -VE TO DATE. Urine cultures negative. Objective - Vital Signs/Intake and Output Vital Signs (last 24 hours): Temp Pulse Resp BP Pulse Ox 100.3 F H 109 H 20 104/69 96 05/06/17 17:46 05/06/17 17:46 05/06/17 17:46 05/06/17 17:46 05/06/17 17:46 - Medications Medications: Current Medications Acetaminophen (Tylenol 325mg Tab) 650 mg PO Q6 PRN PRN Reason: Fever >100.4 F Last Admin: 05/05/17 23:39 Dose: 650 mg Fentanyl (Duragesic) 1 patch TD Q72H [facility] Last Admin: 05/06/17 17:14 Dose: 1 patch Hydromorphone HCl (Dilaudid) 1 mg IVP Q4H PRN PRN Reason: Pain, moderate (4-7) Last Admin: 05/06/17 22:13 Dose: 1 mg Piperacillin Sod/Tazobactam (Sod 3.375 gm/ Sodium Chloride) 100 mls @ 200 mls/ hr IVPB Q8H [facility] Last Admin: 05/06/17 22:22 Dose: 200 mls/hr Sodium Chloride (Sodium Chloride 0.9%) 1,000 mls @ 75 mls/hr IV .[id number] [facility] Last Admin: 05/05/17 15:02 Dose: 75 mls/hr Insulin Human Regular (Novolin R) 0 unit SC ACHS [facility] PRN Reason: Protocol Last Admin: 05/06/17 22:14 Dose: Not Given Ondansetron HCl (Zofran Inj) 4 mg IVP Q6 PRN PRN Reason: Nausea/Vomiting Last Admin: 05/03/17 21:03 Dose: 4 mg Pantoprazole Sodium (Protonix Ec Tab) 40 mg PO ACB [facility] Last Admin: 05/06/17 08:18 Dose: 40 mg Potassium Chloride (K-Dur 20 Meq Er Tab) 40 meq PO BRK [facility] Last Admin: 05/06/17 08:18 Dose: 40 meq - Labs Labs: 05/06/17 07:27 05/06/17 07:27 PT 19.7 SECONDS (9.7-12.2) H 04/30/17 15:05 INR 1.7 04/30/17 15:05 APTT 38 SECONDS (21-34) H D 04/30/17 15:05 Assessment and Plan (1) Gram negative septic shock Assessment & Plan: Continue IV Zosyn 3.375 q 8 hourly BLOOD CULTURES 05/01/17 STILL POSITIVE FOR E.COLI REPEAT BLOOD CULTURES 2 SETS 05/02, 05/03 17 -VE TO DATE X 3DAYS PATIENT'S BACTEREMIA CLEARED. OKAY FOR pORT-a-cATH IF NEEDED. Status: Acute (2) Fever Status: Acute (3) Anemia Status: Acute (4) Pancreatic cancer Status: Acute (5) Diabetes mellitus Status: Chronic (6) Thrombocytopenia Status: Acute (7) GI bleeding Assessment & Plan: PATIENT DENIED ANY FURTHER GI BLEEDING. WATCH H/H Status: Acute
[2017-05-07] MEDS: Piperacillin/Tazobact 3.375 GM in Sodium Chloride 100 ML IVPB SCH ×3 (06:33→23:00)
[2017-05-07] MEDS: Potassium Chloride 20 mEq ER Tab PO SCH (09:18)
[2017-05-07] MEDS: (Novolin R) Insulin Human Regular 100 units/ml vial SC SCH ×4 (09:19→23:02)
[2017-05-07] MEDS: Pantoprazole 40 mg EC Tab PO SCH (09:19)
--- NOTE | 2017-05-07 12:50 | CP.PCM.PN ---
Subjective - Date & Time of Evaluation Date of Evaluation: 05/06/17 Time of Evaluation: 12:00 - Subjective Subjective: Has some stomach discomfort Objective - Vital Signs/Intake and Output Vital Signs (last 24 hours): Temp Pulse Resp BP Pulse Ox 97.9 F 120 H 20 105/71 94 L 05/07/17 00:00 05/07/17 00:00 05/07/17 00:00 05/07/17 00:00 05/07/17 00:00 Intake and Output: 05/07/17 05/07/17 06:59 18:59 Intake Total 700 Output Total 810 Balance -110 - Medications Medications: Current Medications Acetaminophen (Tylenol 325mg Tab) 650 mg PO Q6 PRN PRN Reason: Fever >100.4 F Last Admin: 05/05/17 23:39 Dose: 650 mg Fentanyl (Duragesic) 1 patch TD Q72H [facility] Last Admin: 05/06/17 17:14 Dose: 1 patch Hydromorphone HCl (Dilaudid) 1 mg IVP Q4H PRN PRN Reason: Pain, moderate (4-7) Last Admin: 05/07/17 09:17 Dose: 1 mg Piperacillin Sod/Tazobactam (Sod 3.375 gm/ Sodium Chloride) 100 mls @ 200 mls/ hr IVPB Q8H [facility] Last Admin: 05/07/17 06:33 Dose: 200 mls/hr Sodium Chloride (Sodium Chloride 0.9%) 1,000 mls @ 75 mls/hr IV .[id number] [facility] Last Admin: 05/05/17 15:02 Dose: 75 mls/hr Insulin Human Regular (Novolin R) 0 unit SC ACHS [facility] PRN Reason: Protocol Last Admin: 05/07/17 09:19 Dose: 1 unit Ondansetron HCl (Zofran Inj) 4 mg IVP Q6 PRN PRN Reason: Nausea/Vomiting Last Admin: 05/03/17 21:03 Dose: 4 mg Pantoprazole Sodium (Protonix Ec Tab) 40 mg PO ACB [facility] Last Admin: 05/07/17 09:19 Dose: 40 mg Potassium Chloride (K-Dur 20 Meq Er Tab) 40 meq PO BRK [facility] Last Admin: 05/07/17 09:18 Dose: 40 meq - Labs Labs: 05/06/17 07:27 05/06/17 07:27 PT 19.7 SECONDS (9.7-12.2) H 04/30/17 15:05 INR 1.7 04/30/17 15:05 APTT 38 SECONDS (21-34) H D 04/30/17 15:05 - Head Exam Head Exam: ATRAUMATIC - Eye Exam Eye Exam: Normal appearance - ENT Exam ENT Exam: Mucous Membranes Dry - Respiratory Exam Respiratory Exam: NORMAL BREATHING PATTERN - Cardiovascular Exam Cardiovascular Exam: +S1, +S2 - GI/Abdominal Exam GI & Abdominal Exam: Normal Bowel Sounds - Extremities Exam Extremities Exam: Normal Inspection Assessment and Plan (1) Pancytopenia Assessment & Plan: WBC normal hgb and plt improving Status: Acute (2) Gram negative septic shock Assessment & Plan: on antibiotics. Status: Acute (3) Coagulopathy Assessment & Plan: nutritional Status: Acute (4) Pancreatic cancer Assessment & Plan: stage IV outpatient chemotherapy Status: Acute
--- NOTE | 2017-05-07 12:52 | CP.PCM.PN ---
Subjective - Date & Time of Evaluation Date of Evaluation: 05/07/17 Time of Evaluation: 12:15 - Subjective Subjective: Feeling better Objective - Vital Signs/Intake and Output Vital Signs (last 24 hours): Temp Pulse Resp BP Pulse Ox 97.9 F 120 H 20 105/71 94 L 05/07/17 00:00 05/07/17 00:00 05/07/17 00:00 05/07/17 00:00 05/07/17 00:00 Intake and Output: 05/07/17 05/07/17 06:59 18:59 Intake Total 700 Output Total 810 Balance -110 - Medications Medications: Current Medications Acetaminophen (Tylenol 325mg Tab) 650 mg PO Q6 PRN PRN Reason: Fever >100.4 F Last Admin: 05/05/17 23:39 Dose: 650 mg Fentanyl (Duragesic) 1 patch TD Q72H [facility] Last Admin: 05/06/17 17:14 Dose: 1 patch Hydromorphone HCl (Dilaudid) 1 mg IVP Q4H PRN PRN Reason: Pain, moderate (4-7) Last Admin: 05/07/17 09:17 Dose: 1 mg Piperacillin Sod/Tazobactam (Sod 3.375 gm/ Sodium Chloride) 100 mls @ 200 mls/ hr IVPB Q8H [facility] Last Admin: 05/07/17 06:33 Dose: 200 mls/hr Sodium Chloride (Sodium Chloride 0.9%) 1,000 mls @ 75 mls/hr IV .[id number] [facility] Last Admin: 05/05/17 15:02 Dose: 75 mls/hr Insulin Human Regular (Novolin R) 0 unit SC ACHS [facility] PRN Reason: Protocol Last Admin: 05/07/17 09:19 Dose: 1 unit Ondansetron HCl (Zofran Inj) 4 mg IVP Q6 PRN PRN Reason: Nausea/Vomiting Last Admin: 05/03/17 21:03 Dose: 4 mg Pantoprazole Sodium (Protonix Ec Tab) 40 mg PO ACB [facility] Last Admin: 05/07/17 09:19 Dose: 40 mg Potassium Chloride (K-Dur 20 Meq Er Tab) 40 meq PO BRK [facility] Last Admin: 05/07/17 09:18 Dose: 40 meq - Labs Labs: 05/06/17 07:27 05/06/17 07:27 PT 19.7 SECONDS (9.7-12.2) H 04/30/17 15:05 INR 1.7 04/30/17 15:05 APTT 38 SECONDS (21-34) H D 04/30/17 15:05 - Head Exam Head Exam: ATRAUMATIC - Eye Exam Eye Exam: Normal appearance - ENT Exam ENT Exam: Mucous Membranes Dry - Respiratory Exam Respiratory Exam: NORMAL BREATHING PATTERN - Cardiovascular Exam Cardiovascular Exam: +S1, +S2 - GI/Abdominal Exam GI & Abdominal Exam: Normal Bowel Sounds - Extremities Exam Extremities Exam: Normal Inspection Assessment and Plan (1) Pancytopenia Assessment & Plan: WBC normal H/H and plt improving Status: Acute (2) Gram negative septic shock Assessment & Plan: antibiotics Status: Acute (3) Coagulopathy Assessment & Plan: nutritional Status: Acute (4) Pancreatic cancer Assessment & Plan: stage IV outpatient chemotherapy Status: Acute
--- NOTE | 2017-05-07 22:42 | CP.PCM.PN ---
Subjective - Date & Time of Evaluation Date of Evaluation: 05/07/17 Time of Evaluation: 20:00 - Subjective Subjective: Pt is feeling better,afebrile, on Iv fluids, antibiotics Objective - Vital Signs/Intake and Output Vital Signs (last 24 hours): Temp Pulse Resp BP Pulse Ox 98.1 F 110 H 20 106/72 94 L 05/07/17 16:00 05/07/17 16:00 05/07/17 16:00 05/07/17 16:00 05/07/17 16:00 - Medications Medications: Current Medications Acetaminophen (Tylenol 325mg Tab) 650 mg PO Q6 PRN PRN Reason: Fever >100.4 F Last Admin: 05/05/17 23:39 Dose: 650 mg Fentanyl (Duragesic) 1 patch TD Q72H [facility] Last Admin: 05/06/17 17:14 Dose: 1 patch Hydromorphone HCl (Dilaudid) 1 mg IVP Q4H PRN PRN Reason: Pain, moderate (4-7) Last Admin: 05/07/17 18:33 Dose: 1 mg Piperacillin Sod/Tazobactam (Sod 3.375 gm/ Sodium Chloride) 100 mls @ 200 mls/ hr IVPB Q8H [facility] Last Admin: 05/07/17 15:26 Dose: 200 mls/hr Sodium Chloride (Sodium Chloride 0.9%) 1,000 mls @ 75 mls/hr IV .[id number] [facility] Last Admin: 05/05/17 15:02 Dose: 75 mls/hr Insulin Human Regular (Novolin R) 0 unit SC ACHS [facility] PRN Reason: Protocol Last Admin: 05/07/17 18:33 Dose: 2 unit Ondansetron HCl (Zofran Inj) 4 mg IVP Q6 PRN PRN Reason: Nausea/Vomiting Last Admin: 05/03/17 21:03 Dose: 4 mg Pantoprazole Sodium (Protonix Ec Tab) 40 mg PO ACB [facility] Last Admin: 05/07/17 09:19 Dose: 40 mg Potassium Chloride (K-Dur 20 Meq Er Tab) 40 meq PO BRK [facility] Last Admin: 05/07/17 09:18 Dose: 40 meq - Labs Labs: 05/06/17 07:27 05/06/17 07:27 PT 19.7 SECONDS (9.7-12.2) H 07/05/17 15:05 INR 1.7 04/30/17 15:05 APTT 38 SECONDS (21-34) H D 04/30/17 15:05 - Constitutional Appears: No Acute Distress - Head Exam Head Exam: ATRAUMATIC, NORMAL INSPECTION, NORMOCEPHALIC - Eye Exam Eye Exam: EOMI, Normal appearance, PERRL Pupil Exam: NORMAL ACCOMODATION, PERRL - Respiratory Exam Respiratory Exam: Clear to Ausculation Bilateral, NORMAL BREATHING PATTERN - Cardiovascular Exam Cardiovascular Exam: REGULAR RHYTHM, +S1, +S2. absent: Murmur - GI/Abdominal Exam GI & Abdominal Exam: Soft, Normal Bowel Sounds. absent: Tenderness - Rectal Exam Rectal Exam: Deferred Assessment and Plan (1) Anemia Status: Acute (2) Fever Status: Acute (3) Pancreatic cancer Status: Acute (4) Sepsis Status: Acute
--- NOTE | 2017-05-07 22:59 | CP.PCM.PN ---
Subjective - Date & Time of Evaluation Date of Evaluation: 05/07/17 Time of Evaluation: 22:58 - Subjective Subjective: CHIEF COMPLAINTS TODAY : LOW-GRADE TEMPERATURE C/O generalized abdominal pain .RT CHEST WALL DRESSING IN PLACE DRY, CLEAN, INTACT S/P PORT-A-CATH REMOVAL - REPEAT BLOOD CULTURES 05/02, 05/03 -VE TO DATE. BLOOD CULTURES 05/01/17 -E.COLI ROS. HEENT : N. Resp : No SOB wheezing, cough Cardio : No CP, PND orthopnea GI : No abd. Pain, n/v REGULATORY COMPLIANCE COORDINATOR : No headache , focal deficit. Musculoskel : N Ext. : Pedal pulses intact, no edema or calf pain Derm : N Psych : N. PE. Pt. is alert awake in no distress. V.S As noted in the chart Head ,ear nose,throat and eyes : Normal. Neck : Supple with normal carotids. Lungs: Clear air entry. Heart : S1 & S2 normal . . No murmur. Abd : Soft diffuse mild tenderness, with normal bowel sounds. Neuro : Moves all ext. with no localized deficit. Ext : No edema with intact pulses. Neg. calf tenderness Derm : No rashes or decubitus ulcer. Radiology/Labs 05/07/17 WBC 6.4 h/h 11.8/34.6 platelets improving Creatinine 0.9/BUN of 11 k 2.7 low Stool C. difficile negative. 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 NEW HEPATIC METASTASIS. BLOOD CULTURES 2:2 SETS +VE +VE E.COLI -MALLORY SENSITIVE REPEAT BLOOD CULTURES - -VE TO DATE. Urine cultures negative. Objective Objective - Vital Signs/Intake and Output Vital Signs (last 24 hours): Temp Pulse Resp BP Pulse Ox 98.1 F 110 H 20 106/72 94 L 05/07/17 16:00 05/07/17 16:00 05/07/17 16:00 05/07/17 16:00 05/07/17 16:00 - Medications Medications: Current Medications Acetaminophen (Tylenol 325mg Tab) 650 mg PO Q6 PRN PRN Reason: Fever >100.4 F Last Admin: 05/05/17 23:39 Dose: 650 mg Fentanyl (Duragesic) 1 patch TD Q72H [facility] Last Admin: 05/06/17 17:14 Dose: 1 patch Hydromorphone HCl (Dilaudid) 1 mg IVP Q4H PRN PRN Reason: Pain, moderate (4-7) Last Admin: 05/07/17 18:33 Dose: 1 mg Piperacillin Sod/Tazobactam (Sod 3.375 gm/ Sodium Chloride) 100 mls @ 200 mls/ hr IVPB Q8H [facility] Last Admin: 05/07/17 15:26 Dose: 200 mls/hr Sodium Chloride (Sodium Chloride 0.9%) 1,000 mls @ 75 mls/hr IV .[id number] [facility] Last Admin: 05/05/17 15:02 Dose: 75 mls/hr Insulin Human Regular (Novolin R) 0 unit SC ACHS [facility] PRN Reason: Protocol Last Admin: 05/07/17 18:33 Dose: 2 unit Ondansetron HCl (Zofran Inj) 4 mg IVP Q6 PRN PRN Reason: Nausea/Vomiting Last Admin: 05/03/17 21:03 Dose: 4 mg Pantoprazole Sodium (Protonix Ec Tab) 40 mg PO ACB [facility] Last Admin: 05/07/17 09:19 Dose: 40 mg Potassium Chloride (K-Dur 20 Meq Er Tab) 40 meq PO BRK [facility] Last Admin: 05/07/17 09:18 Dose: 40 meq - Labs Labs: 05/06/17 07:27 05/06/17 07:27 PT 19.7 SECONDS (9.7-12.2) H 04/30/17 15:05 INR 1.7 04/30/17 15:05 APTT 38 SECONDS (21-34) H D 04/30/17 15:05 Assessment and Plan (1) Gram negative septic shock Assessment & Plan: Continue IV Zosyn 3.375 q 8 hourly BLOOD CULTURES 05/01/17 STILL POSITIVE FOR E.COLI REPEAT BLOOD CULTURES 2 SETS 05/02, 05/03 17 -VE TO DATE X 3DAYS PATIENT'S BACTEREMIA CLEARED. OKAY FOR pORT-a-cATH IF NEEDED. Status: Acute (2) Fever Assessment & Plan: low-grade temperatures. Continue IV antibiotics. Status: Acute (3) Anemia Status: Acute (4) Pancreatic cancer Status: Acute (5) Diabetes mellitus Status: Chronic (6) Thrombocytopenia Status: Acute (7) GI bleeding Status: Acute
[2017-05-08] MEDS: Sodium Chloride 0.9% 1,000 ML IV SCH (02:31)
[2017-05-08] MEDS: Piperacillin/Tazobact 3.375 GM in Sodium Chloride 100 ML IVPB SCH ×3 (06:17→22:10)
[2017-05-08] MEDS: Potassium Chloride 20 mEq ER Tab PO SCH (08:10)
[2017-05-08] MEDS: Pantoprazole 40 mg EC Tab PO SCH (08:10)
[2017-05-08] MEDS: (Novolin R) Insulin Human Regular 100 units/ml vial SC SCH ×4 (08:10→22:10)
--- NOTE | 2017-05-08 10:26 | VASCLAB ---
PROCEDURE: Right Upper Extremity Venous Duplex Exam HISTORY: Fever, r/o DVT PRIORS: None. TECHNIQUE: Right upper extremity, internal jugular, subclavian, axillary, brachial, ulnar, radial, basilic and upper cephalic veins were evaluated. Flow was assessed with color Doppler, compressibility, assessment of phasic flow and augmentation response. Report prepared by XIOMY Wray FINDINGS: RIGHT: 1. Internal Jugular: 1.1. Compressibility - Fully compressible: Thrombus - None : Flow - Phasic: Augmentation -Normal: Reflux - None. 2. Subclavian: 2.1. Compressibility - Fully compressible: Thrombus - None : Flow - Phasic: Augmentation -Normal: Reflux - None. 3. Axillary: 3.1. Compressibility - Fully compressible: Thrombus - None : Flow - Phasic: Augmentation -Normal: Reflux - None. 4. Brachial: (proximal view only) 4.1. Compressibility - Fully compressible: Thrombus - None: Flow - Phasic: Augmentation -Normal: Reflux - None. 5. Ulnar: 5.1. Compressibility - Fully compressible: Thrombus - None: Flow - Phasic: Augmentation -Normal: Reflux - None. 6. Radial: 6.1. Compressibility - Fully compressible: Thrombus - None: Flow - Phasic: Augmentation - Normal: Reflux - None. 7. Cephalic: 7.1. Not visualized. 8. Basilic: (forearm view only) 8.1. Compressibility - Fully compressible: Thrombus - None: Flow - Phasic: Augmentation -Normal: Reflux - None. OTHER FINDINGS: Right: Distal upper arm brachial, and upper arm basilic were not imaged, due to dressings and lines in area. IMPRESSION: Right: 1. No evidence of venous thrombosis of the right upper extremity with excellent venous flow. 2. Patent right arm piccline. Normal venous flow noted in the left internal jugular and left subclavian veins.
[2017-05-08] MEDS: oxyCODONE 10 mg ER Tab (oxyCONTIN) PO SCH ×2 (12:39→22:09)
--- NOTE | 2017-05-08 13:18 | US ---
HISTORY: r/o hydrocele TECHNIQUE: Realtime sonography through the scrotum with color and doppler flow. COMPARISON: None Available. FINDINGS: RIGHT TESTICLE: Measures 3.4 x 2.1 x 2.3 cm. Normal echotexture and flow. No demonstrated cystic or solid testicular mass. RIGHT EPIDIDYMIS: Epididymal head measures 1.3 x 1.0 x 1.5 cm. Grossly unremarkable appearance with normal flow. LEFT TESTICLE: Measures 3.2.2 x 2.1 cm. Normal echotexture and flow. No demonstrated cystic or solid testicular mass. LEFT EPIDIDYMIS: Epididymal head measures 1.8 x 0.7 x 1.3 cm. Grossly unremarkable appearance with normal flow. HYDROCELE: Moderate bilateral hydroceles are identified with prominent scrotal soft tissue mid appreciated bilaterally as well. . VARICOCELE: None. OTHER FINDINGS: Intratesticular arterial blood flow has been captured on spectral Doppler analysis. There is evidence to suggest testicular torsion bilaterally. . IMPRESSION: Moderate bilateral hydroceles are identified bilaterally. No evidence to suggest testicular torsion, cyst or mass bilaterally. Prominent diffuse scrotal edema is appreciated bilaterally.
[2017-05-08 14:03] LABS: BASO % 0.2 % (0.0-2.0); HEMOGLOBIN 9.1 g/dL (12.0-18.0); LYMPH # 0.6 K/uL (1.0-4.3); LYMPH % 3.9 % (20.0-40.0); MEAN CELL VOLUME 90.3 fL (80.0-94.0); MEAN CORPUSCULAR HGB CONC 32.1 g/dL (33.0-37.0); MEAN PLATELET VOLUME 8.2 fL (7.2-11.7); MONO # 1.2 K/uL (0.0-0.8); MONO % 7.6 % (0.0-10.0); NEUT # 13.4 K/uL (1.8-7.0); NEUT % 88.3 % (50.0-75.0); PLATELET COUNT 149 K/uL (130-400); RBC 3.15 Mil/uL (4.40-5.90); RED CELL DISTRIBUTION WIDTH 17.3 % (11.5-14.5); WHITE BLOOD COUNT 15.2 K/uL (4.8-10.8)
[2017-05-08 14:20] LABS: BLOOD UREA NITROGEN 10 mg/dL (9-20); GFR AFRICAN-AMERICAN > 60; GFR NON-AFRICAN AMERICAN > 60
[2017-05-08 14:21] LABS: CALCIUM 7.1 mg/dl (8.6-10.4)
[2017-05-08 14:54] LABS: ANISOCYTOSIS SLIGHT; HYPOCHROMIC SLIGHT; LYMPHOCYTE 2 % (20-40); MONOCYTE 5 % (0-10); NEUTROPHIL 93 % (50-75); PLATELET ESTIMATE NORMAL (NORMAL); TOTAL CELLS COUNTED 100
--- NOTE | 2017-05-08 16:37 | CARD ---
APPROVED REPORT EXAM: Two-dimensional and M-mode echocardiogram with Doppler and color Doppler. INDICATION PANCREATIC CANCER ,FEVER, TACHY RISK FACTORS Hypertension Hyperlipidemia Diabetes M-Mode DIMENSIONS RVDd1.88 (2.1-3.2cm)Left Atrium (MM)4.06 (2.5-4.0cm) IVSd0.97 (0.7-1.1cm)Aortic Root4.22 (2.2-3.7cm) LVDd5.31 (4.0-5.6cm)Aortic Cusp Exc.2.23 (1.5-2.0cm) PWd0.88 (0.7-1.1cm)FS (%) 45 % LVDs2.95 (2.0-3.8cm)LVEF (%)75 (>50%) Aortic Valve AI P 1/2 [id number] Mitral Valve MV E Vryqcedw39.2cm/sMV A Wdtkctfj92.4cm/sE/A ratio0.7 TDI E/Lateral E'0.0E/Medial E'0.0 Tricuspid Valve TR Peak [id number]/sTR Peak Gr.[id number] LEFT VENTRICLE The left ventricle is normal size. There is normal left ventricular wall thickness. Left ventricle systolic function is normal. The Ejection Fraction is >70%. There is normal LV segmental wall motion. Transmitral Doppler flow pattern is Grade I-abnormal relaxation pattern. There is no ventricular septal defect visualized. RIGHT VENTRICLE The right ventricle is normal size. The right ventricular systolic function is normal. ATRIA The left atrium is borderline dilated. The right atrium size is normal. AORTIC VALVE The aortic valve is mildly sclerotic. The aortic valve is tri-cuspid. There is mild aortic regurgitation. There is no aortic valvular stenosis. MITRAL VALVE The mitral valve is normal in structure. There is no evidence of mitral valve prolapse. There is no mitral valve regurgitation noted. TRICUSPID VALVE The tricuspid valve is normal in structure. There is trace tricuspid regurgitation. Right ventricular systolic pressure is estimated at 30-40 mmHg. There is mild pulmonary hypertension. PULMONIC VALVE The pulmonic valve is not well visualized. There is no pulmonic valvular regurgitation. GREAT VESSELS The aortic root is mildly enlarged. The IVC was not visualized. PERICARDIAL EFFUSION There is no pericardial effusion. <Conclusion> Left ventricle systolic function is normal. The Ejection Fraction is >70%. Transmitral Doppler flow pattern is Grade I-abnormal relaxation pattern. There is mild aortic regurgitation. There is mild pulmonary hypertension. The aortic root is mildly enlarged.
--- NOTE | 2017-05-08 17:13 | CP.PCM.PN ---
Subjective - Date & Time of Evaluation Date of Evaluation: 05/08/17 Time of Evaluation: 20:00 - Subjective Subjective: Pt seen and examined, afebrile C/O generalized abdominal pain also scrotal edema noted, thus Patient is for testicular ultrasound. Objective - Vital Signs/Intake and Output Vital Signs (last 24 hours): Temp Pulse Resp BP Pulse Ox 98 F 111 H 20 103/71 95 05/08/17 16:00 05/08/17 16:00 05/08/17 16:00 05/08/17 16:00 05/08/17 16:00 Intake and Output: 05/08/17 05/08/17 06:59 18:59 Intake Total 600 980 Output Total 400 675 Balance 200 305 - Medications Medications: Current Medications Acetaminophen (Tylenol 325mg Tab) 650 mg PO Q6 PRN PRN Reason: Fever >100.4 F Last Admin: 05/05/17 23:39 Dose: 650 mg Fentanyl (Duragesic) 1 patch TD Q72H [facility] Last Admin: 05/08/17 12:39 Dose: 1 patch Hydromorphone HCl (Dilaudid) 1 mg IVP Q4H PRN PRN Reason: Pain, moderate (4-7) Last Admin: 05/08/17 10:42 Dose: 1 mg Piperacillin Sod/Tazobactam (Sod 3.375 gm/ Sodium Chloride) 100 mls @ 200 mls/ hr IVPB Q8H [facility] Last Admin: 05/08/17 14:00 Dose: 200 mls/hr Insulin Human Regular (Novolin R) 0 unit SC ACHS [facility] PRN Reason: Protocol Last Admin: 05/08/17 12:40 Dose: 2 unit Ondansetron HCl (Zofran Inj) 4 mg IVP Q6 PRN PRN Reason: Nausea/Vomiting Last Admin: 05/03/17 21:03 Dose: 4 mg Oxycodone HCl (Oxycontin Extended Release Tab) 10 mg PO Q12 [facility] Stop: 05/11/17 11:01 Last Admin: 05/08/17 12:39 Dose: 10 mg Pantoprazole Sodium (Protonix Ec Tab) 40 mg PO ACB [facility] Last Admin: 05/08/17 08:10 Dose: 40 mg Potassium Chloride (K-Dur 20 Meq Er Tab) 40 meq PO BRK [facility] Last Admin: 05/08/17 08:10 Dose: 40 meq - Labs Labs: 05/08/17 13:57 05/08/17 13:57 PT 19.7 SECONDS (9.7-12.2) H 04/30/17 15:05 INR 1.7 04/30/17 15:05 APTT 38 SECONDS (21-34) H D 04/30/17 15:05 Assessment and Plan (1) Anemia Status: Acute (2) Fever Status: Acute (3) Pancreatic cancer Status: Acute (4) Sepsis Status: Acute
--- NOTE | 2017-05-08 20:17 | CP.PCM.PN ---
Subjective - Date & Time of Evaluation Date of Evaluation: 05/08/17 Time of Evaluation: 19:00 - Subjective Subjective: Has lower extremity and scrotal swelling Objective - Vital Signs/Intake and Output Vital Signs (last 24 hours): Temp Pulse Resp BP Pulse Ox 98 F 111 H 20 103/71 95 05/08/17 16:00 05/08/17 16:00 05/08/17 16:00 05/08/17 16:00 05/08/17 16:00 Intake and Output: 05/08/17 05/09/17 18:59 06:59 Intake Total 980 Output Total 675 Balance 305 - Medications Medications: Current Medications Acetaminophen (Tylenol 325mg Tab) 650 mg PO Q6 PRN PRN Reason: Fever >100.4 F Last Admin: 05/05/17 23:39 Dose: 650 mg Fentanyl (Duragesic) 1 patch TD Q72H [facility] Last Admin: 05/08/17 12:39 Dose: 1 patch Hydromorphone HCl (Dilaudid) 1 mg IVP Q4H PRN PRN Reason: Pain, moderate (4-7) Last Admin: 05/08/17 17:24 Dose: 1 mg Piperacillin Sod/Tazobactam (Sod 3.375 gm/ Sodium Chloride) 100 mls @ 200 mls/ hr IVPB Q8H [facility] Last Admin: 05/08/17 14:00 Dose: 200 mls/hr Insulin Human Regular (Novolin R) 0 unit SC ACHS [facility] PRN Reason: Protocol Last Admin: 05/08/17 17:19 Dose: 3 unit Ondansetron HCl (Zofran Inj) 4 mg IVP Q6 PRN PRN Reason: Nausea/Vomiting Last Admin: 05/03/17 21:03 Dose: 4 mg Oxycodone HCl (Oxycontin Extended Release Tab) 10 mg PO Q12 [facility] Stop: 05/11/17 11:01 Last Admin: 05/08/17 12:39 Dose: 10 mg Pantoprazole Sodium (Protonix Ec Tab) 40 mg PO ACB [facility] Last Admin: 05/08/17 08:10 Dose: 40 mg Potassium Chloride (K-Dur 20 Meq Er Tab) 40 meq PO BRK [facility] Last Admin: 05/08/17 08:10 Dose: 40 meq - Labs Labs: 05/08/17 13:57 05/08/17 13:57 PT 19.7 SECONDS (9.7-12.2) H 04/30/17 15:05 INR 1.7 04/30/17 15:05 APTT 38 SECONDS (21-34) H D 04/30/17 15:05 - Head Exam Head Exam: ATRAUMATIC - Eye Exam Eye Exam: Normal appearance - ENT Exam ENT Exam: Mucous Membranes Dry - Respiratory Exam Respiratory Exam: NORMAL BREATHING PATTERN - Cardiovascular Exam Cardiovascular Exam: +S1, +S2 - GI/Abdominal Exam GI & Abdominal Exam: Normal Bowel Sounds - Extremities Exam Extremities Exam: Pedal Edema Assessment and Plan (1) Anemia Assessment & Plan: chronic disease and chemotherapy Status: Acute (2) Leukocytosis Assessment & Plan: on antibiotics Status: Acute (3) Coagulopathy Assessment & Plan: nutritional Status: Acute (4) Pancreatic cancer Assessment & Plan: stage IV outpatient chemotherapy Status: Acute
--- NOTE | 2017-05-08 22:47 | CP.PCM.PN ---
Subjective - Date & Time of Evaluation Date of Evaluation: 05/08/17 Time of Evaluation: 22:47 - Subjective Subjective: CHIEF COMPLAINTS TODAY : afebrile C/O generalized abdominal pain scrotal edema noted. Patient for testicular ultrasound. .RT CHEST WALL DRESSING IN PLACE DRY, CLEAN, INTACT S/P PORT-A-CATH REMOVAL - REPEAT BLOOD CULTURES 05/02, 05/03 -VE TO DATE. BLOOD CULTURES 05/01/17 -E.COLI ROS. HEENT : N. Resp : No SOB wheezing, cough Cardio : No CP, PND orthopnea GI : No abd. Pain, n/v TEASELER : No headache , focal deficit. Musculoskel : N Ext. : Pedal pulses intact, no edema or calf pain Derm : N Psych : N. PE. Pt. is alert awake in no distress. V.S As noted in the chart Head ,ear nose,throat and eyes : Normal. Neck : Supple with normal carotids. Lungs: Clear air entry. Heart : S1 & S2 normal . . No murmur. Abd : Soft diffuse mild tenderness, with normal bowel sounds. Neuro : Moves all ext. with no localized deficit. Ext : +ve edema with intact pulses. Neg. calf tenderness Derm : No rashes or decubitus ulcer. genitalia: scrotal edema/.nontender testicles. Radiology/Labs WBC increased to 15.2 Potassium 3.9-okay Stool C. difficile negative. 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 NEW HEPATIC METASTASIS. BLOOD CULTURES 2:2 SETS +VE +VE E.COLI -MALLORY SENSITIVE REPEAT BLOOD CULTURES - -VE TO DATE. Urine cultures negative. Objective - Vital Signs/Intake and Output Vital Signs (last 24 hours): Temp Pulse Resp BP Pulse Ox 98 F 111 H 20 103/71 95 05/08/17 16:00 05/08/17 16:00 05/08/17 16:00 05/08/17 16:00 05/08/17 16:00 Intake and Output: 05/08/17 05/09/17 18:59 06:59 Intake Total 980 550 Output Total 675 Balance 305 550 - Medications Medications: Current Medications Acetaminophen (Tylenol 325mg Tab) 650 mg PO Q6 PRN PRN Reason: Fever >100.4 F Last Admin: 05/05/17 23:39 Dose: 650 mg Fentanyl (Duragesic) 1 patch TD Q72H [facility] Last Admin: 05/08/17 12:39 Dose: 1 patch Hydromorphone HCl (Dilaudid) 1 mg IVP Q4H PRN PRN Reason: Pain, moderate (4-7) Last Admin: 05/08/17 17:24 Dose: 1 mg Piperacillin Sod/Tazobactam (Sod 3.375 gm/ Sodium Chloride) 100 mls @ 200 mls/ hr IVPB Q8H [facility] Last Admin: 05/08/17 22:10 Dose: 200 mls/hr Insulin Human Regular (Novolin R) 0 unit SC ACHS [facility] PRN Reason: Protocol Last Admin: 05/08/17 22:10 Dose: Not Given Ondansetron HCl (Zofran Inj) 4 mg IVP Q6 PRN PRN Reason: Nausea/Vomiting Last Admin: 05/03/17 21:03 Dose: 4 mg Oxycodone HCl (Oxycontin Extended Release Tab) 10 mg PO Q12 [facility] Stop: 05/11/17 11:01 Last Admin: 05/08/17 22:09 Dose: 10 mg Pantoprazole Sodium (Protonix Ec Tab) 40 mg PO ACB [facility] Last Admin: 05/08/17 08:10 Dose: 40 mg Potassium Chloride (K-Dur 20 Meq Er Tab) 40 meq PO BRK [facility] Last Admin: 05/08/17 08:10 Dose: 40 meq - Labs Labs: 05/08/17 13:57 05/08/17 13:57 PT 19.7 SECONDS (9.7-12.2) H 04/30/17 15:05 INR 1.7 04/30/17 15:05 APTT 38 SECONDS (21-34) H D 04/30/17 15:05 Assessment and Plan (1) Gram negative septic shock Assessment & Plan: increasing leukocytosis . Follow-up duplex venous studies right upper extremity to rule out patency right arm PICC line. Patient also for testicular ultrasound . Continue IV Zosyn 3.375 q 8 hourly BLOOD CULTURES 05/01/17 STILL POSITIVE FOR E.COLI REPEAT BLOOD CULTURES 2 SETS 05/02, 05/03 17 -VE TO DATE X 3DAYS Status: Acute (2) Fever Assessment & Plan: check testicular ultrasound as ordered. Case discussed with nurse practitioner MS. ELMORE. IF WORKUP NEGATIVE AND PATIENT AFEBRILE AND CLINICALLY STABLE MAY BE ABLE TO SWITCH TO BY MOUTH CIPRO 500 TWICE A DAY FOR 7 DAYS.. Status: Acute (3) Anemia Status: Acute (4) Pancreatic cancer Assessment & Plan: patient for chemotherapy as per oncology hematology as outpatient. Status: Acute (5) Diabetes mellitus Status: Chronic (6) Thrombocytopenia Assessment & Plan: improved. Status: Acute (7) GI bleeding Status: Acute
[2017-05-09] MEDS: Piperacillin/Tazobact 3.375 GM in Sodium Chloride 100 ML IVPB SCH ×2 (06:07→15:14)
[2017-05-09 06:50] LABS: BASO % 0.3 % (0.0-2.0); EOS % 0.2 % (0.0-4.0); HEMOGLOBIN 8.7 g/dL (12.0-18.0); LYMPH # 0.8 K/uL (1.0-4.3); LYMPH % 6.1 % (20.0-40.0); MEAN CELL VOLUME 89.8 fL (80.0-94.0); MEAN CORPUSCULAR HEMOGLOBIN 29.3 pg (27.0-31.0); MEAN CORPUSCULAR HGB CONC 32.6 g/dL (33.0-37.0); MEAN PLATELET VOLUME 8.3 fL (7.2-11.7); MONO # 1.4 K/uL (0.0-0.8); MONO % 10.9 % (0.0-10.0); NEUT # 10.6 K/uL (1.8-7.0); NEUT % 82.5 % (50.0-75.0); PLATELET COUNT 187 K/uL (130-400); RBC 2.98 Mil/uL (4.40-5.90); RED CELL DISTRIBUTION WIDTH 17.6 % (11.5-14.5); WHITE BLOOD COUNT 12.9 K/uL (4.8-10.8)
[2017-05-09 07:01] LABS: BLOOD UREA NITROGEN 11 mg/dL (9-20); CALCIUM 7.2 mg/dl (8.6-10.4); GFR AFRICAN-AMERICAN > 60; GFR NON-AFRICAN AMERICAN > 60
[2017-05-09 08:30] LABS: LYMPHOCYTE 6 % (20-40); MONOCYTE 8 % (0-10); TOTAL CELLS COUNTED 100
[2017-05-09 08:32] LABS: ANISOCYTOSIS SLIGHT; HYPOCHROMIC SLIGHT; PLATELET ESTIMATE NORMAL (NORMAL); POLYCHROMIC SLIGHT; TARGET CELLS SLIGHT
[2017-05-09 08:33] LABS: BURR CELLS SLIGHT; MYELOCYTE 1 % (0-0); NEUTROPHIL 85 % (50-75)
[2017-05-09] MEDS: oxyCODONE 10 mg ER Tab (oxyCONTIN) PO SCH (09:23)
[2017-05-09] MEDS: Potassium Chloride 20 mEq ER Tab PO SCH (09:23)
[2017-05-09] MEDS: (Novolin R) Insulin Human Regular 100 units/ml vial SC SCH ×2 (09:23→13:43)
[2017-05-09] MEDS: Pantoprazole 40 mg EC Tab PO SCH (09:24)
[2017-05-09 16:20] VITALS: BP 118/71; PULSE 100; RESP 20; TEMP 98.6; O2SAT 96
--- NOTE | 2017-05-09 22:59 | CP.PCM.DIS ---
Provider - Provider Date of Admission: 04/29/17 02:21 Attending physician: Isidoro Collier MD Time Spent in preparation of Discharge (in minutes): 45 Diagnosis - Discharge Diagnosis (1) Anemia Status: Acute (2) Fever Status: Acute (3) Pancreatic cancer Status: Acute (4) Sepsis Status: Acute Hospital Course - Lab Results Lab Results: Micro Results 05/03/17 06:30 Blood Blood Culture - Final NO GROWTH AFTER 5 DAYS 05/03/17 06:30 Blood Gram Stain - Final TEST NOT PERFORMED 05/03/17 07:00 Blood Blood Culture - Final NO GROWTH AFTER 5 DAYS 05/03/17 07:00 Blood Gram Stain - Final TEST NOT PERFORMED 05/02/17 05:30 Blood Blood Culture - Final NO GROWTH AFTER 5 DAYS 05/02/17 05:30 Blood Gram Stain - Final TEST NOT PERFORMED 05/02/17 05:00 Blood Blood Culture - Final NO GROWTH AFTER 5 DAYS 05/02/17 05:00 Blood Gram Stain - Final TEST NOT PERFORMED 05/05/17 Unknown Nose MRSA Culture (Admit) - Final MRSA NOT DETECTED 05/01/17 14:30 Blood Blood Culture - Final Escherichia Coli 05/01/17 14:30 Blood Gram Stain - Final 05/01/17 14:30 Blood Blood Culture - Final Escherichia Coli 05/01/17 14:30 Blood Gram Stain - Final 04/29/17 06:00 Blood Blood Culture - Final Escherichia Coli 04/29/17 06:00 Blood Gram Stain - Final 04/29/17 06:00 Blood Blood Culture - Final Escherichia Coli 04/29/17 06:00 Blood Gram Stain - Final 04/29/17 09:00 Nose MRSA Culture (Admit) - Final 04/29/17 09:00 Urine Urine Culture - Final No Growth (<1,000 CFU/ML) Most Recent Lab Values WBC 12.9 K/uL (4.8-10.8) H 05/09/17 06:27 RBC 2.98 Mil/uL (4.40-5.90) L 05/09/17 06:27 Hgb 8.7 g/dL (12.0-18.0) L 05/09/17 06:27 Hct 26.7 % (35.0-51.0) L 05/09/17 06:27 MCV 89.8 fL (80.0-94.0) 05/09/17 06:27 MCH 29.3 pg (27.0-31.0) 05/09/17 06:27 MCHC 32.6 g/dL (33.0-37.0) L 05/09/17 06:27 RDW 17.6 % (11.5-14.5) H 05/09/17 06:27 Plt Count 187 K/uL (130-400) 05/09/17 06:27 MPV 8.3 fL (7.2-11.7) 05/09/17 06:27 Neut % (Auto) 82.5 % (50.0-75.0) H 05/09/17 06:27 Lymph % (Auto) 6.1 % (20.0-40.0) L 05/09/17 06:27 [place] % (Auto) 10.9 % (0.0-10.0) H 05/09/17 06:27 Eos % (Auto) 0.2 % (0.0-4.0) 05/09/17 06:27 Baso % (Auto) 0.3 % (0.0-2.0) 05/09/17 06:27 Neut # 10.6 K/uL (1.8-7.0) H 05/09/17 06:27 Lymph # 0.8 K/uL (1.0-4.3) L 05/09/17 06:27 [place] # 1.4 K/uL (0.0-0.8) H 05/09/17 06:27 Eos # 0.0 K/uL (0.0-0.7) 05/09/17 06:27 Baso # 0.0 K/uL (0.0-0.2) 05/09/17 06:27 Neutrophils % (Manual) 85 % (50-75) H 05/09/17 06:27 Band Neutrophils % 2 % (0-2) 05/06/17 07:27 Lymphocytes % (Manual) 6 % (20-40) L 05/09/17 06:27 Reactive Lymphs % 1 % (0-0) H 05/02/17 06:50 Monocytes % (Manual) 8 % (0-10) 05/09/17 06:27 Metamyelocytes % 1 % (0-0) H 04/29/17 22:19 Myelocytes % 1 % (0-0) H 05/09/17 06:27 Differential Comment 05/03/17 07:00 Hypersegmented Polys Present 04/29/17 00:18 Toxic Granulation Present 04/29/17 06:53 Platelet Estimate Normal (NORMAL) 05/09/17 06:27 Polychromasia Slight 05/09/17 06:27 Hypochromasia (manual) Slight 05/09/17 06:27 Poikilocytosis (manual Slight 05/06/17 07:27 Anisocytosis (manual) Slight 05/09/17 06:27 Microcytosis (manual) Slight 04/29/17 22:19 Macrocytosis (manual) Slight 05/06/17 07:27 Target Cells Slight 05/09/17 06:27 Ovalocytes Slight 05/06/17 07:27 Alan Cells Slight 05/09/17 06:27 PT 19.7 SECONDS (9.7-12.2) H 04/30/17 15:05 INR 1.7 04/30/17 15:05 APTT 38 SECONDS (21-34) H D 04/30/17 15:05 Fibrinogen 369 mg/dL (200-400) 05/01/17 06:34 pO2 38 mm/Hg (30-55) 04/29/17 02:52 VBG pH 7.41 (7.32-7.43) 04/29/17 02:52 VBG pCO2 31 mmHg (40-60) L 04/29/17 02:52 VBG HCO3 21.1 mmol/L 04/29/17 02:52 VBG Total CO2 20.6 mmol/L (22-28) L 04/29/17 02:52 VBG O2 Sat (Calc) 79.0 % (40-65) H 04/29/17 02:52 VBG Base Excess -4.0 mmol/L (0.0-2.0) L 04/29/17 02:52 VBG Potassium 3.3 mmol/L (3.6-5.2) L 04/29/17 02:52 Sodium 131.0 mmol/l (132-148) L 04/29/17 02:52 Chloride 105.0 mmol/L (98-107) 04/29/17 02:52 Glucose 96 mg/dl (75-110) 04/29/17 02:52 Lactate 2.5 mmol/L (0.7-2.1) H 04/29/17 02:52 Crit Value Called To Dr collier 04/29/17 02:52 Crit Value Called By Linda barros rt 04/29/17 02:52 Crit Value Read Back Y 04/29/17 02:52 Blood Gas Notified Time 258 04/29/17 02:52 Sodium 128 mmol/L (132-148) L 05/09/17 06:27 Potassium 3.9 mmol/L (3.6-5.2) 05/09/17 06:27 Chloride 95 mmol/L (98-107) L 05/09/17 06:27 Carbon Dioxide 25 mmol/L (22-30) 05/09/17 06:27 Anion Gap 12 (10-20) 05/09/17 06:27 BUN 11 mg/dL (9-20) 05/09/17 06:27 Creatinine 0.4 MG/DL (0.8-1.5) L 05/09/17 06:27 Est GFR ( Amer) > 60 05/09/17 06:27 Est GFR (Non-Af Amer) > 60 05/09/17 06:27 POC Glucose (mg/dL) 189 mg/dL (65-110) H 05/09/17 16:12 Random Glucose 191 mg/dL (75-110) H 05/09/17 06:27 Lactic Acid 1.6 mmol/L (0.7-2.1) 04/29/17 06:56 Calcium 7.2 mg/dl (8.6-10.4) L 05/09/17 06:27 Phosphorus 2.2 mg/dL (2.5-4.5) L 05/06/17 07:27 Magnesium 1.7 mg/dL (1.6-2.3) 05/06/17 07:27 Total Bilirubin 1.2 mg/dL (0.2-1.3) 05/06/17 07:27 Direct Bilirubin 1.0 mg/dL (0.0-0.4) H 04/30/17 05:17 AST 17 U/L (17-59) 05/06/17 07:27 ALT 27 U/L (21-72) 05/06/17 07:27 Alkaline Phosphatase 86 U/L (38-126) 05/06/17 07:27 Total Protein 4.6 g/dL (6.3-8.3) L 05/06/17 07:27 Albumin 1.8 g/dL (3.5-5.0) L 05/06/17 07:27 Globulin 2.8 gm/dL (2.2-3.9) 05/06/17 07:27 Albumin/Globulin Ratio 0.7 (1.0-2.1) L 05/06/17 07:27 Lipase < 10 U/L (23-300) L 04/29/17 00:18 Venous Blood Potassium 3.3 mmol/L (3.6-5.2) L 04/29/17 02:52 Urine Color Yellow (YELLOW) 05/03/17 19:35 Urine Clarity Clear (Clear) 05/03/17 19:35 Urine pH 5.0 (5.0-8.0) 05/03/17 19:35 Ur Specific [place] 1.019 (1.003-1.030) 05/03/17 19:35 Urine Protein Negative mg/dL (NEGATIVE) 05/03/17 19:35 Urine Glucose (UA) 1+ mg/dL (Normal) H 05/03/17 19:35 Urine Ketones Trace mg/dL (NEGATIVE) 05/03/17 19:35 Urine Blood Negative (NEGATIVE) 05/03/17 19:35 Urine Nitrate Negative (NEGATIVE) 05/03/17 19:35 Urine Bilirubin Negative (NEGATIVE) 05/03/17 19:35 Urine Urobilinogen Normal mg/dL (0.2-1.0) 05/03/17 19:35 Ur Leukocyte Esterase Neg Radha/uL (Negative) 05/03/17 19:35 Urine WBC (Auto) < 1 /hpf (0-5) 05/03/17 19:35 Urine RBC (Auto) 3 /hpf (0-3) 05/03/17 19:35 Ur Squamous Epith Cells < 1 /hpf (0-5) 05/03/17 19:35 Stool Occult Blood Positive (NEGATIVE) H 04/30/17 06:40 Blood Type A POSITIVE 05/03/17 13:16 Blood Type Confirm A POSITIVE 04/29/17 10:48 Antibody Screen Negative 07/08/17 13:16 - Hospital Course Hospital Course: Pt is discharged home on PO keflex with follow up with me out patient in 1week Discharge Exam - Head Exam Head Exam: ATRAUMATIC - Eye Exam Eye Exam: EOMI, Normal appearance, PERRL Pupil Exam: NORMAL ACCOMODATION, PERRL - ENT Exam ENT Exam: Mucous Membranes Moist - Respiratory Exam Respiratory Exam: Clear to PA & Lateral, NORMAL BREATHING PATTERN - Cardiovascular Exam Cardiovascular Exam: REGULAR RHYTHM, +S1, +S2 - GI/Abdominal Exam GI & Abdominal Exam: Normal Bowel Sounds Discharge Plan - Follow Up Plan Condition: GUARDED Disposition: HOME/ ROUTINE Instructions: Cephalexin (By mouth), Pain Management in the Elderly (DC), Heart Healthy Diet (DC), Sepsis (GEN), Low Sodium Diet (DC), Anemia (DC), Thrombocytopenia (DC) Referrals: Isidoro Collier MD [Staff Provider] -
--- NOTE | 2017-05-10 02:52 | CON ---
DATE: 05/09/2017 HISTORY OF PRESENT ILLNESS: The patient is a 57-year-old [place] male, who was admitted to the hospital because of fever and pancreatic cancer. I called to see the patient because of swelling of the scrotum without any pain. The patient apparently walking very little, has no trauma to the testicle. No history of dysuria, urgency or frequency. Has no previous swelling prior to this admission. PHYSICAL EXAMINATION: ABDOMEN: Soft. No flank tenderness. No kidney palpable. No suprapubic fullness. Testicles, edema and the swelling of the scrotum and the penile skin. EXTREMITIES: Also, he has swelling of the thighs and the lower extremity with pitting edema. LABORATORY DATA: Ultrasound of the scrotum revealed small bilateral hydrocele, otherwise normal. IMPRESSION: Small hydrocele, the extensive swelling related to the pressure from the pancreatic tumor to the vena cava or congestive heart failure. If Dr. Collier agree, may be some Lasix will help if the blood pressure stays still. Deborah Carbone MD
--- NOTE | 2017-05-13 15:49 | PCM.OP ---
Operative Report - Operative Report Date of Surgery/Procedure: 04/30/17 Time of Surgery/Procedure: 11:00 Surgeon: Toan Gonzales MD. Heel Blacker: Mabel Harp MD. Anesthesia/Sedation: Local anesthesia plus sedation Pre-Operative Diagnosis: 1. Septic shock. 2. Infected prosthetic. 3. Stage IV pancreatic cancer. Post-Operative Diagnosis: 1. Septic shock. 2. Infected prosthetic. 3. Stage IV pancreatic cancer. Indication for Surgery: Patient had a normal looking prosthetic without any sign of infection or abscess. Patient also had a capsule surround the prosthetic that was excised. Operative Findings: No abscess at site of port. Procedure/Operation Description: 1. Removal of infected prosthetic. 2. Capsulectomy. 57 y/o male was diagnosed with septic shock and patient had a state IV pancreatic cancer. Presumed site of infection was at the prosthetic and patient was consented for prosthetic removal. Brought to OR placed supine on operative table. After induction of the anesthesia, the local anesthetic was injected surrounding the prosthetic and the 4 cm incision was made on the previous incision and then the capsule was identified and the capsulotomy was done, as well as, the prosthetic was also removed completely. It was sent from the table for pathology. After the proper hemostasis, the wound was closed in multiple layers. The subcutaneous with 2-0 vicryls and the skin with 4-0 monocryl and dry, sterile dressing was applied. Patient tolerated procedure well. The count of instruments was correct. There were no operative complication. The patient was sent back to ICU in stable condition. Estimated Blood Loss: 5 cc. Drains: None. Complications: None. Specimen: The infected prosthetic as well as capsule was sent to the pathology. Discharge & Condition: stable
== END 2017-05-09 19:25 | disposition home or self-care (01) | DRG 543 ==
LOC: C.ER 23:50 → C.9I 04-29 02:21 → C.5T 05-05 17:07
PROVIDERS: ADMIT Internal Medicine; ATTEND Internal Medicine
PROC: 0JPT0XZ Removal of Tunneled Vascular Access Device from Trunk Subcutaneous Tissue and Fascia, Open Approach (ICD-10-PCS; principal; 2017-04-30 17:30)
DX: T80.211A Bloodstream infection due to central venous catheter, initial encounter (principal); A41.51 Sepsis due to Escherichia coli [E. coli]; R65.21 Severe sepsis with septic shock; D61.810 Antineoplastic chemotherapy induced pancytopenia; D68.9 Coagulation defect, unspecified; C78.7 Secondary malignant neoplasm of liver and intrahepatic bile duct; C25.9 Malignant neoplasm of pancreas, unspecified; E87.1 Hypo-osmolality and hyponatremia; I50.9 Heart failure, unspecified; K92.2 Gastrointestinal hemorrhage, unspecified; I10 Essential (primary) hypertension; E11.9 Type 2 diabetes mellitus without complications; G89.29 Other chronic pain; I49.3 Ventricular premature depolarization; N43.3 Hydrocele, unspecified; K64.8 Other hemorrhoids; N50.89 Other specified disorders of the male genital organs; T45.1X5A Adverse effect of antineoplastic and immunosuppressive drugs, initial encounter; Z51.5 Encounter for palliative care; Z79.4 Long term (current) use of insulin; Z87.891 Personal history of nicotine dependence

== ENCOUNTER 2017-05-19 21:58 | Inpatient (IN) | payer MEDICAID ==
[2017-05-19 21:58] VITALS: BMI 20.8
--- NOTE | 2017-05-19 22:47 | C.PDOC ---
History Of Present Illness Patient with metastatic pancreatic CA presents to the ER with a complaint of increasing SOB. Patient is currently speaking in 4-5 word sentences; denies chest pain, palpitations, fever, chills, nausea, or vomiting. Chief Complaint (Nursing): Shortness Of Breath History Per: Patient History/Exam Limitations: no limitations Onset/Duration Of Symptoms: Hrs Current Symptoms Are (Timing): Still Present Initiating Event: Other (Not known) Current Respiratory Medications: None Pain Scale Rating Of: 0 Associated Symptoms: denies: Fever, Chills, Chest Pain Recent travel outside of the [place]: No Past Medical History Reviewed: Historical Data, Nursing Documentation, Vital Signs Vital Signs: Last Vital Signs Temp 98 F 05/20/17 00:35 Pulse 120 H 05/20/17 00:35 Resp 25 H 05/20/17 00:35 BP 100/75 05/20/17 00:35 Pulse Ox 95 05/20/17 00:55 - Medical History PMH: Diabetes, HTN, Malignancy (Pancreas) Surgical History: Cholecystectomy - [facility] Procedures EXCISION OF PANCREAS, PERCUTANEOUS APPROACH, DIAGNOSTIC (09/20/16) FLUOROSCOPY OF R JUGULAR VEIN USING [facility] CONTRAST, GUIDANCE (09/20/16) INSERT INFUSION DEV IN R INT JUGULAR VEIN, PERC (09/20/16) REMOVAL OF VAD FROM TRUNK SUBCU/FASCIA, OPEN APPROACH (04/29/17) RESECTION OF GALLBLADDER, PERCUTANEOUS ENDOSCOPIC APPROACH (12/05/15) Family History: States: No Known Family Hx - Social History Hx Tobacco Use: No Hx Alcohol Use: No Hx Substance Use: No - Immunization History Hx Tetanus Toxoid Vaccination: No Hx Influenza Vaccination: No Hx Pneumococcal Vaccination: No Review Of Systems Constitutional: Negative for: Fever, Chills Eyes: Negative for: Redness Cardiovascular: Negative for: Chest Pain, Palpitations Respiratory: Positive for: Shortness of Breath, SOB with Excertion Gastrointestinal: Positive for: Abdominal Pain. Negative for: Nausea, Vomiting Genitourinary: Negative for: Dysuria Musculoskeletal: Negative for: Back Pain Skin: Positive for: Jaundice. Negative for: Rash Neurological: Negative for: Confusion Psych: Negative for: Anxiety Physical Exam - Physical Exam Appears: Non-toxic Skin: Warm, Dry, Pale, Jaundice Head: Normacephalic Eye(s): bilateral: Normal Inspection, Conjunctiva Pale Oral Mucosa: Dry Neck: Trachea Midline, Supple Chest: Symmetrical, No Tenderness, Other (Right sided chest port) Cardiovascular: Rhythm Regular (Tachycardic), No Murmur Respiratory: Rales (At bases), Rhonchi (bases), No Wheezing, Other Gastrointestinal/Abdominal: Soft, Tenderness (mild , diffuse), Distention ( Severe, positive fluid wave), No Guarding, No Hernia, Other (Unable to palpate liver) Back: No CVA Tenderness Extremity: Pedal Edema (Bilateral), No Calf Tenderness Extremity: Bilateral: Atraumatic Neurological/Psych: Oriented x3, Normal Speech, Normal Cognition Gait: With Assistance ED Course And Treatment - Laboratory Results Result Diagrams: 05/19/17 22:58 05/19/17 22:58 ECG: Interpreted By Me, Viewed By Me ECG Rhythm: Nonspecific Changes O2 Sat by Pulse Oximetry: 95 Pulse Ox Interpretation: Normal - Radiology CXR: Interpreted by Me, Viewed By Me CXR Interpretation: Yes: Cardiomegaly, Other (por tr chest, chf) Progress Note: Blood work, EKG, CXR, and urinalysis ordered. Lasix and zofran administered. 11:40spoke with dr chapa - icu- will come and see the pt in the ed Critical Care Time - Critical Care Note Total Time (in mins): 30 Documented critical care: time excludes all time spent performing seperately billable procedures. Disposition Discussed With : Mirta Yanez Comment: accepted the pt on her service and took over the care at 12:44 AM Doctor Will See Patient In The: Hospital Counseled Patient/Family Regarding: Studies Performed, Diagnosis - Disposition Disposition: HOSPITALIZED Disposition Time: 22:47 Condition: GUARDED - POA Present On Arrival: None - Clinical Impression Clinical Impression: Dyspnea, Pancreatic cancer, Metastasis from pancreatic cancer, Hyperkalemia, Anemia, Sepsis, Ascites - Scribe Statement The provider has reviewed the documentation as recorded by the Scribestephania Clayton All medical record entries made by the Stephieibestephania were at my direction and personally dictated by me. I have reviewed the chart and agree that the record accurately reflects my personal performance of the history, physical exam, medical decision making, and the department course for this patient. I have also personally directed, reviewed, and agree with the discharge instructions and disposition. Decision To Admit - Pt Status Changed To: Hospital Disposition Of: Inpatient - Admit Certification Admit to Inpatient:: After my assessment, the patient will require hospitalization for at least two midnights. This is because of the severity of symptoms shown, intensity of services needed, and/or the medical risk in this patient being treated as an outpatient. - InPatient: Physician Admission Certification: I certify that this patient requires 2 or more midnights of care for the following reason:: After my assessment, the patient will require hospitalization for at least two midnights. This is because of the severity of symptoms shown, intensity of services needed, and/or the medical risk in this patient being treated as an outpatient. - . Bed Request Type: Telemetry Admitting Physician: Mirta Yanez Patient Diagnosis: Dyspnea, Pancreatic cancer, Metastasis from pancreatic cancer, Hyperkalemia, Anemia, Sepsis, Ascites
[2017-05-19 23:01] LABS: BASO % 0.3 % (0.0-2.0); EOS # 0.1 K/uL (0.0-0.7); EOS % 0.3 % (0.0-4.0); HEMATOCRIT 34.8 % (35.0-51.0); LYMPH # 0.7 K/uL (1.0-4.3); LYMPH % 3.9 % (20.0-40.0); MEAN CELL VOLUME 92.1 fL (80.0-94.0); MEAN CORPUSCULAR HEMOGLOBIN 28.9 pg (27.0-31.0); MEAN CORPUSCULAR HGB CONC 31.4 g/dL (33.0-37.0); MEAN PLATELET VOLUME 7.4 fL (7.2-11.7); MONO # 2.8 K/uL (0.0-0.8); MONO % 14.5 % (0.0-10.0); PLATELET COUNT 348 K/uL (130-400); RED CELL DISTRIBUTION WIDTH 18.3 % (11.5-14.5); WHITE BLOOD COUNT 19.1 K/uL (4.8-10.8)
[2017-05-19 23:09] LABS: INR 1.8
[2017-05-19 23:09] LABS: ABG ALLEN TEST N; DRAW SITE VBG; VENOUS BLOOD GAS BASE EXCESS -3.5 mmol/L (0.0-2.0); VENOUS BLOOD GAS PCO2 56 mmHg (40-60); VENOUS BLOOD PH 7.25 (7.32-7.43)
[2017-05-19 23:10] LABS: CHLORIDE 89 mmol/L (98-107); SODIUM 129 mmol/L (132-148)
[2017-05-19 23:11] LABS: POTASSIUM 5.7 mmol/L (3.6-5.2)
[2017-05-19 23:12] LABS: AST/SGOT 30 U/L (17-59); BILIRUBIN,TOTAL 1.3 mg/dL (0.2-1.3); CARBON DIOXIDE 25 mmol/L (22-30); GFR AFRICAN-AMERICAN > 60
[2017-05-19 23:13] LABS: ALB/GLOB RATIO 0.7 (1.0-2.1); ALKALINE PHOSPHATASE 150 U/L (38-126); ALT/SGPT 21 U/L (21-72); BLOOD UREA NITROGEN 22 mg/dL (9-20); CALCIUM 7.5 mg/dl (8.6-10.4); GLUCOSE,RANDOM 106 mg/dL (75-110); TOTAL PROTEIN 5.5 g/dL (6.3-8.3)
[2017-05-19 23:38] LABS: VENOUS BLOOD GAS BASE EXCESS 2.4 mmol/L (0.0-2.0); VENOUS BLOOD GAS PCO2 42 mmHg (40-60); VENOUS BLOOD PH 7.42 (7.32-7.43)
[2017-05-19] MEDS ORDERED: Piperacillin/Tazobact 3.375 gm 100 ML IVPB STA (23:40)
[2017-05-19] MEDS ORDERED: Sodium Chloride 0.9% 1,000 ML IV ONE (23:41)
[2017-05-19 23:45] LABS: NEUTROPHIL 81 % (50-75); TOTAL CELLS COUNTED 100
[2017-05-19] MEDS ORDERED: Piperacillin/Tazobact 3.375 gm 100 ML IVPB ONE (23:46)
[2017-05-20] MEDS ORDERED: Sod Polystyrene Sulf 15 gm/60 ml Oral Susp PO ONE
[2017-05-20] MEDS ORDERED: Morphine 4 MG/ML VIAL IV STA
[2017-05-20] MEDS ORDERED: Sod Polystyrene Sulf 15 gm/60 ml Oral Susp ONE (00:10)
--- NOTE | 2017-05-20 00:19 | CP.PCM.CON ---
History of Present Illness - History of Present Illness History of Present Illness: CCM 57 yo male with hx Pancreatic Ca with mets to liver (last chemo March)/ HTN /DM to ED c/o SOB x 3 days. + nausea and vomiting/ + abd. pain. No fever / chills /diarrhea/cough. Pt recently in hospital for sepsis(?infected portacath) . Received lasix and zofran in ED. ROS- as noted All- NKDA social- no tob/etoh/ drugs Meds- reviewed FH- Unknown PE T-98 P-125 RR-25 BP-100/75 Neck- no jvd Lungs- bilat bs, decreased at bases Heart-rr aBd- bs+, sl. tenderness not well localized Ext- bipedal edema Neuro- nonfocal Labs, EKG, [id number] A&P Severe Sepsis Metastatic Pancreatic Ca R/O PNA R/o Pl Eff Atelectasis Hyperkalemia Hx HTN DM Admit to telemetry cont broad Ab IV fluid /f/u lactate Rx kayexalate repeat BMP analgesia prn Pall Care eval Incentive Spirometry DVT prophylaxis d/w ED staff re-consult PRN Past Patient History - Infectious Disease Hx of Infectious Diseases: None - Past Medical History & Family History Past Medical History?: Yes - Past Social History Smoking Status: Former Smoker - CARDIAC Hx Hypertension: Yes - PULMONARY Hx Respiratory Disorders: No - NEUROLOGICAL Hx Neurological Disorder: No Hx Paralysis: No - HEENT Other/Comment: eyeglasses for reading - RENAL Hx Chronic Kidney Disease: No - ENDOCRINE/METABOLIC Hx Diabetes Mellitus Type 2: Yes - HEMATOLOGICAL/ONCOLOGICAL Hx Blood Disorders: Yes Hx Cancer: Yes (Pancreatic, liver) Hx Chemotherapy: Yes (twice a month) - INTEGUMENTARY Hx Dermatological Problems: No - MUSCULOSKELETAL/RHEUMATOLOGICAL Hx Musculoskeletal Disorders: No Hx Falls: No - GASTROINTESTINAL Hx Gastrointestinal Disorders: Yes Other/Comment: Pacreatic CA - GENITOURINARY/GYNECOLOGICAL Hx Genitourinary Disorders: No - PSYCHIATRIC Hx Substance Use: No - SURGICAL HISTORY Hx Cholecystectomy: Yes - ANESTHESIA Hx Anesthesia: Yes Hx Anesthesia Reactions: No Hx Malignant Hyperthermia: No Meds Allergies/Adverse Reactions: Allergies Allergy/AdvReac Type Severity Reaction Status Date / Time No Known Allergies Allergy Verified 05/19/17 22:08 - Medications Medications: Current Medications Piperacillin Sod/Tazobactam Sod (Zosyn 3.375 In Ns 100ml) 100 mls @ 200 mls/hr IVPB STAT STA Stop: 05/20/17 00:09 Sodium Chloride (Sodium Chloride 0.9%) 1,000 mls @ 1,000 mls/hr IV .Q1H ONE Stop: 05/20/17 00:40 Results - Vital Signs Recent Vital Signs: Last Vital Signs Temp 98 F 05/19/17 23:36 Pulse 130 H 05/19/17 23:36 Resp 24 05/19/17 23:36 BP 100/75 05/19/17 23:36 Pulse Ox 95 05/19/17 23:43 - Labs Result Diagrams: 05/19/17 22:58 05/19/17 22:58 Labs: Laboratory Results - last 24 hr 05/19/17 05/19/17 05/19/17 22:42 22:58 22:58 WBC 19.1 H RBC 3.78 L Hgb 10.9 L D Hct 34.8 L MCV 92.1 D MCH 28.9 MCHC 31.4 L RDW 18.3 H Plt Count 348 D MPV 7.4 Neut % (Auto) 81.0 H Lymph % (Auto) 3.9 L [place] % (Auto) 14.5 H Eos % (Auto) 0.3 Baso % (Auto) 0.3 Neut # 15.4 H Lymph # 0.7 L [place] # 2.8 H Eos # 0.1 Baso # 0.0 Neutrophils % (Manual) 81 H Lymphocytes % (Manual) 8 L Monocytes % (Manual) 11 H Platelet Estimate Normal Anisocytosis (manual) Slight PT 20.5 H INR 1.8 APTT 36 H Puncture Site pO2 Pio Test VBG pH VBG pCO2 VBG HCO3 VBG Total CO2 VBG O2 Sat (Calc) VBG Base Excess VBG Potassium Glucose Lactate Crit Value Called To Crit Value Called By Crit Value Read Back Blood Gas Notified Time Sodium Potassium Chloride Carbon Dioxide Anion Gap BUN Creatinine Est GFR ( Amer) Est GFR (Non-Af Amer) POC Glucose (mg/dL) 143 H Random Glucose Calcium Total Bilirubin AST ALT Alkaline Phosphatase Ammonia NT-Pro-B Natriuret Pep Total Protein Albumin Globulin Albumin/Globulin Ratio Lipase Venous Blood Potassium 05/19/17 05/19/17 05/19/17 22:58 22:58 23:00 WBC RBC Hgb Hct MCV MCH MCHC RDW Plt Count MPV Neut % (Auto) Lymph % (Auto) [place] % (Auto) Eos % (Auto) Baso % (Auto) Neut # Lymph # [place] # Eos # Baso # Neutrophils % (Manual) Lymphocytes % (Manual) Monocytes % (Manual) Platelet Estimate Anisocytosis (manual) PT INR APTT Puncture Site Vbg pO2 18 L Pio Test N VBG pH 7.25 L VBG pCO2 56 VBG HCO3 20.1 VBG Total CO2 VBG O2 Sat (Calc) 25.5 L VBG Base Excess -3.5 L VBG Potassium Glucose Lactate Crit Value Called To Crit Value Called By Crit Value Read Back Blood Gas Notified Time Sodium 129 L Potassium 5.7 H Chloride 89 L Carbon Dioxide 25 Anion Gap 20 BUN 22 H Creatinine 0.7 L Est GFR ( Amer) > 60 Est GFR (Non-Af Amer) > 60 POC Glucose (mg/dL) Random Glucose 106 Calcium 7.5 L Total Bilirubin 1.3 AST 30 ALT 21 D Alkaline Phosphatase 150 H D Ammonia 26 NT-Pro-B Natriuret Pep Total Protein 5.5 L Albumin 2.2 L D Globulin 3.3 Albumin/Globulin Ratio 0.7 L Lipase < 10 L Venous Blood Potassium 05/19/17 05/19/17 23:08 23:33 WBC RBC Hgb Hct MCV MCH MCHC RDW Plt Count MPV Neut % (Auto) Lymph % (Auto) [place] % (Auto) Eos % (Auto) Baso % (Auto) Neut # Lymph # [place] # Eos # Baso # Neutrophils % (Manual) Lymphocytes % (Manual) Monocytes % (Manual) Platelet Estimate Anisocytosis (manual) PT INR APTT Puncture Site pO2 17 L Pio Test VBG pH 7.42 VBG pCO2 42 VBG HCO3 24.8 VBG Total CO2 28.5 H VBG O2 Sat (Calc) 25.8 L VBG Base Excess 2.4 H VBG Potassium 6.1 H Glucose 90 Lactate 4.2 H* Crit Value Called To Dr. cevallos Crit Value Called By Rand pole peeler Crit Value Read Back Y Blood Gas Notified Time 2338 Sodium 125.0 L Potassium Chloride 93.0 L Carbon Dioxide Anion Gap BUN Creatinine Est GFR ( Amer) Est GFR (Non-Af Amer) POC Glucose (mg/dL) Random Glucose Calcium Total Bilirubin AST ALT Alkaline Phosphatase Ammonia NT-Pro-B Natriuret Pep 1080 H Total Protein Albumin Globulin Albumin/Globulin Ratio Lipase Venous Blood Potassium 6.1 H Assessment & Plan (1) PNA (pneumonia) Status: Acute (2) Severe sepsis Status: Acute (3) Sepsis Status: Acute (4) Metastasis from pancreatic cancer Status: Acute (5) Diabetes mellitus Status: Chronic (6) Hyperkalemia Status: Acute
[2017-05-20] MEDS ORDERED: Vancomycin 1 GM 1 GM/250 ML BAG IVPB STA (01:03)
[2017-05-20] MEDS ORDERED: Vancomycin 1 GM 1 GM/250 ML BAG IVPB ONE (01:04)
[2017-05-20 01:15] LABS: RBC URINE < 1 /hpf (0-3); URINE BILIRUBIN NEGATIVE (NEGATIVE); URINE BLOOD NEGATIVE (NEGATIVE); URINE COLOR Amber (YELLOW); URINE GLUCOSE (UA) NORMAL (Normal); URINE KETONE NEGATIVE (NEGATIVE); URINE LEUKOCYTE ESTERASE NEG Leu/uL (Negative); URINE PROTEIN NEGATIVE (NEGATIVE); WBC URINE 1 /hpf (0-5)
--- NOTE | 2017-05-20 06:14 | PCM.SEPTIC ---
Sepsis Progress Note - Reassessment Type Date of Evaluation: 05/20/17 Time of Evaluation: 06:00 Reassessment Type: Non-invasive reassessment - Non Invasive Reassessment Were the most recent vital sign reviewed: Yes Vital Sign (Latest): Temp Pulse Resp BP Pulse Ox 97.5 F L 125 H 20 92/66 L 97 05/20/17 04:00 05/20/17 04:00 05/20/17 04:00 05/20/17 04:00 05/20/17 04:00 Cardiovascular: Yes: Tachycardia Respiratory: Yes: Normal Breath Sounds, Rales, Rhonchi. No: Crackles (Code sepsis called in ED at 11:46pm on 05/19/17. Patient evaluated by ED staff. I evaluated patient at 6:00am on 05/20 per request of ICU and 6T nursing. Patient admitted to Dr. Yanez.), Wheezing Capillary Refill: Delayed Pulses: Normal Radial, Normal Dorsalis Pedis, Normal Posterior Tibialis Skin: Normal Color, Warm, Other (LE edema) - Invasive Reassessment (complete 2 of 4) Was a Central Venous Pressure Measurement obtained within 6 Hours after the presentation of septic shock: No Was a central venous oxygen measurement obtained within 6 hours after the presentation of septic shock: No Was a bedside cardiovascular ultrasound performed within 6 hours after the presentation of septic shock: No Was a passive leg raise performed or was a fluid challenge performed within 6 hrs of the initial fluid bolus: No Passive Leg Raise Result: Not Applicable Fluid Challenge performed: Yes
[2017-05-20] MEDS: Sodium Chloride 0.9% 1,000 ML IV SCH (07:05)
--- NOTE | 2017-05-20 08:47 | RAD ---
Abdomen two views History: Abdominal pain. Comparison: None available. Findings: Multiple dilated loops of small bowel seen within the upper and mid abdomen concerning for small bowel obstruction. Bilateral pleural effusions. Moderate to severe venous congestion. Confluent airspace consolidative changes at the lung bases bilaterally. Prominent linear atelectatic changes in the right mid lung zone. Cardiomegaly. Calcification at the aortic knob. Degenerative changes in the spine and shoulders. Deformity of the distal right clavicle with productive change in callus formation. Impression: Multiple dilated loops of small bowel seen within the upper and mid abdomen concerning for small bowel obstruction. Bilateral pleural effusions. Moderate to severe venous congestion. Confluent airspace consolidative changes at the lung bases bilaterally. Prominent linear atelectatic changes in the right mid lung zone. Cardiomegaly. Calcification at the aortic knob. Degenerative changes in the spine and shoulders. Deformity of the distal right clavicle with productive change in callus formation.
[2017-05-20] MEDS: HYDROmorphone 0.5 mg/0.5 ml ISec IVP PRN ×2 (11:03→21:58)
[2017-05-20] MEDS ORDERED: Enoxaparin 40 mg Syringe SC SCH (11:30)
[2017-05-20] MEDS: Piperacill/Tazo 3.375gm in Dex 3.375 GM/50 ML BAG IVPB SCH ×2 (13:28→21:39)
[2017-05-20] MEDS ORDERED: HYDROmorphone 0.5 mg/0.5 ml ISec IVP ONE (14:30)
--- NOTE | 2017-05-20 14:32 | CP.PCM.CON ---
History of Present Illness - History of Present Illness History of Present Illness: INFECTIOUS DISEASE CONSULTATION; HPI; 57-year-old male with history of stage IV pancreatic-adenocarcinoma with liver metastasis diagnosed in August 2016, off chemotherapy now admitted 05/20/17 with sepsis, failure to thrive and shortness of breath,cough, nausea and vomiting. Patient also reports poor appetite, diffuse abdominal pain and constipation. As per patient is barely able to walk as he feels very weak. Patient was recently hospitalized with Port-A-Cath infection and gram-negative bacteremia with Escherichia coli. Patient had Port-A-Cath removed and was treated with broad-spectrum antibiotics IV and oral. Patient's last chemotherapy was in March 2017 as per her oncologist. On admission patient had leukocytosis of 19.1 with elevated serum lactate of 4.2. Patient was placed on IV Zosyn 3.375 q8 hourly and vancomycin 1 g from 24 hourly. Infectious disease consultation requested by PMD dr Yanez for severe sepsis/ possible pneumonia/and abdominal pains . Past medical history: pancreatic cancer diagnosed August 2016.. Escherichia coli bacteremia 04/29/17 sec infected Port-A-Cath which was removed. Past surgical history: portacath placement Family history: Denies hematologic and oncologic problems Social history: Denies tobacco, alcohol, and illicit drug use. Allergies: NKA Review of Systems - Constitutional Constitutional: Anorexia, Lethargy, Malaise, Weakness - EENT Nose/Mouth/Throat: Dry Mouth. absent: Odynophagia - Cardiovascular Cardiovascular: Dyspnea, Edema, Pedal Edema - Respiratory Respiratory: Cough, Dyspnea, Chest Congestion. absent: Hemoptysis - Gastrointestinal Gastrointestinal: Abdominal Pain (diffuse), Constipation, Nausea, Vomiting - Genitourinary Genitourinary: absent: Dysuria - Neurological Neurological: Weakness - Hematologic/Lymphatic Hematologic: As Per HPI Past Patient History - Infectious Disease Hx of Infectious Diseases: None - Past Medical History & Family History Past Medical History?: Yes - Past Social History Smoking Status: Never Smoked - CARDIAC Hx Hypertension: Yes - PULMONARY Hx Respiratory Disorders: No - NEUROLOGICAL Hx Neurological Disorder: No Hx Paralysis: No - HEENT Other/Comment: eyeglasses for reading - RENAL Hx Chronic Kidney Disease: No - ENDOCRINE/METABOLIC Hx Diabetes Mellitus Type 2: Yes - HEMATOLOGICAL/ONCOLOGICAL Hx Blood Disorders: Yes Hx Cancer: Yes (Pancreatic, liver) Hx Chemotherapy: Yes (twice a month) Other/Comment: Pancreas Malignacy. - INTEGUMENTARY Hx Dermatological Problems: No - MUSCULOSKELETAL/RHEUMATOLOGICAL Hx Musculoskeletal Disorders: No Hx Falls: No - GASTROINTESTINAL Hx Gastrointestinal Disorders: Yes Other/Comment: Pacreatic CA - GENITOURINARY/GYNECOLOGICAL Hx Genitourinary Disorders: No - PSYCHIATRIC Hx Substance Use: No - SURGICAL HISTORY Hx Cholecystectomy: Yes (.) Other/Comment: Rt. Sub. Portal Cath Removed March 2017. - ANESTHESIA Hx Anesthesia: Yes Hx Anesthesia Reactions: No Hx Malignant Hyperthermia: No Has any member of the family had a problem w/ anesthesia?: No Meds Allergies/Adverse Reactions: Allergies Allergy/AdvReac Type Severity Reaction Status Date / Time No Known Allergies Allergy Verified 05/19/17 22:08 - Medications Medications: Current Medications Enoxaparin Sodium (Lovenox) 40 mg SC DAILY [facility] Hydromorphone HCl (Dilaudid) 0.5 mg IVP Q6H PRN PRN Reason: Pain, severe (8-10) Last Admin: 05/20/17 11:03 Dose: 0.5 mg Sodium Chloride (Sodium Chloride 0.9%) 1,000 mls @ 50 mls/hr IV .Q20H [facility] Last Admin: 05/20/17 07:05 Dose: 50 mls/hr Piperacillin Sod/Tazobactam Sod (Zosyn 3.375 Gm Iv Premix) 3.375 gm in 50 mls @ 100 mls/hr IVPB Q8 [facility] Last Admin: 05/20/17 13:28 Dose: 100 mls/hr Vancomycin/Sodium Chloride (Vancocin) 1 gm in 200 mls @ 133 mls/hr IVPB Q24H [facility] Stop: 05/25/17 16:01 Physical Exam - Constitutional Appears: Chronically Ill - Head Exam Head Exam: NORMAL INSPECTION - Eye Exam Eye Exam: EOMI, PERRL - ENT Exam ENT Exam: Mucous Membranes Dry, Normal Oropharynx - Neck Exam Neck exam: Positive for: Normal Inspection. Negative for: Meningismus - Respiratory Exam Respiratory Exam: Decreased Breath Sounds, Rales - Cardiovascular Exam Cardiovascular Exam: Tachycardia, REGULAR RHYTHM, +S1, +S2 - GI/Abdominal Exam GI & Abdominal Exam: Distended, Hypoactive Bowel Sounds, Tenderness ( generalized tenderness.) - Extremities Exam Extremities exam: Positive for: pedal edema, pedal pulses present. Negative for : calf tenderness - Neurological Exam Neurological exam: Alert, CN II-XII Intact, Oriented x3, Reflexes Normal - Psychiatric Exam Psychiatric exam: Depressed - Skin Skin Exam: Normal Color Results - Vital Signs Recent Vital Signs: Last Vital Signs Temp 97.7 F 05/20/17 07:20 Pulse 122 H 05/20/17 07:20 Resp 18 05/20/17 07:20 BP 90/65 L 05/20/17 07:20 Pulse Ox 97 05/20/17 07:20 - Labs Result Diagrams: 05/19/17 22:58 05/20/17 16:57 Labs: Laboratory Results - last 24 hr 05/20/17 05/20/17 05/20/17 01:02 03:06 07:14 POC Glucose (mg/dL) 91 Lactic Acid 3.0 H Urine Color Charlene Urine Clarity Clear Urine pH 6.0 Ur Specific [place] 1.017 Urine Protein Negative Urine Glucose (UA) Normal Urine Ketones Negative Urine Blood Negative Urine Nitrate Negative Urine Bilirubin Negative Urine Urobilinogen 4.0 Ur Leukocyte Esterase Neg Urine WBC (Auto) 1 Urine RBC (Auto) < 1 Ur Squamous Epith Cells < 1 Hyaline Casts 3-5 H Broad Casts 5 05/20/17 11:10 POC Glucose (mg/dL) 97 Lactic Acid Urine Color Urine Clarity Urine pH Ur Specific [place] Urine Protein Urine Glucose (UA) Urine Ketones Urine Blood Urine Nitrate Urine Bilirubin Urine Urobilinogen Ur Leukocyte Esterase Urine WBC (Auto) Urine RBC (Auto) Ur Squamous Epith Cells Hyaline Casts Broad Casts - Imaging and Cardiology Chest x-ray Status: Report reviewed by me (chest x-ray 05/19/17 bilateral pleural effusions, , confluent airspace consolidative changes lung bases. Multiple dilated loops of small bowel in upper and middle abdomen ? SBO.) Assessment & Plan (1) Severe sepsis Assessment and Plan: pancultures UA urine cultures Continue IV Zosyn 3.375 q 8 hourly .05/20/17. continue IV vancomycin 1 g every 24 hourly 05/20/17. Follow-up blood cultures to adjust antibiotics.. Status: Acute (2) PNA (pneumonia) Assessment and Plan: patient has bilateral confluent airspace consolidative changes lung bases with bilateral pleural effusions. Cannot rule out pneumonia versus CHF. -follow sputum Gram stain and culture. proBNP 1080 slightly high -diuresis as per PMD. Status: Acute (3) Small bowel obstruction, partial Assessment and Plan: MILD LAXATIVE. fOLLOW-UP BOWEL MOVEMENT. Status: Acute (4) Ascites Assessment and Plan: PATIENT ALSO HAS MASSIVE ASCITES/AND ABDOMINAL DISTENTION. ?iNCREASED TUMOR BURDEN/VERSUS CARCINOMATOSIS. Status: Acute (5) Metastasis from pancreatic cancer Status: Acute (6) Diabetes mellitus Status: Chronic (7) Failure to thrive Status: Acute
[2017-05-20] MEDS: Vancomycin 1 gm/NS 200 ml 1 GM/200 ML BAG IVPB SCH (16:44)
[2017-05-20 17:23] LABS: CHLORIDE 91 mmol/L (98-107); POTASSIUM 5.5 mmol/L (3.6-5.2); SODIUM 125 mmol/L (132-148)
[2017-05-20 17:26] LABS: GFR AFRICAN-AMERICAN > 60
[2017-05-20 17:27] LABS: BLOOD UREA NITROGEN 25 mg/dL (9-20); CALCIUM 7.2 mg/dl (8.6-10.4); CARBON DIOXIDE 20 mmol/L (22-30); GLUCOSE,RANDOM 100 mg/dL (75-110)
--- NOTE | 2017-05-20 20:01 | CP.PCM.CON ---
History of Present Illness - History of Present Illness History of Present Illness: 57 year old male with a history of stage IV pancreatic adenocarcinoma with liver metastasis diagnosed in 08/2016 off chemotherapy, admitted with failure to thrive and sepsis. The patient reports to poor appetite, abdominal pain, and constipation. His reports he is barely able to walk and she has to support him or he will fall. He has been off of chemotherapy since March 2017 and was receiving Abraxane and gemcitabine. Past medical history: pancreatic cancer Past surgical history: portacath placement Family history: Denies hematologic and oncologic problems Social history: Denies tobacco, alcohol, and illicit drug use. Allergies: NKA Review of systems: All remaining review of systems including HEENT, cardiovascular, respiratory, gastrointestinal, genitournary, musculoskeletal, dermatologic, neurologic, and psychiatric are negative unless mentioned in the HPI. Past Patient History - Infectious Disease Hx of Infectious Diseases: None - Past Medical History & Family History Past Medical History?: Yes - Past Social History Smoking Status: Never Smoked - CARDIAC Hx Hypertension: Yes - PULMONARY Hx Respiratory Disorders: No - NEUROLOGICAL Hx Neurological Disorder: No Hx Paralysis: No - HEENT Other/Comment: eyeglasses for reading - RENAL Hx Chronic Kidney Disease: No - ENDOCRINE/METABOLIC Hx Diabetes Mellitus Type 2: Yes - HEMATOLOGICAL/ONCOLOGICAL Hx Blood Disorders: Yes Hx Cancer: Yes (Pancreatic, liver) Hx Chemotherapy: Yes (twice a month) Other/Comment: Pancreas Malignacy. - INTEGUMENTARY Hx Dermatological Problems: No - MUSCULOSKELETAL/RHEUMATOLOGICAL Hx Musculoskeletal Disorders: No Hx Falls: No - GASTROINTESTINAL Hx Gastrointestinal Disorders: Yes Other/Comment: Pacreatic CA - GENITOURINARY/GYNECOLOGICAL Hx Genitourinary Disorders: No - PSYCHIATRIC Hx Substance Use: No - SURGICAL HISTORY Hx Cholecystectomy: Yes (.) Other/Comment: Rt. Sub. Portal Cath Removed March 2017. - ANESTHESIA Hx Anesthesia: Yes Hx Anesthesia Reactions: No Hx Malignant Hyperthermia: No Has any member of the family had a problem w/ anesthesia?: No Meds Allergies/Adverse Reactions: Allergies Allergy/AdvReac Type Severity Reaction Status Date / Time No Known Allergies Allergy Verified 05/19/17 22:08 - Medications Medications: Current Medications Enoxaparin Sodium (Lovenox) 40 mg SC DAILY [facility] Fentanyl (Duragesic) 1 patch TD Q72H [facility] Last Admin: 05/20/17 17:30 Dose: 1 patch Hydromorphone HCl (Dilaudid) 0.5 mg IVP Q6H PRN PRN Reason: Pain, severe (8-10) Last Admin: 05/20/17 11:03 Dose: 0.5 mg Sodium Chloride (Sodium Chloride 0.9%) 1,000 mls @ 50 mls/hr IV .Q20H [facility] Last Admin: 05/20/17 07:05 Dose: 50 mls/hr Piperacillin Sod/Tazobactam Sod (Zosyn 3.375 Gm Iv Premix) 3.375 gm in 50 mls @ 100 mls/hr IVPB Q8 [facility] Last Admin: 05/20/17 13:28 Dose: 100 mls/hr Vancomycin/Sodium Chloride (Vancocin) 1 gm in 200 mls @ 133 mls/hr IVPB Q24H [facility] Stop: 05/25/17 16:01 Last Admin: 05/20/17 16:44 Dose: 133 mls/hr Physical Exam - Head Exam Head Exam: ATRAUMATIC - Eye Exam Eye Exam: Normal appearance - ENT Exam ENT Exam: Mucous Membranes Dry - Respiratory Exam Respiratory Exam: NORMAL BREATHING PATTERN - Cardiovascular Exam Cardiovascular Exam: +S1, +S2 - GI/Abdominal Exam GI & Abdominal Exam: Normal Bowel Sounds - Extremities Exam Extremities exam: Positive for: pedal edema Results - Vital Signs Recent Vital Signs: Last Vital Signs Temp 97 F L 05/20/17 15:00 Pulse 128 H 05/20/17 17:30 Resp 20 05/20/17 15:00 BP 97/67 L 05/20/17 15:00 Pulse Ox 93 L 05/20/17 15:00 - Labs Result Diagrams: 05/19/17 22:58 05/20/17 16:57 Labs: Laboratory Results - last 24 hr 05/20/17 05/20/17 05/20/17 01:02 03:06 07:14 Sodium Potassium Chloride Carbon Dioxide Anion Gap BUN Creatinine Est GFR ( Amer) Est GFR (Non-Af Amer) POC Glucose (mg/dL) 91 Random Glucose Lactic Acid 3.0 H Calcium Urine Color Charlene Urine Clarity Clear Urine pH 6.0 Ur Specific [place] 1.017 Urine Protein Negative Urine Glucose (UA) Normal Urine Ketones Negative Urine Blood Negative Urine Nitrate Negative Urine Bilirubin Negative Urine Urobilinogen 4.0 Ur Leukocyte Esterase Neg Urine WBC (Auto) 1 Urine RBC (Auto) < 1 Ur Squamous Epith Cells < 1 Hyaline Casts 3-5 H Broad Casts 5 05/20/17 05/20/17 11:10 16:57 Sodium 125 L Potassium 5.5 H Chloride 91 L Carbon Dioxide 20 L Anion Gap 20 BUN 25 H Creatinine 0.9 Est GFR ( Amer) > 60 Est GFR (Non-Af Amer) > 60 POC Glucose (mg/dL) 97 Random Glucose 100 Lactic Acid Calcium 7.2 L Urine Color Urine Clarity Urine pH Ur Specific [place] Urine Protein Urine Glucose (UA) Urine Ketones Urine Blood Urine Nitrate Urine Bilirubin Urine Urobilinogen Ur Leukocyte Esterase Urine WBC (Auto) Urine RBC (Auto) Ur Squamous Epith Cells Hyaline Casts Broad Casts Assessment & Plan (1) Failure to thrive Assessment and Plan: secondary to malignancy discussed code status and hospice; pt agreeable to DNR/DNI but is not sure about hospice recommend palliative care evaluation Status: Acute (2) Leukocytosis Assessment and Plan: on antibiotics and ID f/u Status: Acute (3) Anemia Assessment and Plan: chronic disease from malignancy Status: Acute (4) Pancreatic cancer Assessment and Plan: liver metastasis supportive care, not a chemo candidate DNR/DNI Thank you for this interesting consult. Status: Acute
[2017-05-21] MEDS: HYDROmorphone 0.5 mg/0.5 ml ISec IVP PRN (04:01)
[2017-05-21] MEDS: Piperacill/Tazo 3.375gm in Dex 3.375 GM/50 ML BAG IVPB SCH ×2 (05:53→14:05)
[2017-05-21] MEDS: Sodium Chloride 0.9% 1,000 ML IV SCH (06:16)
[2017-05-21 07:46] LABS: BASO # 0.1 K/uL (0.0-0.2); BASO % 0.3 % (0.0-2.0); HEMATOCRIT 32.3 % (35.0-51.0); LYMPH # 0.6 K/uL (1.0-4.3); LYMPH % 2.6 % (20.0-40.0); MEAN CELL VOLUME 92.7 fL (80.0-94.0); MEAN CORPUSCULAR HEMOGLOBIN 29.8 pg (27.0-31.0); MEAN CORPUSCULAR HGB CONC 32.2 g/dL (33.0-37.0); MEAN PLATELET VOLUME 7.6 fL (7.2-11.7); MONO # 1.6 K/uL (0.0-0.8); MONO % 6.7 % (0.0-10.0); PLATELET COUNT 335 K/uL (130-400); RED CELL DISTRIBUTION WIDTH 18.9 % (11.5-14.5); WHITE BLOOD COUNT 23.9 K/uL (4.8-10.8)
[2017-05-21 07:56] LABS: CHLORIDE 90 mmol/L (98-107)
[2017-05-21 07:57] LABS: POTASSIUM 5.4 mmol/L (3.6-5.2); SODIUM 127 mmol/L (132-148)
[2017-05-21 07:59] LABS: GFR AFRICAN-AMERICAN > 60
[2017-05-21 08:00] LABS: ALB/GLOB RATIO 0.7 (1.0-2.1); ALKALINE PHOSPHATASE 159 U/L (38-126); ALT/SGPT 25 U/L (21-72); AST/SGOT 41 U/L (17-59); BILIRUBIN,TOTAL 1.8 mg/dL (0.2-1.3); BLOOD UREA NITROGEN 30 mg/dL (9-20); CALCIUM 7.2 mg/dl (8.6-10.4); CARBON DIOXIDE 21 mmol/L (22-30); GLUCOSE,RANDOM 134 mg/dL (75-110); TOTAL PROTEIN 5.6 g/dL (6.3-8.3)
--- NOTE | 2017-05-21 08:55 | CARD ---
APPROVED REPORT EKG Measurement Heart [id number] ID [id number] <Conclusion> Sinus tachycardia Possible Anterior infarct, age undetermined Low voltage Abnormal ECG
[2017-05-21 09:16] LABS: NEUTROPHIL 87 % (50-75); TOTAL CELLS COUNTED 100
[2017-05-21] MEDS ORDERED: Sod Polystyrene Sulf 15 gm/60 ml Oral Susp PO ONE (09:18)
[2017-05-21] MEDS ORDERED: HYDROmorphone 0.5 mg/0.5 ml ISec IVP STA (09:44)
[2017-05-21] MEDS ORDERED: Albumin Human 25% (12.5 gm/50 ml) IV ONE (09:46)
--- NOTE | 2017-05-21 10:04 | PCM.SEPTIC ---
Sepsis Progress Note - Reassessment Type Date of Evaluation: 05/21/17 Time of Evaluation: 09:30 Reassessment Type: Non-invasive reassessment - Non Invasive Reassessment Were the most recent vital sign reviewed: Yes Vital Sign (Latest): Temp Pulse Resp BP Pulse Ox 97.6 F 131 H 94 H 94/59 L 20 L 05/21/17 09:45 05/21/17 09:58 05/21/17 07:35 05/21/17 09:58 05/21/17 07:35 Cardiovascular: Yes: Tachycardia, Other Respiratory: Yes: Crackles, Rales, Respiratory Distress Capillary Refill: Delayed Pulses: Normal Radial, Normal Dorsalis Pedis, Normal Posterior Tibialis Skin: Normal Color, Warm, Dry (Patient was switched from 2L nasal cannula to a non-breather mas. ) Fluid Challenge performed: No Summary - Summary of Event Summary of Event: Sepsis fluid challenge protocol was not undertaken due to condition of CHF, Ascites, bilateral pleural effusion and very low albumin at 2.3. Patient was switched from 2L Nasal cannula to [id number] due low oxygen saturation of 86 on 2L NC Patient was administered Albumin 12.5mg IV stat Patient is already on antibiotic regimen: Zosyn and Vancomycin Patient was also given kayexalate due to K+ 5.4 Patient is to have a paracentesis today at 1pm Patient's PMD; Dr. Yanez's nurse practitioner was notified Indemand, engineering and scientific programmer was used to explain course of action to patient's family member Physical Exam: Heart sounds was not well-appreciated due to significant diffuse rales
[2017-05-21] MEDS: Enoxaparin 40 mg Syringe SC SCH (12:06)
--- NOTE | 2017-05-21 12:32 | PCM.SURG1 ---
Surgeon's Initial Post Op Note - Surgeon's Notes Surgeon: Mohsen Darby MD [facility] Rn: None Type of Anesthesia: Local Pre-Operative Diagnosis: Ascites, pancreatic cancer Operative Findings: US showed ascites Post-Operative Diagnosis: Ascites, pancreatic cancer Operation Performed: US guided paracentesis. Specimen/Specimens Removed: 4 liters of straw colored fluid Estimated Blood Loss: EBL {In ML}: 0 Blood Products Given: N/A Drains Used: No Drains Post-Op Condition: Poor Date of Surgery/Procedure: 05/21/17 Time of Surgery/Procedure: 12:20
--- NOTE | 2017-05-21 14:23 | CP.PCM.PN ---
Subjective - Date & Time of Evaluation Date of Evaluation: 05/21/17 Time of Evaluation: 14:23 - Subjective Subjective: afebrile, Weak, ON VENTIMASK C/O abdominal pain and generalized BLOOD CULTURES +VE GNR 2:2 SETS Objective - Vital Signs/Intake and Output Vital Signs (last 24 hours): Temp Pulse Resp BP Pulse Ox 97.6 F 114 H 94 H 94/61 L 93 L 05/21/17 09:45 05/21/17 13:48 05/21/17 07:35 05/21/17 12:00 05/21/17 12:00 Intake and Output: 05/21/17 05/21/17 06:59 18:59 Intake Total 525 700 Output Total 200 Balance 525 500 - Medications Medications: Current Medications Enoxaparin Sodium (Lovenox) 40 mg SC DAILY [facility] Last Admin: 05/21/17 12:06 Dose: 40 mg Fentanyl (Duragesic) 1 patch TD Q72H [facility] Last Admin: 05/20/17 17:30 Dose: 1 patch Hydromorphone HCl (Dilaudid) 0.5 mg IVP Q6H PRN PRN Reason: Pain, severe (8-10) Last Admin: 05/21/17 04:01 Dose: 0.5 mg Sodium Chloride (Sodium Chloride 0.9%) 1,000 mls @ 50 mls/hr IV .Q20H [facility] Last Admin: 05/21/17 06:16 Dose: 50 mls/hr Vancomycin/Sodium Chloride (Vancocin) 1 gm in 200 mls @ 133 mls/hr IVPB Q24H [facility] Stop: 05/25/17 16:01 Last Admin: 05/20/17 16:44 Dose: 133 mls/hr Amikacin Sulfate 1,000 mg/ (Sodium Chloride) 104 mls @ 100 mls/hr IV ONCE [facility] Imipenem/Cilastatin Sodium 500 (mg/ Dextrose) 100 mls @ 100 mls/hr IVPB Q6H [facility] - Labs Labs: 05/21/17 07:37 05/21/17 07:37 PT 20.5 SECONDS (9.7-12.2) H 05/19/17 22:58 INR 1.8 05/19/17 22:58 APTT 36 SECONDS (21-34) H 05/19/17 22:58 - Constitutional Appears: Chronically Ill - Head Exam Head Exam: NORMAL INSPECTION - Eye Exam Eye Exam: EOMI, PERRL - ENT Exam ENT Exam: Normal Oropharynx - Neck Exam Neck Exam: Normal Inspection - Respiratory Exam Respiratory Exam: Prolonged Expiratory Phase, Rhonchi - Cardiovascular Exam Cardiovascular Exam: Tachycardia, REGULAR RHYTHM, +S1, +S2 - GI/Abdominal Exam GI & Abdominal Exam: Distended, Soft, Tenderness (GENERALIZED.), Hypoactive Bowel Sounds - Extremities Exam Extremities Exam: Pedal Edema. absent: Calf Tenderness - Neurological Exam Neurological Exam: Awake, CN II-XII Intact, Oriented x3 - Psychiatric Exam Psychiatric exam: Normal Mood - Skin Skin Exam: Normal Color, Warm Assessment and Plan (1) Severe sepsis Assessment & Plan: blood cultures +ve GNR2:2 SETS. iv AMIKACIN 1000 MG iv PIGGYBACK STAT DOSE..05/21 *iv pRIMAXIN 500 MG EVERY 8 HOURLY FOR BROADER GRAM-NEGATIVE COVERAGE.05/21 DC IV Zosyn 3.375 q 8 hourly .05/20/17. CONTINUE IV vancomycin 1 g every 24 hourly 05/20/17 FOR GRAM-POSITIVE COVERAGE. Follow-up blood cultures to adjust antibiotics.. Status: Acute (2) PNA (pneumonia) Assessment & Plan: PATIENT ON AN iv ANTIBIOTICS. pULMONARY TOILET AND BRONCHODILATORS. Status: Acute (3) Small bowel obstruction, partial Status: Acute (4) Ascites Assessment & Plan: PATIENT FOR PARACENTESIS. PER PMD Status: Acute (5) Metastasis from pancreatic cancer Status: Acute (6) Diabetes mellitus Status: Chronic (7) Failure to thrive Assessment & Plan: CONTINUE SUPPORTIVE CARE. PATIENT DNR/DNI PER FAMILY REQUEST Status: Acute
--- NOTE | 2017-05-21 15:13 | CP.PCM.CON ---
History of Present Illness - History of Present Illness History of Present Illness: Palliative consult Requested by Wayne VALDIVIA Reason: Goals of care and support for family and patient Patient is a 57 yo male admitted from home with worsening SOB, nausea and vomiting X 3 days. Patient is known to me from previous admission when we discussed goals of care. patient diagnosed with sepsis upon admission and IV antibiotics initiated: Zosyn, vanco, . WBC 23.9, Hb 10.4, Na 127, K 5.4. Hydration provided via IVF and Zofran IV for nausea. PMH: pancreas CA with mets to liver, was on chemo tx until March of this year, recently treated for sepsis here at [facility]. Hx: , lives at home, children in [facility] Fam . hx: denies Hx of malignancy Review of Systems - Constitutional Constitutional: Malaise, Weight Loss, Weakness - EENT Eyes: absent: As Per HPI, Blind Spots, Blurred Vision, Change in Vision, Decreased Night Vision, Diplopia, Discharge, Dry Eye, Exophthalmos, Floaters, Irritation, Itchy Eyes, Loss of Peripheral Vision, Pain, Photophobia, Requires Corrective Lenses, Sees Flashes, Spots in Vision, Tunnel Vision, Other Visual Disturbances, Loss of Vision, Other Ears: absent: As Per HPI, Decreased Hearing, Ear Discharge, Ear Pain, Tinnitus, Abnormal Hearing, Disequilibrium, Dizziness, Other Nose/Mouth/Throat: absent: As Per HPI, Epistaxis, Nasal Congestion, Nasal Discharge, Nasal Obstruction, Nasal Trauma, Nose Pain, Post Nasal Drip, Sinus Pain, Sinus Pressure, Bleeding Gums, Change in Voice, Dental Pain, Dry Mouth, Dysphagia, Halitosis, Hoarsness, Lip Swelling, Mouth Lesions, Mouth Pain, Odynophagia, Sore Throat, Throat Swelling, Tongue Swelling, Facial Pain, Neck Pain, Neck Mass, Other - Cardiovascular Cardiovascular: Dyspnea, Leg Edema, Palpitations, Pedal Edema - Respiratory Respiratory: Dyspnea, Dyspnea on Exertion - Gastrointestinal Gastrointestinal: Bloating, Nausea, Vomiting - Genitourinary Genitourinary: absent: As Per HPI, Change in Urinary Stream, Difficulty Urinating, Dysuria, Flank Pain, Hematuria, Pyuria, Nocturia, Urinary Incontinence, Urinary Frequency, Urinary Hesitance, Urinary Urgency, Voiding Freq/Small Amts, Freq UTI, Hx Renal/Bladder Calculi, Hx /Renal Surgery, Bladder Distension, Other - Reproductive: Male Reproductive:Male: As Per HPI, Prepubesant, Dyspareunia, Genital Lesions, Genital Pruritis, Pelvic Pain, Sexual Dysfunction, Penile Discharge, Genital Odor, Impotence, On ED Medications, Penile Implant, Other - Musculoskeletal Musculoskeletal: Deformity, Muscle Weakness, Myalgias - Integumentary Integumentary: Change in Pigmentation, Dry Skin, Jaundice - Neurological Neurological: Focal Weakness - Psychiatric Psychiatric: Anxiety, Depression, Hopelessness - Endocrine Endocrine: Fatigue - Hematologic/Lymphatic Hematologic: absent: As Per HPI, Easy Bleeding, Easy Bruising, Lymphadenopathy, Other Past Patient History - Infectious Disease Hx of Infectious Diseases: None - Past Medical History & Family History Past Medical History?: Yes - Past Social History Smoking Status: Never Smoked - CARDIAC Hx Hypertension: Yes - PULMONARY Hx Respiratory Disorders: No - NEUROLOGICAL Hx Neurological Disorder: No Hx Paralysis: No - HEENT Other/Comment: eyeglasses for reading - RENAL Hx Chronic Kidney Disease: No - ENDOCRINE/METABOLIC Hx Diabetes Mellitus Type 2: Yes - HEMATOLOGICAL/ONCOLOGICAL Hx Blood Disorders: Yes Hx Cancer: Yes (Pancreatic, liver) Hx Chemotherapy: Yes (twice a month) Other/Comment: Pancreas Malignacy. - INTEGUMENTARY Hx Dermatological Problems: No - MUSCULOSKELETAL/RHEUMATOLOGICAL Hx Musculoskeletal Disorders: No Hx Falls: No - GASTROINTESTINAL Hx Gastrointestinal Disorders: Yes Other/Comment: Pacreatic CA - GENITOURINARY/GYNECOLOGICAL Hx Genitourinary Disorders: No - PSYCHIATRIC Hx Substance Use: No - SURGICAL HISTORY Hx Cholecystectomy: Yes (.) Other/Comment: Rt. Sub. Portal Cath Removed March 2017. - ANESTHESIA Hx Anesthesia: Yes Hx Anesthesia Reactions: No Hx Malignant Hyperthermia: No Has any member of the family had a problem w/ anesthesia?: No Meds Allergies/Adverse Reactions: Allergies Allergy/AdvReac Type Severity Reaction Status Date / Time No Known Allergies Allergy Verified 05/19/17 22:08 - Medications Medications: Current Medications Enoxaparin Sodium (Lovenox) 40 mg SC DAILY [facility] Last Admin: 05/21/17 12:06 Dose: 40 mg Fentanyl (Duragesic) 1 patch TD Q72H [facility] Last Admin: 05/20/17 17:30 Dose: 1 patch Hydromorphone HCl (Dilaudid) 0.5 mg IVP Q6H PRN PRN Reason: Pain, severe (8-10) Last Admin: 05/21/17 04:01 Dose: 0.5 mg Sodium Chloride (Sodium Chloride 0.9%) 1,000 mls @ 50 mls/hr IV .Q20H [facility] Last Admin: 05/21/17 06:16 Dose: 50 mls/hr Vancomycin/Sodium Chloride (Vancocin) 1 gm in 200 mls @ 133 mls/hr IVPB Q24H [facility] Stop: 05/25/17 16:01 Last Admin: 05/20/17 16:44 Dose: 133 mls/hr Amikacin Sulfate 1,000 mg/ (Sodium Chloride) 104 mls @ 100 mls/hr IV ONCE [facility] Imipenem/Cilastatin Sodium 500 (mg/ Sodium Chloride) 100 mls @ 100 mls/hr IVPB Q6H [facility] Last Admin: 05/21/17 14:43 Dose: 100 mls/hr Physical Exam - Constitutional Appears: Chronically Ill - Head Exam Head Exam: ATRAUMATIC, NORMAL INSPECTION, NORMOCEPHALIC - Eye Exam Eye Exam: Normal appearance Pupil Exam: NORMAL ACCOMODATION, PERRL - ENT Exam ENT Exam: Mucous Membranes Dry - Neck Exam Neck exam: Positive for: Normal Inspection - Respiratory Exam Respiratory Exam: Decreased Breath Sounds, Rhonchi - Cardiovascular Exam Cardiovascular Exam: Tachycardia, REGULAR RHYTHM - GI/Abdominal Exam GI & Abdominal Exam: Distended, Firm, Hypoactive Bowel Sounds - Extremities Exam Extremities exam: Positive for: pedal edema - Back Exam Back exam: NORMAL INSPECTION - Neurological Exam Neurological exam: Alert, Oriented x3 - Psychiatric Exam Psychiatric exam: Anxious, Normal Affect, Normal Mood - Skin Skin Exam: Dry, Pallor, Warm Results - Vital Signs Recent Vital Signs: Last Vital Signs Temp 97.6 F 05/21/17 09:45 Pulse 114 H 05/21/17 13:48 Resp 94 H 05/21/17 07:35 BP 94/61 L 05/21/17 12:00 Pulse Ox 93 L 05/21/17 12:00 - Labs Result Diagrams: 05/21/17 07:37 05/21/17 07:37 Labs: Laboratory Results - last 24 hr 05/20/17 05/20/17 05/21/17 16:57 21:22 06:38 WBC RBC Hgb Hct MCV MCH MCHC RDW Plt Count MPV Neut % (Auto) Lymph % (Auto) [place] % (Auto) Eos % (Auto) Baso % (Auto) Neut # Lymph # [place] # Eos # Baso # Neutrophils % (Manual) Band Neutrophils % Lymphocytes % (Manual) Monocytes % (Manual) Platelet Estimate Polychromasia Hypochromasia (manual) Anisocytosis (manual) Macrocytosis (manual) Sodium 125 L Potassium 5.5 H Chloride 91 L Carbon Dioxide 20 L Anion Gap 20 BUN 25 H Creatinine 0.9 Est GFR ( Amer) > 60 Est GFR (Non-Af Amer) > 60 POC Glucose (mg/dL) 124 H 175 H Random Glucose 100 Lactic Acid Calcium 7.2 L Total Bilirubin AST ALT Alkaline Phosphatase Total Protein Albumin Globulin Albumin/Globulin Ratio 05/21/17 05/21/17 05/21/17 07:37 07:37 07:37 WBC 23.9 H RBC 3.49 L Hgb 10.4 L Hct 32.3 L MCV 92.7 MCH 29.8 MCHC 32.2 L RDW 18.9 H Plt Count 335 MPV 7.6 Neut % (Auto) 90.4 H Lymph % (Auto) 2.6 L [place] % (Auto) 6.7 Eos % (Auto) 0.0 Baso % (Auto) 0.3 Neut # 21.6 H Lymph # 0.6 L [place] # 1.6 H Eos # 0.0 Baso # 0.1 Neutrophils % (Manual) 87 H Band Neutrophils % 4 H Lymphocytes % (Manual) 2 L Monocytes % (Manual) 7 Platelet Estimate Normal Polychromasia Slight Hypochromasia (manual) Slight Anisocytosis (manual) Slight Macrocytosis (manual) Slight Sodium 127 L Potassium 5.4 H Chloride 90 L Carbon Dioxide 21 L Anion Gap 21 H BUN 30 H Creatinine 1.1 Est GFR ( Amer) > 60 Est GFR (Non-Af Amer) > 60 POC Glucose (mg/dL) Random Glucose 134 H Lactic Acid 3.6 H Calcium 7.2 L Total Bilirubin 1.8 H AST 41 ALT 25 Alkaline Phosphatase 159 H Total Protein 5.6 L Albumin 2.3 L Globulin 3.3 Albumin/Globulin Ratio 0.7 L 05/21/17 05/21/17 11:08 12:28 WBC RBC Hgb Hct MCV MCH MCHC RDW Plt Count MPV Neut % (Auto) Lymph % (Auto) [place] % (Auto) Eos % (Auto) Baso % (Auto) Neut # Lymph # [place] # Eos # Baso # Neutrophils % (Manual) Band Neutrophils % Lymphocytes % (Manual) Monocytes % (Manual) Platelet Estimate Polychromasia Hypochromasia (manual) Anisocytosis (manual) Macrocytosis (manual) Sodium Potassium Chloride Carbon Dioxide Anion Gap BUN Creatinine Est GFR ( Amer) Est GFR (Non-Af Amer) POC Glucose (mg/dL) 184 H Random Glucose Lactic Acid 2.5 H Calcium Total Bilirubin AST ALT Alkaline Phosphatase Total Protein Albumin Globulin Albumin/Globulin Ratio Assessment & Plan - Assessment and Plan (Free Text) Assessment: palliative consult Code status DNR/DNI, no supporting document was on chart , PPS 20% I reviewed medical records, all diagnostic studies, examined patient in the bed , discussed his condition with his and sister in Law and signed POLST with them. Patient is chronically ill, looks more weak since last time I saw him a few weeks ago. Skin and sclera are jaundiced , abdomen is distended and firm with distant bowel sounds. Poor PO intake tolerance. patient complains of generalized malaise. The chronic cancer pain is constant and is only responding to pain meds. Pain is 8-10 at its worse and goes down to 5 after pain meds. Pain affects his sleep and mood. Duragesic patch 25 mcg and Dilaudid Iv PRN on board. Breath sounds are diminished, patient able to speak 4-5 words sentence. O2Sat 94 % NC, HR 125. With and daughter in law at bed side goals of care discussed. Patient and family are aware of terminal diagnosis. patient's children want him to return to [facility]. Patient wishes to there. The air ticket bought for June 03. The had concern if patient would be able to sustain 8 hr of flight. I suggested that we fallow how patinet responds to Iv tx for sepsis and monitor his progress before decision was made. Code status discussed. Patient and family were very clear against invasive procedures including CPR, intubatin or PEG. Patient wishes to return to his home country and see his children before he dies. POLST signed by patient's with patient's permission. DNR/DNI Impression * This is chronically sick cancer patient, whose condition drastically declined since last hospitalization * patient and his all aware of poor prognosis * Patient and his family wish to return to home country where he could reunite with his kids before hr dies * Patient wishes to be allowed natural Suggestion * Agree with DNR/DNI * Aggressive pain management * Symptoms management palliative care will fallow eith this patient as needed. Thank you for consulting Palliative Care
[2017-05-21] MEDS: Vancomycin 1 gm/NS 200 ml 1 GM/200 ML BAG IVPB SCH (16:15)
--- NOTE | 2017-05-21 16:48 | CP.PCM.HP ---
History of Present Illness - History of Present Illness History of Present Illness: 05/20/17 History of Present Illness: 57 yo male with hx Pancreatic Ca with mets to liver (last chemo March)/ HTN /DM to ED c/o SOB x 3 days. + nausea and vomiting/ + abd. pain. No fever / chills /diarrhea/cough. Pt recently in hospital for sepsis(?infected portacath) . Received lasix and zofran in ED. Present on Admission - Present on Admission Any Indicators Present on Admission: No Review of Systems - Review of Systems Systems not reviewed;Unavailable: Unstable Vital Signs, Respiratory Distress - Constitutional Constitutional: Anorexia - EENT Eyes: As Per HPI Ears: As Per HPI Nose/Mouth/Throat: As Per HPI - Cardiovascular Cardiovascular: As Per HPI - Respiratory Respiratory: Cough, Dyspnea on Exertion, Wheezing - Gastrointestinal Gastrointestinal: As Per HPI - Genitourinary Genitourinary: As Per HPI - Musculoskeletal Musculoskeletal: Limited Range of Motion, Muscle Cramps, Muscle Weakness - Integumentary Integumentary: As Per HPI - Neurological Neurological: As Per HPI - Psychiatric Psychiatric: As Per HPI - Endocrine Endocrine: As Per HPI - Hematologic/Lymphatic Hematologic: As Per HPI Past Patient History - Infectious Disease Hx of Infectious Diseases: None - Past Medical History & Family History Past Medical History?: Yes - Past Social History Smoking Status: Never Smoked - CARDIAC Hx Hypertension: Yes - PULMONARY Hx Respiratory Disorders: No - NEUROLOGICAL Hx Neurological Disorder: No Hx Paralysis: No - HEENT Other/Comment: eyeglasses for reading - RENAL Hx Chronic Kidney Disease: No - ENDOCRINE/METABOLIC Hx Diabetes Mellitus Type 2: Yes - HEMATOLOGICAL/ONCOLOGICAL Hx Blood Disorders: Yes Hx Cancer: Yes (Pancreatic, liver) Hx Chemotherapy: Yes (twice a month) Other/Comment: Pancreas Malignacy. - INTEGUMENTARY Hx Dermatological Problems: No - MUSCULOSKELETAL/RHEUMATOLOGICAL Hx Musculoskeletal Disorders: No Hx Falls: No - GASTROINTESTINAL Hx Gastrointestinal Disorders: Yes Other/Comment: Pacreatic CA - GENITOURINARY/GYNECOLOGICAL Hx Genitourinary Disorders: No - PSYCHIATRIC Hx Substance Use: No - SURGICAL HISTORY Hx Cholecystectomy: Yes (.) Other/Comment: Rt. Sub. Portal Cath Removed March 2017. - ANESTHESIA Hx Anesthesia: Yes Hx Anesthesia Reactions: No Hx Malignant Hyperthermia: No Has any member of the family had a problem w/ anesthesia?: No Meds Allergies/Adverse Reactions: Allergies Allergy/AdvReac Type Severity Reaction Status Date / Time No Known Allergies Allergy Verified 05/19/17 22:08 Physical Exam - Constitutional Appears: In Acute Distress - Head Exam Head Exam: ATRAUMATIC, NORMAL INSPECTION, NORMOCEPHALIC - Eye Exam Eye Exam: EOMI, Normal appearance, PERRL Pupil Exam: NORMAL ACCOMODATION, PERRL - ENT Exam ENT Exam: Mucous Membranes Moist, Normal Exam - Neck Exam Neck exam: Positive for: Normal Inspection - Respiratory Exam Respiratory Exam: Decreased Breath Sounds, Wheezes - Cardiovascular Exam Cardiovascular Exam: Tachycardia - GI/Abdominal Exam GI & Abdominal Exam: Distended, Firm. absent: Tenderness - Rectal Exam Rectal Exam: NORMAL INSPECTION - Exam Exam: Circumcision, NORMAL INSPECTION External exam: NORMAL EXTERNAL EXAM Speculum exam: NORMAL SPECULUM EXAM Bimanual exam: NORMAL BIMANUAL EXAM - Extremities Exam Extremities exam: Positive for: normal inspection - Back Exam Back exam: NORMAL INSPECTION - Neurological Exam Neurological exam: Alert, CN II-XII Intact, Normal Gait, Oriented x3, Reflexes Normal - Psychiatric Exam Psychiatric exam: Anxious - Skin Skin Exam: Dry, Intact, Normal Color, Warm Results - Vital Signs Recent Vital Signs: Last Vital Signs Temp 98.2 F 05/21/17 16:00 Pulse 120 H 05/21/17 16:00 Resp 22 05/21/17 16:00 BP 98/64 L 05/21/17 16:00 Pulse Ox 92 L 05/21/17 16:00 - Labs Result Diagrams: 05/21/17 07:37 05/21/17 07:37 Labs: Laboratory Results - last 24 hr 05/20/17 05/20/17 05/21/17 16:57 21:22 06:38 WBC RBC Hgb Hct MCV MCH MCHC RDW Plt Count MPV Neut % (Auto) Lymph % (Auto) Saunders % (Auto) Eos % (Auto) Baso % (Auto) Neut # Lymph # Saunders # Eos # Baso # Neutrophils % (Manual) Band Neutrophils % Lymphocytes % (Manual) Monocytes % (Manual) Platelet Estimate Polychromasia Hypochromasia (manual) Anisocytosis (manual) Macrocytosis (manual) Sodium 125 L Potassium 5.5 H Chloride 91 L Carbon Dioxide 20 L Anion Gap 20 BUN 25 H Creatinine 0.9 Est GFR ( Amer) > 60 Est GFR (Non-Af Amer) > 60 POC Glucose (mg/dL) 124 H 175 H Random Glucose 100 Lactic Acid Calcium 7.2 L Total Bilirubin AST ALT Alkaline Phosphatase Total Protein Albumin Globulin Albumin/Globulin Ratio 05/21/17 05/21/17 05/21/17 07:37 07:37 07:37 WBC 23.9 H RBC 3.49 L Hgb 10.4 L Hct 32.3 L MCV 92.7 MCH 29.8 MCHC 32.2 L RDW 18.9 H Plt Count 335 MPV 7.6 Neut % (Auto) 90.4 H Lymph % (Auto) 2.6 L Saunders % (Auto) 6.7 Eos % (Auto) 0.0 Baso % (Auto) 0.3 Neut # 21.6 H Lymph # 0.6 L Saunders # 1.6 H Eos # 0.0 Baso # 0.1 Neutrophils % (Manual) 87 H Band Neutrophils % 4 H Lymphocytes % (Manual) 2 L Monocytes % (Manual) 7 Platelet Estimate Normal Polychromasia Slight Hypochromasia (manual) Slight Anisocytosis (manual) Slight Macrocytosis (manual) Slight Sodium 127 L Potassium 5.4 H Chloride 90 L Carbon Dioxide 21 L Anion Gap 21 H BUN 30 H Creatinine 1.1 Est GFR ( Amer) > 60 Est GFR (Non-Af Amer) > 60 POC Glucose (mg/dL) Random Glucose 134 H Lactic Acid 3.6 H Calcium 7.2 L Total Bilirubin 1.8 H AST 41 ALT 25 Alkaline Phosphatase 159 H Total Protein 5.6 L Albumin 2.3 L Globulin 3.3 Albumin/Globulin Ratio 0.7 L 05/21/17 05/21/17 11:08 12:28 WBC RBC Hgb Hct MCV MCH MCHC RDW Plt Count MPV Neut % (Auto) Lymph % (Auto) Saunders % (Auto) Eos % (Auto) Baso % (Auto) Neut # Lymph # Saunders # Eos # Baso # Neutrophils % (Manual) Band Neutrophils % Lymphocytes % (Manual) Monocytes % (Manual) Platelet Estimate Polychromasia Hypochromasia (manual) Anisocytosis (manual) Macrocytosis (manual) Sodium Potassium Chloride Carbon Dioxide Anion Gap BUN Creatinine Est GFR ( Amer) Est GFR (Non-Af Amer) POC Glucose (mg/dL) 184 H Random Glucose Lactic Acid 2.5 H Calcium Total Bilirubin AST ALT Alkaline Phosphatase Total Protein Albumin Globulin Albumin/Globulin Ratio Assessment & Plan (1) Anemia Status: Acute (2) Ascites Status: Acute (3) Dyspnea Status: Acute (4) Failure to thrive Status: Acute (5) Hyperkalemia Status: Acute (6) Metastasis from pancreatic cancer Status: Acute (7) PNA (pneumonia) Status: Acute (8) Pancreatic cancer Status: Acute (9) Sepsis Status: Acute (10) Severe sepsis Status: Acute (11) Small bowel obstruction, partial Status: Acute (12) Coagulopathy Status: Acute (13) Direct hyperbilirubinemia Status: Acute (14) Epigastric abdominal pain Status: Acute (15) Fever Status: Acute (16) Fever Status: Acute (17) GI bleeding Status: Acute (18) Gastritis Status: Acute (19) Gram negative septic shock Status: Acute (20) HLD (hyperlipidemia) Status: Acute (21) Hyperglycemia Status: Acute (22) Jaundice of recent onset Status: Acute (23) Leukocytosis Status: Acute (24) Pancreatic mass Status: Acute (25) Pancytopenia Status: Acute (26) Paresthesia of both feet Status: Acute (27) Prophylactic measure Status: Acute (28) Sepsis Status: Acute (29) Thrombocytopenia Status: Acute (30) Transient hypotension Status: Acute (31) UTI (urinary tract infection) Status: Acute (32) Unspecified jaundice Status: Acute (33) Diabetes mellitus Status: Chronic (34) HTN (hypertension) Status: Chronic - Assessment and Plan (Free Text) Assessment: A/P Severe Sepsis Metastatic Pancreatic Ca R/O PNA R/o Pl Eff Atelectasis Hyperkalemia Hx HTN DM Admit to telemetry cont broad Ab IV fluid /f/u lactate Rx kayexalate repeat BMP analgesia prn Pall Care eval Incentive Spirometry DVT prophylaxis d/w ED staff pt is dnr and dni
--- NOTE | 2017-05-22 02:35 | CP.PCM.PN ---
<Donavan Armstrong - Last Filed: 05/22/17 02:31> Subjective - Date & Time of Evaluation Date of Evaluation: 05/22/17 Time of Evaluation: 00:45 - Subjective Subjective: House Doc Note, Donavan Patti - PGY2 Patient seen due to c/o hypoxemia at 85% on 100% non-rebreather mask. Patient showing signs of mild respiratory distress, tachypnia, and accessory muscle use. Ordered for respiratory therapy application of BiPAP 12I / 6E / 100% FiO2. Pulse ox stabilized at 95%. Objective - Vital Signs/Intake and Output Vital Signs (last 24 hours): Temp Pulse Resp BP Pulse Ox 97.4 F L 123 H 22 94/63 L 100 05/21/17 23:40 05/22/17 01:10 05/21/17 23:40 05/21/17 23:40 05/22/17 01:29 Intake and Output: 05/21/17 05/22/17 18:59 06:59 Intake Total 700 550 Output Total 200 100 Balance 500 450 - Medications Medications: Current Medications Enoxaparin Sodium (Lovenox) 40 mg SC DAILY [facility] Last Admin: 05/21/17 12:06 Dose: 40 mg Fentanyl (Duragesic) 1 patch TD Q72H [facility] Last Admin: 05/20/17 17:30 Dose: 1 patch Hydromorphone HCl (Dilaudid) 0.5 mg IVP Q6H PRN PRN Reason: Pain, severe (8-10) Last Admin: 05/21/17 04:01 Dose: 0.5 mg Sodium Chloride (Sodium Chloride 0.9%) 1,000 mls @ 50 mls/hr IV .Q20H [facility] Last Admin: 05/21/17 06:16 Dose: 50 mls/hr Vancomycin/Sodium Chloride (Vancocin) 1 gm in 200 mls @ 133 mls/hr IVPB Q24H [facility] Stop: 05/25/17 16:01 Last Admin: 05/21/17 16:15 Dose: 133 mls/hr Amikacin Sulfate 1,000 mg/ (Sodium Chloride) 104 mls @ 100 mls/hr IV ONCE [facility] Imipenem/Cilastatin Sodium 500 (mg/ Sodium Chloride) 100 mls @ 100 mls/hr IVPB Q6H [facility] Last Admin: 05/22/17 02:13 Dose: 100 mls/hr - Labs Labs: 05/21/17 07:37 05/21/17 07:37 PT 20.5 SECONDS (9.7-12.2) H 05/19/17 22:58 INR 1.8 05/19/17 22:58 APTT 36 SECONDS (21-34) H 05/19/17 22:58 - Additional Findings Additional findings: - Constitutional Appears: In Acute Distress - Head Exam Head Exam: ATRAUMATIC, NORMAL INSPECTION, NORMOCEPHALIC - Eye Exam Eye Exam: EOMI, Normal appearance, PERRL Pupil Exam: NORMAL ACCOMODATION, PERRL - ENT Exam ENT Exam: Mucous Membranes Moist, Normal Exam - Neck Exam Neck exam: Positive for: Normal Inspection - Respiratory Exam Respiratory Exam: Decreased Breath Sounds, Wheezes - Cardiovascular Exam Cardiovascular Exam: Tachycardia - GI/Abdominal Exam GI & Abdominal Exam: Distended, Firm. absent: Tenderness - Extremities Exam Extremities exam: Positive for: normal inspection -Cool extremities throughout - Back Exam Back exam: NORMAL INSPECTION - Neurological Exam Neurological exam: Alert, CN II-XII Intact, Normal Gait, Oriented x3, Reflexes Normal - Psychiatric Exam Psychiatric exam: Anxious - Skin Skin Exam: Dry, Intact, Normal Color, Cool <Keswani,González P - Last Filed: 05/22/17 08:13> Objective - Vital Signs/Intake and Output Vital Signs (last 24 hours): Temp Pulse Resp BP Pulse Ox 97.4 F L 125 H 28 H 123/71 100 05/21/17 23:40 05/22/17 03:50 05/22/17 03:45 05/22/17 03:45 05/22/17 03:45 Intake and Output: 05/22/17 05/22/17 06:59 18:59 Intake Total 550 Output Total 500 Balance 50 - Medications Medications: Current Medications Enoxaparin Sodium (Lovenox) 40 mg SC DAILY [facility] Last Admin: 05/21/17 12:06 Dose: 40 mg Fentanyl (Duragesic) 1 patch TD Q72H [facility] Last Admin: 05/20/17 17:30 Dose: 1 patch Sodium Chloride (Sodium Chloride 0.9%) 1,000 mls @ 50 mls/hr IV .Q20H [facility] Last Admin: 05/21/17 06:16 Dose: 50 mls/hr Vancomycin/Sodium Chloride (Vancocin) 1 gm in 200 mls @ 133 mls/hr IVPB Q24H [facility] Stop: 05/25/17 16:01 Last Admin: 05/21/17 16:15 Dose: 133 mls/hr Amikacin Sulfate 1,000 mg/ (Sodium Chloride) 104 mls @ 100 mls/hr IV ONCE [facility] Imipenem/Cilastatin Sodium 500 (mg/ Sodium Chloride) 100 mls @ 100 mls/hr IVPB Q6H [facility] Last Admin: 05/22/17 02:13 Dose: 100 mls/hr Lorazepam (Ativan) 0.5 mg IVP Q2H PRN PRN Reason: Anxiety Morphine Sulfate (Morphine) 2 mg IVP Q2H PRN PRN Reason: Pain, moderate (4-7) - Labs Labs: 05/22/17 07:06 05/22/17 07:06 PT 20.5 SECONDS (9.7-12.2) H 05/19/17 22:58 INR 1.8 05/19/17 22:58 APTT 36 SECONDS (21-34) H 05/19/17 22:58 Attending/Attestation - Attestation I have personally seen and examined this patient.: Yes I have fully participated in the care of the patient.: Yes I have reviewed all pertinent clinical information, including history, physical exam and plan: Yes Notes (Text): 05/22/17 08:01 Patient has anasarca, s/p ascitic fluid removal yesterday, pancreatic cancer with mets, evaluated for sob, patient has been on NRB since post procedure yesterday, hypoxic, RR in 30's, hypotensive, ABG showed co2 retention, and hypoxia on NRB, patient is DNR/DNI. CXR showed diffuse b/l insterstitial fluid, atelectesis b/l more on left side. Chest b/l reduced breath sounds PA distended Anasarca 4+ edema whole body BP 80/40 Discussed with , that patient has advanced cancer which currently could not be treated and made his condition worse, and would not improve unless aggressive methods of being on vent/pressors, which would still not treat his cancer. didn't wanted aggressive methods, understood pts condition wood get worse and would soon, understood and requested meds to make him comfortable. signed paper for comfort care, prn morphine, and prn iv ativan ordered. Primary team will be notified. Conversation was made in [place] patient's nurse being the vendette.
[2017-05-22 06:14] LABS: ABG ALLEN TEST POS; DRAW SITE RR
[2017-05-22 07:22] LABS: BASO % 0.2 % (0.0-2.0); HEMATOCRIT 30.5 % (35.0-51.0); LYMPH # 0.4 K/uL (1.0-4.3); LYMPH % 1.9 % (20.0-40.0); MEAN CELL VOLUME 93.4 fL (80.0-94.0); MEAN CORPUSCULAR HEMOGLOBIN 29.1 pg (27.0-31.0); MEAN CORPUSCULAR HGB CONC 31.2 g/dL (33.0-37.0); MEAN PLATELET VOLUME 7.7 fL (7.2-11.7); MONO # 0.8 K/uL (0.0-0.8); MONO % 3.6 % (0.0-10.0); PLATELET COUNT 243 K/uL (130-400); RED CELL DISTRIBUTION WIDTH 19.3 % (11.5-14.5); WHITE BLOOD COUNT 21.5 K/uL (4.8-10.8)
[2017-05-22 07:27] LABS: CHLORIDE 93 mmol/L (98-107); POTASSIUM 4.8 mmol/L (3.6-5.2); SODIUM 129 mmol/L (132-148)
[2017-05-22 07:29] LABS: AST/SGOT 36 U/L (17-59); BILIRUBIN,TOTAL 1.3 mg/dL (0.2-1.3); CARBON DIOXIDE 21 mmol/L (22-30); GFR AFRICAN-AMERICAN > 60
[2017-05-22 07:30] LABS: ALB/GLOB RATIO 0.7 (1.0-2.1); ALKALINE PHOSPHATASE 130 U/L (38-126); ALT/SGPT 29 U/L (21-72); BLOOD UREA NITROGEN 36 mg/dL (9-20); CALCIUM 7.1 mg/dl (8.6-10.4); GLUCOSE,RANDOM 199 mg/dL (75-110); PHOSPHOROUS 5.2 mg/dL (2.5-4.5); TOTAL PROTEIN 4.9 g/dL (6.3-8.3)
[2017-05-22 07:31] LABS: MAGNESIUM 1.9 mg/dL (1.6-2.3)
--- NOTE | 2017-05-22 07:53 | RAD ---
Chest x-ray single frontal view History: Shortness of breath. Comparison: 05/19/2017 Findings: Rightward tracheal deviation. Bilateral hilar prominence. Worsening dense confluent bilateral airspace opacities and opacification throughout both lungs with associated moderate right and trace left pleural effusions. Cardiomegaly. Calcification at the aortic knob. Degenerative changes in the spine and shoulders with deformity of the distal right clavicle. Internal biliary stent in place with surgical clips in the right upper abdomen. Impression: Rightward tracheal deviation. Bilateral hilar prominence. Worsening dense confluent bilateral airspace opacities and opacification throughout both lungs with associated moderate right and trace left pleural effusions. Cardiomegaly. Calcification at the aortic knob. Degenerative changes in the spine and shoulders with deformity of the distal right clavicle. Internal biliary stent in place with surgical clips in the right upper abdomen.
[2017-05-22 07:54] LABS: NEUTROPHIL 77 % (50-75); TOTAL CELLS COUNTED 100
[2017-05-22] MEDS: Enoxaparin 40 mg Syringe SC SCH (09:57)
--- NOTE | 2017-05-22 13:33 | CP.PCM.PN ---
Subjective - Date & Time of Evaluation Date of Evaluation: 05/21/17 Time of Evaluation: 10:00 - Subjective Subjective: afebrile, Weak, ON VENTIMASK C/O abdominal pain and generalized BLOOD CULTURES +VE GNR 2:2 SETS id is on the case Objective - Vital Signs/Intake and Output Vital Signs (last 24 hours): Temp Pulse Resp BP Pulse Ox 97.6 F 120 H 32 H 89/59 L 98 05/22/17 07:15 05/22/17 07:15 05/22/17 07:15 05/22/17 07:15 05/22/17 07:15 Intake and Output: 05/22/17 05/22/17 06:59 18:59 Intake Total 900 Output Total 500 Balance 400 - Medications Medications: Current Medications Enoxaparin Sodium (Lovenox) 40 mg SC DAILY [facility] Last Admin: 05/22/17 09:57 Dose: 40 mg Fentanyl (Duragesic) 1 patch TD Q72H [facility] Last Admin: 05/20/17 17:30 Dose: 1 patch Sodium Chloride (Sodium Chloride 0.9%) 1,000 mls @ 50 mls/hr IV .Q20H [facility] Last Admin: 05/21/17 06:16 Dose: 50 mls/hr Vancomycin/Sodium Chloride (Vancocin) 1 gm in 200 mls @ 133 mls/hr IVPB Q24H [facility] Stop: 05/25/17 16:01 Last Admin: 05/21/17 16:15 Dose: 133 mls/hr Amikacin Sulfate 1,000 mg/ (Sodium Chloride) 104 mls @ 100 mls/hr IV ONCE [facility] Imipenem/Cilastatin Sodium 500 (mg/ Sodium Chloride) 100 mls @ 100 mls/hr IVPB Q6H [facility] Last Admin: 05/22/17 08:22 Dose: 100 mls/hr Lorazepam (Ativan) 0.5 mg IVP Q2H PRN PRN Reason: Anxiety Morphine Sulfate (Morphine) 2 mg IVP Q2H PRN PRN Reason: Pain, moderate (4-7) Last Admin: 05/22/17 11:31 Dose: 2 mg - Labs Labs: 05/22/17 07:06 05/22/17 07:06 PT 20.5 SECONDS (9.7-12.2) H 05/19/17 22:58 INR 1.8 05/19/17 22:58 APTT 36 SECONDS (21-34) H 05/19/17 22:58 - Constitutional Appears: In Acute Distress, Older Than Stated Age, Agitated - Head Exam Head Exam: ATRAUMATIC, NORMAL INSPECTION, NORMOCEPHALIC - Eye Exam Eye Exam: EOMI, Normal appearance, PERRL Pupil Exam: NORMAL ACCOMODATION, PERRL - ENT Exam ENT Exam: Mucous Membranes Moist, Normal Exam - Neck Exam Neck Exam: Full ROM, Normal Inspection. absent: Lymphadenopathy - Respiratory Exam Respiratory Exam: Decreased Breath Sounds, Prolonged Expiratory Phase - Cardiovascular Exam Cardiovascular Exam: REGULAR RHYTHM, +S1, +S2. absent: Murmur - GI/Abdominal Exam GI & Abdominal Exam: Distended, Soft. absent: Tenderness - Rectal Exam Rectal Exam: NORMAL INSPECTION - Exam Exam: Circumcision, NORMAL INSPECTION External exam: NORMAL EXTERNAL EXAM Speculum exam: NORMAL SPECULUM EXAM Bimanual exam: NORMAL BIMANUAL EXAM - Extremities Exam Extremities Exam: Full ROM, Normal Capillary Refill, Pedal Edema. absent: Joint Swelling - Back Exam Back Exam: NORMAL INSPECTION - Neurological Exam Neurological Exam: Alert, Awake, CN II-XII Intact, Normal Gait, Oriented x3 - Psychiatric Exam Psychiatric exam: Depressed, Flat Affect, Normal Mood - Skin Skin Exam: Dry, Intact, Normal Color, Warm - Additional Findings Additional findings: Assessment and Plan (1) Severe sepsis Assessment & Plan: blood cultures +ve GNR2:2 SETS. iv AMIKACIN 1000 MG iv PIGGYBACK STAT DOSE..05/21 *iv pRIMAXIN 500 MG EVERY 8 HOURLY FOR BROADER GRAM-NEGATIVE COVERAGE.05/21 DC IV Zosyn 3.375 q 8 hourly .05/20/17. CONTINUE IV vancomycin 1 g every 24 hourly 05/20/17 FOR GRAM-POSITIVE COVERAGE. Follow-up blood cultures to adjust antibiotics.. Status: Acute (2) PNA (pneumonia) Assessment & Plan: PATIENT ON AN iv ANTIBIOTICS. pULMONARY TOILET AND BRONCHODILATORS. Status: Acute (3) Small bowel obstruction, partial Status: Acute (4) Ascites Assessment & Plan: PATIENT FOR PARACENTESIS. PER PMD Status: Acute (5) Metastasis from pancreatic cancer Status: Acute (6) Diabetes mellitus Status: Chronic (7) Failure to thrive Assessment & Plan: CONTINUE SUPPORTIVE CARE. PATIENT DNR/DNI PER FAMILY REQUEST Status: Acu Assessment and Plan (1) Anemia Status: Acute (2) Ascites Status: Acute (3) Dyspnea Status: Acute (4) Failure to thrive Status: Acute (5) Hyperkalemia Status: Acute (6) Metastasis from pancreatic cancer Status: Acute (7) PNA (pneumonia) Status: Acute (8) Pancreatic cancer Status: Acute (9) Sepsis Status: Acute (10) Severe sepsis Status: Acute (11) Small bowel obstruction, partial Status: Acute (12) Coagulopathy Status: Acute (13) Direct hyperbilirubinemia Status: Acute (14) Epigastric abdominal pain Status: Acute (15) Fever Status: Acute (16) Fever Status: Acute (17) GI bleeding Status: Acute (18) Gastritis Status: Acute (19) Gram negative septic shock Status: Acute (20) HLD (hyperlipidemia) Status: Acute (21) Hyperglycemia Status: Acute (22) Jaundice of recent onset Status: Acute (23) Leukocytosis Status: Acute (24) Pancreatic mass Status: Acute (25) Pancytopenia Status: Acute (26) Paresthesia of both feet Status: Acute (27) Prophylactic measure Status: Acute (28) Sepsis Status: Acute (29) Thrombocytopenia Status: Acute (30) Transient hypotension Status: Acute (31) UTI (urinary tract infection) Status: Acute (32) Unspecified jaundice Status: Acute (33) Diabetes mellitus Status: Chronic (34) HTN (hypertension) Status: Chronic
--- NOTE | 2017-05-22 17:37 | CP.PCM.PRO ---
Pronouncement of Note - Clinical Findings Physical Exam: No Response Verbal/Painful Stimuli, Absent Peripheral Pulses{ Carotid & Femoral}, Absent Heart & Breath Sounds, No Pupillary Light Reflex, Pupils Fixed & Dilated, Absence of Vital Signs - Pronouncement Time Time of Pronouncement of : 17:06 Additional Comments: I was notified by RN that patient was having agonal breathing. Upon arrival the patient was pulseless, with asystole on quality assurance monitor. Patient was examined. Family members ( and niece) were present at bedtime and made aware. - Notifications Pronouncement Notifications: Family Notified Machine Steak Tenderizer Notified: No - Autopsy Autopsy Requested: No
--- NOTE | 2017-05-22 22:35 | CP.PCM.DIS ---
Provider - Provider Date of Admission: 05/20/17 00:46 Attending physician: Isidoro Collier MD Time Spent in preparation of Discharge (in minutes): 0 Hospital Course - Lab Results Lab Results: Most Recent Lab Values WBC 21.5 K/uL (4.8-10.8) H 05/22/17 07:06 RBC 3.27 Mil/uL (4.40-5.90) L 05/22/17 07:06 Hgb 9.5 g/dL (12.0-18.0) L 05/22/17 07:06 Hct 30.5 % (35.0-51.0) L 05/22/17 07:06 MCV 93.4 fL (80.0-94.0) 05/22/17 07:06 MCH 29.1 pg (27.0-31.0) 05/22/17 07:06 MCHC 31.2 g/dL (33.0-37.0) L 05/22/17 07:06 RDW 19.3 % (11.5-14.5) H 05/22/17 07:06 Plt Count 243 K/uL (130-400) 05/22/17 07:06 MPV 7.7 fL (7.2-11.7) 05/22/17 07:06 Neut % (Auto) 94.3 % (50.0-75.0) H 05/22/17 07:06 Lymph % (Auto) 1.9 % (20.0-40.0) L 05/22/17 07:06 Lamar % (Auto) 3.6 % (0.0-10.0) 05/22/17 07:06 Eos % (Auto) 0.0 % (0.0-4.0) 05/22/17 07:06 Baso % (Auto) 0.2 % (0.0-2.0) 05/22/17 07:06 Neut # 20.3 K/uL (1.8-7.0) H 05/22/17 07:06 Lymph # 0.4 K/uL (1.0-4.3) L 05/22/17 07:06 Lamar # 0.8 K/uL (0.0-0.8) 05/22/17 07:06 Eos # 0.0 K/uL (0.0-0.7) 05/22/17 07:06 Baso # 0.0 K/uL (0.0-0.2) 05/22/17 07:06 Neutrophils % (Manual) 77 % (50-75) H 05/22/17 07:06 Band Neutrophils % 16 % (0-2) H* 05/22/17 07:06 Lymphocytes % (Manual) 2 % (20-40) L 05/22/17 07:06 Monocytes % (Manual) 5 % (0-10) 05/22/17 07:06 Platelet Estimate Normal (NORMAL) 05/22/17 07:06 Polychromasia Slight 05/21/17 07:37 Hypochromasia (manual) Slight 05/22/17 07:06 Poikilocytosis (manual Slight 05/22/17 07:06 Anisocytosis (manual) Moderate 05/22/17 07:06 Macrocytosis (manual) Slight 05/21/17 07:37 PT 20.5 SECONDS (9.7-12.2) H 05/19/17 22:58 INR 1.8 05/19/17 22:58 APTT 36 SECONDS (21-34) H 05/19/17 22:58 Puncture Site Rr 05/22/17 06:10 pCO2 51 mm/Hg (35-45) H 05/22/17 06:10 pO2 49 mm/Hg (80-100) L 05/22/17 06:10 HCO3 19.3 mmol/L (21-28) L 05/22/17 06:10 ABG pH 7.23 (7.35-7.45) L 05/22/17 06:10 ABG Total CO2 23.0 mmol/L (22-28) 05/22/17 06:10 ABG O2 Saturation 82.4 % (95-98) L 05/22/17 06:10 ABG Base Excess -6.5 mmol/L (-2.0-3.0) L 05/22/17 06:10 Pio Test Pos 05/22/17 06:10 ABG Potassium 4.7 mmol/L (3.6-5.2) 05/22/17 06:10 VBG pH 7.42 (7.32-7.43) 05/19/17 23:33 VBG pCO2 42 mmHg (40-60) 05/19/17 23:33 VBG HCO3 24.8 mmol/L 05/19/17 23:33 VBG Total CO2 28.5 mmol/L (22-28) H 05/19/17 23:33 VBG O2 Sat (Calc) 25.8 % (40-65) L 05/19/17 23:33 VBG Base Excess 2.4 mmol/L (0.0-2.0) H 05/19/17 23:33 VBG Potassium 6.1 mmol/L (3.6-5.2) H 05/19/17 23:33 A-a O2 Difference 600.0 mm/Hg 05/22/17 06:10 Respiratory Index 12.2 05/22/17 06:10 Sodium 130.0 mmol/l (132-148) L 05/22/17 06:10 Chloride 99.0 mmol/L (98-107) 05/22/17 06:10 Glucose 212 mg/dl (75-110) H 05/22/17 06:10 Lactate 1.9 mmol/L (0.7-2.1) 05/22/17 06:10 FiO2 100.0 % 05/22/17 06:10 Crit Value Called To Dr. cevallos 05/19/17 23:33 Crit Value Called By Rand detasseler 05/19/17 23:33 Crit Value Read Back Y 05/19/17 23:33 Blood Gas Notified Time 2822 05/19/17 23:33 Sodium 129 mmol/L (132-148) L 05/22/17 07:06 Potassium 4.8 mmol/L (3.6-5.2) 05/22/17 07:06 Chloride 93 mmol/L (98-107) L 05/22/17 07:06 Carbon Dioxide 21 mmol/L (22-30) L 05/22/17 07:06 Anion Gap 20 (10-20) 05/22/17 07:06 BUN 36 mg/dL (9-20) H 05/22/17 07:06 Creatinine 1.1 MG/DL (0.8-1.5) 05/22/17 07:06 Est GFR ( Amer) > 60 05/22/17 07:06 Est GFR (Non-Af Amer) > 60 05/22/17 07:06 POC Glucose (mg/dL) 233 mg/dL (65-110) H 05/22/17 11:23 Random Glucose 199 mg/dL (75-110) H 05/22/17 07:06 Lactic Acid 2.5 mmol/L (0.7-2.1) H 05/21/17 12:28 Calcium 7.1 mg/dl (8.6-10.4) L 05/22/17 07:06 Phosphorus 5.2 mg/dL (2.5-4.5) H 05/22/17 07:06 Magnesium 1.9 mg/dL (1.6-2.3) 05/22/17 07:06 Total Bilirubin 1.3 mg/dL (0.2-1.3) 05/22/17 07:06 AST 36 U/L (17-59) 05/22/17 07:06 ALT 29 U/L (21-72) 05/22/17 07:06 Alkaline Phosphatase 130 U/L (38-126) H 05/22/17 07:06 Ammonia 26 umol/L (9-33) 05/19/17 22:58 NT-Pro-B Natriuret Pep 1080 pg/mL (0-900) H 05/19/17 23:08 Total Protein 4.9 g/dL (6.3-8.3) L 05/22/17 07:06 Albumin 2.0 g/dL (3.5-5.0) L 05/22/17 07:06 Globulin 2.8 gm/dL (2.2-3.9) 05/22/17 07:06 Albumin/Globulin Ratio 0.7 (1.0-2.1) L 05/22/17 07:06 Lipase < 10 U/L (23-300) L 05/19/17 22:58 Arterial Blood Potassium 4.7 mmol/L (3.6-5.2) 05/22/17 06:10 Venous Blood Potassium 6.1 mmol/L (3.6-5.2) H 05/19/17 23:33 Urine Color Charlene (YELLOW) 05/20/17 01:02 Urine Clarity Clear (Clear) 05/20/17 01:02 Urine pH 6.0 (5.0-8.0) 05/20/17 01:02 Ur Specific [place] 1.017 (1.003-1.030) 05/20/17 01:02 Urine Protein Negative mg/dL (NEGATIVE) 05/20/17 01:02 Urine Glucose (UA) Normal mg/dL (Normal) 05/20/17 01:02 Urine Ketones Negative mg/dL (NEGATIVE) 05/20/17 01:02 Urine Blood Negative (NEGATIVE) 05/20/17 01:02 Urine Nitrate Negative (NEGATIVE) 05/20/17 01:02 Urine Bilirubin Negative (NEGATIVE) 05/20/17 01:02 Urine Urobilinogen 4.0 mg/dL (0.2-1.0) 05/20/17 01:02 Ur Leukocyte Esterase Neg Radha/uL (Negative) 05/20/17 01:02 Urine WBC (Auto) 1 /hpf (0-5) 05/20/17 01:02 Urine RBC (Auto) < 1 /hpf (0-3) 05/20/17 01:02 Ur Squamous Epith Cells < 1 /hpf (0-5) 05/20/17 01:02 Hyaline Casts 3-5 /lpf (0-2) H 05/20/17 01:02 Broad Casts 5 /lpf (0-1) 05/20/17 01:02 - Hospital Course Hospital Course: Pt today 57 yo male with hx Pancreatic Ca with mets to liver (last chemo March)/ HTN /DM to ED c/o SOB x 3 days. + nausea and vomiting/ + abd. pain. No fever / chills /diarrhea/cough. Pt recently in hospital for sepsis Received lasix and zofran in ED.continued to deteriorate and today Discharge Exam - Head Exam Head Exam: ATRAUMATIC, NORMAL INSPECTION, NORMOCEPHALIC - Eye Exam Pupil Exam: Fixed - GI/Abdominal Exam GI & Abdominal Exam: Normal Bowel Sounds - Rectal Exam Rectal Exam: NORMAL INSPECTION - Exam Exam: Circumcision, NORMAL INSPECTION External exam: NORMAL EXTERNAL EXAM Speculum exam: NORMAL SPECULUM EXAM Bimanual exam: NORMAL BIMANUAL EXAM - Neurological Exam Neurological exam: Alert, CN II-XII Intact, Normal Gait, Oriented x3, Reflexes Normal - Psychiatric Exam Psychiatric exam: Normal Affect, Normal Mood - Skin Skin Exam: Dry, Intact, Normal Color, Warm Discharge Plan - Follow Up Plan Condition: Disposition: HOME/ ROUTINE
[2017-05-23 01:18] VITALS: BP 46/26; PULSE 106; RESP 24; TEMP 97.3; O2SAT 99
--- NOTE | 2017-05-26 13:38 | US ---
Date of Procedure: 05/21/2017 PROCEDURE: Ultrasound-guided paracentesis, CPT 45806 Medications: 7 cc 1% Lidocaine HISTORY: Ascites, abdominal pain TECHNIQUE: Following informed consent , the patient was placed supine on the stretcher and the site was marked. A limited abdominal ultrasound was performed that showed a large amount of intra-abdominal fluid. Procedural time out was called and the Pt's abdomen was marked and prepped and draped in the usual sterile fashion. Ultrasound-guided large volume paracentesis performed. A total of 2.1 liters of aleksandr colored fluid was removed without complication. IMPRESSION: Ultrasound-guided large volume paracentesis.
== END 2017-05-22 17:06 | DRG 584 ==
LOC: C.ER 21:58 → C.6T 05-20 00:46
PROVIDERS: ADMIT Internal Medicine; ATTEND Internal Medicine
PROC: 0W9G3ZZ Drainage of Peritoneal Cavity, Percutaneous Approach (ICD-10-PCS; principal; 2017-05-21)
PROC: BW40ZZZ Ultrasonography of Abdomen (ICD-10-PCS; 2017-05-21)
DX: A41.50 Gram-negative sepsis, unspecified (principal); C25.9 Malignant neoplasm of pancreas, unspecified; C78.7 Secondary malignant neoplasm of liver and intrahepatic bile duct; R65.21 Severe sepsis with septic shock; E87.2 Acidosis; J18.9 Pneumonia, unspecified organism; D61.818 Other pancytopenia; I11.0 Hypertensive heart disease with heart failure; D68.9 Coagulation defect, unspecified; K56.60 Unspecified intestinal obstruction; I50.9 Heart failure, unspecified; E11.65 Type 2 diabetes mellitus with hyperglycemia; E87.5 Hyperkalemia; J98.11 Atelectasis; K92.2 Gastrointestinal hemorrhage, unspecified; N39.0 Urinary tract infection, site not specified; R09.02 Hypoxemia; R18.8 Other ascites; E78.5 Hyperlipidemia, unspecified; G89.3 Neoplasm related pain (acute) (chronic); K29.70 Gastritis, unspecified, without bleeding; R62.7 Adult failure to thrive; Z66 Do not resuscitate; Z51.5 Encounter for palliative care; Z85.07 Personal history of malignant neoplasm of pancreas; Z87.891 Personal history of nicotine dependence; Z90.49 Acquired absence of other specified parts of digestive tract